=== PATIENT | female | born 1955 | race Caucasian/White ===

== ENCOUNTER → 2018-02-03 17:47 | Outpatient (CLI) | payer MEDICARE, SELFPAY | PROVIDERS: Visit Provider Physician Assistant | DX: L03.032 Cellulitis of left toe (principal); L97.509 Non-pressure chronic ulcer of other part of unspecified foot with unspecified severity | CPT/HCPCS: 87070; 87075; 87076; 87077; 87186; 87205 ==

== ENCOUNTER 2018-02-28 09:00 | Outpatient (RCR) | payer MEDICARE, SELFPAY ==
[2018-02-07 11:47] VITALS: BP 132/70; PULSE 80; RESP 18; TEMP 36; BMI 29.3
--- NOTE | 2018-02-07 13:52 | HP.PCM_ITS ---
(1) Overweight (BMI 25.0-29.9) Status: Chronic Current Visit: No Code(s): E66.3 - Overweight (2) Diabetic foot ulcer Status: Chronic Current Visit: Yes Qualifiers: Diabetic foot ulcer location: toe Diabetes mellitus type: type 2 Laterality: left Non-pressure ulcer stage: with fat layer exposed Qualified Code(s): E11.621 - Type 2 diabetes mellitus with foot ulcer; L97.522 - Non- pressure chronic ulcer of other part of left foot with fat layer exposed Code(s): E11.621 - Type 2 diabetes mellitus with foot ulcer; L97.509 - Non- pressure chronic ulcer of other part of unspecified foot with unspecified severity (3) Chronic ulcer of great toe of left foot Status: Chronic Current Visit: Yes Qualifiers: Non-pressure ulcer stage: with fat layer exposed Qualified Code(s): L97.522 - Non-pressure chronic ulcer of other part of left foot with fat layer exposed Code(s): L97.529 - Non-pressure chronic ulcer of other part of left foot with unspecified severity (4) Diabetes Status: Chronic Current Visit: Yes Qualifiers: Diabetes mellitus type: type 2 Code(s): E11.9 - Type 2 diabetes mellitus without complications (5) Hyperlipidemia Status: Chronic Current Visit: No Code(s): E78.5 - Hyperlipidemia, unspecified (6) Hypothyroidism Status: Chronic Current Visit: No Code(s): E03.9 - Hypothyroidism, unspecified (7) History of CVA (cerebrovascular accident) Status: Chronic Current Visit: No Code(s): Z86.73 - Personal history of transient ischemic attack (TIA), and cerebral infarction without residual deficits History of Present Illness Date of Service: 02/07/18 Chief Complaint: Diabetic foot ulceration, Boyce grade 2, left great toe History of Wound: Is a 62-year-old female who presents with recent history of ulceration on the left great toe. The patient states that the ulceration has been present for approximately 2 weeks. The cause of the ulceration is uncertain, though suspected to be due to poorly-fitted shoes. [facility], and cultures were obtained. Patient was started on oral antibiotics, both Keflex 500 mg p.o. 3 times daily and doxycycline 100 mg p.o. twice daily. The cultures subsequently were positive for Streptococcus agalactiae and Streptococcus mitis. The patient was also given a prescription for mupirocin 2% applied topically to the ulceration of the left great toe. She was referred to the [facility] for subsequent management. Patient has a history of lower extremity peripheral neuropathy. She also has a history of varicose veins in her lower extremities. She has no history of lower extremity thrombophlebitis. Past Medical History Past Medical History: Chronic Problems (Last Updated 02/03/18 @ 14:22 by Jojo Ruggiero) Overweight (BMI 25.0-29.9) (Chronic) Diabetic foot ulcer (Chronic) Chronic ulcer of great toe of left foot (Chronic) Diabetes (Chronic) Hyperlipidemia (Chronic) Hypothyroidism (Chronic) History of CVA (cerebrovascular accident) (Chronic) Past Medical History: Patient has a history of cerebrovascular accident in the past, with very little residual deficits. She also suffers from hyperlipidemia and hypothyroidism. Her history is negative for myocardial infarction, congestive heart failure, hypertension, pulmonary disease and renal disease. She has a history of peripheral neuropathy. Surgical History: hysterectomy, - - Patient is undergone left shoulder arthroscopy. She is also undergone fertility surgery in the past. She is a Ab0. Allergies/Adverse Reactions: Allergies Inhaled Anesthetics (Halogen Based) Allergy (Verified 02/07/18 11:25) Unknown morphine Allergy (Verified 02/07/18 11:25) Unknown Home Medications: Ambulatory Orders Medication Instructions Recorded atorvastatin 80 mg tablet 80 mg PO DAILY 90 Days #90 02/03/18 cephalexin 500 mg capsule 500 mg PO TID #20 cap 02/03/18 diclofenac sodium 50 mg 50 mg PO BID 30 Days #60 02/03/18 tablet,delayed release doxycycline hyclate 100 mg capsule 100 mg PO BID #14 cap 02/03/18 ergocalciferol (vitamin D2) 50,000 1 cap PO Q7D 90 Days #12 02/03/18 unit capsule glipizide 10 mg tablet 10 mg PO DAILY 30 Days #30 02/03/18 insulin aspart U-100 100 unit/mL 5 unit SC QDAY 02/03/18 subcutaneous solution levothyroxine 75 mcg tablet 75 mcg PO DAILY 90 Days #114 02/03/18 linagliptin 5 mg tablet 5 mg PO DAILY 90 Days #90 02/03/18 losartan 100 mg tablet 100 mg PO DAILY 90 Days #90 02/03/18 metoprolol succinate ER 25 mg 25 mg PO DAILY 90 Days #90 02/03/18 tablet,extended release 24 hr mupirocin 2 % topical ointment 1 applic TOPICAL BID #15 g 02/03/18 sertraline 25 mg tablet 25 mg PO DAILY 90 Days #90 02/03/18 - Family History Paternal - - Patient's father at the age of 75 with a history of renal failure, heart disease, and diabetes mellitus. Patient's mother at the age of 87, with a history of diabetes mellitus, heart disease, and cerebrovascular accident. Lives: Alone Smoking Status: Never smoker Tobacco Use: Non-smoker Alcohol: None Drugs: None Review of Systems Constitutional: Denies: Chills, Fever, Weight Change Eyes: Denies: Pain, Vision Change HEENT: Denies: Difficulty Hearing, Difficulty Swallowing, Sinus Congestion Cardiovascular: Denies: Chest Pain, Palpitations Respiratory: Denies: Cough, Shortness of Breath Gastrointestinal: Denies: Diarrhea, Nausea, Vomiting Genitourinary: Denies: Dysuria, Hematuria Endocrine: Denies: Heat/ Cold Intolerance, Polydipsia, Polyuria Hematologic/ Lymphatic: Denies: Easy Bruising, Easy Bleeding - Physical Exam Vital Signs Temp Pulse Resp BP 96.8 F L 80 18 132/70 H 02/07/18 11:47 02/07/18 11:47 02/07/18 11:47 02/07/18 11:47 General: Alert, Oriented x3, Cooperative, No apparent distress, Well developed, Well nourished HEENT: Atraumatic, PERRLA, EOMI, Normocephalic Oral: Moist Mucosa, No Gingival or Mucosal Lesions/ Ulcerations Neck: Supple, No JVD, Negative Carotid Bruits, Negative Hepatojugular Reflux, No Nodes, No Nuchal Rigidity, Trachea Midline Lungs: Clear to auscultation, Normal air movement, No rhonchi, No wheeze, No rales Cardiovascular: Regular rate, Regular Rhythm, Normal S1, Normal S2, No murmurs Abdomen: Soft, Non Tender, Non-Distended Extremities: No clubbing, No cyanosis, No edema, No Calf Tenderness, - - Patient is noted to have an ulceration on the plantar aspect of the left great toe. Dimensions are documented elsewhere. There is no sign of infection or cellulitis. The ulceration appears to extend down into the subcutaneous adipose tissue, but does not obviously affect underlying muscle, tendon, or bone. There is a significant amount of callus surrounding the left great toe ulceration. Skin: No rashes Wound Measurements and Assessment - Nurse 1 - General Ulcer Measurement Start: 02/07/18 11:13 Freq: Status: Active Protocol: Activity Type Activity Date Activity User E-Sign Co-Sign Detail Recorded Client Recorded Date Recorded By Document 02/07/18 11:47 [facility] [id number] 02/07/18 11:57 [facility] 02/07/18 11:47 Wound Center Nurse 1 [Ulcer Assessment] #1- LT GR TOE PLANTAR ASPECT -Current Size (cm) - Length 1 -Current Size (cm) - Width 1.4 -Current Size (cm) - Depth 0.1 -Total Square Cm 1.4 -Date of Last Picture (Recall this 02/07/18 field) -Photo Taken Yes -Epithelialization None Present -Tunneling No -Undermining/Tunneling No -Circular Undermining No -Exudate Amt Small (1-33%) -Exudate Type Serosanguineous -Wound Margin Distinct, Outline Attached -Granulation Amt None Present (0 %) -Slough/Fibrin Yes -Necrosis Amt Large (67-100%) -Necrotic Tissue Type Adherent Slough -Structure Exposed N/A -Texture (Salima-wound Skin Appearance) Callus Scarring -Moisture (Salima-wound Skin Appearance Maceration ) -Color (Salima-wound Skin Appearance) Assessed Palor -Temperature (Salima-wound Skin No Abnormality Appearance) (Pt Warm) -Tenderness on Palpation (Salima-wound Yes Skin Appearance) -Ulcer Cleansing Rinsed/ Irrigated with Saline -Foul Odor after Cleansing No -Anesthetic Used 5% Lidocaine Gel [Edema Assessment] -Lower Limb Edema Present Yes -Right Calf (cm) 37 -Right Ankle (cm) 21 -Left Calf (cm) 42 -Left Ankle (cm) 24 - Nurse 2 - General Ulcer CM Notes Start: 02/07/18 11:13 Freq: Status: Active Protocol: Activity Type Activity Date Activity User E-Sign Co-Sign Detail Recorded Client Recorded Date Recorded By Document 02/07/18 12:18 [id number] 02/07/18 12:51 02/07/18 12:18 Wound Center Nurse 2 [Procedure/Treatment] #1- LT GR TOE PLANTAR ASPECT -Time 12:18 -Correct Patient Yes -Correct Side, Site, Position Yes -Correct Procedure Yes -Procedure Performed Yes -Type of Procedure Debridement -Clinical Debridement Subcutaneous -Post Debridement Size (cm) - Length 0.9 -Post Debridement Size (cm) - Width 1.1 -Post Debridement Size (cm) - Depth 0.1 -Total Square Cm 0.99 -Wound/Ulcer Outcome Not Healed -Ulcer Cleansing Rinsed/ Irrigated with Saline -Foul Odor after Cleansing No -Bioengineered Tissue No -Topical Lidocaine (%) 4 -Lidocaine (ml) 5 -Bleeding Controlled with NA -Treatment Response Procedure Tolerated Well [See Physician Procedure note for Specifics] Neurological: Cranial nerves II-XII grossly intact, Neuro grossly intact Psych/Mental Status: Normal Affect, Appropriate, Alert and oriented to time, place, person, mood and affect Debridement Note Post-Debridement Measurements/Treatment WC - Nurse 2 - General Ulcer CM Notes Start: 02/07/18 11:13 Freq: Status: Active Protocol: Activity Type Activity Date Activity User E-Sign Co-Sign Detail Recorded Client Recorded Date Recorded By Document 02/07/18 12:18 JADE [id number] 02/07/18 12:51 JADE 02/07/18 12:18 Wound Center Nurse 2 #1- LT GR TOE PLANTAR ASPECT -Time 12:18 -Correct Patient Yes -Correct Side, Site, Position Yes -Correct Procedure Yes -Procedure Performed Yes -Type of Procedure Debridement -Clinical Debridement Subcutaneous -Post Debridement Size (cm) - Length 0.9 -Post Debridement Size (cm) - Width 1.1 -Post Debridement Size (cm) - Depth 0.1 -Total Square Cm 0.99 -Wound/Ulcer Outcome Not Healed -Ulcer Cleansing Rinsed/ Irrigated with Saline -Foul Odor after Cleansing No -Bioengineered Tissue No -Topical Lidocaine (%) 4 -Lidocaine (ml) 5 -Bleeding Controlled with NA -Treatment Response Procedure Tolerated Well Laterality: Left - Great toe Type of Debridement: Excisional debridement Anesthesia Used: 4% Lidocaine Solution Depth: Down to and including healthy tissue, in the subcutaneous layer Percentage of wound debrided: 100 Instrument Used: 5mm curette Severity: Fat Layer Exposed Amount of bleeding with debridement: Mild Bleeding Controlled with: Compression and gauze Patient tolerated procedure well Assessment/Plan Active Problems (Last Updated 02/03/18 @ 14:22 by Jojo Ruggiero) Diabetic foot ulcer (Chronic) Chronic ulcer of great toe of left foot (Chronic) Diabetes (Chronic) Assessment: This is a 62-year-old diabetic female with peripheral neuropathy who presents with an ulceration of the left great toe. The ulceration is located on the plantar surface. It is surrounded by significant callus. This suggests chronicity back to the left great toe ulceration. It is suspected that this may be caused by poorly?fitted footwear. Plan: Offloading measures have been recommended. The patient has been cautioned against wearing the shoes which she has worn recently. She is to be referred to the [facility] for fitting of diabetic shoes. We are to implement the use of collagenase Santyl topically, which will be applied to the ulceration on a daily basis. The patient is to return in 1 week for reassessment. We are to obtain a battery of diagnostic tests, which will include laboratory studies such as a CBC, comprehensive metabolic profile, serum prealbumin, and hemoglobin A1c. An x-ray of the left great toe will be obtained. A noninvasive lower extremity arterial study will also be obtained to assess the arterial status in the lower extremities. Patient is also been advised to complete the course of oral antibiotics, as previously prescribed by the [facility]. Adequate oral nutrition has been recommended. The patient has been advised to optimize her glycemic control. Patient will return for reevaluation in 1 week. Influenza vaccine was not administered. The patient is not a smoker. She stands 5 feet 6 inches tall. She weighs 182 pounds. Her BMI is 29.4, which places her in an overweight category. Weight loss has been recommended, and collaboration with her primary care physician has been advised.
[2018-02-07 15:55] LABS: Hematocrit 34.7 % (37-47); Mean Corp Hgb Conc 31.7 g/gl (32-36); Mean Corpuscular Hgb 28.8 pg (27.0-32.0); Mean Corpuscular Volume 90.8 fL (81-99); Mean Platelet Vol. 9.4 fl (6.2-12.0); Platelet Count 314 K/mm3 (150-450); RBC Distribution Width CV 13.1 % (11.6-14.6); RBC Distribution Width SD 43.4 fl (35.1-43.9); Red Blood Count 3.82 M/mm3 (4.2-5.4); White Blood Count 6.3 K/mm3 (4.4-11.0)
[2018-02-07 16:00] LABS: Scan Indicated on CBC? Y/N NO
[2018-02-07 16:09] LABS: ALB/GLOB Ratio 0.8 RATIO (0.9-2.4); AST(SGOT) 13 U/L (15-37); Alanine Aminotransfer ALT/SGPT 21 U/L (13-56); Albumin, Serum 3.3 g/dL (3.2-5.0); Alkaline Phosphatase 87 U/L (45-117); Anion Gap 6 (5-15); BUN 16 mg/dL (7-18); BUN/Creat Ratio 24.7 RATIO (10-20); Calcium,Total 9.2 mg/dL (8.5-10.1); Chloride 103 mmol/L (98-107); Creatinine, Serum 0.65 mg/dL (0.55-1.02); EST Glomerular Filtration Rate 98 mL/min (>60); Est Glom Filt Rate - Afr Amer 119 mL/min (>60); Estimated Creatinine Clearance 82.93 ml/min; Globulin 4.1 g/dL (2.2-4.2); Glucose 313 mg/dL (74-106); Potassium 4.1 mmol/L (3.5-5.1); Prealbumin 16.5 mg/dL (20.0-40.0); Protein, Total 7.4 g/dL (6.4-8.2); Sodium Level 139 mmol/L (136-145)
[2018-02-07 16:17] LABS: Hemoglobin A1c 13.1 % (4.2-6.3)
[2018-02-14 09:17] VITALS: BP 143/76; PULSE 87; RESP 18; TEMP 35.9; BMI 29.3
--- NOTE | 2018-02-14 09:58 | PCM.WC.HP ---
(1) Overweight (BMI 25.0-29.9) Status: Chronic Current Visit: No Code(s): E66.3 - Overweight (2) Diabetic foot ulcer Status: Chronic Current Visit: Yes Qualifiers: Diabetic foot ulcer location: toe Diabetes mellitus type: type 2 Laterality: left Non-pressure ulcer stage: with fat layer exposed Qualified Code(s): E11.621 - Type 2 diabetes mellitus with foot ulcer; L97.522 - Non-pressure chronic ulcer of other part of left foot with fat layer exposed Code(s): E11.621 - Type 2 diabetes mellitus with foot ulcer; L97.509 - Non-pressure chronic ulcer of other part of unspecified foot with unspecified severity (3) Chronic ulcer of great toe of left foot Status: Chronic Current Visit: Yes Qualifiers: Non-pressure ulcer stage: with fat layer exposed Qualified Code(s): L97.522 - Non-pressure chronic ulcer of other part of left foot with fat layer exposed Code(s): L97.529 - Non-pressure chronic ulcer of other part of left foot with unspecified severity (4) Diabetes Status: Chronic Current Visit: Yes Qualifiers: Diabetes mellitus type: type 2 Code(s): E11.9 - Type 2 diabetes mellitus without complications (5) Hyperlipidemia Status: Chronic Current Visit: No Code(s): E78.5 - Hyperlipidemia, unspecified (6) Hypothyroidism Status: Chronic Current Visit: No Code(s): E03.9 - Hypothyroidism, unspecified (7) History of CVA (cerebrovascular accident) Status: Chronic Current Visit: No Code(s): Z86.73 - Personal history of transient ischemic attack (TIA), and cerebral infarction without residual deficits History of Present Illness Date of Service: 02/14/18 Chief Complaint: Diabetic foot ulceration, Boyce grade 2, left great toe History of Wound: This is a 62-year-old female who presents with recent history of ulceration on the left great toe. The patient states that the ulceration has been present for approximately 2 weeks. The cause of the ulceration is uncertain, though suspected to be due to poorly-fitted shoes. [facility], and cultures were obtained. Patient was started on oral antibiotics, both Keflex 500 mg p.o. 3 times daily and doxycycline 100 mg p.o. twice daily. The cultures subsequently were positive for Streptococcus agalactiae and Streptococcus mitis. The patient was also given a prescription for mupirocin 2% applied topically to the ulceration of the left great toe. She was referred to the [facility] for subsequent management. Patient has a history of lower extremity peripheral neuropathy. She also has a history of varicose veins in her lower extremities. She has no history of lower extremity thrombophlebitis. Past Medical History Past Medical History: Chronic Problems (Last Updated 02/03/18 @ 14:22 by Jojo Ruggiero) Overweight (BMI 25.0-29.9) (Chronic) Diabetic foot ulcer (Chronic) Chronic ulcer of great toe of left foot (Chronic) Diabetes (Chronic) Hyperlipidemia (Chronic) Hypothyroidism (Chronic) History of CVA (cerebrovascular accident) (Chronic) Surgical History: hysterectomy, - - Patient is undergone left shoulder arthroscopy. She is also undergone fertility surgery in the past. She is a Ab0. Allergies/Adverse Reactions: Allergies Inhaled Anesthetics (Halogen Based) Allergy (Verified 02/07/18 11:25) Unknown morphine Allergy (Verified 02/07/18 11:25) Unknown Home Medications: Ambulatory Orders Medication Instructions Recorded atorvastatin 80 mg tablet 80 mg PO DAILY 90 Days #90 02/03/18 cephalexin 500 mg capsule 500 mg PO TID #20 cap 02/03/18 diclofenac sodium 50 mg 50 mg PO BID 30 Days #60 02/03/18 tablet,delayed release doxycycline hyclate 100 mg capsule 100 mg PO BID #14 cap 02/03/18 ergocalciferol (vitamin D2) 50,000 1 cap PO Q7D 90 Days #12 02/03/18 unit capsule glipizide 10 mg tablet 10 mg PO DAILY 30 Days #30 02/03/18 insulin aspart U-100 100 unit/mL 5 unit SC QDAY 02/03/18 subcutaneous solution levothyroxine 75 mcg tablet 75 mcg PO DAILY 90 Days #114 02/03/18 linagliptin 5 mg tablet 5 mg PO DAILY 90 Days #90 02/03/18 losartan 100 mg tablet 100 mg PO DAILY 90 Days #90 02/03/18 metoprolol succinate ER 25 mg 25 mg PO DAILY 90 Days #90 02/03/18 tablet,extended release 24 hr mupirocin 2 % topical ointment 1 applic TOPICAL BID #15 g 02/03/18 sertraline 25 mg tablet 25 mg PO DAILY 90 Days #90 02/03/18 - Family History Paternal - - Patient's father at the age of 75 with a history of renal failure, heart disease, and diabetes mellitus. Patient's mother at the age of 87, with a history of diabetes mellitus, heart disease, and cerebrovascular accident. Lives: Alone Smoking Status: Never smoker Tobacco Use: Non-smoker Alcohol: None Drugs: None Review of Systems Constitutional: Denies: Chills, Fever, Weight Change Eyes: Denies: Pain, Vision Change HEENT: Denies: Difficulty Hearing, Difficulty Swallowing, Sinus Congestion Cardiovascular: Denies: Chest Pain, Palpitations Respiratory: Denies: Cough, Shortness of Breath Gastrointestinal: Denies: Diarrhea, Nausea, Vomiting Genitourinary: Denies: Dysuria, Hematuria Endocrine: Denies: Heat/ Cold Intolerance, Polydipsia, Polyuria Hematologic/ Lymphatic: Denies: Easy Bruising, Easy Bleeding - Physical Exam Vital Signs Temp Pulse Resp BP 96.6 F L 87 18 143/76 H 02/14/18 09:17 02/14/18 09:17 02/14/18 09:17 02/14/18 09:17 General: Alert, Oriented x3, Cooperative, No apparent distress, Well developed, Well nourished HEENT: Atraumatic, PERRLA, EOMI, Normocephalic Oral: Moist Mucosa Neck: No JVD Lungs: Normal air movement Abdomen: Non-Distended Extremities: No clubbing, No cyanosis, No edema, No Calf Tenderness, - - The ulceration on the left great toe persists. It is located on the plantar surface. It is little changed in size. Dimensions are documented elsewhere. The base of the ulcer is generally pink and healthy in appearance, improved from its initial appearance. The ulceration is surrounded by significant callus. Skin: No rashes Wound Measurements and Assessment WC - Nurse 1 - General Ulcer Measurement Start: 02/07/18 11:13 Freq: Status: Active Protocol: Activity Type Activity Date Activity User E-Sign Co-Sign Detail Recorded Client Recorded Date Recorded By Document 02/14/18 09:17 JF [id number] 02/14/18 09:18 PATRICK 02/14/18 09:17 Wound Center Nurse 1 [Ulcer Assessment] #1- LT GR TOE PLANTAR ASPECT -Combined with other wound No -Current Size (cm) - Length 1.0 -Current Size (cm) - Width 0.8 -Current Size (cm) - Depth 0.3 -Total Square Cm 0.80 -Photo Taken No -Epithelialization Small 1-33% -Tunneling No -Undermining/Tunneling No -Circular Undermining No -Exudate Amt Small (1-33%) -Exudate Type Serosanguineous -Wound Margin Flat & Intact -Granulation Amt None Present (0 %) -Slough/Fibrin Yes -Necrosis Amt Large (67-100%) -Necrotic Tissue Type Adherent Slough -Structure Exposed N/A -Texture (Salima-wound Skin Appearance) Assessed Callus -Moisture (Salima-wound Skin Appearance Assessed ) Dry/Scaly -Temperature (Salima-wound Skin No Abnormality Appearance) (Pt Warm) -Tenderness on Palpation (Salima-wound No Skin Appearance) -Ulcer Cleansing Rinsed/ Irrigated with Saline -Foul Odor after Cleansing No -Anesthetic Used 4% Lidocaine Solution [Edema Assessment] -Lower Limb Edema Present Yes -Left Calf (cm) 44.3 -Left Ankle (cm) 23.6 Neurological: Cranial nerves II-XII grossly intact, Neuro grossly intact Psych/Mental Status: Normal Affect, Appropriate, Alert and oriented to time, place, person, mood and affect Debridement Note Post-Debridement Measurements/Treatment WC - Nurse 2 - General Ulcer CM Notes Start: 02/07/18 11:13 Freq: Status: Active Protocol: Activity Type Activity Date Activity User E-Sign Co-Sign Detail Recorded Client Recorded Date Recorded By Document 02/07/18 12:18 JADE [id number] 02/07/18 12:51 JADE 02/07/18 12:18 Wound Center Nurse 2 #1- LT GR TOE PLANTAR ASPECT -Time 12:18 -Correct Patient Yes -Correct Side, Site, Position Yes -Correct Procedure Yes -Procedure Performed Yes -Type of Procedure Debridement -Clinical Debridement Subcutaneous -Post Debridement Size (cm) - Length 0.9 -Post Debridement Size (cm) - Width 1.1 -Post Debridement Size (cm) - Depth 0.1 -Total Square Cm 0.99 -Wound/Ulcer Outcome Not Healed -Ulcer Cleansing Rinsed/ Irrigated with Saline -Foul Odor after Cleansing No -Bioengineered Tissue No -Topical Lidocaine (%) 4 -Lidocaine (ml) 5 -Bleeding Controlled with NA -Treatment Response Procedure Tolerated Well Laterality: Left - Great toe, plantar surface Type of Debridement: Excisional debridement Anesthesia Used: 4% Lidocaine Solution Depth: Down to and including healthy tissue, in the subcutaneous layer Percentage of wound debrided: 100 Instrument Used: 5mm curette Severity: Fat Layer Exposed Amount of bleeding with debridement: Mild Bleeding Controlled with: Compression and gauze Patient tolerated procedure well Assessment/Plan Active Problems (Last Updated 02/03/18 @ 14:22 by Jojo Ruggiero) Diabetic foot ulcer (Chronic) Chronic ulcer of great toe of left foot (Chronic) Diabetes (Chronic) Assessment: This is a 62-year-old diabetic female with peripheral neuropathy who presents with an ulceration of the left great toe. The ulceration is located on the plantar surface. It is surrounded by significant callus. This suggests chronicity and etiology related to pressure phenomenon. It is suspected that this may be caused by poorlyfitted footwear. Since patient's initial visit, laboratory results have been obtained, and are as follows: White blood count 6.3, hemoglobin 11.0, hematocrit 34.7, platelets 314,000, glucose 313, BUN 16, creatinine 0.65, total protein 7.4, albumin 3.3, calcium 9.2, AST 13, alkaline phosphatase 87, ALT 21, total bilirubin 0.30, sodium 139, potassium 4.1, chloride 103, serum prealbumin 16.5, hemoglobin A1c 13.1. The patient's wound cultures from last week were positive for Streptococcus species, and the patient has been placed on Augmentin 875 mg p.o. twice daily for 10 days, which she is currently taking. The patient has yet to obtain x-rays of the left foot, as were ordered, and her lower extremity arterial study is scheduled for February 24, 2018. Plan: Offloading measures have been recommended. The patient has been cautioned against wearing the shoes which she has worn recently. She is to be referred to the [facility] for fitting of diabetic shoes, and has an appointment with [facility] next week. She is to be fitted with a CAM walker until which time definitive footwear can be dispensed. She is to get an x-ray of the left foot, as had been previously ordered. Her noninvasive lower extremity arterial study is scheduled for February 24, 2018. We are to continue the use of collagenase Santyl topically, which will be applied to the ulceration on a daily basis. The patient has been instructed to optimize her nutritional intake, as well as optimize her glycemic control. The patient is to return in 1 week for reassessment. Influenza vaccine was not administered. The patient is not a smoker. She stands 5 feet 6 inches tall. She weighs 182 pounds. Her BMI is 29.4, which places her in an overweight category. Weight loss has been recommended, and collaboration with her primary care physician has been advised.
--- NOTE | 2018-02-14 10:07 | HP.PCM_ITS ---
(1) Overweight (BMI 25.0-29.9) Status: Chronic Current Visit: No Code(s): E66.3 - Overweight (2) Diabetic foot ulcer Status: Chronic Current Visit: Yes Qualifiers: Diabetic foot ulcer location: toe Diabetes mellitus type: type 2 Laterality: left Non-pressure ulcer stage: with fat layer exposed Qualified Code(s): E11.621 - Type 2 diabetes mellitus with foot ulcer; L97.522 - Non- pressure chronic ulcer of other part of left foot with fat layer exposed Code(s): E11.621 - Type 2 diabetes mellitus with foot ulcer; L97.509 - Non- pressure chronic ulcer of other part of unspecified foot with unspecified severity (3) Chronic ulcer of great toe of left foot Status: Chronic Current Visit: Yes Qualifiers: Non-pressure ulcer stage: with fat layer exposed Qualified Code(s): L97.522 - Non-pressure chronic ulcer of other part of left foot with fat layer exposed Code(s): L97.529 - Non-pressure chronic ulcer of other part of left foot with unspecified severity (4) Diabetes Status: Chronic Current Visit: Yes Qualifiers: Diabetes mellitus type: type 2 Code(s): E11.9 - Type 2 diabetes mellitus without complications (5) Hyperlipidemia Status: Chronic Current Visit: No Code(s): E78.5 - Hyperlipidemia, unspecified (6) Hypothyroidism Status: Chronic Current Visit: No Code(s): E03.9 - Hypothyroidism, unspecified (7) History of CVA (cerebrovascular accident) Status: Chronic Current Visit: No Code(s): Z86.73 - Personal history of transient ischemic attack (TIA), and cerebral infarction without residual deficits History of Present Illness Date of Service: 02/14/18 Chief Complaint: Diabetic foot ulceration, Boyce grade 2, left great toe History of Wound: This is a 62-year-old female who presents with recent history of ulceration on the left great toe. The patient states that the ulceration has been present for approximately 2 weeks. The cause of the ulceration is uncertain, though suspected to be due to poorly-fitted shoes. [facility], and cultures were obtained. Patient was started on oral antibiotics, both Keflex 500 mg p.o. 3 times daily and doxycycline 100 mg p.o. twice daily. The cultures subsequently were positive for Streptococcus agalactiae and Streptococcus mitis. The patient was also given a prescription for mupirocin 2% applied topically to the ulceration of the left great toe. She was referred to the [facility] for subsequent management. Patient has a history of lower extremity peripheral neuropathy. She also has a history of varicose veins in her lower extremities. She has no history of lower extremity thrombophlebitis. Past Medical History Past Medical History: Chronic Problems (Last Updated 02/03/18 @ 14:22 by Jojo Ruggiero) Overweight (BMI 25.0-29.9) (Chronic) Diabetic foot ulcer (Chronic) Chronic ulcer of great toe of left foot (Chronic) Diabetes (Chronic) Hyperlipidemia (Chronic) Hypothyroidism (Chronic) History of CVA (cerebrovascular accident) (Chronic) Surgical History: hysterectomy, - - Patient is undergone left shoulder arthroscopy. She is also undergone fertility surgery in the past. She is a Ab0. Allergies/Adverse Reactions: Allergies Inhaled Anesthetics (Halogen Based) Allergy (Verified 02/07/18 11:25) Unknown morphine Allergy (Verified 02/07/18 11:25) Unknown Home Medications: Ambulatory Orders Medication Instructions Recorded atorvastatin 80 mg tablet 80 mg PO DAILY 90 Days #90 02/03/18 cephalexin 500 mg capsule 500 mg PO TID #20 cap 02/03/18 diclofenac sodium 50 mg 50 mg PO BID 30 Days #60 02/03/18 tablet,delayed release doxycycline hyclate 100 mg capsule 100 mg PO BID #14 cap 02/03/18 ergocalciferol (vitamin D2) 50,000 1 cap PO Q7D 90 Days #12 02/03/18 unit capsule glipizide 10 mg tablet 10 mg PO DAILY 30 Days #30 02/03/18 insulin aspart U-100 100 unit/mL 5 unit SC QDAY 02/03/18 subcutaneous solution levothyroxine 75 mcg tablet 75 mcg PO DAILY 90 Days #114 02/03/18 linagliptin 5 mg tablet 5 mg PO DAILY 90 Days #90 02/03/18 losartan 100 mg tablet 100 mg PO DAILY 90 Days #90 02/03/18 metoprolol succinate ER 25 mg 25 mg PO DAILY 90 Days #90 02/03/18 tablet,extended release 24 hr mupirocin 2 % topical ointment 1 applic TOPICAL BID #15 g 02/03/18 sertraline 25 mg tablet 25 mg PO DAILY 90 Days #90 02/03/18 - Family History Paternal - - Patient's father at the age of 75 with a history of renal failure, heart disease, and diabetes mellitus. Patient's mother at the age of 87, with a history of diabetes mellitus, heart disease, and cerebrovascular accident. Lives: Alone Smoking Status: Never smoker Tobacco Use: Non-smoker Alcohol: None Drugs: None Review of Systems Constitutional: Denies: Chills, Fever, Weight Change Eyes: Denies: Pain, Vision Change HEENT: Denies: Difficulty Hearing, Difficulty Swallowing, Sinus Congestion Cardiovascular: Denies: Chest Pain, Palpitations Respiratory: Denies: Cough, Shortness of Breath Gastrointestinal: Denies: Diarrhea, Nausea, Vomiting Genitourinary: Denies: Dysuria, Hematuria Endocrine: Denies: Heat/ Cold Intolerance, Polydipsia, Polyuria Hematologic/ Lymphatic: Denies: Easy Bruising, Easy Bleeding - Physical Exam Vital Signs Temp Pulse Resp BP 96.6 F L 87 18 143/76 H 02/14/18 09:17 02/14/18 09:17 02/14/18 09:17 02/14/18 09:17 General: Alert, Oriented x3, Cooperative, No apparent distress, Well developed, Well nourished HEENT: Atraumatic, PERRLA, EOMI, Normocephalic Oral: Moist Mucosa Neck: No JVD Lungs: Normal air movement Abdomen: Non-Distended Extremities: No clubbing, No cyanosis, No edema, No Calf Tenderness, - - The ulceration on the left great toe persists. It is located on the plantar surface. It is little changed in size. Dimensions are documented elsewhere. The base of the ulcer is generally pink and healthy in appearance, improved from its initial appearance. The ulceration is surrounded by significant callus. Skin: No rashes Wound Measurements and Assessment WC - Nurse 1 - General Ulcer Measurement Start: 02/07/18 11:13 Freq: Status: Active Protocol: Activity Type Activity Date Activity User E-Sign Co-Sign Detail Recorded Client Recorded Date Recorded By Document 02/14/18 09:17 JF [id number] 02/14/18 09:18 PATRICK 02/14/18 09:17 Wound Center Nurse 1 [Ulcer Assessment] #1- LT GR TOE PLANTAR ASPECT -Combined with other wound No -Current Size (cm) - Length 1.0 -Current Size (cm) - Width 0.8 -Current Size (cm) - Depth 0.3 -Total Square Cm 0.80 -Photo Taken No -Epithelialization Small 1-33% -Tunneling No -Undermining/Tunneling No -Circular Undermining No -Exudate Amt Small (1-33%) -Exudate Type Serosanguineous -Wound Margin Flat & Intact -Granulation Amt None Present (0 %) -Slough/Fibrin Yes -Necrosis Amt Large (67-100%) -Necrotic Tissue Type Adherent Slough -Structure Exposed N/A -Texture (Salima-wound Skin Appearance) Assessed Callus -Moisture (Salima-wound Skin Appearance Assessed ) Dry/Scaly -Temperature (Salima-wound Skin No Abnormality Appearance) (Pt Warm) -Tenderness on Palpation (Salima-wound No Skin Appearance) -Ulcer Cleansing Rinsed/ Irrigated with Saline -Foul Odor after Cleansing No -Anesthetic Used 4% Lidocaine Solution [Edema Assessment] -Lower Limb Edema Present Yes -Left Calf (cm) 44.3 -Left Ankle (cm) 23.6 Neurological: Cranial nerves II-XII grossly intact, Neuro grossly intact Psych/Mental Status: Normal Affect, Appropriate, Alert and oriented to time, place, person, mood and affect Debridement Note Post-Debridement Measurements/Treatment WC - Nurse 2 - General Ulcer CM Notes Start: 02/07/18 11:13 Freq: Status: Active Protocol: Activity Type Activity Date Activity User E-Sign Co-Sign Detail Recorded Client Recorded Date Recorded By Document 02/07/18 12:18 JADE [id number] 02/07/18 12:51 JADE 02/07/18 12:18 Wound Center Nurse 2 #1- LT GR TOE PLANTAR ASPECT -Time 12:18 -Correct Patient Yes -Correct Side, Site, Position Yes -Correct Procedure Yes -Procedure Performed Yes -Type of Procedure Debridement -Clinical Debridement Subcutaneous -Post Debridement Size (cm) - Length 0.9 -Post Debridement Size (cm) - Width 1.1 -Post Debridement Size (cm) - Depth 0.1 -Total Square Cm 0.99 -Wound/Ulcer Outcome Not Healed -Ulcer Cleansing Rinsed/ Irrigated with Saline -Foul Odor after Cleansing No -Bioengineered Tissue No -Topical Lidocaine (%) 4 -Lidocaine (ml) 5 -Bleeding Controlled with NA -Treatment Response Procedure Tolerated Well Laterality: Left - Great toe, plantar surface Type of Debridement: Excisional debridement Anesthesia Used: 4% Lidocaine Solution Depth: Down to and including healthy tissue, in the subcutaneous layer Percentage of wound debrided: 100 Instrument Used: 5mm curette Severity: Fat Layer Exposed Amount of bleeding with debridement: Mild Bleeding Controlled with: Compression and gauze Patient tolerated procedure well Assessment/Plan Active Problems (Last Updated 02/03/18 @ 14:22 by Jojo Ruggiero) Diabetic foot ulcer (Chronic) Chronic ulcer of great toe of left foot (Chronic) Diabetes (Chronic) Assessment: This is a 62-year-old diabetic female with peripheral neuropathy who presents with an ulceration of the left great toe. The ulceration is located on the plantar surface. It is surrounded by significant callus. This suggests chronicity and etiology related to pressure phenomenon. It is suspected that this may be caused by poorly?fitted footwear. Since patient's initial visit, laboratory results have been obtained, and are as follows: White blood count 6.3, hemoglobin 11.0, hematocrit 34.7, platelets 314,000, glucose 313, BUN 16, creatinine 0.65, total protein 7.4, albumin 3.3, calcium 9.2, AST 13, alkaline phosphatase 87, ALT 21, total bilirubin 0.30, sodium 139, potassium 4.1, chloride 103, serum prealbumin 16.5, hemoglobin A1c 13.1. The patient's wound cultures from last week were positive for Streptococcus species , and the patient has been placed on Augmentin 875 mg p.o. twice daily for 10 days, which she is currently taking. The patient has yet to obtain x-rays of the left foot, as were ordered, and her lower extremity arterial study is scheduled for February 24, 2018. Plan: Offloading measures have been recommended. The patient has been cautioned against wearing the shoes which she has worn recently. She is to be referred to the [facility] for fitting of diabetic shoes, and has an appointment with [facility] next week. She is to be fitted with a CAM walker until which time definitive footwear can be dispensed. She is to get an x-ray of the left foot, as had been previously ordered. Her noninvasive lower extremity arterial study is scheduled for February 24, 2018. We are to continue the use of collagenase Santyl topically, which will be applied to the ulceration on a daily basis. The patient has been instructed to optimize her nutritional intake , as well as optimize her glycemic control. The patient is to return in 1 week for reassessment. Influenza vaccine was not administered. The patient is not a smoker. She stands 5 feet 6 inches tall. She weighs 182 pounds. Her BMI is 29.4, which places her in an overweight category. Weight loss has been recommended, and collaboration with her primary care physician has been advised.
--- NOTE | 2018-02-14 10:55 | RAD_ITS ---
STUDY: X-RAY LEFT FOOT, GREAT TOE REASON FOR EXAM: Female, 62 years old. Nonhealing ulcer. TECHNIQUE: 3 view(s) of the toe were obtained. COMPARISON: None. FINDINGS: Normal visualized metatarsus. Normal metatarsophalangeal (M.T.P) joint. Normal interphalangeal joints. Normal phalanges and interphalangeal joints. Soft tissue swelling. Vascular calcification. RAD/Toe(s) Min 2 Views IMPRESSION: Soft tissue swelling. No bony abnormality is seen. Vascular calcification. Electronically Signed: Filiberto Camara MD at 14:22 EDT Tel [phone], Service support ,
[2018-02-21 09:58] VITALS: BP 125/63; PULSE 84; RESP 18; TEMP 36.5; BMI 29.3
--- NOTE | 2018-02-21 10:29 | HP.PCM_ITS ---
(1) Overweight (BMI 25.0-29.9) Status: Chronic Current Visit: No Code(s): E66.3 - Overweight (2) Diabetic foot ulcer Status: Chronic Current Visit: Yes Qualifiers: Diabetic foot ulcer location: toe Diabetes mellitus type: type 2 Laterality: left Non-pressure ulcer stage: with fat layer exposed Qualified Code(s): E11.621 - Type 2 diabetes mellitus with foot ulcer; L97.522 - Non- pressure chronic ulcer of other part of left foot with fat layer exposed Code(s): E11.621 - Type 2 diabetes mellitus with foot ulcer; L97.509 - Non- pressure chronic ulcer of other part of unspecified foot with unspecified severity (3) Chronic ulcer of great toe of left foot Status: Chronic Current Visit: Yes Qualifiers: Non-pressure ulcer stage: with fat layer exposed Qualified Code(s): L97.522 - Non-pressure chronic ulcer of other part of left foot with fat layer exposed Code(s): L97.529 - Non-pressure chronic ulcer of other part of left foot with unspecified severity (4) Diabetes Status: Chronic Current Visit: Yes Qualifiers: Diabetes mellitus type: type 2 Code(s): E11.9 - Type 2 diabetes mellitus without complications (5) Hyperlipidemia Status: Chronic Current Visit: No Code(s): E78.5 - Hyperlipidemia, unspecified (6) Hypothyroidism Status: Chronic Current Visit: No Code(s): E03.9 - Hypothyroidism, unspecified (7) History of CVA (cerebrovascular accident) Status: Chronic Current Visit: No Code(s): Z86.73 - Personal history of transient ischemic attack (TIA), and cerebral infarction without residual deficits History of Present Illness Date of Service: 02/21/18 Chief Complaint: Diabetic foot ulceration, Boyce grade 2, left great toe History of Wound: This is a 62-year-old female who presents with recent history of ulceration on the left great toe. The patient states that the ulceration has been present for approximately 2 weeks. The cause of the ulceration is uncertain, though suspected to be due to poorly-fitted shoes. [facility], and cultures were obtained. Patient was started on oral antibiotics, both Keflex 500 mg p.o. 3 times daily and doxycycline 100 mg p.o. twice daily. The cultures subsequently were positive for Streptococcus agalactiae and Streptococcus mitis. The patient was also given a prescription for mupirocin 2% applied topically to the ulceration of the left great toe. She was referred to the [facility] for subsequent management. Patient has a history of lower extremity peripheral neuropathy. She also has a history of varicose veins in her lower extremities. She has no history of lower extremity thrombophlebitis. Since the patient's last visit, we have used collagenase Santyl topically. Past Medical History Past Medical History: Chronic Problems (Last Updated 02/03/18 @ 14:22 by Jojo Ruggiero) Overweight (BMI 25.0-29.9) (Chronic) Diabetic foot ulcer (Chronic) Chronic ulcer of great toe of left foot (Chronic) Diabetes (Chronic) Hyperlipidemia (Chronic) Hypothyroidism (Chronic) History of CVA (cerebrovascular accident) (Chronic) Surgical History: hysterectomy, - - Patient is undergone left shoulder arthroscopy. She is also undergone fertility surgery in the past. She is a Ab0. Allergies/Adverse Reactions: Allergies Inhaled Anesthetics (Halogen Based) Allergy (Verified 02/07/18 11:25) Unknown morphine Allergy (Verified 02/07/18 11:25) Unknown Home Medications: Ambulatory Orders Medication Instructions Recorded atorvastatin 80 mg tablet 80 mg PO DAILY 90 Days #90 02/03/18 cephalexin 500 mg capsule 500 mg PO TID #20 cap 02/03/18 diclofenac sodium 50 mg 50 mg PO BID 30 Days #60 02/03/18 tablet,delayed release doxycycline hyclate 100 mg capsule 100 mg PO BID #14 cap 02/03/18 ergocalciferol (vitamin D2) 50,000 1 cap PO Q7D 90 Days #12 02/03/18 unit capsule glipizide 10 mg tablet 10 mg PO DAILY 30 Days #30 02/03/18 insulin aspart U-100 100 unit/mL 5 unit SC QDAY 02/03/18 subcutaneous solution levothyroxine 75 mcg tablet 75 mcg PO DAILY 90 Days #114 02/03/18 linagliptin 5 mg tablet 5 mg PO DAILY 90 Days #90 02/03/18 losartan 100 mg tablet 100 mg PO DAILY 90 Days #90 02/03/18 metoprolol succinate ER 25 mg 25 mg PO DAILY 90 Days #90 02/03/18 tablet,extended release 24 hr mupirocin 2 % topical ointment 1 applic TOPICAL BID #15 g 02/03/18 sertraline 25 mg tablet 25 mg PO DAILY 90 Days #90 02/03/18 - Family History Paternal - - Patient's father at the age of 75 with a history of renal failure, heart disease, and diabetes mellitus. Patient's mother at the age of 87, with a history of diabetes mellitus, heart disease, and cerebrovascular accident. Lives: Alone Smoking Status: Never smoker Tobacco Use: Non-smoker Alcohol: None Drugs: None Review of Systems Constitutional: Denies: Chills, Fever, Weight Change Eyes: Denies: Pain, Vision Change HEENT: Denies: Difficulty Hearing, Difficulty Swallowing, Sinus Congestion Cardiovascular: Denies: Chest Pain, Palpitations Respiratory: Denies: Cough, Shortness of Breath Gastrointestinal: Denies: Diarrhea, Nausea, Vomiting Genitourinary: Denies: Dysuria, Hematuria Endocrine: Denies: Heat/ Cold Intolerance, Polydipsia, Polyuria Hematologic/ Lymphatic: Denies: Easy Bruising, Easy Bleeding - Physical Exam Vital Signs Temp Pulse Resp BP 97.7 F L 84 18 125/63 H 02/21/18 09:58 02/21/18 09:58 02/21/18 09:58 02/21/18 09:58 General: Alert, Oriented x3, Cooperative, No apparent distress, Well developed, Well nourished HEENT: Atraumatic, PERRLA, EOMI, Normocephalic Oral: Moist Mucosa Neck: No JVD Lungs: Normal air movement Abdomen: Non-Distended Extremities: No clubbing, No cyanosis, No edema, No Calf Tenderness, - - There is little change in the ulceration on the left great toe. There is a large amount of bioburden and nonviable tissue present. There is no sign of infection or cellulitis. Dimensions are documented elsewhere. There remains a large amount of callus peripherally. Skin: No rashes Wound Measurements and Assessment WC - Nurse 1 - General Ulcer Measurement Start: 02/07/18 11:13 Freq: Status: Active Protocol: Activity Type Activity Date Activity User E-Sign Co-Sign Detail Recorded Client Recorded Date Recorded By Document 02/21/18 09:58 DL [id number] 02/21/18 10:05 DL 02/21/18 09:58 Wound Center Nurse 1 [Ulcer Assessment] #1- LT GR TOE PLANTAR ASPECT -Current Size (cm) - Length 1 -Current Size (cm) - Width 1 -Current Size (cm) - Depth 0.2 -Total Square Cm 1 -Photo Taken No -Exudate Amt Large (67-100%) -Exudate Type Serosanguineous -Wound Margin Thickened -Granulation Amt Small (1-33%) -Granulation Quality [place] -Necrosis Amt Large (67-100%) -Necrotic Tissue Type Adherent Slough -Structure Exposed N/A -Texture (Salima-wound Skin Appearance) Localized Edema -Moisture (Salima-wound Skin Appearance Maceration ) -Color (Salima-wound Skin Appearance) Erythema -Temperature (Salima-wound Skin No Abnormality Appearance) (Pt Warm) -Ulcer Cleansing Rinsed/ Irrigated with Saline -Foul Odor after Cleansing No -Anesthetic Used 4% Lidocaine Solution [Edema Assessment] -Left Calf (cm) 42.5 -Left Ankle (cm) 22.2 Neurological: Cranial nerves II-XII grossly intact, Neuro grossly intact Psych/Mental Status: Normal Affect, Appropriate, Alert and oriented to time, place, person, mood and affect Debridement Note Post-Debridement Measurements/Treatment WC - Nurse 2 - General Ulcer CM Notes Start: 02/07/18 11:13 Freq: Status: Active Protocol: Activity Type Activity Date Activity User E-Sign Co-Sign Detail Recorded Client Recorded Date Recorded By Document 02/07/18 12:18 [id number] 02/07/18 12:51 Document 02/14/18 09:59 [id number] 02/14/18 10:02 JS 02/07/18 02/14/18 12:18 09:59 Wound Center Nurse 2 #1- LT GR TOE PLANTAR ASPECT -Time 12:18 09:59 -Correct Patient Yes Yes -Correct Side, Site, Position Yes Yes -Correct Procedure Yes Yes -Procedure Performed Yes Yes -Type of Procedure Debridement Debridement -Clinical Debridement Subcutaneous Subcutaneous -Post Debridement Size (cm) - Length 0.9 1.0 -Post Debridement Size (cm) - Width 1.1 1.0 -Post Debridement Size (cm) - Depth 0.1 0.2 -Total Square Cm 0.99 1.00 -Wound/Ulcer Outcome Not Healed Not Healed -Ulcer Cleansing Rinsed/ Rinsed/ Irrigated with Irrigated with Saline Saline -Foul Odor after Cleansing No No -Bioengineered Tissue No No -Topical Lidocaine (%) 4 4 -Lidocaine (ml) 5 5 -Bleeding Controlled with NA NA -Treatment Response Procedure Procedure Tolerated Well Tolerated Well Pain Scale: 0-10 Numeric Is Patient Pain Free? No wound -Description Sharp Aching -Intensity 8 -Duration (hours) Chronic -Pain Behavior Guarding Irritability Facial Grimacing -Pain Aggravating Factors Walking Debridement -Alleviating Factors/Interventions Medication Inactivity/ Resting -Effectiveness of Alleviating Factor/ Minimally Intervention effective Laterality: Left - Great toe Type of Debridement: Excisional debridement Anesthesia Used: 4% Lidocaine Solution Depth: Down to and including healthy tissue, in the subcutaneous layer Percentage of wound debrided: 100 Instrument Used: 5mm curette, #11 blade, Forceps Severity: Fat Layer Exposed Amount of bleeding with debridement: Mild Bleeding Controlled with: Compression and gauze Patient tolerated procedure well Assessment/Plan Clinical Impression(s) from Imaging Studies Toe X-Ray 02/14/18 10:55 IMPRESSION: Soft tissue swelling. No bony abnormality is seen. Vascular calcification. Electronically Signed: Filiberto Camara MD at 14:22 EDT Tel [phone], Service support , Active Problems (Last Updated 02/03/18 @ 14:22 by Jojo Ruggiero) Diabetic foot ulcer (Chronic) Chronic ulcer of great toe of left foot (Chronic) Diabetes (Chronic) Assessment: This is a 62-year-old diabetic female with peripheral neuropathy who presents with an ulceration of the left great toe. The ulceration is located on the plantar surface. It is surrounded by significant callus. This suggests chronicity and etiology related to pressure phenomenon. It is suspected that this may be caused by poorly?fitted footwear. Laboratory results have been obtained, and are as follows: White blood count 6.3, hemoglobin 11.0, hematocrit 34.7, platelets 314,000, glucose 313, BUN 16, creatinine 0.65, total protein 7.4, albumin 3.3, calcium 9.2, AST 13, alkaline phosphatase 87, ALT 21, total bilirubin 0.30, sodium 139, potassium 4.1, chloride 103, serum prealbumin 16.5, hemoglobin A1c 13.1. The patient's wound cultures were positive for Streptococcus species, and the patient has been placed on Augmentin 875 mg p.o. twice daily for 10 days, which she is currently taking. The patient has undergone an x-ray of her left foot, revealing no evidence of osteomyelitis. Her lower extremity arterial study is scheduled for February 24, 2018. The patient is scheduled to be fitted for a CAM walker. Today, and will be seen at [facility] tomorrow for fitting of appropriate diabetic shoes. Plan: Offloading measures have been recommended implemented. The patient has been cautioned against wearing the shoes which she has worn recently. She is referred to the [facility] for fitting of diabetic shoes. She is to be fitted with a CAM walker until which time definitive footwear can be dispensed. Her noninvasive lower extremity arterial study is scheduled for February 24, 2018. We are to continue the use of collagenase Santyl topically, which will be applied to the ulceration on a daily basis. The patient has been instructed to optimize her nutritional intake, as well as optimize her glycemic control. The patient is to return in 1 week for reassessment. She is to finish her prescription for antibiotics. Influenza vaccine was not administered. The patient is not a smoker. She stands 5 feet 6 inches tall. She weighs 182 pounds. Her BMI is 29.4, which places her in an overweight category. Weight loss has been recommended, and collaboration with her primary care physician has been advised.
--- NOTE | 2018-02-27 20:00 | LEAS ---
Arterial Study - Arterial Study Arterial Study: This is a 62-year-old female with a history of diabetes mellitus, hyperlipidemia, cerebrovascular accident, and hypertension. Suspecting the presence of atherosclerotic peripheral arterial occlusive disease, the patient was brought to the noninvasive vascular laboratory at this time for the purpose of bilateral noninvasive lower extremity arterial assessment. Doppler signal assessment was used to evaluate the pulses at ankle level bilaterally. The right posterior tibial pulse was biphasic. The right dorsalis pedis pulse was triphasic. The left posterior tibial pulse was biphasic. The left dorsalis pedis pulse was monophasic. Segmental limb pressures were obtained bilaterally. The right ankle pressure, as determined by posterior tibial pulse, was measured at 140 mmHg. The right ankle pressure, as determined by dorsalis pedis pulse, was measured at 198 mmHg. The right digital pressure was measured at 94 mmHg. The left ankle pressure, as determined by posterior tibial pulse, was measured at 156 mmHg. The left ankle pressure, as determined by dorsalis pedis pulse, was measured at 181 mmHg. The left digital pressure was measured at 145 mmHg. Pulse-volume recordings were obtained bilaterally and segmentally. Waveform amplitudes appeared to be satisfactory at all levels bilaterally, including low thigh, calf, ankle, and digital levels. Resting ankle-brachial indices were calculated bilaterally. The resting right ankle-brachial index was calculated to be 1.32. The resting left ankle-brachial index was calculated to be 1.21. Digital-brachial indices were calculated bilaterally. The right digital-brachial index was calculated to be 0.63. The left digital-brachial index was calculated to be 0.97. Impression: Based upon the findings of this resting noninvasive lower extremity arterial study, arterial perfusion to ankle level appears relatively normal. Resting ankle-brachial indices are bilaterally normal. The right digital-brachial index is mildly diminished, suggesting the presence of mild, distal, small-vessel arterial occlusive disease in the right lower extremity. The left digital-brachial index is normal, suggesting relatively normal flow at digital level in the left lower extremity. Clinical correlation is advised.
--- NOTE | 2018-02-27 20:03 | LEAS_ITS ---
Arterial Study - Arterial Study Arterial Study: This is a 62-year-old female with a history of diabetes mellitus, hyperlipidemia , cerebrovascular accident, and hypertension. Suspecting the presence of atherosclerotic peripheral arterial occlusive disease, the patient was brought to the noninvasive vascular laboratory at this time for the purpose of bilateral noninvasive lower extremity arterial assessment. Doppler signal assessment was used to evaluate the pulses at ankle level bilaterally. The right posterior tibial pulse was biphasic. The right dorsalis pedis pulse was triphasic. The left posterior tibial pulse was biphasic. The left dorsalis pedis pulse was monophasic. Segmental limb pressures were obtained bilaterally. The right ankle pressure, as determined by posterior tibial pulse, was measured at 140 mmHg. The right ankle pressure, as determined by dorsalis pedis pulse, was measured at 198 mmHg. The right digital pressure was measured at 94 mmHg. The left ankle pressure, as determined by posterior tibial pulse, was measured at 156 mmHg. The left ankle pressure, as determined by dorsalis pedis pulse, was measured at 181 mmHg. The left digital pressure was measured at 145 mmHg. Pulse-volume recordings were obtained bilaterally and segmentally. Waveform amplitudes appeared to be satisfactory at all levels bilaterally, including low thigh, calf, ankle, and digital levels. Resting ankle-brachial indices were calculated bilaterally. The resting right ankle-brachial index was calculated to be 1.32. The resting left ankle- brachial index was calculated to be 1.21. Digital-brachial indices were calculated bilaterally. The right digital- brachial index was calculated to be 0.63. The left digital-brachial index was calculated to be 0.97. Impression: Based upon the findings of this resting noninvasive lower extremity arterial study, arterial perfusion to ankle level appears relatively normal. Resting ankle-brachial indices are bilaterally normal. The right digital- brachial index is mildly diminished, suggesting the presence of mild, distal, small-vessel arterial occlusive disease in the right lower extremity. The left digital-brachial index is normal, suggesting relatively normal flow at digital level in the left lower extremity. Clinical correlation is advised.
[2018-02-28 09:07] VITALS: BP 108/65; PULSE 88; RESP 20; TEMP 36.3; BMI 29.3
--- NOTE | 2018-02-28 09:38 | PCM.WC.HP ---
(1) Overweight (BMI 25.0-29.9) Status: Chronic Current Visit: No Code(s): E66.3 - Overweight (2) Diabetic foot ulcer Status: Chronic Current Visit: Yes Qualifiers: Diabetic foot ulcer location: toe Diabetes mellitus type: type 2 Laterality: left Non-pressure ulcer stage: with fat layer exposed Qualified Code(s): E11.621 - Type 2 diabetes mellitus with foot ulcer; L97.522 - Non-pressure chronic ulcer of other part of left foot with fat layer exposed Code(s): E11.621 - Type 2 diabetes mellitus with foot ulcer; L97.509 - Non-pressure chronic ulcer of other part of unspecified foot with unspecified severity (3) Chronic ulcer of great toe of left foot Status: Chronic Current Visit: Yes Qualifiers: Non-pressure ulcer stage: with fat layer exposed Qualified Code(s): L97.522 - Non-pressure chronic ulcer of other part of left foot with fat layer exposed Code(s): L97.529 - Non-pressure chronic ulcer of other part of left foot with unspecified severity (4) Diabetes Status: Chronic Current Visit: Yes Qualifiers: Diabetes mellitus type: type 2 Code(s): E11.9 - Type 2 diabetes mellitus without complications (5) Hyperlipidemia Status: Chronic Current Visit: No Code(s): E78.5 - Hyperlipidemia, unspecified (6) Hypothyroidism Status: Chronic Current Visit: No Code(s): E03.9 - Hypothyroidism, unspecified (7) History of CVA (cerebrovascular accident) Status: Chronic Current Visit: No Code(s): Z86.73 - Personal history of transient ischemic attack (TIA), and cerebral infarction without residual deficits History of Present Illness Date of Service: 02/28/18 Chief Complaint: Diabetic foot ulceration, Boyce grade 2, left great toe History of Wound: This is a 62-year-old female who presents with recent history of ulceration on the left great toe. The patient stated that the ulceration had been present for approximately 2 weeks. The cause of the ulceration is uncertain, though suspected to be due to poorly-fitted shoes. The patient was seen at the [facility], and cultures were obtained. The patient was started on oral antibiotics, both Keflex 500 mg p.o. 3 times daily and doxycycline 100 mg p.o. twice daily. The cultures subsequently were positive for Streptococcus agalactiae and Streptococcus mitis. The patient was also given a prescription for mupirocin 2% applied topically to the ulceration of the left great toe. She was referred to the [facility] for subsequent management. The patient has a history of lower extremity peripheral neuropathy. She also has a history of varicose veins in her lower extremities. She has no history of lower extremity thrombophlebitis. Since the patient's last visit, we have used collagenase Santyl topically. 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 She is also undergone fertility surgery in the past. She is a Ab0. Allergies/Adverse Reactions: Allergies Inhaled Anesthetics (Halogen Based) Allergy (Verified 02/07/18 11:25) Unknown morphine Allergy (Verified 02/07/18 11:25) Unknown Home Medications: Ambulatory Orders Medication Instructions Recorded atorvastatin 80 mg tablet 80 mg PO DAILY 90 Days #90 02/03/18 diclofenac sodium 50 mg 50 mg PO BID 30 Days #60 02/03/18 tablet,delayed release ergocalciferol (vitamin D2) 50,000 1 cap PO Q7D 90 Days #12 02/03/18 unit capsule glipizide 10 mg tablet 10 mg PO DAILY 30 Days #30 02/03/18 levothyroxine 75 mcg tablet 75 mcg PO DAILY 90 Days #114 02/03/18 losartan 100 mg tablet 100 mg PO DAILY 90 Days #90 02/03/18 metoprolol succinate ER 25 mg 25 mg PO DAILY 90 Days #90 02/03/18 tablet,extended release 24 hr sertraline 25 mg tablet 25 mg PO DAILY 90 Days #90 02/03/18 aspirin 81 mg tablet,delayed 81 mg PO QDAY 02/23/18 release biotin 1 mg tablet 1 mg PO QDAY 02/23/18 dulaglutide 1.5 mg/0.5 mL 1.5 mg SC QWEEK #2 ml 02/23/18 subcutaneous pen injector insulin glargine (U-100) 100 30 unit SC QDAY #10 ml 02/23/18 unit/mL subcutaneous solution insulin syringe-needle U-100 1 mL See Dose Instructions .ROUTE 02/23/18 28 gauge x 1/2 .MEDSUPPLY #100 ea - Family History Paternal Family History: Family History (Last Updated 02/23/18 @ 14:37 by Brie Negrete) Mother Anemia Angina pectoris Heart disease CVA (cerebral vascular accident) Thyroid disorder Diabetes Father Angina pectoris Myocardial infarction Kidney disease Diabetes Grandmother Colon cancer - - Patient's father at the age of 75 with a history of renal failure, heart disease, and diabetes mellitus. Patient's mother at the age of 87, with a history of diabetes mellitus, heart disease, and cerebrovascular accident. Lives: Alone Smoking Status: Never smoker Tobacco Use: Non-smoker Alcohol: None Drugs: None Review of Systems Constitutional: Denies: Chills, Fever, Weight Change Eyes: Denies: Pain, Vision Change HEENT: Denies: Difficulty Hearing, Difficulty Swallowing, Sinus Congestion Cardiovascular: Denies: Chest Pain, Palpitations Respiratory: Denies: Cough, Shortness of Breath Gastrointestinal: Denies: Diarrhea, Nausea, Vomiting Genitourinary: Denies: Dysuria, Hematuria Endocrine: Denies: Heat/ Cold Intolerance, Polydipsia, Polyuria Hematologic/ Lymphatic: Denies: Easy Bruising, Easy Bleeding - Physical Exam Vital Signs Temp Pulse Resp BP 97.4 F L 88 20 H 108/65 02/28/18 09:07 02/28/18 09:07 02/28/18 09:07 02/28/18 09:07 General: Alert, Oriented x3, Cooperative, No apparent distress, Well developed, Well nourished HEENT: Atraumatic, PERRLA, EOMI, Normocephalic Oral: Moist Mucosa Neck: No JVD Lungs: Normal air movement Abdomen: Non-Distended Extremities: No clubbing, No cyanosis, No edema, No Calf Tenderness, - - The ulceration on the left great toe is little changed in size. There is slight maceration of surrounding tissues and callus. Undermining is noted. The base of the ulceration is generally pink and healthy in appearance. Mentions are documented elsewhere. There is increasing erythema about the ulceration. Skin: No rashes Wound Measurements and Assessment WC - Nurse 1 - General Ulcer Measurement Start: 02/07/18 11:13 Freq: Status: Active Protocol: Activity Type Activity Date Activity User E-Sign Co-Sign Detail Recorded Client Recorded Date Recorded By Document 02/28/18 09:07 DL [id number] 02/28/18 09:13 DL 02/28/18 09:07 Wound Center Nurse 1 [Ulcer Assessment] #1- LT GR TOE PLANTAR ASPECT -Current Size (cm) - Length 0.7 -Current Size (cm) - Width 0.8 -Current Size (cm) - Depth 0.3 -Total Square Cm 0.56 -Photo Taken No -Undermining/Tunneling Starts (O' 9 clock) -Undermining/Tunneling Ends (O'clock) 12 -Maximum Distance (cm) 0.2 -Exudate Amt Small (1-33%) -Exudate Type Serosanguineous -Wound Margin Thickened -Granulation Amt Small (1-33%) -Granulation Quality Mogul -Necrosis Amt Small (1-33%) -Necrotic Tissue Type Adherent Slough -Structure Exposed N/A -Texture ([place]-wound Skin Appearance) Callus -Moisture (Salima-wound Skin Appearance Maceration ) -Color (Salima-wound Skin Appearance) Erythema -Temperature (Salima-wound Skin Hot Appearance) -Tenderness on Palpation (Salima-wound Yes Skin Appearance) -Ulcer Cleansing Rinsed/ Irrigated with Saline -Foul Odor after Cleansing No -Anesthetic Used 4% Lidocaine Solution Musculoskeletal: No Muscle Wasting Neurological: Cranial nerves II-XII grossly intact, Neuro grossly intact Psych/Mental Status: Normal Affect, Appropriate, Alert and oriented to time, place, person, mood and affect Debridement Note Post-Debridement Measurements/Treatment WC - Nurse 2 - General Ulcer CM Notes Start: 02/07/18 11:13 Freq: Status: Active Protocol: Activity Type Activity Date Activity User E-Sign Co-Sign Detail Recorded Client Recorded Date Recorded By Document 02/07/18 12:18 JADE [id number] 02/07/18 12:51 Document 02/14/18 09:59 [id number] 02/14/18 10:02 Document 02/21/18 10:23 [id number] 02/21/18 10:24 02/07/18 02/14/18 02/21/18 12:18 09:59 10:23 Wound Center Nurse 2 #1- LT GR TOE PLANTAR ASPECT -Time 12:18 09:59 10:23 -Correct Patient Yes Yes Yes -Correct Side, Site, Position Yes Yes Yes -Correct Procedure Yes Yes Yes -Procedure Performed Yes Yes Yes -Type of Procedure Debridement Debridement Debridement -Clinical Debridement Subcutaneous Subcutaneous Subcutaneous -Post Debridement Size (cm) - Length 0.9 1.0 1.0 -Post Debridement Size (cm) - Width 1.1 1.0 1.1 -Post Debridement Size (cm) - Depth 0.1 0.2 0.2 -Total Square Cm 0.99 1.00 1.10 -Wound/Ulcer Outcome Not Healed Not Healed Not Healed -Ulcer Cleansing Rinsed/ Rinsed/ Not Cleansed Irrigated with Irrigated with Saline Saline -Foul Odor after Cleansing No No No -Bioengineered Tissue No No No -Topical Lidocaine (%) 4 4 4 -Lidocaine (ml) 5 5 5 -Bleeding Controlled with NA NA NA Pressure -Treatment Response Procedure Procedure Procedure Tolerated Well Tolerated Well Tolerated Well Pain Scale: 0-10 Numeric Is Patient Pain Free? No Yes wound -Description Sharp Aching -Intensity 8 -Duration (hours) Chronic -Pain Behavior Guarding Irritability Facial Grimacing -Pain Aggravating Factors Walking Debridement -Alleviating Factors/Interventions Medication Inactivity/ Resting -Effectiveness of Alleviating Factor/ Minimally Intervention effective Laterality: Left - Great toe Type of Debridement: Excisional debridement Anesthesia Used: 4% Lidocaine Solution Depth: Down to and including healthy tissue, in the subcutaneous layer Percentage of wound debrided: 100 Instrument Used: 5mm curette, Forceps, - - Sterile scissors Severity: Fat Layer Exposed Amount of bleeding with debridement: Mild Bleeding Controlled with: Compression and gauze Patient tolerated procedure well Assessment/Plan Clinical Impression(s) from Imaging Studies Toe X-Ray 02/14/18 10:55 IMPRESSION: Soft tissue swelling. No bony abnormality is seen. Vascular calcification. Electronically Signed: Filiberto Camara MD at 14:22 EDT Tel [phone], Service support , Active Problems (Last Updated 02/23/18 @ 14:51 by Brie Negrete) Diabetic foot ulcer (Chronic) Chronic ulcer of great toe of left foot (Chronic) Diabetes (Chronic) Assessment: This is a 62-year-old diabetic female with peripheral neuropathy who presents with an ulceration of the left great toe. The ulceration is located on the plantar surface. It is surrounded by significant callus. This suggests chronicity and etiology related to pressure phenomenon. It is suspected that this may be caused by poorlyfitted footwear. Laboratory results have been obtained, and are as follows: White blood count 6.3, hemoglobin 11.0, hematocrit 34.7, platelets 314,000, glucose 313, BUN 16, creatinine 0.65, total protein 7.4, albumin 3.3, calcium 9.2, AST 13, alkaline phosphatase 87, ALT 21, total bilirubin 0.30, sodium 139, potassium 4.1, chloride 103, serum prealbumin 16.5, hemoglobin A1c 13.1. The patient's wound cultures were positive for Streptococcus species, and the patient has completed Augmentin 875 mg p.o. twice daily for 10 days. The patient has undergone an x-ray of her left foot, revealing no evidence of osteomyelitis. Her lower extremity arterial study is unremarkable, revealing normal anklebrachial index and digital-brachial index in the left lower extremity. The patient has now obtained her CAM walker, [facility]. Because of the maceration about the left great toe ulceration, we are to transition from the use of collagenase Santyl to the use of Rosa Isela, applied every other day. Plan: Offloading measures have been implemented. The patient has been cautioned against wearing the shoes which she has worn recently. She has been referred to the [facility] for fitting of diabetic shoes. She has been fitted with a CAM walker until which time definitive footwear can be dispensed. Her noninvasive lower extremity arterial study reveals no evidence of significant arterial occlusive disease in the left lower extremity. We are to implement the use of Rosa Isela topically every other day. The patient has been instructed to optimize her nutritional intake, as well as optimize her glycemic control. The patient is to return in 1 week for reassessment. Because of increasing erythema about the patient's ulceration, cultures have been obtained, and results will be awaited. Because of undermining which is noted in relation to the ulceration, it is felt that surgical debridement and unroofing is warranted. In this regard, we will seek consultation with the podiatric service. She is to follow-up in 1 week for reevaluation. Influenza vaccine was not administered. The patient is not a smoker. She stands 5 feet 6 inches tall. She weighs 182 pounds. Her BMI is 29.4, which places her in an overweight category. Weight loss has been recommended, and collaboration with her primary care physician has been advised.
--- NOTE | 2018-02-28 09:50 | HP.PCM_ITS ---
(1) Overweight (BMI 25.0-29.9) Status: Chronic Current Visit: No Code(s): E66.3 - Overweight (2) Diabetic foot ulcer Status: Chronic Current Visit: Yes Qualifiers: Diabetic foot ulcer location: toe Diabetes mellitus type: type 2 Laterality: left Non-pressure ulcer stage: with fat layer exposed Qualified Code(s): E11.621 - Type 2 diabetes mellitus with foot ulcer; L97.522 - Non- pressure chronic ulcer of other part of left foot with fat layer exposed Code(s): E11.621 - Type 2 diabetes mellitus with foot ulcer; L97.509 - Non- pressure chronic ulcer of other part of unspecified foot with unspecified severity (3) Chronic ulcer of great toe of left foot Status: Chronic Current Visit: Yes Qualifiers: Non-pressure ulcer stage: with fat layer exposed Qualified Code(s): L97.522 - Non-pressure chronic ulcer of other part of left foot with fat layer exposed Code(s): L97.529 - Non-pressure chronic ulcer of other part of left foot with unspecified severity (4) Diabetes Status: Chronic Current Visit: Yes Qualifiers: Diabetes mellitus type: type 2 Code(s): E11.9 - Type 2 diabetes mellitus without complications (5) Hyperlipidemia Status: Chronic Current Visit: No Code(s): E78.5 - Hyperlipidemia, unspecified (6) Hypothyroidism Status: Chronic Current Visit: No Code(s): E03.9 - Hypothyroidism, unspecified (7) History of CVA (cerebrovascular accident) Status: Chronic Current Visit: No Code(s): Z86.73 - Personal history of transient ischemic attack (TIA), and cerebral infarction without residual deficits History of Present Illness Date of Service: 02/28/18 Chief Complaint: Diabetic foot ulceration, Boyce grade 2, left great toe History of Wound: This is a 62-year-old female who presents with recent history of ulceration on the left great toe. The patient stated that the ulceration had been present for approximately 2 weeks. The cause of the ulceration is uncertain, though suspected to be due to poorly-fitted shoes. The patient was seen at the [facility], and cultures were obtained. The patient was started on oral antibiotics, both Keflex 500 mg p.o. 3 times daily and doxycycline 100 mg p.o. twice daily. The cultures subsequently were positive for Streptococcus agalactiae and Streptococcus mitis. The patient was also given a prescription for mupirocin 2% applied topically to the ulceration of the left great toe. She was referred to the [facility] for subsequent management. The patient has a history of lower extremity peripheral neuropathy. She also has a history of varicose veins in her lower extremities. She has no history of lower extremity thrombophlebitis. Since the patient's last visit, we have used collagenase Santyl topically. 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 She is also undergone fertility surgery in the past. She is a Ab0. Allergies/Adverse Reactions: Allergies Inhaled Anesthetics (Halogen Based) Allergy (Verified 02/07/18 11:25) Unknown morphine Allergy (Verified 02/07/18 11:25) Unknown Home Medications: Ambulatory Orders Medication Instructions Recorded atorvastatin 80 mg tablet 80 mg PO DAILY 90 Days #90 02/03/18 diclofenac sodium 50 mg 50 mg PO BID 30 Days #60 02/03/18 tablet,delayed release ergocalciferol (vitamin D2) 50,000 1 cap PO Q7D 90 Days #12 02/03/18 unit capsule glipizide 10 mg tablet 10 mg PO DAILY 30 Days #30 02/03/18 levothyroxine 75 mcg tablet 75 mcg PO DAILY 90 Days #114 02/03/18 losartan 100 mg tablet 100 mg PO DAILY 90 Days #90 02/03/18 metoprolol succinate ER 25 mg 25 mg PO DAILY 90 Days #90 02/03/18 tablet,extended release 24 hr sertraline 25 mg tablet 25 mg PO DAILY 90 Days #90 02/03/18 aspirin 81 mg tablet,delayed 81 mg PO QDAY 02/23/18 release biotin 1 mg tablet 1 mg PO QDAY 02/23/18 dulaglutide 1.5 mg/0.5 mL 1.5 mg SC QWEEK #2 ml 02/23/18 subcutaneous pen injector insulin glargine (U-100) 100 30 unit SC QDAY #10 ml 02/23/18 unit/mL subcutaneous solution insulin syringe-needle U-100 1 mL See Dose Instructions .ROUTE 02/23/18 28 gauge x 1/2 .MEDSUPPLY #100 ea - Family History Paternal Family History: Family History (Last Updated 02/23/18 @ 14:37 by Brie Negrete) Mother Anemia Angina pectoris Heart disease CVA (cerebral vascular accident) Thyroid disorder Diabetes Father Angina pectoris Myocardial infarction Kidney disease Diabetes Grandmother Colon cancer - - Patient's father at the age of 75 with a history of renal failure, heart disease, and diabetes mellitus. Patient's mother at the age of 87, with a history of diabetes mellitus, heart disease, and cerebrovascular accident. Lives: Alone Smoking Status: Never smoker Tobacco Use: Non-smoker Alcohol: None Drugs: None Review of Systems Constitutional: Denies: Chills, Fever, Weight Change Eyes: Denies: Pain, Vision Change HEENT: Denies: Difficulty Hearing, Difficulty Swallowing, Sinus Congestion Cardiovascular: Denies: Chest Pain, Palpitations Respiratory: Denies: Cough, Shortness of Breath Gastrointestinal: Denies: Diarrhea, Nausea, Vomiting Genitourinary: Denies: Dysuria, Hematuria Endocrine: Denies: Heat/ Cold Intolerance, Polydipsia, Polyuria Hematologic/ Lymphatic: Denies: Easy Bruising, Easy Bleeding - Physical Exam Vital Signs Temp Pulse Resp BP 97.4 F L 88 20 H 108/65 02/28/18 09:07 02/28/18 09:07 02/28/18 09:07 02/28/18 09:07 General: Alert, Oriented x3, Cooperative, No apparent distress, Well developed, Well nourished HEENT: Atraumatic, PERRLA, EOMI, Normocephalic Oral: Moist Mucosa Neck: No JVD Lungs: Normal air movement Abdomen: Non-Distended Extremities: No clubbing, No cyanosis, No edema, No Calf Tenderness, - - The ulceration on the left great toe is little changed in size. There is slight maceration of surrounding tissues and callus. Undermining is noted. The base of the ulceration is generally pink and healthy in appearance. Mentions are documented elsewhere. There is increasing erythema about the ulceration. Skin: No rashes Wound Measurements and Assessment WC - Nurse 1 - General Ulcer Measurement Start: 02/07/18 11:13 Freq: Status: Active Protocol: Activity Type Activity Date Activity User E-Sign Co-Sign Detail Recorded Client Recorded Date Recorded By Document 02/28/18 09:07 DL [id number] 02/28/18 09:13 DL 02/28/18 09:07 Wound Center Nurse 1 [Ulcer Assessment] #1- LT GR TOE PLANTAR ASPECT -Current Size (cm) - Length 0.7 -Current Size (cm) - Width 0.8 -Current Size (cm) - Depth 0.3 -Total Square Cm 0.56 -Photo Taken No -Undermining/Tunneling Starts (O' 9 clock) -Undermining/Tunneling Ends (O'clock) 12 -Maximum Distance (cm) 0.2 -Exudate Amt Small (1-33%) -Exudate Type Serosanguineous -Wound Margin Thickened -Granulation Amt Small (1-33%) -Granulation Quality [place] -Necrosis Amt Small (1-33%) -Necrotic Tissue Type Adherent Slough -Structure Exposed N/A -Texture (Salima-wound Skin Appearance) Callus -Moisture (Salima-wound Skin Appearance Maceration ) -Color (Salima-wound Skin Appearance) Erythema -Temperature (Salima-wound Skin Hot Appearance) -Tenderness on Palpation (Salima-wound Yes Skin Appearance) -Ulcer Cleansing Rinsed/ Irrigated with Saline -Foul Odor after Cleansing No -Anesthetic Used 4% Lidocaine Solution Musculoskeletal: No Muscle Wasting Neurological: Cranial nerves II-XII grossly intact, Neuro grossly intact Psych/Mental Status: Normal Affect, Appropriate, Alert and oriented to time, place, person, mood and affect Debridement Note Post-Debridement Measurements/Treatment WC - Nurse 2 - General Ulcer CM Notes Start: 02/07/18 11:13 Freq: Status: Active Protocol: Activity Type Activity Date Activity User E-Sign Co-Sign Detail Recorded Client Recorded Date Recorded By Document 02/07/18 12:18 [email or web address] [id number] 02/07/18 12:51 Document 02/14/18 09:59 [id number] 02/14/18 10:02 Document 02/21/18 10:23 [id number] 02/21/18 10:24 02/07/18 02/14/18 02/21/18 12:18 09:59 10:23 Wound Center Nurse 2 #1- LT GR TOE PLANTAR ASPECT -Time 12:18 09:59 10:23 -Correct Patient Yes Yes Yes -Correct Side, Site, Position Yes Yes Yes -Correct Procedure Yes Yes Yes -Procedure Performed Yes Yes Yes -Type of Procedure Debridement Debridement Debridement -Clinical Debridement Subcutaneous Subcutaneous Subcutaneous -Post Debridement Size (cm) - Length 0.9 1.0 1.0 -Post Debridement Size (cm) - Width 1.1 1.0 1.1 -Post Debridement Size (cm) - Depth 0.1 0.2 0.2 -Total Square Cm 0.99 1.00 1.10 -Wound/Ulcer Outcome Not Healed Not Healed Not Healed -Ulcer Cleansing Rinsed/ Rinsed/ Not Cleansed Irrigated with Irrigated with Saline Saline -Foul Odor after Cleansing No No No -Bioengineered Tissue No No No -Topical Lidocaine (%) 4 4 4 -Lidocaine (ml) 5 5 5 -Bleeding Controlled with NA NA NA Pressure -Treatment Response Procedure Procedure Procedure Tolerated Well Tolerated Well Tolerated Well Pain Scale: 0-10 Numeric Is Patient Pain Free? No Yes wound -Description Sharp Aching -Intensity 8 -Duration (hours) Chronic -Pain Behavior Guarding Irritability Facial Grimacing -Pain Aggravating Factors Walking Debridement -Alleviating Factors/Interventions Medication Inactivity/ Resting -Effectiveness of Alleviating Factor/ Minimally Intervention effective Laterality: Left - Great toe Type of Debridement: Excisional debridement Anesthesia Used: 4% Lidocaine Solution Depth: Down to and including healthy tissue, in the subcutaneous layer Percentage of wound debrided: 100 Instrument Used: 5mm curette, Forceps, - - Sterile scissors Severity: Fat Layer Exposed Amount of bleeding with debridement: Mild Bleeding Controlled with: Compression and gauze Patient tolerated procedure well Assessment/Plan Clinical Impression(s) from Imaging Studies Toe X-Ray 02/14/18 10:55 IMPRESSION: Soft tissue swelling. No bony abnormality is seen. Vascular calcification. Electronically Signed: Filiberto Camara MD at 14:22 EDT Tel [phone], Service support , Active Problems (Last Updated 02/23/18 @ 14:51 by Brie Negrete) Diabetic foot ulcer (Chronic) Chronic ulcer of great toe of left foot (Chronic) Diabetes (Chronic) Assessment: This is a 62-year-old diabetic female with peripheral neuropathy who presents with an ulceration of the left great toe. The ulceration is located on the plantar surface. It is surrounded by significant callus. This suggests chronicity and etiology related to pressure phenomenon. It is suspected that this may be caused by poorly?fitted footwear. Laboratory results have been obtained, and are as follows: White blood count 6.3, hemoglobin 11.0, hematocrit 34.7, platelets 314,000, glucose 313, BUN 16, creatinine 0.65, total protein 7.4, albumin 3.3, calcium 9.2, AST 13, alkaline phosphatase 87, ALT 21, total bilirubin 0.30, sodium 139, potassium 4.1, chloride 103, serum prealbumin 16.5, hemoglobin A1c 13.1. The patient's wound cultures were positive for Streptococcus species, and the patient has completed Augmentin 875 mg p.o. twice daily for 10 days. The patient has undergone an x- ray of her left foot, revealing no evidence of osteomyelitis. Her lower extremity arterial study is unremarkable, revealing normal ankle?brachial index and digital-brachial index in the left lower extremity. The patient has now obtained her CAM walker, and has been evaluated at [facility] for fitting of an offloading diabetic shoe. Because of the maceration about the left great toe ulceration, we are to transition from the use of collagenase Santyl to the use of Rosa Isela, applied every other day. Plan: Offloading measures have been implemented. The patient has been cautioned against wearing the shoes which she has worn recently. She has been referred to the [facility] for fitting of diabetic shoes. She has been fitted with a CAM walker until which time definitive footwear can be dispensed. Her noninvasive lower extremity arterial study reveals no evidence of significant arterial occlusive disease in the left lower extremity. We are to implement the use of Rosa Isela topically every other day. The patient has been instructed to optimize her nutritional intake, as well as optimize her glycemic control. The patient is to return in 1 week for reassessment. Because of increasing erythema about the patient's ulceration, cultures have been obtained , and results will be awaited. Because of undermining which is noted in relation to the ulceration, it is felt that surgical debridement and unroofing is warranted. In this regard, we will seek consultation with the podiatric service. She is to follow-up in 1 week for reevaluation. Influenza vaccine was not administered. The patient is not a smoker. She stands 5 feet 6 inches tall. She weighs 182 pounds. Her BMI is 29.4, which places her in an overweight category. Weight loss has been recommended, and collaboration with her primary care physician has been advised.
== END 2018-03-02 23:59 ==
LOC: WC 09:00
PROVIDERS: Surgery; Family Provider Internal Medicine; PCP Internal Medicine; Visit Provider Podiatrist
DX: E11.621 Type 2 diabetes mellitus with foot ulcer (principal); L97.522 Non-pressure chronic ulcer of other part of left foot with fat layer exposed; E03.9 Hypothyroidism, unspecified; E78.5 Hyperlipidemia, unspecified; Z86.73 Personal history of transient ischemic attack (TIA), and cerebral infarction without residual deficits; Z79.4 Long term (current) use of insulin; E11.42 Type 2 diabetes mellitus with diabetic polyneuropathy; E66.3 Overweight; Z68.29 Body mass index [BMI] 29.0-29.9, adult
CPT/HCPCS: 11042; 73660; 80053; 83036; 84134; 85027; 87070; 87075; 87077; 87186; 87205; 93923; 99213; G0463

== ENCOUNTER 2018-03-29 14:00 | Outpatient (RCR) | payer MEDICARE, SELFPAY ==
[2018-03-03 01:09] VITALS: BP 108/65; PULSE 88; RESP 20; TEMP 36.3
[2018-03-15 14:09] VITALS: BP 151/92; PULSE 88; RESP 18; TEMP 36
--- NOTE | 2018-03-15 14:19 | WC ---
pt has skin abrasion pt states from tape removal on left great toe plantar.
--- NOTE | 2018-03-15 15:07 | PN.PCM_ITS ---
(1) Chronic ulcer of great toe of left foot Status: Chronic Current Visit: Yes Qualifiers: Code(s): L97.529 - Non-pressure chronic ulcer of other part of left foot with unspecified severity (2) Hallux limitus of left foot Status: Chronic Current Visit: Yes Code(s): M20.5X2 - Other deformities of toe(s) (acquired), left foot (3) Type 2 diabetes mellitus with diabetic polyneuropathy Status: Chronic Current Visit: Yes Code(s): E11.42 - Type 2 diabetes mellitus with diabetic polyneuropathy (4) Cellulitis of left foot Status: Chronic Current Visit: Yes Code(s): L03.116 - Cellulitis of left lower limb Type of Wound Date of Service: 03/15/18 Chief Complaint: Diabetic foot ulceration, Boyce grade 2, left great toe History of Wound: This is a 62-year-old female returns to clinic for left great toe ulcer. She denies fever, chill, nausea, vomiting. She reports her toe is bleeding more in the shower and think she sustained an increased wound size her injury within the past 2 days. She wears offloading boot with decreased wound discomfort. Progress of Wound: Worsening status and increased wound size - Physical Exam Vital Signs Temp Pulse Resp BP 96.8 F L 88 18 151/92 H 03/15/18 14:09 03/15/18 14:09 03/15/18 14:09 03/15/18 14:09 General: Alert, Oriented x3, Cooperative Extremities: No cyanosis, Capillary Refill Less than 3 Seconds, No Calf Tenderness, Diminished Peripheral Pulses, Edema, - - Decreased lateral first metatarsophalangeal joint range of motion left foot Skin: Ulcer/ Wound - No purulence, no erythema, streaking, no odor, no infection left foot. No exposed bone joint or capsule noted. There is no wound cluster with increased size noted and the medial extension has granulation tissue exposed. No crepitus or bogginess on palpation., - - Atrophic skin noted with hair at the toe level left foot Wound Measurements and Assessment WC - Nurse 1 - General Ulcer Measurement Start: 03/15/18 14:09 Freq: Status: Active Protocol: Activity Type Activity Date Activity User E-Sign Co-Sign Detail Recorded Client Recorded Date Recorded By Document 03/15/18 14:09 RB [id number] 03/15/18 14:20 RB 03/15/18 14:09 Wound Center Nurse 1 [Ulcer Assessment] #1- LT GR TOE PLANTAR ASPECT -Combined with other wound No -Current Size (cm) - Length 1.3 -Current Size (cm) - Width 0.5 -Current Size (cm) - Depth 0.1 -Total Square Cm 0.65 -Photo Taken No -Epithelialization Small 1-33% -Tunneling No -Undermining/Tunneling No -Circular Undermining No -Classification - Thickness Full Thickness without Exposed Support Structure -Exudate Amt Small (1-33%) -Exudate Type Serosanguineous -Wound Margin Distinct, Outline Attached -Granulation Amt Medium (34-66%) -Granulation Quality [place] -Slough/Fibrin Yes -Necrosis Amt Small (1-33%) -Necrotic Tissue Type Adherent Slough -Structure Exposed N/A -Texture (Salima-wound Skin Appearance) Assessed Callus -Moisture (Salima-wound Skin Appearance Assessed ) -Color (Salima-wound Skin Appearance) Assessed -Tenderness on Palpation (Salima-wound No Skin Appearance) -Ulcer Cleansing Rinsed/ Irrigated with Saline -Foul Odor after Cleansing No -Anesthetic Used 5% Lidocaine Gel [Edema Assessment] -Lower Limb Edema Present Yes -Left Calf (cm) 45 -Left Ankle (cm) 23.5 03/15/18 14:19 Wound Center by Betty Epperson pt has skin abrasion pt states from tape removal on left great toe plantar. Initialized on 03/15/18 14:19 - END OF NOTE WC - Nurse 2 - General Ulcer CM Notes Start: 03/15/18 14:09 Freq: Status: Active Protocol: Activity Type Activity Date Activity User E-Sign Co-Sign Detail Recorded Client Recorded Date Recorded By Document 03/15/18 14:47 [id number] 03/15/18 14:47 03/15/18 14:47 Wound Center Nurse 2 [Procedure/Treatment] #1- LT GR TOE PLANTAR ASPECT -Time 14:47 -Correct Patient Yes -Correct Side, Site, Position Yes -Correct Procedure Yes -Procedure Performed Yes -Type of Procedure Debridement -Clinical Debridement Subcutaneous -Post Debridement Size (cm) - Length 2.3 -Post Debridement Size (cm) - Width 1.3 -Post Debridement Size (cm) - Depth 0.1 -Total Square Cm 2.99 -Wound/Ulcer Outcome Not Healed -Ulcer Cleansing Rinsed/ Irrigated with Saline -Foul Odor after Cleansing No -Bioengineered Tissue No -Bleeding Controlled with Pressure -Treatment Response Procedure Tolerated Well [See Physician Procedure note for Specifics] Pain Scale: 0-10 Numeric [Pain] -Is Patient Pain Free? Yes Musculoskeletal: No Tenderness to Palpation of Joints or Extremities, Muscle Wasting Neurological: - - Lack of epicritic sensation light touch left lower extremity Psych/Mental Status: Normal Affect, Appropriate Debridement Note Post-Debridement Measurements/Treatment WC - Nurse 2 - General Ulcer CM Notes Start: 03/15/18 14:09 Freq: Status: Active Protocol: Activity Type Activity Date Activity User E-Sign Co-Sign Detail Recorded Client Recorded Date Recorded By Document 03/15/18 14:47 PATRICK [id number] 03/15/18 14:47 PATRICK 03/15/18 14:47 Wound Center Nurse 2 #1- LT GR TOE PLANTAR ASPECT -Time 14:47 -Correct Patient Yes -Correct Side, Site, Position Yes -Correct Procedure Yes -Procedure Performed Yes -Type of Procedure Debridement -Clinical Debridement Subcutaneous -Post Debridement Size (cm) - Length 2.3 -Post Debridement Size (cm) - Width 1.3 -Post Debridement Size (cm) - Depth 0.1 -Total Square Cm 2.99 -Wound/Ulcer Outcome Not Healed -Ulcer Cleansing Rinsed/ Irrigated with Saline -Foul Odor after Cleansing No -Bioengineered Tissue No -Bleeding Controlled with Pressure -Treatment Response Procedure Tolerated Well Pain Scale: 0-10 Numeric Is Patient Pain Free? Yes Wound debrided: plantar medial hallux Laterality: Left Wound Grade/Stage: grade 2 Type of Debridement: Excisional debridement Anesthesia Used: 5% Lidocaine Gel Depth: in the subcutaneous layer Percentage of wound debrided: 100 Instrument Used: #15 blade Tissue Removed: fibrous, devitalized subcutaneous, biofilm, slough Severity: Fat Layer Exposed Amount of bleeding with debridement: Mild Bleeding Controlled with: Pressure Patient tolerated procedure well Assessment/Plan Active Problems (Last Reviewed 03/02/18 @ 16:32 by Brie Negrete) Hallux limitus of left foot (Chronic) Type 2 diabetes mellitus with diabetic polyneuropathy (Chronic) Cellulitis of left foot (Chronic) Chronic ulcer of great toe of left foot (Chronic) Assessment: Left hallux ulcer. Diabetes with neuropathy. Delayed healing. Left hallux limitus. Malnutrition suspected. Cellulitis resolving left foot Plan: I reviewed and discussed her case today. Subcutaneous excisional debridement was performed as noted in the clinical panel. Offloading measures have been implemented. She wears a cam walker boot with dual density offloading liners with a pocket that takes pressure off of the ulcer site. To avoid applying pressure to the forefoot and to limit excessive activity. The dressing was applied including Rosa Isela and she is advised to changes daily. In application for epi fix, advanced wound care product, will be initiated to optimize healing. She will be notified on the insurance approval. The indications, planned procedure, possible benefits, risks, anticipated healing time management were discussed in detail. Her noninvasive lower extremity arterial study reveals no evidence of significant arterial occlusive disease in the left lower extremity. The left ankle-brachial index was 1.21 and the digital brachial index on the left was 0.63. The patient has been instructed to optimize her nutritional intake, as well as optimize her glycemic control. It is noted she has completed several antibiotics and is finishing up her Augmentin course. I recommend she continues this. If lack of improvement noted infectious disease consultation will be considered. Her microbiology results demonstrated Klebsiella pneumonia as pneum, pseudomonas aeruginosa, enterococcus faecalis. Her last white blood cell count 0.63. The prealbumin level 16.5. Previous toe x-rays did not demonstrate any osseous destruction or acute fracture dislocation or soft tissue emphysema or foreign body -left foot. To follow-up at the wound care center 1 week or call sooner if she has any questions or concerns. I answered all her questions.
[2018-03-22 14:26] VITALS: BP 113/63; PULSE 90; RESP 18; TEMP 36.4
--- NOTE | 2018-03-22 17:34 | PN.PCM_ITS ---
(1) Chronic ulcer of great toe of left foot Status: Chronic Current Visit: Yes Qualifiers: Code(s): L97.529 - Non-pressure chronic ulcer of other part of left foot with unspecified severity (2) Hallux limitus of left foot Status: Chronic Current Visit: Yes Code(s): M20.5X2 - Other deformities of toe(s) (acquired), left foot (3) Type 2 diabetes mellitus with diabetic polyneuropathy Status: Chronic Current Visit: Yes Code(s): E11.42 - Type 2 diabetes mellitus with diabetic polyneuropathy (4) Cellulitis of left foot Status: Resolved Current Visit: Yes Code(s): L03.116 - Cellulitis of left lower limb Type of Wound Date of Service: 03/22/18 Chief Complaint: Diabetic foot ulceration, Boyce grade 2, left great toe History of Wound: This is a 62-year-old female returns to clinic for left great toe ulcer. She denies fever, chill, nausea, vomiting. She wears offloading boot with decreased wound discomfort. Progress of Wound: Improved compared to last week - Physical Exam Vital Signs Temp Pulse Resp BP 97.5 F L 90 18 113/63 03/22/18 14:26 03/22/18 14:26 03/22/18 14:26 03/22/18 14:26 General: Alert, Oriented x3, Cooperative Extremities: No cyanosis, Capillary Refill Less than 3 Seconds, No Calf Tenderness, Diminished Peripheral Pulses, Edema - Mild Skin: Ulcer/ Wound - There is no purulence, erythema, streaking, odor, infection. Peripheral epithelialization are noted to both sites. The skin is hairless and atrophic left Wound Measurements and Assessment WC - Nurse 1 - General Ulcer Measurement Start: 03/15/18 14:09 Freq: Status: Active Protocol: Activity Type Activity Date Activity User E-Sign Co-Sign Detail Recorded Client Recorded Date Recorded By Document 03/22/18 14:26 [email or web address] [id number] 03/22/18 14:31 PATRICK 03/22/18 14:26 Wound Center Nurse 1 [Ulcer Assessment] 2-left lateral hallux -Combined with other wound No -Current Size (cm) - Length 0.8 -Current Size (cm) - Width 0.5 -Current Size (cm) - Depth 0.1 -Total Square Cm 0.40 -Photo Taken Yes -Epithelialization Medium 34-66% -Tunneling No -Undermining/Tunneling No -Circular Undermining No -Classification - Pressure Ulcer Stage 2 -Exudate Amt Small (1-33%) -Exudate Type Serosanguineous -Wound Margin Flat & Intact -Granulation Amt Large (67-100%) -Granulation Quality Red -Slough/Fibrin Yes -Necrosis Amt Small (1-33%) -Necrotic Tissue Type Adherent Slough -Structure Exposed N/A -Texture (Salima-wound Skin Appearance) Assessed Localized Edema -Moisture (Salima-wound Skin Appearance Assessed ) Dry/Scaly -Color (Salima-wound Skin Appearance) Assessed -Temperature (Salima-wound Skin No Abnormality Appearance) (Pt Warm) -Tenderness on Palpation (Salima-wound No Skin Appearance) -Ulcer Cleansing Wound Cleanser -Foul Odor after Cleansing No -Anesthetic Used 4% Lidocaine Solution #1- LT GR TOE PLANTAR ASPECT -Combined with other wound No -Current Size (cm) - Length 0.3 -Current Size (cm) - Width 0.5 -Current Size (cm) - Depth 0.2 -Total Square Cm 0.15 -Photo Taken No -Epithelialization Small 1-33% -Tunneling No -Undermining/Tunneling No -Circular Undermining No -Exudate Amt Small (1-33%) -Exudate Type Serosanguineous -Wound Margin Flat & Intact -Granulation Amt Medium (34-66%) -Granulation Quality Red -Slough/Fibrin Yes -Necrosis Amt Small (1-33%) -Necrotic Tissue Type Adherent Slough -Structure Exposed N/A -Texture (Salima-wound Skin Appearance) Assessed Callus -Moisture (Salima-wound Skin Appearance Assessed ) Dry/Scaly -Color (Salima-wound Skin Appearance) Assessed Hemosiderin Staining -Temperature (Salima-wound Skin No Abnormality Appearance) (Pt Warm) -Tenderness on Palpation (Salima-wound No Skin Appearance) -Anesthetic Used 4% Lidocaine Solution [Edema Assessment] -Lower Limb Edema Present Yes -Left Calf (cm) 46.0 -Left Ankle (cm) 23.0 WC - Nurse 2 - General Ulcer CM Notes Start: 03/15/18 14:09 Freq: Status: Active Protocol: Activity Type Activity Date Activity User E-Sign Co-Sign Detail Recorded Client Recorded Date Recorded By Document 03/22/18 15:31 [id number] 03/22/18 15:32 03/22/18 15:31 Wound Center Nurse 2 [Procedure/Treatment] 2-left lateral hallux -Time 15:31 -Correct Patient Yes -Correct Side, Site, Position Yes -Correct Procedure Yes -Procedure Performed Yes -Type of Procedure Debridement -Clinical Debridement Subcutaneous -Post Debridement Size (cm) - Length 0.8 -Post Debridement Size (cm) - Width 0.6 -Post Debridement Size (cm) - Depth 0.1 -Total Square Cm 0.48 -Ulcer Cleansing Rinsed/ Irrigated with Saline -Foul Odor after Cleansing No -Bioengineered Tissue No -Bleeding Controlled with Pressure -Treatment Response Procedure Tolerated Well #1- LT GR TOE PLANTAR ASPECT -Time 15:32 -Correct Patient Yes -Correct Side, Site, Position Yes -Correct Procedure Yes -Procedure Performed Yes -Type of Procedure Debridement -Clinical Debridement Subcutaneous -Post Debridement Size (cm) - Length 0.4 -Post Debridement Size (cm) - Width 0.5 -Post Debridement Size (cm) - Depth 0.2 -Total Square Cm 0.20 -Wound/Ulcer Outcome Not Healed -Ulcer Cleansing Rinsed/ Irrigated with Saline -Foul Odor after Cleansing No -Bioengineered Tissue No -Bleeding Controlled with Pressure -Treatment Response Procedure Tolerated Well [See Physician Procedure note for Specifics] Pain Scale: 0-10 Numeric [Pain] -Is Patient Pain Free? Yes Musculoskeletal: No Tenderness to Palpation of Joints or Extremities, Muscle Wasting, - - Decreased flow to first metatarsal phalangeal joint left foot Neurological: - - Lack of epicritic sensation light touch left foot Psych/Mental Status: Normal Affect, Appropriate Debridement Note Post-Debridement Measurements/Treatment - Nurse 2 - General Ulcer CM Notes Start: 03/15/18 14:09 Freq: Status: Active Protocol: Activity Type Activity Date Activity User E-Sign Co-Sign Detail Recorded Client Recorded Date Recorded By Document 03/15/18 14:47 [id number] 03/15/18 14:47 Document 03/22/18 15:31 [id number] 03/22/18 15:32 03/15/18 03/22/18 14:47 15:31 Wound Center Nurse 2 2-left lateral hallux -Time 15:31 -Correct Patient Yes -Correct Side, Site, Position Yes -Correct Procedure Yes -Procedure Performed Yes -Type of Procedure Debridement -Clinical Debridement Subcutaneous -Post Debridement Size (cm) - Length 0.8 -Post Debridement Size (cm) - Width 0.6 -Post Debridement Size (cm) - Depth 0.1 -Total Square Cm 0.48 -Ulcer Cleansing Rinsed/ Irrigated with Saline -Foul Odor after Cleansing No -Bioengineered Tissue No -Bleeding Controlled with Pressure -Treatment Response Procedure Tolerated Well #1- LT GR TOE PLANTAR ASPECT -Time 14:47 15:32 -Correct Patient Yes Yes -Correct Side, Site, Position Yes Yes -Correct Procedure Yes Yes -Procedure Performed Yes Yes -Type of Procedure Debridement Debridement -Clinical Debridement Subcutaneous Subcutaneous -Post Debridement Size (cm) - Length 2.3 0.4 -Post Debridement Size (cm) - Width 1.3 0.5 -Post Debridement Size (cm) - Depth 0.1 0.2 -Total Square Cm 2.99 0.20 -Wound/Ulcer Outcome Not Healed Not Healed -Ulcer Cleansing Rinsed/ Rinsed/ Irrigated with Irrigated with Saline Saline -Foul Odor after Cleansing No No -Bioengineered Tissue No No -Bleeding Controlled with Pressure Pressure -Treatment Response Procedure Procedure Tolerated Well Tolerated Well Pain Scale: 0-10 Numeric Is Patient Pain Free? Yes Yes Wound debrided: plantar hallux Laterality: Left Wound Grade/Stage: grade 2 Type of Debridement: Excisional debridement Anesthesia Used: 5% Lidocaine Gel Depth: in the subcutaneous layer Percentage of wound debrided: 100 Instrument Used: #15 blade, 3-12 blade Tissue Removed: fibrous, devitalized subcutaneous, biofilm, slough Severity: Fat Layer Exposed Amount of bleeding with debridement: Moderate Bleeding Controlled with: Pressure, Gel Foam Patient tolerated procedure well - Additional Wound Wound debrided: medial hallux Laterality: Left Wound Grade/Stage: grade 1 Type of Debridement: Excisional debridement Anesthesia Used: 5% Lidocaine Gel Depth: in the subcutaneous layer Percentage of wound debrided: 100 Instrument Used: #15 blade Tissue Removed: fibrous, devitalized subcutaneous, biofilm, slough Severity: Fat Layer Exposed Amount of bleeding with debridement: Mild Bleeding Controlled with: Pressure Patient tolerated procedure: Patient tolerated procedure well Assessment/Plan Active Problems (Last Reviewed 03/02/18 @ 16:32 by Brie Negrete) Hallux limitus of left foot (Chronic) Type 2 diabetes mellitus with diabetic polyneuropathy (Chronic) Chronic ulcer of great toe of left foot (Chronic) Assessment: Left hallux ulcer. Diabetes with neuropathy. Delayed healing. Left hallux limitus. Malnutrition suspected. Cellulitis resolving left foot Plan: I reviewed and discussed her case today. Subcutaneous excisional debridement was performed as noted in the clinical panel. Offloading measures have been implemented. She wears a cam walker boot with dual density offloading liners with a pocket that takes pressure off of the ulcer site. To avoid applying pressure to the forefoot and to limit excessive activity. The dressing was applied including Rosa Isela and she is advised to changes daily. In application for epi fix, advanced wound care product, will be initiated to optimize healing. She will be notified on the insurance approval. The indications, planned procedure, possible benefits, risks, anticipated healing time management were discussed in detail. This is still pending. Her noninvasive lower extremity arterial study reveals no evidence of significant arterial occlusive disease in the left lower extremity. The left ankle- brachial index was 1.21 and the digital brachial index on the left was 0.63. The patient has been instructed to optimize her nutritional intake, as well as optimize her glycemic control. It is noted she has completed several antibiotics and is finishing up her Augmentin course. I recommend she continues this. If lack of improvement noted infectious disease consultation will be considered. Her microbiology results demonstrated Klebsiella pneumonia as pneum, pseudomonas aeruginosa, enterococcus faecalis. Her last white blood cell count 0.63. The prealbumin level 16.5. Previous toe x-rays did not demonstrate any osseous destruction or acute fracture dislocation or soft tissue emphysema or foreign body. To follow-up at the wound care center 1 week or call sooner if she has any questions or concerns. I answered all her questions.
[2018-03-29 14:03] VITALS: BP 131/70; PULSE 91; RESP 18; TEMP 35.9
--- NOTE | 2018-03-29 16:07 | PCM.WC.PN ---
(1) Chronic ulcer of great toe of left foot Status: Chronic Current Visit: Yes Qualifiers: Code(s): L97.529 - Non-pressure chronic ulcer of other part of left foot with unspecified severity (2) Hallux limitus of left foot Status: Chronic Current Visit: Yes Code(s): M20.5X2 - Other deformities of toe(s) (acquired), left foot (3) Type 2 diabetes mellitus with diabetic polyneuropathy Status: Chronic Current Visit: Yes Code(s): E11.42 - Type 2 diabetes mellitus with diabetic polyneuropathy Type of Wound Date of Service: 03/30/18 Chief Complaint: Diabetic foot ulceration, Boyce grade 2, left great toe History of Wound: This is a 62-year-old female returns to clinic for left great toe ulcer. She denies fever, chill, nausea, vomiting. She wears offloading boot with decreased wound discomfort. Her redness has resolved. She has completed the antibiotics. Progress of Wound: Improved compared to last week - Physical Exam Vital Signs Temp Pulse Resp BP 96.6 F L 91 18 131/70 H 03/29/18 14:03 03/29/18 14:03 03/29/18 14:03 03/29/18 14:03 General: Alert, Oriented x3, Cooperative Extremities: No cyanosis, Capillary Refill Less than 3 Seconds, No Calf Tenderness - negative ashley and thompson signs bilateral, Diminished Peripheral Pulses, Edema - decreased to toe Wound Measurements and Assessment WC - Nurse 1 - General Ulcer Measurement Start: 03/15/18 14:09 Freq: Status: Active Protocol: Activity Type Activity Date Activity User E-Sign Co-Sign Detail Recorded Client Recorded Date Recorded By Document 03/29/18 14:03 RB [id number] 03/29/18 14:19 RB 03/29/18 14:03 Wound Center Nurse 1 [Ulcer Assessment] 2-left lateral hallux -Combined with other wound No -Current Size (cm) - Length 0.1 -Current Size (cm) - Width 0.1 -Current Size (cm) - Depth 0.1 -Total Square Cm 0.01 -Photo Taken No -Tunneling No -Undermining/Tunneling No -Circular Undermining No -Classification - Pressure Ulcer Stage 2 -Exudate Amt None Present (0 %) -Wound Margin Distinct, Outline Attached -Granulation Amt Large (67-100%) -Granulation Quality [place] -Slough/Fibrin Yes -Necrosis Amt Small (1-33%) -Necrotic Tissue Type Adherent Slough -Structure Exposed N/A -Texture (Salima-wound Skin Appearance) Assessed Callus -Moisture (Salima-wound Skin Appearance Assessed ) -Color (Salima-wound Skin Appearance) Assessed -Temperature (Salima-wound Skin No Abnormality Appearance) (Pt Warm) -Tenderness on Palpation (Salima-wound No Skin Appearance) -Ulcer Cleansing Rinsed/ Irrigated with Saline -Foul Odor after Cleansing No #1- LT GR TOE PLANTAR ASPECT -Combined with other wound No -Current Size (cm) - Length 0.2 -Current Size (cm) - Width 0.4 -Current Size (cm) - Depth 0.3 -Total Square Cm 0.08 -Photo Taken No -Tunneling No -Undermining/Tunneling Yes -Undermining/Tunneling Starts (O' 8 clock) -Undermining/Tunneling Ends (O'clock) 1 -Maximum Distance (cm) 0.4 -Circular Undermining No -Classification - Thickness Full Thickness without Exposed Support Structure -Change in Wound Grade/Stage No Query Text:If change please identify the Stage/Grade in the comment (ie. S2 G3) -Exudate Amt Small (1-33%) -Exudate Type Purulent -Wound Margin Distinct, Outline Attached -Granulation Amt Medium (34-66%) -Granulation Quality [place] -Slough/Fibrin Yes -Necrosis Amt Small (1-33%) -Necrotic Tissue Type Adherent Slough -Structure Exposed N/A -Texture (Salima-wound Skin Appearance) Assessed Callus -Moisture (Salima-wound Skin Appearance Assessed ) -Color (Salima-wound Skin Appearance) Assessed -Temperature (Salima-wound Skin No Abnormality Appearance) (Pt Warm) -Tenderness on Palpation (Salima-wound No Skin Appearance) -Ulcer Cleansing Rinsed/ Irrigated with Saline -Foul Odor after Cleansing No -Anesthetic Used 4% Lidocaine Solution WC - Nurse 2 - General Ulcer CM Notes Start: 03/15/18 14:09 Freq: Status: Active Protocol: Activity Type Activity Date Activity User E-Sign Co-Sign Detail Recorded Client Recorded Date Recorded By Document 03/29/18 14:44 [id number] 03/29/18 14:56 03/29/18 14:44 Wound Center Nurse 2 [Procedure/Treatment] 2-left lateral hallux -Time 14:53 -Correct Patient Yes -Correct Side, Site, Position Yes -Correct Procedure Yes -Procedure Performed Yes -Post Debridement Size (cm) - Length 0 -Post Debridement Size (cm) - Width 0 -Post Debridement Size (cm) - Depth 0 -Total Square Cm 0 -Wound/Ulcer Outcome Healed- Epithelialized -Ulcer Cleansing Rinsed/ Irrigated with Saline -Foul Odor after Cleansing No -Bioengineered Tissue No -Bleeding Controlled with NA -Treatment Response Procedure Tolerated Well #1- LT GR TOE PLANTAR ASPECT -Time 14:54 -Correct Patient Yes -Correct Side, Site, Position Yes -Correct Procedure Yes -Procedure Performed Yes -Type of Procedure Debridement -Clinical Debridement Subcutaneous -Post Debridement Size (cm) - Length 0.3 -Post Debridement Size (cm) - Width 0.5 -Post Debridement Size (cm) - Depth 0.3 -Total Square Cm 0.15 -Wound/Ulcer Outcome Not Healed -Ulcer Cleansing Rinsed/ Irrigated with Saline -Foul Odor after Cleansing No -Bioengineered Tissue No -Topical Lidocaine (%) 4 -Bleeding Controlled with Pressure -Treatment Response Procedure Tolerated Well [See Physician Procedure note for Specifics] Pain Scale: 0-10 Numeric [Pain] -Is Patient Pain Free? Yes Musculoskeletal: No Tenderness to Palpation of Joints or Extremities, Muscle Wasting Neurological: - - lack of epicritic sensation via light touch Psych/Mental Status: Normal Affect, Appropriate Debridement Note Post-Debridement Measurements/Treatment WC - Nurse 2 - General Ulcer CM Notes Start: 03/15/18 14:09 Freq: Status: Active Protocol: Activity Type Activity Date Activity User E-Sign Co-Sign Detail Recorded Client Recorded Date Recorded By Document 03/15/18 14:47 [id number] 03/15/18 14:47 Document 03/22/18 15:31 [id number] 03/22/18 15:32 Document 03/29/18 14:44 TM [id number] 03/29/18 14:56 TM 03/15/18 03/22/18 03/29/18 14:47 15:31 14:44 Wound Center Nurse 2 2-left lateral hallux -Time 15:31 14:53 -Correct Patient Yes Yes -Correct Side, Site, Position Yes Yes -Correct Procedure Yes Yes -Procedure Performed Yes Yes -Type of Procedure Debridement -Clinical Debridement Subcutaneous -Post Debridement Size (cm) - Length 0.8 0 -Post Debridement Size (cm) - Width 0.6 0 -Post Debridement Size (cm) - Depth 0.1 0 -Total Square Cm 0.48 0 -Wound/Ulcer Outcome Healed- Epithelialized -Ulcer Cleansing Rinsed/ Rinsed/ Irrigated with Irrigated with Saline Saline -Foul Odor after Cleansing No No -Bioengineered Tissue No No -Bleeding Controlled with Pressure NA -Treatment Response Procedure Procedure Tolerated Well Tolerated Well #1- LT GR TOE PLANTAR ASPECT -Time 14:47 15:32 14:54 -Correct Patient Yes Yes Yes -Correct Side, Site, Position Yes Yes Yes -Correct Procedure Yes Yes Yes -Procedure Performed Yes Yes Yes -Type of Procedure Debridement Debridement Debridement -Clinical Debridement Subcutaneous Subcutaneous Subcutaneous -Post Debridement Size (cm) - Length 2.3 0.4 0.3 -Post Debridement Size (cm) - Width 1.3 0.5 0.5 -Post Debridement Size (cm) - Depth 0.1 0.2 0.3 -Total Square Cm 2.99 0.20 0.15 -Wound/Ulcer Outcome Not Healed Not Healed Not Healed -Ulcer Cleansing Rinsed/ Rinsed/ Rinsed/ Irrigated with Irrigated with Irrigated with Saline Saline Saline -Foul Odor after Cleansing No No No -Bioengineered Tissue No No No -Topical Lidocaine (%) 4 -Bleeding Controlled with Pressure Pressure Pressure -Treatment Response Procedure Procedure Procedure Tolerated Well Tolerated Well Tolerated Well Pain Scale: 0-10 Numeric Is Patient Pain Free? Yes Yes Yes Wound debrided: hallux Laterality: Left Wound Grade/Stage: grade 2 Type of Debridement: Excisional debridement Anesthesia Used: 5% Lidocaine Gel Depth: in the subcutaneous layer Percentage of wound debrided: 100 Instrument Used: #15 blade Tissue Removed: fibrous, devitalized subcutaneous, biofilm, slough Severity: Fat Layer Exposed Amount of bleeding with debridement: Mild Bleeding Controlled with: Pressure Patient tolerated procedure well Assessment/Plan Active Problems (Last Reviewed 03/02/18 @ 16:32 by Brie Negrete) Hallux limitus of left foot (Chronic) Type 2 diabetes mellitus with diabetic polyneuropathy (Chronic) Chronic ulcer of great toe of left foot (Chronic) Assessment: Left hallux ulcer. Diabetes with neuropathy. Delayed healing. Left hallux limitus. Malnutrition suspected. Cellulitis resolved Plan: I reviewed and discussed her case today. Subcutaneous excisional debridement was performed as noted in the clinical panel. Offloading measures have been implemented. She wears a cam walker boot with dual density offloading liners with a pocket that takes pressure off of the ulcer site. To avoid applying pressure to the forefoot and to limit excessive activity. The dressing was applied including Rosa Isela and she is advised to changes daily. In application for epi fix, advanced wound care product, will be initiated to optimize healing. She will be notified on the insurance approval. The indications, planned procedure, possible benefits, risks, anticipated healing time management were discussed in detail. This is still pending. Her noninvasive lower extremity arterial study reveals no evidence of significant arterial occlusive disease in the left lower extremity. The left ankle-brachial index was 1.21 and the digital brachial index on the left was 0.63. The patient has been instructed to optimize her nutritional intake, as well as optimize her glycemic control. It is noted she has completed her Augmentin course. I recommend she continues this. If lack of improvement noted infectious disease consultation will be considered. Her microbiology results demonstrated Klebsiella pneumonia as pneum, pseudomonas aeruginosa, enterococcus faecalis. Her last white blood cell count 0.63. The prealbumin level 16.5. Previous toe x-rays did not demonstrate any osseous destruction or acute fracture dislocation or soft tissue emphysema or foreign body. To follow-up at the wound care center 2 week or call sooner if she has any questions or concerns. The center is closed for national holiday next Tue. I answered all her questions.
== END 2018-04-01 23:59 ==
LOC: WC 14:00
PROVIDERS: Family Provider Internal Medicine; PCP Internal Medicine; Visit Provider Podiatrist
DX: E11.621 Type 2 diabetes mellitus with foot ulcer (principal); E11.42 Type 2 diabetes mellitus with diabetic polyneuropathy; M20.5X2 Other deformities of toe(s) (acquired), left foot; L03.116 Cellulitis of left lower limb; L97.522 Non-pressure chronic ulcer of other part of left foot with fat layer exposed
CPT/HCPCS: 11042

== ENCOUNTER 2018-04-12 12:43 | Outpatient (RCR) | payer MEDICARE, SELFPAY ==
[2018-04-02 00:57] VITALS: BP 131/70; PULSE 91; RESP 18; TEMP 35.9
[2018-04-12 14:36] VITALS: BP 158/80; PULSE 86; RESP 18; TEMP 36.1
--- NOTE | 2018-04-12 16:12 | PCM.WC.PN ---
(1) Chronic ulcer of great toe of left foot Status: Chronic Current Visit: Yes Qualifiers: Non-pressure ulcer stage: with fat layer exposed Qualified Code(s): L97.522 - Non-pressure chronic ulcer of other part of left foot with fat layer exposed Code(s): L97.529 - Non-pressure chronic ulcer of other part of left foot with unspecified severity (2) Hallux limitus of left foot Status: Chronic Current Visit: Yes Code(s): M20.5X2 - Other deformities of toe(s) (acquired), left foot (3) Type 2 diabetes mellitus with diabetic polyneuropathy Status: Chronic Current Visit: Yes Code(s): E11.42 - Type 2 diabetes mellitus with diabetic polyneuropathy Type of Wound Date of Service: 04/13/18 Chief Complaint: Diabetic foot ulceration, Boyce grade 2, left great toe History of Wound: This is a 62-year-old female returns to clinic for left great toe ulcer. She denies fever, chill, nausea, vomiting. She wears offloading boot with decreased wound discomfort. Her redness has resolved. She reports her drainage has resolved and thinks the wound site is healed today. She continues to wear offloading shoe. Progress of Wound: Healed - Physical Exam Vital Signs Temp Pulse Resp BP 97 F L 86 18 158/80 H 04/12/18 14:36 04/12/18 14:36 04/12/18 14:36 04/12/18 14:36 General: Alert, Oriented x3, Cooperative Extremities: No cyanosis, Capillary Refill Less than 3 Seconds, No Calf Tenderness - Negative Tucker and Robison sign, Diminished Peripheral Pulses, Edema - Mild lower extremity, - - Decreased loaded first metatarsophalangeal joint left foot. Compartments of foot remain soft. Skin: Ulcer/ Wound - No purulence, no erythema, no streaking, no odor, no infection left foot. There is full epithelialization noted in the wound site has healed. Her peripheral skin is atrophic. Wound Measurements and Assessment WC - Nurse 1 - General Ulcer Measurement Start: 04/12/18 14:35 Freq: Status: Active Protocol: Activity Type Activity Date Activity User E-Sign Co-Sign Detail Recorded Client Recorded Date Recorded By Document 04/12/18 14:36 RB [id number] 04/12/18 14:39 RB 04/12/18 14:36 Wound Center Nurse 1 [Ulcer Assessment] #1- LT GR TOE PLANTAR ASPECT -Combined with other wound No -Current Size (cm) - Length 0.1 -Current Size (cm) - Width 0.1 -Current Size (cm) - Depth 0.1 -Total Square Cm 0.01 -Photo Taken No -Tunneling No -Undermining/Tunneling No -Circular Undermining No -Classification - Thickness Full Thickness without Exposed Support Structure -Exudate Amt None Present (0 %) -Wound Margin Distinct, Outline Attached -Granulation Amt Large (67-100%) -Granulation Quality [place] -Slough/Fibrin Yes -Necrosis Amt Small (1-33%) -Necrotic Tissue Type Adherent Slough -Structure Exposed N/A -Texture (Salima-wound Skin Appearance) Callus -Moisture (Salima-wound Skin Appearance Assessed ) -Color (Salima-wound Skin Appearance) Assessed -Temperature (Salima-wound Skin No Abnormality Appearance) (Pt Warm) -Tenderness on Palpation (Salima-wound No Skin Appearance) -Ulcer Cleansing Rinsed/ Irrigated with Saline -Foul Odor after Cleansing No WC - Nurse 2 - General Ulcer CM Notes Start: 04/12/18 14:35 Freq: Status: Active Protocol: Activity Type Activity Date Activity User E-Sign Co-Sign Detail Recorded Client Recorded Date Recorded By Document 04/12/18 14:50 [id number] 04/12/18 14:53 04/12/18 14:50 Wound Center Nurse 2 [Procedure/Treatment] -Time 14:51 -Correct Patient Yes -Correct Side, Site, Position Yes -Correct Procedure Yes -Procedure Performed Yes -Post Debridement Size (cm) - Length 0 -Post Debridement Size (cm) - Width 0 -Post Debridement Size (cm) - Depth 0 -Total Square Cm 0 -Wound/Ulcer Outcome Healed- Epithelialized -Ulcer Cleansing Rinsed/ Irrigated with Saline -Foul Odor after Cleansing No -Bioengineered Tissue No -Bleeding Controlled with NA -Treatment Response Procedure Tolerated Well [See Physician Procedure note for Specifics] Pain Scale: 0-10 Numeric [Pain] -Is Patient Pain Free? Yes Musculoskeletal: No Tenderness to Palpation of Joints or Extremities, Muscle Wasting Neurological: - - Lack of epicritic sensation light touch left lower extremity Psych/Mental Status: Normal Affect, Appropriate Debridement Note Post-Debridement Measurements/Treatment WC - Nurse 2 - General Ulcer CM Notes Start: 04/12/18 14:35 Freq: Status: Active Protocol: Activity Type Activity Date Activity User E-Sign Co-Sign Detail Recorded Client Recorded Date Recorded By Document 04/12/18 14:50 [id number] 04/12/18 14:53 04/12/18 14:50 Wound Center Nurse 2 #1- LT GR TOE PLANTAR ASPECT -Time 14:51 -Correct Patient Yes -Correct Side, Site, Position Yes -Correct Procedure Yes -Procedure Performed Yes -Post Debridement Size (cm) - Length 0 -Post Debridement Size (cm) - Width 0 -Post Debridement Size (cm) - Depth 0 -Total Square Cm 0 -Wound/Ulcer Outcome Healed- Epithelialized -Ulcer Cleansing Rinsed/ Irrigated with Saline -Foul Odor after Cleansing No -Bioengineered Tissue No -Bleeding Controlled with NA -Treatment Response Procedure Tolerated Well Pain Scale: 0-10 Numeric Is Patient Pain Free? Yes No debridement was completed today - The wound site has healed Assessment/Plan Active Problems (Last Reviewed 03/02/18 @ 16:32 by Brie Negrete) Hallux limitus of left foot (Chronic) Type 2 diabetes mellitus with diabetic polyneuropathy (Chronic) Chronic ulcer of great toe of left foot (Chronic) Assessment: Left hallux ulcer healed. Diabetes with neuropathy. Delayed healing. Left hallux limitus Plan: I reviewed and discussed her case today. No debridement was performed because the wound site is healed. She is advised to discontinue dressing care and nutritional supplementation. She is reassured there is no evidence of a wound or infection today. To avoid excessive walking activity. I recommended offloading with her surgical shoe use as the skin continues to remodel for an additional 2 weeks. If things go well I advised her to transition into an extra-depth diabetic shoes with offloading liners and a very progressive manner. She is familiar with this process and demonstrates understanding. To monitor her foot daily to check for recurrence. She is discharged from the wound care center at this time. She is advised to follow-up at the foot and ankle center within the next 1-2 months. I answered all of her questions.
== END 2018-05-02 23:59 ==
LOC: WC 12:43
PROVIDERS: Family Provider Internal Medicine; PCP Internal Medicine; Visit Provider Podiatrist
DX: E11.621 Type 2 diabetes mellitus with foot ulcer (principal); L97.529 Non-pressure chronic ulcer of other part of left foot with unspecified severity; M20.5X2 Other deformities of toe(s) (acquired), left foot
CPT/HCPCS: 99212; G0463

== ENCOUNTER → 2018-07-24 09:24 | Outpatient (CLI) | payer MEDICARE, SELFPAY ==
[2018-07-24 12:36] LABS: Anion Gap 6 (5-15); BUN 19 mg/dL (7-18); BUN/Creat Ratio 23.7 RATIO (10-20); Calcium,Total 9.1 mg/dL (8.5-10.1); Chloride 103 mmol/L (98-107); EST Glomerular Filtration Rate 77 mL/min (>60); Est Glom Filt Rate - Afr Amer 93 mL/min (>60); Glucose 220 mg/dL (74-106); Potassium 4.1 mmol/L (3.5-5.1); Sodium Level 140 mmol/L (136-145)
[2018-07-24 12:50] LABS: Hemoglobin A1c 9.2 % (4.2-6.3)
[2018-07-24 12:57] LABS: Microalbumin,Random Urine 39.3 mg/L (NO RANGE EST.); Microalbumin:Creatinine Ratio 17.7 mg/g CRE (<30 mg/g CRE)
== END ==
PROVIDERS: Family Provider Internal Medicine; PCP Internal Medicine; Referring Provider Internal Medicine; Visit Provider Internal Medicine
DX: E11.42 Type 2 diabetes mellitus with diabetic polyneuropathy (principal); I10 Essential (primary) hypertension
CPT/HCPCS: 36415; 80048; 82043; 82570; 83036

== ENCOUNTER 2019-03-28 14:51 | Outpatient (RCR) | payer MEDICARE, SELFPAY ==
[2019-03-28 15:12] VITALS: BP 147/80; PULSE 72; RESP 16; TEMP 36.6; BMI 32.9
--- NOTE | 2019-03-28 16:29 | PCM.WC.PN ---
(1) Ulcer of right foot with fat layer exposed Status: Chronic Code(s): L97.512 - Non-pressure chronic ulcer of other part of right foot with fat layer exposed (2) Chronic ulcer of left foot with fat layer exposed Status: Resolved Code(s): L97.522 - Non-pressure chronic ulcer of other part of left foot with fat layer exposed (3) Type 2 diabetes mellitus with diabetic polyneuropathy Status: Chronic Code(s): E11.42 - Type 2 diabetes mellitus with diabetic polyneuropathy (4) Hammer toe of right foot Status: Chronic Code(s): M20.41 - Other hammer toe(s) (acquired), right foot (5) Type 2 diabetes mellitus with diabetic polyneuropathy Status: Chronic Code(s): E11.42 - Type 2 diabetes mellitus with diabetic polyneuropathy Type of Wound Date of Service: 03/28/19 Chief Complaint: Diabetic foot ulceration, Boyce grade 2, left great toe History of Wound: This is a 62-year-old female returns to clinic for a new right foot ulcer. This has been present for one month at least.She also had a left foot ulcer last week which has now stopped draining; she thinks this site has healed. She denies fever, chill, nausea, vomiting. She wears offloading boot with decreased wound discomfort. She is amendable to try a total contact cast after she returns from out of town. Progress of Wound: new right foot ulcer. the newer left foot ulcer site has healed - Physical Exam Vital Signs Temp Pulse Resp BP 97.8 F 72 16 147/80 H 03/28/19 15:12 03/28/19 15:12 03/28/19 15:12 03/28/19 15:12 General: Alert, Oriented x3, Cooperative, No apparent distress HEENT: Atraumatic Extremities: No cyanosis, Capillary Refill Less than 3 Seconds, No Calf Tenderness - negative ashley and thompson signs bilateral. compartments soft bilateral, Diminished Peripheral Pulses, Edema Skin: Ulcer/ Wound - no purulence, no erythema, no streakilng, no odor, no infection. full epithelialization noted to the left foot ulcer site; healed today. the right foot ulcer site does not have necrosis or tendon involved, - - peripheral skin is hairless and atrophic Wound Measurements and Assessment WC - Nurse 1 - General Ulcer Measurement Start: 03/28/19 15:12 Freq: Status: Active Protocol: Activity Type Activity Date Activity User E-Sign Co-Sign Detail Recorded Client Recorded Date Recorded By Document 03/28/19 15:12 CS [id number] 03/28/19 15:38 CS 03/28/19 15:12 Wound Center Nurse 1 [Ulcer Assessment] #4 left plantar -Combined with other wound No -Current Size (cm) - Length 0.1 -Current Size (cm) - Width 0.1 -Current Size (cm) - Depth 0.1 -Total Square Cm 0.01 -Date of Last Picture (Recall this 03/28/19 field) -Photo Taken Yes -Epithelialization Large 67-100% -Tunneling No -Undermining/Tunneling No -Circular Undermining No -Exudate Amt None Present -Wound Margin Distinct, Outline Attached -Granulation Amt None Present (0 %) -Granulation Quality N/A -Necrotic Tissue Type Adherent Slough -Texture (Salima-wound Skin Appearance) No Abnormality, Assessed -Moisture (Salima-wound Skin Appearance Dry/Scaly ) -Color (Salima-wound Skin Appearance) No Abnormality, Assessed -Temperature (Salima-wound Skin No Abnormality Appearance) (Pt Warm) -Tenderness on Palpation (Salima-wound No Skin Appearance) -Ulcer Cleansing Rinsed/ Irrigated with Saline -Foul Odor after Cleansing No -Anesthetic Used 5% Lidocaine Gel #3 right plantar -Combined with other wound No -Current Size (cm) - Length 1.1 -Current Size (cm) - Width 0.7 -Current Size (cm) - Depth 0.4 -Total Square Cm 0.77 -Date of Last Picture (Recall this 03/28/19 field) -Photo Taken Yes -Epithelialization Large 67-100% -Tunneling No -Undermining/Tunneling No -Circular Undermining No -Exudate Amt Small -Exudate Type Serosanguineous -Wound Margin Thickened -Granulation Amt None Present (0 %) -Granulation Quality Red -Slough/Fibrin Yes -Necrosis Amt None Present (0 %) -Necrotic Tissue Type Adherent Slough -Structure Exposed None/Limited to Skin Breakdown -Texture (Salima-wound Skin Appearance) Callus -Moisture (Salima-wound Skin Appearance Dry/Scaly ) -Color (Salima-wound Skin Appearance) No Abnormality, Assessed -Temperature (Salima-wound Skin No Abnormality Appearance) (Pt Warm) -Tenderness on Palpation (Salima-wound No Skin Appearance) -Ulcer Cleansing Rinsed/ Irrigated with Saline -Foul Odor after Cleansing No -Anesthetic Used 5% Lidocaine Gel [Edema Assessment] -Lower Limb Edema Present No -Right Calf (cm) 43.8 -Right Ankle (cm) 24 -Left Calf (cm) 46.2 -Left Ankle (cm) 22 WC - Nurse 2 - General Ulcer CM Notes Start: 03/28/19 15:12 Freq: Status: Active Protocol: Activity Type Activity Date Activity User E-Sign Co-Sign Detail Recorded Client Recorded Date Recorded By Document 03/28/19 16:08 JF [id number] 03/28/19 16:10 PATRICK 03/28/19 16:08 Wound Center Nurse 2 [Procedure/Treatment] #4 left plantar -Correct Patient No -Correct Side, Site, Position No -Correct Procedure No -Procedure Performed No -Post Debridement Size (cm) - Length 0 -Post Debridement Size (cm) - Width 0 -Post Debridement Size (cm) - Depth 0 -Total Square Cm 0 -Wound/Ulcer Outcome Healed- Epithelialized #3 right plantar -Time 16:08 -Correct Patient Yes -Correct Side, Site, Position Yes -Correct Procedure Yes -Procedure Performed Yes -Type of Procedure Debridement -Clinical Debridement Subcutaneous -Post Debridement Size (cm) - Length 1.0 -Post Debridement Size (cm) - Width 0.8 -Post Debridement Size (cm) - Depth 0.3 -Total Square Cm 0.80 -Wound/Ulcer Outcome Not Healed -Ulcer Cleansing Rinsed/ Irrigated with Saline -Foul Odor after Cleansing No -Bioengineered Tissue No -Bleeding Controlled with Pressure -Offloading Yes -Type of Offloading Camwalker -Treatment Response Procedure Tolerated Well [See Physician Procedure note for Specifics] Pain Scale: 0-10 Numeric [Pain] -Is Patient Pain Free? Yes Musculoskeletal: No Tenderness to Palpation of Joints or Extremities, Muscle Wasting, - - dorsal contraction of lesser digits and prominent metatarsal heads noted Neurological: - - lack of epicritic sensation via light touch consistent with neuropathy Psych/Mental Status: Normal Affect, Appropriate Debridement Note Post-Debridement Measurements/Treatment WC - Nurse 2 - General Ulcer CM Notes Start: 03/28/19 15:12 Freq: Status: Active Protocol: Activity Type Activity Date Activity User E-Sign Co-Sign Detail Recorded Client Recorded Date Recorded By Document 03/28/19 16:08 JF [id number] 03/28/19 16:10 PATRICK 03/28/19 16:08 Wound Center Nurse 2 #4 left plantar -Correct Patient No -Correct Side, Site, Position No -Correct Procedure No -Procedure Performed No -Post Debridement Size (cm) - Length 0 -Post Debridement Size (cm) - Width 0 -Post Debridement Size (cm) - Depth 0 -Total Square Cm 0 -Wound/Ulcer Outcome Healed- Epithelialized #3 right plantar -Time 16:08 -Correct Patient Yes -Correct Side, Site, Position Yes -Correct Procedure Yes -Procedure Performed Yes -Type of Procedure Debridement -Clinical Debridement Subcutaneous -Post Debridement Size (cm) - Length 1.0 -Post Debridement Size (cm) - Width 0.8 -Post Debridement Size (cm) - Depth 0.3 -Total Square Cm 0.80 -Wound/Ulcer Outcome Not Healed -Ulcer Cleansing Rinsed/ Irrigated with Saline -Foul Odor after Cleansing No -Bioengineered Tissue No -Bleeding Controlled with Pressure -Offloading Yes -Type of Offloading Camwalker -Treatment Response Procedure Tolerated Well Pain Scale: 0-10 Numeric Is Patient Pain Free? Yes Wound debrided: plantar lateral foot Laterality: Right Wound Grade/Stage: grade 1 Type of Debridement: Excisional debridement Anesthesia Used: 5% Lidocaine Gel Depth: in the subcutaneous layer Percentage of wound debrided: 100 Instrument Used: #15 blade Tissue Removed: fibrous, devitalized subcutaneous, biofilm, slough Severity: Fat Layer Exposed Amount of bleeding with debridement: Mild Bleeding Controlled with: Pressure Patient tolerated procedure well Assessment/Plan Assessment: chronic plantar right foot ulcer, fat layer exposed, no infection. healed left plantar foot ulcer. Diabetes with neuropathy. Delayed healing. bilateral hammer toes. malnutrition suspected Plan: I reviewed and discussed her case today. Debriedment was performed today as noted in the clinical panel. To change dressing right foot daily with aquacel ag. No dressing is needed for left foot; site has healed. I also recommend application of advanced wound healing product, epifix. The indication, planned procedure, benefit, risk, and anticipated healing time and management were discussed in detail. She understands and elects to proceed with prior authorization. This is medically necessary for limb salvage. She has a history of delayed healing, recurrent infections, and other ulcers. To avoid excessive walking activity. I recommended offloading with her surgical shoe or cam walker boot to right extremity. I recommend total contact cast for better ulcer offloading. She is going out of town this week and is amendable to have this applied next week when she returns. To take nutritional supplementation, Jere shakes, to optimize healing. To return to the wound healing center in one week or call sooner if there are any questions or concerns. I answered all of her questions.
== END 2019-04-01 23:59 ==
LOC: WC 14:51
PROVIDERS: Family Provider Internal Medicine; PCP Internal Medicine; Visit Provider Podiatrist
DX: E11.621 Type 2 diabetes mellitus with foot ulcer (principal); L97.512 Non-pressure chronic ulcer of other part of right foot with fat layer exposed; E11.42 Type 2 diabetes mellitus with diabetic polyneuropathy; M20.41 Other hammer toe(s) (acquired), right foot; M20.42 Other hammer toe(s) (acquired), left foot
CPT/HCPCS: 11042; 99213; G0463

== ENCOUNTER 2019-05-02 14:00 | Outpatient (RCR) | payer MEDICARE, SELFPAY ==
[2019-04-02 01:11] VITALS: BP 147/80; PULSE 72; RESP 16; TEMP 36.6
[2019-04-04 14:57] VITALS: BP 143/74; PULSE 73; RESP 16; TEMP 36.2; BMI 32.9
--- NOTE | 2019-04-04 15:35 | PN.PCM_ITS ---
(1) Ulcer of right foot with fat layer exposed Status: Chronic Current Visit: Yes Code(s): L97.512 - Non-pressure chronic ulcer of other part of right foot with fat layer exposed (2) Delayed wound healing Status: Chronic Current Visit: Yes Code(s): T14.8XXD - Other injury of unspecified body region, subsequent encounter (3) Type 2 diabetes mellitus with diabetic polyneuropathy Status: Chronic Current Visit: Yes Code(s): E11.42 - Type 2 diabetes mellitus with diabetic polyneuropathy (4) Hammer toe of right foot Status: Chronic Current Visit: Yes Code(s): M20.41 - Other hammer toe(s) (acquired), right foot Type of Wound Date of Service: 04/06/19 Chief Complaint: right foot ulcer History of Wound: This is a 63-year-old female returns to clinic for a right foot ulcer. Her left foot ulcer stopped draining and is now healed. She has a chronic right foot ulcer that has been present for over a month with delayed healing status. She denies fever, chill, nausea, vomiting. She wears offloading boot with decreased wound discomfort. She is amendable to try a total contact cast after she returns from out of town. Progress of Wound: right foot ulcer stable - Physical Exam Vital Signs Temp Pulse Resp BP 97.1 F L 73 16 143/74 H 04/04/19 14:57 04/04/19 14:57 04/04/19 14:57 04/04/19 14:57 General: Alert, Oriented x3, Cooperative, No apparent distress HEENT: Atraumatic Extremities: No cyanosis, Capillary Refill Less than 3 Seconds, No Calf Tenderness - Negative Tucker and Robison sign, Diminished Peripheral Pulses, Edema Skin: Ulcer/ Wound - No purulence, erythema, streaking, odor, infection. No fluctuance or bogginess on palpation. There is no exposed bone or joint. The ulcer depth is at least 0.4 cm deep. The peripheral skin is hairless and atrophic Wound Measurements and Assessment WC - Nurse 1 - General Ulcer Measurement Start: 04/04/19 14:51 Freq: Status: Active Protocol: Activity Type Activity Date Activity User E-Sign Co-Sign Detail Recorded Client Recorded Date Recorded By Document 04/04/19 14:57 [facility] [id number] 04/04/19 15:02 [facility] 04/04/19 14:57 Wound Center Nurse 1 [Ulcer Assessment] #3 right plantar -Combined with other wound No -Current Size (cm) - Length 0.7 -Current Size (cm) - Width 0.4 -Current Size (cm) - Depth 0.5 -Total Square Cm 0.28 -Photo Taken No -Epithelialization None Present -Tunneling No -Undermining/Tunneling No -Circular Undermining No -Exudate Amt Small -Exudate Type Serous -Wound Margin Distinct, Outline Attached -Granulation Amt Large (67-100%) -Granulation Quality [place] -Slough/Fibrin Yes -Necrosis Amt Small (1-33%) -Necrotic Tissue Type Adherent Slough -Texture (Salima-wound Skin Appearance) Assessed,Callus ,Scarring -Moisture (Salima-wound Skin Appearance Assessed,Dry/ ) Scaly -Color (Salima-wound Skin Appearance) Assessed -Temperature (Salima-wound Skin No Abnormality Appearance) (Pt Warm) -Tenderness on Palpation (Salima-wound No Skin Appearance) -Ulcer Cleansing Rinsed/ Irrigated with Saline -Foul Odor after Cleansing No -Anesthetic Used 5% Lidocaine Gel WC - Nurse 2 - General Ulcer CM Notes Start: 04/04/19 14:51 Freq: Status: Active Protocol: Activity Type Activity Date Activity User E-Sign Co-Sign Detail Recorded Client Recorded Date Recorded By Document 04/04/19 15:29 [id number] 04/04/19 15:33 04/04/19 15:29 Wound Center Nurse 2 [Procedure/Treatment] -Time 15:32 -Correct Patient Yes -Correct Side, Site, Position Yes -Correct Procedure Yes -Procedure Performed Yes -Type of Procedure Debridement -Clinical Debridement Subcutaneous -Post Debridement Size (cm) - Length 1 -Post Debridement Size (cm) - Width 0.8 -Post Debridement Size (cm) - Depth 0.3 -Total Square Cm 0.8 -Wound/Ulcer Outcome Not Healed -Ulcer Cleansing Rinsed/ Irrigated with Saline -Foul Odor after Cleansing No -Bioengineered Tissue No -Bleeding Controlled with Pressure -Offloading Yes -Type of Offloading Surgical Shoe -Treatment Response Procedure Tolerated Well [See Physician Procedure note for Specifics] Pain Scale: 0-10 Numeric [Pain] -Is Patient Pain Free? Yes Musculoskeletal: No Tenderness to Palpation of Joints or Extremities, Muscle Wasting Neurological: - - Lack of epicritic sensation light touch consistent with neuropathy Psych/Mental Status: Normal Affect, Appropriate Debridement Note Post-Debridement Measurements/Treatment WC - Nurse 2 - General Ulcer CM Notes Start: 04/04/19 14:51 Freq: Status: Active Protocol: Activity Type Activity Date Activity User E-Sign Co-Sign Detail Recorded Client Recorded Date Recorded By Document 04/04/19 15:29 [id number] 04/04/19 15:33 PATRICK 04/04/19 15:29 Wound Center Nurse 2 #3 right plantar -Time 15:32 -Correct Patient Yes -Correct Side, Site, Position Yes -Correct Procedure Yes -Procedure Performed Yes -Type of Procedure Debridement -Clinical Debridement Subcutaneous -Post Debridement Size (cm) - Length 1 -Post Debridement Size (cm) - Width 0.8 -Post Debridement Size (cm) - Depth 0.3 -Total Square Cm 0.8 -Wound/Ulcer Outcome Not Healed -Ulcer Cleansing Rinsed/ Irrigated with Saline -Foul Odor after Cleansing No -Bioengineered Tissue No -Bleeding Controlled with Pressure -Offloading Yes -Type of Offloading Surgical Shoe -Treatment Response Procedure Tolerated Well Pain Scale: 0-10 Numeric Is Patient Pain Free? Yes Wound debrided: plantar forefoot Laterality: Right Wound Grade/Stage: grade 1 Type of Debridement: Excisional debridement Anesthesia Used: 5% Lidocaine Gel Depth: in the subcutaneous layer Percentage of wound debrided: 100 Instrument Used: #15 blade Tissue Removed: fibrous, devitalized subcutaneous, biofilm, slough Severity: Fat Layer Exposed Amount of bleeding with debridement: Mild Bleeding Controlled with: Pressure Patient tolerated procedure well Assessment/Plan Active Problems (Last Reviewed 04/06/19 @ 15:17 by Jenny Michael) Ulcer of right foot with fat layer exposed (Chronic) Type 2 diabetes mellitus with diabetic polyneuropathy (Chronic) Hammer toe of right foot (Chronic) Delayed wound healing (Chronic) Assessment: chronic plantar right foot ulcer, fat layer exposed, no infection. healed left plantar foot ulcer. Diabetes with neuropathy. Delayed healing. bilateral hammer toes. malnutrition suspected Plan: I reviewed and discussed her case today. Debriedment was performed today as noted in the clinical panel. To change dressing right foot daily with aquacel ag. No dressing is needed for left foot; site has healed. I also recommend application of advanced wound healing product, epifix. The indication, planned procedure, benefit, risk, and anticipated healing time and management were discussed in detail. She understands and elects to proceed with prior authorization. This is medically necessary for limb salvage. She has a history of delayed healing, recurrent infections, and other ulcers. To avoid excessive walking activity. I recommended offloading with her surgical shoe or cam walker boot to right extremity. I recommend total contact cast for better ulcer offloading. She is going out of town this week and is amendable to have this applied next week when she returns. To take nutritional supplementation, Jere shakes, to optimize healing. To return to the wound healing center in one week or call sooner if there are any questions or concerns. I answered all of her questions.
[2019-04-18 14:19] VITALS: BP 141/72; PULSE 78; RESP 18; TEMP 36.3; BMI 32.9
--- NOTE | 2019-04-18 14:58 | PCM.WC.PN ---
(1) Ulcer of right foot with fat layer exposed Status: Chronic Code(s): L97.512 - Non-pressure chronic ulcer of other part of right foot with fat layer exposed (2) Delayed wound healing Status: Chronic Code(s): T14.8XXD - Other injury of unspecified body region, subsequent encounter (3) Type 2 diabetes mellitus with diabetic polyneuropathy Status: Chronic Code(s): E11.42 - Type 2 diabetes mellitus with diabetic polyneuropathy (4) Hammer toe of right foot Status: Chronic Code(s): M20.41 - Other hammer toe(s) (acquired), right foot Type of Wound Date of Service: 04/22/19 Chief Complaint: Diabetic foot ulceration, Boyce grade 2, left great toe History of Wound: This is a 62-year-old female returns to clinic for a new right foot ulcer. She denies fever, chill, nausea, vomiting. She wears offloading boot with decreased wound discomfort. She is amendable to try a total contact cast but is unable to do this because she does not have driving assistance. Progress of Wound: right foot ulcer stable - Physical Exam Vital Signs Temp Pulse Resp BP 97.3 F L 78 18 141/72 H 04/18/19 14:19 04/18/19 14:19 04/18/19 14:19 04/18/19 14:19 General: Alert, Oriented x3, Cooperative, No apparent distress HEENT: Atraumatic Extremities: No cyanosis, Capillary Refill Less than 3 Seconds, No Calf Tenderness - Negative Tucker and Robison sign bilateral, Diminished Peripheral Pulses, Edema, - - Dorsal contraction of lesser digits with prominent metatarsal head Skin: Ulcer/ Wound - No purulence, erythema, streaking, odor, or infection. No probe to joint or capsule. The peripheral skin is hairless and atrophic. Wound Measurements and Assessment WC - Nurse 1 - General Ulcer Measurement Start: 04/04/19 14:51 Freq: Status: Active Protocol: Activity Type Activity Date Activity User E-Sign Co-Sign Detail Recorded Client Recorded Date Recorded By Document 04/18/19 14:19 RB [id number] 04/18/19 14:22 RB 04/18/19 14:19 Wound Center Nurse 1 [Ulcer Assessment] #3 right plantar -Combined with other wound No -Current Size (cm) - Length 0.7 -Current Size (cm) - Width 0.4 -Current Size (cm) - Depth 0.5 -Total Square Cm 0.28 -Tunneling No -Undermining/Tunneling No -Circular Undermining No -Exudate Amt Small -Exudate Type Serosanguineous -Wound Margin Flat & Intact -Granulation Amt Large (67-100%) -Granulation Quality [place] -Slough/Fibrin Yes -Necrosis Amt Small (1-33%) -Necrotic Tissue Type Adherent Slough -Structure Exposed N/A -Texture (Salima-wound Skin Appearance) Assessed,Callus -Moisture (Salima-wound Skin Appearance Assessed ) -Color (Salima-wound Skin Appearance) Assessed -Temperature (Salima-wound Skin No Abnormality Appearance) (Pt Warm) -Tenderness on Palpation (Salima-wound No Skin Appearance) -Ulcer Cleansing Rinsed/ Irrigated with Saline -Foul Odor after Cleansing No -Anesthetic Used 5% Lidocaine Gel WC - Nurse 2 - General Ulcer CM Notes Start: 04/04/19 14:51 Freq: Status: Active Protocol: Activity Type Activity Date Activity User E-Sign Co-Sign Detail Recorded Client Recorded Date Recorded By Document 04/18/19 14:52 AN [id number] 04/18/19 14:57 AN 04/18/19 14:52 Wound Center Nurse 2 [Procedure/Treatment] -Time 14:53 -Correct Patient Yes -Correct Side, Site, Position Yes -Correct Procedure Yes -Procedure Performed Yes -Type of Procedure Debridement -Clinical Debridement Subcutaneous -Post Debridement Size (cm) - Length 0.8 -Post Debridement Size (cm) - Width 0.8 -Post Debridement Size (cm) - Depth 0.5 -Total Square Cm 0.64 -Wound/Ulcer Outcome Not Healed -Ulcer Cleansing Rinsed/ Irrigated with Saline -Bleeding Controlled with Pressure -Offloading Yes -Type of Offloading Surgical Shoe -Treatment Response Procedure Tolerated Well [See Physician Procedure note for Specifics] Pain Scale: 0-10 Numeric [Pain] -Is Patient Pain Free? Yes Musculoskeletal: No Tenderness to Palpation of Joints or Extremities, Muscle Wasting Neurological: - - Lack of normal epicritic sensation light touch consistent with neuropathy Psych/Mental Status: Normal Affect, Appropriate Debridement Note Post-Debridement Measurements/Treatment WC - Nurse 2 - General Ulcer CM Notes Start: 04/04/19 14:51 Freq: Status: Active Protocol: Activity Type Activity Date Activity User E-Sign Co-Sign Detail Recorded Client Recorded Date Recorded By Document 04/04/19 15:29 [id number] 04/04/19 15:33 Document 04/18/19 14:52 AN [id number] 04/18/19 14:57 AN 04/04/19 04/18/19 15:29 14:52 Wound Center Nurse 2 #3 right plantar -Time 15:32 14:53 -Correct Patient Yes Yes -Correct Side, Site, Position Yes Yes -Correct Procedure Yes Yes -Procedure Performed Yes Yes -Type of Procedure Debridement Debridement -Clinical Debridement Subcutaneous Subcutaneous -Post Debridement Size (cm) - Length 1 0.8 -Post Debridement Size (cm) - Width 0.8 0.8 -Post Debridement Size (cm) - Depth 0.3 0.5 -Total Square Cm 0.8 0.64 -Wound/Ulcer Outcome Not Healed Not Healed -Ulcer Cleansing Rinsed/ Rinsed/ Irrigated with Irrigated with Saline Saline -Foul Odor after Cleansing No -Bioengineered Tissue No -Bleeding Controlled with Pressure Pressure -Offloading Yes Yes -Type of Offloading Surgical Shoe Surgical Shoe -Treatment Response Procedure Procedure Tolerated Well Tolerated Well Pain Scale: 0-10 Numeric Is Patient Pain Free? Yes Yes Wound debrided: plantar lateral forefoot Laterality: Right Wound Grade/Stage: grade 1 Type of Debridement: Excisional debridement Anesthesia Used: 5% Lidocaine Gel Depth: in the subcutaneous layer Percentage of wound debrided: 100 Instrument Used: #15 blade Tissue Removed: fibrous, devitalized subcutaneous, biofilm, slough Severity: Fat Layer Exposed Amount of bleeding with debridement: Mild Bleeding Controlled with: Pressure Patient tolerated procedure well Assessment/Plan Assessment: chronic plantar right foot ulcer, fat layer exposed, no infection. healed left plantar foot ulcer. Diabetes with neuropathy. Delayed healing. bilateral hammer toes. malnutrition suspected Plan: I reviewed and discussed her case today. Debriedment was performed today as noted in the clinical panel. To change dressing right foot daily with [employer]. No dressing is needed for left foot; site has healed. I also recommend application of advanced wound healing product, epifix. The indication, planned procedure, benefit, risk, and anticipated healing time and management were discussed in detail. She understands and elects to proceed with prior authorization. This is medically necessary for limb salvage. She has a history of delayed healing, recurrent infections, and other ulcers. To avoid excessive walking activity. I recommended offloading with her surgical shoe or cam walker boot to right extremity. I recommend total contact cast for better ulcer offloading. She understands she had to live with this in place on the right foot and will arrange for transportation assistance. This will be considered in the next week. To take nutritional supplementation, Jere shakes, to optimize healing. To return to the wound healing center in one week or call sooner if there are any questions or concerns. I answered all of her questions.
[2019-04-25 14:02] VITALS: BP 138/89; PULSE 76; RESP 16; TEMP 36.3; BMI 32.9
--- NOTE | 2019-04-25 15:48 | PCM.WC.PN ---
(1) Ulcer of right foot with fat layer exposed Status: Chronic Current Visit: Yes Code(s): L97.512 - Non-pressure chronic ulcer of other part of right foot with fat layer exposed (2) Delayed wound healing Status: Chronic Current Visit: Yes Code(s): T14.8XXD - Other injury of unspecified body region, subsequent encounter (3) Type 2 diabetes mellitus with diabetic polyneuropathy Status: Chronic Current Visit: Yes Code(s): E11.42 - Type 2 diabetes mellitus with diabetic polyneuropathy (4) Hammer toe of right foot Status: Chronic Current Visit: Yes Code(s): M20.41 - Other hammer toe(s) (acquired), right foot Type of Wound Date of Service: 04/27/19 Chief Complaint: Diabetic foot ulceration, Boyce grade 2, left great toe History of Wound: This is a 62-year-old female returns to clinic for a new right foot ulcer. She denies fever, chill, nausea, vomiting. She wears offloading boot with decreased wound discomfort. She is amendable to try a total contact cast today and traveled with her brother who can provide a ride home. She was not preapproved for application of epi fix, advanced wound healing product. Progress of Wound: right foot ulcer stable - Physical Exam Vital Signs Temp Pulse Resp BP 97.3 F L 76 16 138/89 H 04/25/19 14:02 04/25/19 14:02 04/25/19 14:02 04/25/19 14:02 General: Alert, Oriented x3, Cooperative, No apparent distress Extremities: No cyanosis, Capillary Refill Less than 3 Seconds, No Calf Tenderness - Negative Tucker and Robison sign, Diminished Peripheral Pulses, Edema - Minor, - - Dorsal contraction of lesser digits with very prominent metatarsal head Skin: Ulcer/ Wound - No purulence, erythema, streaking, odor, necrosis, exposure of deep tissue. Peripheral skin is hairless and atrophic. Wound Measurements and Assessment WC - Nurse 1 - General Ulcer Measurement Start: 04/04/19 14:51 Freq: Status: Active Protocol: Activity Type Activity Date Activity User E-Sign Co-Sign Detail Recorded Client Recorded Date Recorded By Document 04/25/19 14:02 [facility] [id number] 04/25/19 14:12 [facility] 04/25/19 14:02 Wound Center Nurse 1 [Ulcer Assessment] #3 right plantar -Combined with other wound No -Current Size (cm) - Length 0.8 -Current Size (cm) - Width 0.6 -Current Size (cm) - Depth 0.5 -Total Square Cm 0.48 -Photo Taken No -Epithelialization None Present -Tunneling No -Undermining/Tunneling Yes -Undermining/Tunneling Starts (O' 12 clock) -Undermining/Tunneling Ends (O'clock) 2 -Maximum Distance (cm) 0.4 -Circular Undermining No -Exudate Amt Small -Exudate Type Serosanguineous -Wound Margin Distinct, Outline Attached -Granulation Amt Medium (34-66%) -Granulation Quality Red -Slough/Fibrin Yes -Necrosis Amt Small (1-33%) -Necrotic Tissue Type Adherent Slough -Texture (Salima-wound Skin Appearance) Assessed,Callus ,Scarring -Moisture (Salima-wound Skin Appearance Assessed,Dry/ ) Scaly -Color (Salima-wound Skin Appearance) Assessed -Temperature (Salima-wound Skin No Abnormality Appearance) (Pt Warm) -Tenderness on Palpation (Salima-wound No Skin Appearance) -Ulcer Cleansing Rinsed/ Irrigated with Saline -Anesthetic Used 5% Lidocaine Gel WC - Nurse 2 - General Ulcer CM Notes Start: 04/04/19 14:51 Freq: Status: Active Protocol: Activity Type Activity Date Activity User E-Sign Co-Sign Detail Recorded Client Recorded Date Recorded By Document 04/25/19 14:51 AN [id number] 04/25/19 14:53 AN 04/25/19 14:51 Wound Center Nurse 2 [Procedure/Treatment] -Time 14:52 -Correct Patient Yes -Correct Side, Site, Position Yes -Correct Procedure Yes -Procedure Performed Yes -Type of Procedure Debridement -Clinical Debridement Subcutaneous -Post Debridement Size (cm) - Length 0.9 -Post Debridement Size (cm) - Width 0.7 -Post Debridement Size (cm) - Depth 0.5 -Total Square Cm 0.63 -Wound/Ulcer Outcome Not Healed -Ulcer Cleansing Rinsed/ Irrigated with Saline -Foul Odor after Cleansing No -Bioengineered Tissue No -Bleeding Controlled with Pressure -Offloading No -Type of Offloading Total Contact Cast (TCC) -Treatment Response Procedure Tolerated Well [See Physician Procedure note for Specifics] Pain Scale: 0-10 Numeric [Pain] -Is Patient Pain Free? Yes Musculoskeletal: No Tenderness to Palpation of Joints or Extremities, Muscle Wasting Neurological: - - Lack of normal epicritic sensation consistent with neuropathy Psych/Mental Status: Normal Affect, Appropriate Debridement Note Post-Debridement Measurements/Treatment WC - Nurse 2 - General Ulcer CM Notes Start: 04/04/19 14:51 Freq: Status: Active Protocol: Activity Type Activity Date Activity User E-Sign Co-Sign Detail Recorded Client Recorded Date Recorded By Document 04/04/19 15:29 [id number] 04/04/19 15:33 Document 04/18/19 14:52 AN [id number] 04/18/19 14:57 AN Document 04/25/19 14:51 AN [id number] 04/25/19 14:53 AN 04/04/19 04/18/19 04/25/19 15:29 14:52 14:51 Wound Center Nurse 2 #3 right plantar -Time 15:32 14:53 14:52 -Correct Patient Yes Yes Yes -Correct Side, Site, Position Yes Yes Yes -Correct Procedure Yes Yes Yes -Procedure Performed Yes Yes Yes -Type of Procedure Debridement Debridement Debridement -Clinical Debridement Subcutaneous Subcutaneous Subcutaneous -Post Debridement Size (cm) - Length 1 0.8 0.9 -Post Debridement Size (cm) - Width 0.8 0.8 0.7 -Post Debridement Size (cm) - Depth 0.3 0.5 0.5 -Total Square Cm 0.8 0.64 0.63 -Wound/Ulcer Outcome Not Healed Not Healed Not Healed -Ulcer Cleansing Rinsed/ Rinsed/ Rinsed/ Irrigated with Irrigated with Irrigated with Saline Saline Saline -Foul Odor after Cleansing No No -Bioengineered Tissue No No -Bleeding Controlled with Pressure Pressure Pressure -Offloading Yes Yes No -Type of Offloading Surgical Shoe Surgical Shoe Total Contact Cast (TCC) -Treatment Response Procedure Procedure Procedure Tolerated Well Tolerated Well Tolerated Well Pain Scale: 0-10 Numeric Is Patient Pain Free? Yes Yes Yes Wound debrided: plantar lateral forefoot Laterality: Right Wound Grade/Stage: grade 1 Type of Debridement: Excisional debridement Anesthesia Used: 5% Lidocaine Gel Depth: in the subcutaneous layer Percentage of wound debrided: 100 Instrument Used: #15 blade Tissue Removed: fibrous, devitalized subcutaneous, biofilm, slough Severity: Fat Layer Exposed Amount of bleeding with debridement: Mild Bleeding Controlled with: Pressure Patient tolerated procedure well Assessment/Plan Active Problems (Last Reviewed 04/06/19 @ 15:17 by Jenny Michael) Ulcer of right foot with fat layer exposed (Chronic) Type 2 diabetes mellitus with diabetic polyneuropathy (Chronic) Hammer toe of right foot (Chronic) Delayed wound healing (Chronic) Assessment: chronic plantar right foot ulcer, fat layer exposed, no infection. healed left plantar foot ulcer. Diabetes with neuropathy. Delayed healing. bilateral hammer toes. malnutrition suspected Plan: I reviewed and discussed her case today. Debriedment was performed today as noted in the clinical panel. Rosa Isela was applied to the ulcer site. A well-padded total contact cast was applied according to standard protocol with the lower extremity in a rectus position. She tolerated well. She is advised to keep this clean, dry, and intact until she returns to clinic next week. She was advised not to drive with a cast in place. To avoid excessive walking activity. I recommended offloading with her surgical shoe or cam walker boot to right extremity. I recommend total contact cast for better ulcer offloading. She understands she had to live with this in place on the right foot and will arrange for transportation assistance. This will be considered in the next week. To take nutritional supplementation, Jere shakes, to optimize healing. To return to the wound healing center in one week or call sooner if there are any questions or concerns. I answered all of her questions.
[2019-05-02 13:59] VITALS: BP 125/59; PULSE 74; RESP 18; TEMP 36.8; BMI 32.9
--- NOTE | 2019-05-02 15:22 | PN.PCM_ITS ---
(1) Ulcer of right foot with fat layer exposed Status: Chronic Code(s): L97.512 - Non-pressure chronic ulcer of other part of right foot with fat layer exposed (2) Delayed wound healing Status: Chronic Code(s): T14.8XXD - Other injury of unspecified body region, subsequent encounter (3) Type 2 diabetes mellitus with diabetic polyneuropathy Status: Chronic Code(s): E11.42 - Type 2 diabetes mellitus with diabetic polyneuropathy (4) Hammer toe of right foot Status: Chronic Code(s): M20.41 - Other hammer toe(s) (acquired), right foot Type of Wound Date of Service: 05/02/19 Chief Complaint: Diabetic foot ulceration, Boyce grade 2, left great toe History of Wound: This is a 63-year-old female returns to clinic for a new right foot ulcer. She denies fever, chill, nausea, vomiting. She wears a total contact cast with decreased wound discomfort. She is amendable to try another total contact cast today and traveled with her brother who can provide a ride home. She was not preapproved for application of epi fix, advanced wound healing product. Progress of Wound: right foot ulcer improving - Physical Exam Vital Signs Temp Pulse Resp BP 98.2 F 74 18 125/59 H 05/02/19 13:59 05/02/19 13:59 05/02/19 13:59 05/02/19 13:59 General: Alert, Oriented x3, Cooperative, No apparent distress Extremities: No cyanosis, Capillary Refill Less than 3 Seconds, No Calf Tenderness, Diminished Peripheral Pulses, Edema - Mild Skin: Ulcer/ Wound - No purulence, erythema, streaking, odor, infection. No interdigital maceration or necrosis. The peripheral skin is hairless and atrophic. Wound Measurements and Assessment WC - Nurse 1 - General Ulcer Measurement Start: 04/04/19 14:51 Freq: Status: Active Protocol: Activity Type Activity Date Activity User E-Sign Co-Sign Detail Recorded Client Recorded Date Recorded By Document 05/02/19 13:59 [id number] 05/02/19 14:05 05/02/19 13:59 Wound Center Nurse 1 [Ulcer Assessment] #3 right plantar -Combined with other wound No -Current Size (cm) - Length 0.8 -Current Size (cm) - Width 0.5 -Current Size (cm) - Depth 0.4 -Total Square Cm 0.40 -Photo Taken Yes -Epithelialization Small 1-33% -Tunneling No -Undermining/Tunneling No -Circular Undermining No -Exudate Amt Small -Exudate Type Serosanguineous -Wound Margin Thickened & Rolled Under -Granulation Amt Medium (34-66%) -Granulation Quality Red -Slough/Fibrin Yes -Necrosis Amt Medium (34-66%) -Necrotic Tissue Type Adherent Slough -Structure Exposed N/A -Texture (Salima-wound Skin Appearance) Assessed,Callus -Moisture (Salima-wound Skin Appearance Assessed,Dry/ ) Scaly -Color (Salima-wound Skin Appearance) Assessed -Temperature (Salima-wound Skin No Abnormality Appearance) (Pt Warm) -Tenderness on Palpation (Salima-wound No Skin Appearance) -Ulcer Cleansing Wound Cleanser -Foul Odor after Cleansing No -Anesthetic Used 4% Lidocaine Solution [Edema Assessment] -Lower Limb Edema Present No WC - Nurse 2 - General Ulcer CM Notes Start: 04/04/19 14:51 Freq: Status: Active Protocol: Activity Type Activity Date Activity User E-Sign Co-Sign Detail Recorded Client Recorded Date Recorded By Document 05/02/19 14:15 AN [id number] 05/02/19 14:17 AN 05/02/19 14:15 Wound Center Nurse 2 [Procedure/Treatment] #3 right plantar -Time 14:16 -Correct Patient Yes -Correct Side, Site, Position Yes -Correct Procedure Yes -Procedure Performed Yes -Type of Procedure Debridement -Clinical Debridement Subcutaneous -Post Debridement Size (cm) - Length 0.8 -Post Debridement Size (cm) - Width 0.6 -Post Debridement Size (cm) - Depth 0.4 -Total Square Cm 0.48 -Wound/Ulcer Outcome Not Healed -Ulcer Cleansing Rinsed/ Irrigated with Saline -Foul Odor after Cleansing No -Bioengineered Tissue No -Bleeding Controlled with Pressure -Offloading Yes -Type of Offloading Total Contact Cast (TCC) -Treatment Response Procedure Tolerated Well [See Physician Procedure note for Specifics] Pain Scale: 0-10 Numeric [Pain] -Is Patient Pain Free? Yes Musculoskeletal: No Tenderness to Palpation of Joints or Extremities, Muscle Wasting, - - Dorsal contraction of lesser toes and prominent metatarsal head Neurological: - - Lack of normal epicritic sensation light touch consistent with neuropathy Psych/Mental Status: Normal Affect, Appropriate Debridement Note Post-Debridement Measurements/Treatment WC - Nurse 2 - General Ulcer CM Notes Start: 04/04/19 14:51 Freq: Status: Active Protocol: Activity Type Activity Date Activity User E-Sign Co-Sign Detail Recorded Client Recorded Date Recorded By Document 04/04/19 15:29 JF [id number] 04/04/19 15:33 JF Document 04/18/19 14:52 AN [id number] 04/18/19 14:57 AN Document 04/25/19 14:51 AN [id number] 04/25/19 14:53 AN Document 05/02/19 14:15 AN [id number] 05/02/19 14:17 AN 04/04/19 04/18/19 04/25/19 15:29 14:52 14:51 Wound Center Nurse 2 #3 right plantar -Time 15:32 14:53 14:52 -Correct Patient Yes Yes Yes -Correct Side, Site, Position Yes Yes Yes -Correct Procedure Yes Yes Yes -Procedure Performed Yes Yes Yes -Type of Procedure Debridement Debridement Debridement -Clinical Debridement Subcutaneous Subcutaneous Subcutaneous -Post Debridement Size (cm) - Length 1 0.8 0.9 -Post Debridement Size (cm) - Width 0.8 0.8 0.7 -Post Debridement Size (cm) - Depth 0.3 0.5 0.5 -Total Square Cm 0.8 0.64 0.63 -Wound/Ulcer Outcome Not Healed Not Healed Not Healed -Ulcer Cleansing Rinsed/ Rinsed/ Rinsed/ Irrigated with Irrigated with Irrigated with Saline Saline Saline -Foul Odor after Cleansing No No -Bioengineered Tissue No No -Bleeding Controlled with Pressure Pressure Pressure -Offloading Yes Yes No -Type of Offloading Surgical Shoe Surgical Shoe Total Contact Cast (TCC) -Treatment Response Procedure Procedure Procedure Tolerated Well Tolerated Well Tolerated Well Pain Scale: 0-10 Numeric Is Patient Pain Free? Yes Yes Yes 05/02/19 14:15 Wound Center Nurse 2 #3 right plantar -Time 14:16 -Correct Patient Yes -Correct Side, Site, Position Yes -Correct Procedure Yes -Procedure Performed Yes -Type of Procedure Debridement -Clinical Debridement Subcutaneous -Post Debridement Size (cm) - Length 0.8 -Post Debridement Size (cm) - Width 0.6 -Post Debridement Size (cm) - Depth 0.4 -Total Square Cm 0.48 -Wound/Ulcer Outcome Not Healed -Ulcer Cleansing Rinsed/ Irrigated with Saline -Foul Odor after Cleansing No -Bioengineered Tissue No -Bleeding Controlled with Pressure -Offloading Yes -Type of Offloading Total Contact Cast (TCC) -Treatment Response Procedure Tolerated Well Pain Scale: 0-10 Numeric Is Patient Pain Free? Yes Wound debrided: plantar lateral foot Laterality: Right Wound Grade/Stage: grade 1 Type of Debridement: Excisional debridement Anesthesia Used: 5% Lidocaine Gel Depth: in the subcutaneous layer Percentage of wound debrided: 100 Instrument Used: #15 blade Tissue Removed: fibrous, devitalized subcutaneous, biofilm, slough Severity: Fat Layer Exposed Amount of bleeding with debridement: Mild Bleeding Controlled with: Pressure Patient tolerated procedure well Assessment/Plan Assessment: chronic plantar right foot ulcer, fat layer exposed, no infection. Diabetes with neuropathy. Delayed healing. bilateral hammer toes. malnutrition suspected Plan: I reviewed and discussed her case today. Debridement was performed today as noted in the clinical panel. Rosa Isela was applied to the ulcer site. A well- padded total contact cast was applied according to standard protocol with the lower extremity in a rectus position. She tolerated well. She is advised to keep this clean, dry, and intact until she returns to clinic next week. She was advised not to drive with a cast in place. To avoid excessive walking activity. I recommended offloading with her surgical shoe or cam walker boot to right extremity. I recommend total contact cast for better ulcer offloading. She understands she had to live with this in place on the right foot and will arrange for transportation assistance. This will be considered in the next week. To take nutritional supplementation, Jere shakes, to optimize healing. To return to the wound healing center in one week or call sooner if there are any questions or concerns. I answered all of her questions.
== END 2019-05-02 23:59 ==
LOC: WC 14:00
PROVIDERS: Family Provider Internal Medicine; PCP Internal Medicine; Visit Provider Podiatrist
DX: E11.621 Type 2 diabetes mellitus with foot ulcer (principal); E11.42 Type 2 diabetes mellitus with diabetic polyneuropathy; M20.41 Other hammer toe(s) (acquired), right foot; L97.512 Non-pressure chronic ulcer of other part of right foot with fat layer exposed
CPT/HCPCS: 11042; 29445

== ENCOUNTER 2019-05-23 13:15 | Outpatient (RCR) | payer MEDICARE, SELFPAY ==
[2019-05-03 01:05] VITALS: BP 125/59; PULSE 74; RESP 18; TEMP 36.8
[2019-05-09 13:12] VITALS: BP 115/61; PULSE 67; RESP 20; TEMP 36.4; BMI 32.9
--- NOTE | 2019-05-09 15:24 | PN.PCM_ITS ---
(1) Ulcer of right foot with fat layer exposed Status: Chronic Current Visit: Yes Code(s): L97.512 - Non-pressure chronic ulcer of other part of right foot with fat layer exposed (2) Type 2 diabetes mellitus with diabetic polyneuropathy Status: Chronic Current Visit: Yes Code(s): E11.42 - Type 2 diabetes mellitus with diabetic polyneuropathy (3) Delayed wound healing Status: Chronic Current Visit: Yes Code(s): T14.8XXD - Other injury of unspecified body region, subsequent encounter Type of Wound Date of Service: 05/10/19 Chief Complaint: Diabetic foot ulceration, Boyce grade 2, left great toe History of Wound: This is a 62-year-old female returns to clinic for a new right foot ulcer. She denies fever, chill, nausea, vomiting. She wears offloading boot with decreased wound discomfort. She does admit that wearing total contact cast limits her activities significantly and is very hard for her. Progress of Wound: Improving - Physical Exam Vital Signs Temp Pulse Resp BP 97.6 F L 67 20 H 115/61 05/09/19 13:12 05/09/19 13:12 05/09/19 13:12 05/09/19 13:12 General: Alert, Oriented x3, Cooperative, No apparent distress Extremities: No cyanosis, Capillary Refill Less than 3 Seconds, No Calf Tenderness, Diminished Peripheral Pulses, Edema, - - Dorsal contraction of lesser digits and prominent metatarsal head right foot Skin: Ulcer/ Wound - No purulence, erythema, streaking, odor, infection. Significant peripheral epithelialization is noted. There is no interdigital maceration, necrosis, or deep tissue exposure. Wound Measurements and Assessment WC - Nurse 1 - General Ulcer Measurement Start: 05/09/19 13:12 Freq: Status: Active Protocol: Activity Type Activity Date Activity User E-Sign Co-Sign Detail Recorded Client Recorded Date Recorded By Document 05/09/19 13:12 DL [id number] 05/09/19 13:31 DL 05/09/19 13:12 Wound Center Nurse 1 [Ulcer Assessment] #3 right plantar -Current Size (cm) - Length 0.6 -Current Size (cm) - Width 0.4 -Current Size (cm) - Depth 0.3 -Total Square Cm 0.24 -Photo Taken Yes -Exudate Amt Large -Exudate Type Yellow/Green -Wound Margin Thickened -Granulation Amt Small (1-33%) -Granulation Quality [place] -Necrosis Amt Small (1-33%) -Necrotic Tissue Type Adherent Slough -Texture (Salima-wound Skin Appearance) Callus,Scarring -Moisture (Salima-wound Skin Appearance Maceration ) -Color (Salima-wound Skin Appearance) No Abnormality -Temperature (Salima-wound Skin No Abnormality Appearance) (Pt Warm) -Tenderness on Palpation (Salima-wound No Skin Appearance) -Ulcer Cleansing Wound Cleanser -Foul Odor after Cleansing No -Anesthetic Used 5% Lidocaine Gel WC - Nurse 2 - General Ulcer CM Notes Start: 05/09/19 13:12 Freq: Status: Active Protocol: Activity Type Activity Date Activity User E-Sign Co-Sign Detail Recorded Client Recorded Date Recorded By Document 05/09/19 13:37 AN [id number] 05/09/19 13:39 AN 05/09/19 13:37 Wound Center Nurse 2 [Procedure/Treatment] -Time 13:38 -Correct Patient Yes -Correct Side, Site, Position Yes -Correct Procedure Yes -Procedure Performed Yes -Type of Procedure Debridement -Clinical Debridement Subcutaneous -Post Debridement Size (cm) - Length 0.7 -Post Debridement Size (cm) - Width 0.5 -Post Debridement Size (cm) - Depth 0.3 -Total Square Cm 0.35 -Wound/Ulcer Outcome Not Healed -Ulcer Cleansing Rinsed/ Irrigated with Saline -Foul Odor after Cleansing No -Bioengineered Tissue No -Bleeding Controlled with Pressure -Offloading Yes -Type of Offloading Surgical Shoe -Treatment Response Procedure Tolerated Well [See Physician Procedure note for Specifics] Musculoskeletal: No Tenderness to Palpation of Joints or Extremities, Muscle Wasting Neurological: - - Lack of normal epicritic sensation light touch consistent with neuropathy Psych/Mental Status: Normal Affect, Appropriate Debridement Note Post-Debridement Measurements/Treatment WC - Nurse 2 - General Ulcer CM Notes Start: 05/09/19 13:12 Freq: Status: Active Protocol: Activity Type Activity Date Activity User E-Sign Co-Sign Detail Recorded Client Recorded Date Recorded By Document 05/09/19 13:37 AN [id number] 05/09/19 13:39 AN 05/09/19 13:37 Wound Center Nurse 2 #3 right plantar -Time 13:38 -Correct Patient Yes -Correct Side, Site, Position Yes -Correct Procedure Yes -Procedure Performed Yes -Type of Procedure Debridement -Clinical Debridement Subcutaneous -Post Debridement Size (cm) - Length 0.7 -Post Debridement Size (cm) - Width 0.5 -Post Debridement Size (cm) - Depth 0.3 -Total Square Cm 0.35 -Wound/Ulcer Outcome Not Healed -Ulcer Cleansing Rinsed/ Irrigated with Saline -Foul Odor after Cleansing No -Bioengineered Tissue No -Bleeding Controlled with Pressure -Offloading Yes -Type of Offloading Surgical Shoe -Treatment Response Procedure Tolerated Well Wound debrided: plantar lateral forefoot Laterality: Right Wound Grade/Stage: grade 1 Type of Debridement: Excisional debridement Anesthesia Used: 5% Lidocaine Gel Depth: in the subcutaneous layer Percentage of wound debrided: 100 Instrument Used: #15 blade Tissue Removed: fibrous, devitalized subcutaneous, biofilm, slough Severity: Fat Layer Exposed Amount of bleeding with debridement: Mild Bleeding Controlled with: Pressure Patient tolerated procedure well Assessment/Plan Active Problems (Last Reviewed 04/06/19 @ 15:17 by Jenny Michael) Ulcer of right foot with fat layer exposed (Chronic) Type 2 diabetes mellitus with diabetic polyneuropathy (Chronic) Delayed wound healing (Chronic) Assessment: chronic plantar right foot ulcer, fat layer exposed, no infection. healed left plantar foot ulcer. Diabetes with neuropathy. Delayed healing. bilateral hammer toes. malnutrition suspected Plan: I reviewed and discussed her case today. Debriedment was performed today as noted in the clinical panel. Rosa Isela was applied to the ulcer site. She is not amenable to wear total contact cast this week but will consider a follow-up visit. She is advised to return to her offloading CAM Walker boot when she returns home and to avoid walking on this site. To change dressing daily. To take nutritional supplementation, Jere shakes, to optimize healing. To return to the wound healing center in two weeks or call sooner if there are any qu estions or concerns. I answered all of her questions.
[2019-05-23 13:31] VITALS: BP 123/70; PULSE 71; RESP 18; TEMP 36.5; BMI 32.9
--- NOTE | 2019-05-23 14:11 | PCM.WC.PN ---
(1) Ulcer of right foot with fat layer exposed Status: Chronic Current Visit: Yes Code(s): L97.512 - Non-pressure chronic ulcer of other part of right foot with fat layer exposed (2) Type 2 diabetes mellitus with diabetic polyneuropathy Status: Chronic Current Visit: Yes Code(s): E11.42 - Type 2 diabetes mellitus with diabetic polyneuropathy (3) Delayed wound healing Status: Chronic Current Visit: Yes Code(s): T14.8XXD - Other injury of unspecified body region, subsequent encounter Type of Wound Date of Service: 05/23/19 Chief Complaint: right foot ulcer History of Wound: This is a 62-year-old female returns to clinic for a new right foot ulcer. She denies fever, chill, nausea, vomiting. She wears offloading boot with decreased wound discomfort. She does admit that wearing total contact cast limits her activities significantly and is very hard for her. She is amenable to try this cast again next week when she has someone to drive her home. She admits she had the most improvement when she was a total contact cast per week. Progress of Wound: Improving - Physical Exam Vital Signs Temp Pulse Resp BP 97.7 F L 71 18 123/70 H 05/23/19 13:31 05/23/19 13:31 05/23/19 13:31 05/23/19 13:31 General: Alert, Oriented x3, Cooperative, No apparent distress Extremities: No cyanosis, Capillary Refill Less than 3 Seconds, No Calf Tenderness, Diminished Peripheral Pulses, Edema Skin: Ulcer/ Wound - No purulence, erythema, streaking, odor, necrosis, deep tissue exposure or infection. The peripheral skin is hairless and atrophic. Wound Measurements and Assessment WC - Nurse 1 - General Ulcer Measurement Start: 05/09/19 13:12 Freq: Status: Active Protocol: Activity Type Activity Date Activity User E-Sign Co-Sign Detail Recorded Client Recorded Date Recorded By Document 05/23/19 13:31 RB [id number] 05/23/19 13:37 RB 05/23/19 13:31 Wound Center Nurse 1 [Ulcer Assessment] #3 right plantar -Combined with other wound No -Current Size (cm) - Length 0.3 -Current Size (cm) - Width 0.3 -Current Size (cm) - Depth 0.2 -Total Square Cm 0.09 -Tunneling No -Undermining/Tunneling Yes -Undermining/Tunneling Starts (O' 12 clock) -Undermining/Tunneling Ends (O'clock) 12 -Maximum Distance (cm) 0.2 -Circular Undermining Yes -Exudate Amt Small -Exudate Type Serosanguineous -Wound Margin Thickened -Granulation Amt Medium (34-66%) -Granulation Quality [place] -Slough/Fibrin Yes -Necrosis Amt Small (1-33%) -Necrotic Tissue Type Adherent Slough -Structure Exposed N/A -Texture (Salima-wound Skin Appearance) Callus -Moisture (Salima-wound Skin Appearance Assessed ) -Color (Salima-wound Skin Appearance) Assessed -Temperature (Salima-wound Skin No Abnormality Appearance) (Pt Warm) -Tenderness on Palpation (Salima-wound No Skin Appearance) -Ulcer Cleansing Rinsed/ Irrigated with Saline -Foul Odor after Cleansing No -Anesthetic Used 5% Lidocaine Gel WC - Nurse 2 - General Ulcer CM Notes Start: 05/09/19 13:12 Freq: Status: Active Protocol: Activity Type Activity Date Activity User E-Sign Co-Sign Detail Recorded Client Recorded Date Recorded By Document 05/23/19 13:49 AN [id number] 05/23/19 13:51 AN 05/23/19 13:49 Wound Center Nurse 2 [Procedure/Treatment] -Time 13:50 -Correct Patient Yes -Correct Side, Site, Position Yes -Correct Procedure Yes -Procedure Performed Yes -Type of Procedure Debridement -Clinical Debridement Subcutaneous -Post Debridement Size (cm) - Length 0.4 -Post Debridement Size (cm) - Width 0.4 -Post Debridement Size (cm) - Depth 0.2 -Total Square Cm 0.16 -Wound/Ulcer Outcome Not Healed -Ulcer Cleansing Rinsed/ Irrigated with Saline -Foul Odor after Cleansing No -Bioengineered Tissue No -Bleeding Controlled with Pressure -Offloading Yes -Treatment Response Procedure Tolerated Well [See Physician Procedure note for Specifics] Pain Scale: 0-10 Numeric [Pain] -Is Patient Pain Free? Yes Musculoskeletal: No Tenderness to Palpation of Joints or Extremities, Muscle Wasting, - - Dorsal contracted lesser digits with prominent metatarsal heads Neurological: - - Lack of normal epicritic sensation light touch consistent with neuropathy Psych/Mental Status: Normal Affect, Appropriate Debridement Note Post-Debridement Measurements/Treatment WC - Nurse 2 - General Ulcer CM Notes Start: 05/09/19 13:12 Freq: Status: Active Protocol: Activity Type Activity Date Activity User E-Sign Co-Sign Detail Recorded Client Recorded Date Recorded By Document 05/09/19 13:37 AN [id number] 05/09/19 13:39 AN Document 05/23/19 13:49 AN [id number] 05/23/19 13:51 AN 05/09/19 05/23/19 13:37 13:49 Wound Center Nurse 2 #3 right plantar -Time 13:38 13:50 -Correct Patient Yes Yes -Correct Side, Site, Position Yes Yes -Correct Procedure Yes Yes -Procedure Performed Yes Yes -Type of Procedure Debridement Debridement -Clinical Debridement Subcutaneous Subcutaneous -Post Debridement Size (cm) - Length 0.7 0.4 -Post Debridement Size (cm) - Width 0.5 0.4 -Post Debridement Size (cm) - Depth 0.3 0.2 -Total Square Cm 0.35 0.16 -Wound/Ulcer Outcome Not Healed Not Healed -Ulcer Cleansing Rinsed/ Rinsed/ Irrigated with Irrigated with Saline Saline -Foul Odor after Cleansing No No -Bioengineered Tissue No No -Bleeding Controlled with Pressure Pressure -Offloading Yes Yes -Type of Offloading Surgical Shoe -Treatment Response Procedure Procedure Tolerated Well Tolerated Well Pain Scale: 0-10 Numeric Is Patient Pain Free? Yes Wound debrided: plantar lateral foot Laterality: Right Wound Grade/Stage: grade 1 Type of Debridement: Excisional debridement Anesthesia Used: 5% Lidocaine Gel Depth: in the subcutaneous layer Percentage of wound debrided: 100 Instrument Used: #15 blade Tissue Removed: fibrous, devitalized subcutaneous, biofilm, slough Severity: Fat Layer Exposed Amount of bleeding with debridement: Mild Bleeding Controlled with: Pressure Patient tolerated procedure well Assessment/Plan Active Problems (Last Reviewed 05/17/19 @ 11:05 by Marcelina Wang) Ulcer of right foot with fat layer exposed (Chronic) Type 2 diabetes mellitus with diabetic polyneuropathy (Chronic) Delayed wound healing (Chronic) Assessment: chronic plantar right foot ulcer, fat layer exposed, no infection. healed left plantar foot ulcer. Diabetes with neuropathy. Delayed healing. bilateral hammer toes. malnutrition suspected Plan: I reviewed and discussed her case today. Debriedment was performed today as noted in the clinical panel. Rosa Isela was applied to the ulcer site. She is not amenable to wear total contact cast this week but will consider a follow-up visit. She will continue and consider this application next week when her brother comes with her to drive her home. She is advised to return to her offloading CAM Walker boot when she returns home and to avoid walking on this site. To change dressing daily. To take nutritional supplementation, Jere shakes, to optimize healing. To return to the wound healing center in two weeks or call sooner if there are any questions or concerns. I answered all of her questions.
--- NOTE | 2019-05-30 15:09 | PCM.WC.PN ---
(1) Ulcer of right foot with fat layer exposed Status: Chronic Code(s): L97.512 - Non-pressure chronic ulcer of other part of right foot with fat layer exposed (2) Type 2 diabetes mellitus with diabetic polyneuropathy Status: Chronic Code(s): E11.42 - Type 2 diabetes mellitus with diabetic polyneuropathy (3) Delayed wound healing Status: Chronic Code(s): T14.8XXD - Other injury of unspecified body region, subsequent encounter Type of Wound Date of Service: 05/30/19 Chief Complaint: right foot ulcer History of Wound: This is a 63-year-old female returns to clinic for a new right foot ulcer. She denies fever, chill, nausea, vomiting. She has been offloading. She does admit that wearing total contact cast limits her activities significantly and is very hard for her. Progress of Wound: Improving - Physical Exam Vital Signs Temp Pulse Resp BP 97.7 F L 71 18 123/70 H 05/23/19 13:31 05/23/19 13:31 05/23/19 13:31 05/23/19 13:31 General: Alert, Oriented x3, Cooperative, No apparent distress Extremities: No cyanosis, Capillary Refill Less than 3 Seconds, No Calf Tenderness - Negative Tucker and Robison sign bilateral, Diminished Peripheral Pulses, Edema Skin: Ulcer/ Wound - No purulence, erythema, streaking, odor, infection. The peripheral skin is hairless and atrophic Pre-debridement measurement 0.3 x 0.3 x 0.2 cm Post debridement measurement 0.4 x 0.4 x 0.2 cm Musculoskeletal: No Tenderness to Palpation of Joints or Extremities, Muscle Wasting Neurological: - - Lack of normal epicritic sensation light touch consistent with neuropathy Psych/Mental Status: Normal Affect, Appropriate Debridement Note Post-Debridement Measurements/Treatment WC - Nurse 2 - General Ulcer CM Notes Start: 05/09/19 13:12 Freq: Status: Active Protocol: Activity Type Activity Date Activity User E-Sign Co-Sign Detail Recorded Client Recorded Date Recorded By Document 05/09/19 13:37 AN [id number] 05/09/19 13:39 AN Document 05/23/19 13:49 AN [id number] 05/23/19 13:51 AN 05/09/19 05/23/19 13:37 13:49 Wound Center Nurse 2 #3 right plantar -Time 13:38 13:50 -Correct Patient Yes Yes -Correct Side, Site, Position Yes Yes -Correct Procedure Yes Yes -Procedure Performed Yes Yes -Type of Procedure Debridement Debridement -Clinical Debridement Subcutaneous Subcutaneous -Post Debridement Size (cm) - Length 0.7 0.4 -Post Debridement Size (cm) - Width 0.5 0.4 -Post Debridement Size (cm) - Depth 0.3 0.2 -Total Square Cm 0.35 0.16 -Wound/Ulcer Outcome Not Healed Not Healed -Ulcer Cleansing Rinsed/ Rinsed/ Irrigated with Irrigated with Saline Saline -Foul Odor after Cleansing No No -Bioengineered Tissue No No -Bleeding Controlled with Pressure Pressure -Offloading Yes Yes -Type of Offloading Surgical Shoe -Treatment Response Procedure Procedure Tolerated Well Tolerated Well Pain Scale: 0-10 Numeric Is Patient Pain Free? Yes Wound debrided: plantar metatarsal head Laterality: Right Wound Grade/Stage: grade 2 Type of Debridement: Excisional debridement Anesthesia Used: 5% Lidocaine Gel Depth: in the subcutaneous layer Percentage of wound debrided: 100 Instrument Used: #15 blade Tissue Removed: fibrous, devitalized subcutaneous, biofilm, slough Severity: Fat Layer Exposed Amount of bleeding with debridement: Mild Bleeding Controlled with: Pressure Patient tolerated procedure well Assessment/Plan Assessment: chronic plantar right foot ulcer, fat layer exposed, no infection. healed left plantar foot ulcer. Diabetes with neuropathy. Delayed healing. bilateral hammer toes. malnutrition suspected Plan: I reviewed and discussed her case today. Debridment was performed today as noted in the clinical panel. Rosa Isela was applied to the ulcer site. She is advised to return to her offloading CAM Walker boot when she returns home and to avoid walking on this site. To change dressing daily. I recommend total contact cast application and the benefits were discussed again today. To take nutritional supplementation, Jere shakes, to optimize healing. To return to the wound healing center in one week or call sooner if there are any questions or concerns. I answered all of her questions.
== END 2019-06-02 23:59 ==
LOC: WC 13:15
PROVIDERS: Family Provider Internal Medicine; PCP Internal Medicine; Visit Provider Podiatrist
DX: E11.621 Type 2 diabetes mellitus with foot ulcer (principal); E11.42 Type 2 diabetes mellitus with diabetic polyneuropathy; L97.512 Non-pressure chronic ulcer of other part of right foot with fat layer exposed
CPT/HCPCS: 11042

== ENCOUNTER 2019-06-20 13:00 | Outpatient (RCR) | payer MEDICARE, SELFPAY ==
[2019-06-03 00:53] VITALS: BP 123/70; PULSE 71; RESP 18; TEMP 36.5
[2019-06-06 12:57] VITALS: BP 133/65; PULSE 74; RESP 18; TEMP 36.4; BMI 32.9
--- NOTE | 2019-06-06 13:24 | PCM.WC.PN ---
(1) Ulcer of right foot with fat layer exposed Status: Chronic Current Visit: Yes Code(s): L97.512 - Non-pressure chronic ulcer of other part of right foot with fat layer exposed (2) Type 2 diabetes mellitus with diabetic polyneuropathy Status: Chronic Current Visit: Yes Code(s): E11.42 - Type 2 diabetes mellitus with diabetic polyneuropathy (3) Hammer toe of right foot Status: Chronic Current Visit: Yes Code(s): M20.41 - Other hammer toe(s) (acquired), right foot (4) Delayed wound healing Status: Chronic Current Visit: Yes Code(s): T14.8XXD - Other injury of unspecified body region, subsequent encounter Type of Wound Date of Service: 06/06/19 Chief Complaint: right foot ulcer History of Wound: This is a 63-year-old female returns to clinic for a new right foot ulcer. She denies fever, chill, nausea, vomiting. She has been offloading. She is amendable to have a total contact cast applied today. Progress of Wound: Improving - Physical Exam Vital Signs Temp Pulse Resp BP 97.5 F L 74 18 133/65 H 06/06/19 12:57 06/06/19 12:57 06/06/19 12:57 06/06/19 12:57 General: Alert, Oriented x3, Cooperative, No apparent distress Extremities: No cyanosis, Capillary Refill Less than 3 Seconds, No Calf Tenderness, Diminished Peripheral Pulses, Edema Skin: Ulcer/ Wound - No purulence, erythema, streaking, odor, infection. The depth has decreased to the ulcer site. The peripheral skin is hairless and atrophic. Wound Measurements and Assessment WC - Nurse 1 - General Ulcer Measurement Start: 06/06/19 12:57 Freq: Status: Active Protocol: Activity Type Activity Date Activity User E-Sign Co-Sign Detail Recorded Client Recorded Date Recorded By Document 06/06/19 12:57 [email or web address] 06/06/19 12:59 RB 06/06/19 12:57 Wound Center Nurse 1 [Ulcer Assessment] #3 right plantar -Combined with other wound No -Current Size (cm) - Length 0.3 -Current Size (cm) - Width 0.5 -Current Size (cm) - Depth 0.3 -Total Square Cm 0.15 -Tunneling No -Undermining/Tunneling No -Circular Undermining No -Exudate Amt Small -Exudate Type Serosanguineous -Wound Margin Thickened -Granulation Amt Medium (34-66%) -Granulation Quality [place] -Slough/Fibrin Yes -Necrosis Amt Small (1-33%) -Necrotic Tissue Type Adherent Slough -Structure Exposed N/A -Texture (Salima-wound Skin Appearance) Callus -Moisture (Salima-wound Skin Appearance Assessed ) -Color (Salima-wound Skin Appearance) Assessed -Temperature (Salima-wound Skin No Abnormality Appearance) (Pt Warm) -Tenderness on Palpation (Salima-wound No Skin Appearance) -Ulcer Cleansing Wound Cleanser -Foul Odor after Cleansing No -Anesthetic Used 5% Lidocaine Gel WC - Nurse 2 - General Ulcer CM Notes Start: 06/06/19 12:57 Freq: Status: Active Protocol: Activity Type Activity Date Activity User E-Sign Co-Sign Detail Recorded Client Recorded Date Recorded By Document 06/06/19 13:10 AN [id number] 06/06/19 13:11 AN 06/06/19 13:10 Wound Center Nurse 2 [Procedure/Treatment] -Time 13:10 -Correct Patient Yes -Correct Side, Site, Position Yes -Correct Procedure Yes -Procedure Performed Yes -Type of Procedure Debridement -Clinical Debridement Subcutaneous -Post Debridement Size (cm) - Length 0.2 -Post Debridement Size (cm) - Width 0.2 -Post Debridement Size (cm) - Depth 0.1 -Total Square Cm 0.04 -Wound/Ulcer Outcome Not Healed -Ulcer Cleansing Rinsed/ Irrigated with Saline -Foul Odor after Cleansing No -Bioengineered Tissue No -Bleeding Controlled with Pressure -Offloading Yes -Type of Offloading Total Contact Cast (TCC) -Treatment Response Procedure Tolerated Well [See Physician Procedure note for Specifics] Pain Scale: 0-10 Numeric [Pain] -Is Patient Pain Free? Yes Musculoskeletal: No Tenderness to Palpation of Joints or Extremities, Muscle Wasting, - - Dorsal contraction lesser toes with prominent metatarsal head right Neurological: - - Lack of normal epicritic sensation of this with neuropathy Psych/Mental Status: Normal Affect, Appropriate Debridement Note Post-Debridement Measurements/Treatment WC - Nurse 2 - General Ulcer CM Notes Start: 06/06/19 12:57 Freq: Status: Active Protocol: Activity Type Activity Date Activity User E-Sign Co-Sign Detail Recorded Client Recorded Date Recorded By Document 06/06/19 13:10 AN [id number] 06/06/19 13:11 AN 06/06/19 13:10 Wound Center Nurse 2 #3 right plantar -Time 13:10 -Correct Patient Yes -Correct Side, Site, Position Yes -Correct Procedure Yes -Procedure Performed Yes -Type of Procedure Debridement -Clinical Debridement Subcutaneous -Post Debridement Size (cm) - Length 0.2 -Post Debridement Size (cm) - Width 0.2 -Post Debridement Size (cm) - Depth 0.1 -Total Square Cm 0.04 -Wound/Ulcer Outcome Not Healed -Ulcer Cleansing Rinsed/ Irrigated with Saline -Foul Odor after Cleansing No -Bioengineered Tissue No -Bleeding Controlled with Pressure -Offloading Yes -Type of Offloading Total Contact Cast (TCC) -Treatment Response Procedure Tolerated Well Pain Scale: 0-10 Numeric Is Patient Pain Free? Yes Wound debrided: plantar foot Laterality: Right Wound Grade/Stage: grade 1 Type of Debridement: Excisional debridement Anesthesia Used: 5% Lidocaine Gel Depth: in the subcutaneous layer Percentage of wound debrided: 100 Instrument Used: #15 blade Tissue Removed: fibrous, devitalized subcutaneous, biofilm, slough Severity: Fat Layer Exposed Amount of bleeding with debridement: Mild Bleeding Controlled with: Pressure Patient tolerated procedure well Assessment/Plan Active Problems (Last Reviewed 05/17/19 @ 11:05 by Marcelina Wang) Ulcer of right foot with fat layer exposed (Chronic) Type 2 diabetes mellitus with diabetic polyneuropathy (Chronic) Hammer toe of right foot (Chronic) Delayed wound healing (Chronic) Assessment: chronic plantar right foot ulcer, fat layer exposed, no infection. healed left plantar foot ulcer. Diabetes with neuropathy. Delayed healing. bilateral hammer toes. malnutrition suspected Plan: I reviewed and discussed her case today. Debridment was performed today as noted in the clinical panel. Rosa Isela was applied to the ulcer site. I recommend total contact cast application and the benefits were discussed again today. This was applied according to standard protocol in neutral position and in a well-padded manner. To keep clean, dry, and intact until follow-up next week. To take nutritional supplementation, Jere shakes, to optimize healing. To return to the wound healing center in one week or call sooner if there are any questions or concerns. I answered all of her questions.
[2019-06-13 12:58] VITALS: BP 134/74; PULSE 85; RESP 18; TEMP 36.2; BMI 32.9
--- NOTE | 2019-06-13 14:01 | PCM.WC.PN ---
(1) Ulcer of right foot with fat layer exposed Status: Chronic Code(s): L97.512 - Non-pressure chronic ulcer of other part of right foot with fat layer exposed (2) Type 2 diabetes mellitus with diabetic polyneuropathy Status: Chronic Code(s): E11.42 - Type 2 diabetes mellitus with diabetic polyneuropathy (3) Hammer toe of right foot Status: Chronic Code(s): M20.41 - Other hammer toe(s) (acquired), right foot (4) Delayed wound healing Status: Chronic Code(s): T14.8XXD - Other injury of unspecified body region, subsequent encounter Type of Wound Date of Service: 06/13/19 Chief Complaint: right foot ulcer History of Wound: This is a 63-year-old female returns to clinic for a right foot ulcer. She denies fever, chill, nausea, vomiting. She has been offloading with a total contact cast this past week. She relates her foot gets sweaty and excessive moisture is building up in the past. She denies pain. Progress of Wound: Improving - Physical Exam Vital Signs Temp Pulse Resp BP 97.1 F L 85 18 134/74 H 06/13/19 12:58 06/13/19 12:58 06/13/19 12:58 06/13/19 12:58 General: Alert, Oriented x3, Cooperative, No apparent distress Extremities: No cyanosis, Capillary Refill Less than 3 Seconds, No Calf Tenderness, Diminished Peripheral Pulses, Edema Skin: Ulcer/ Wound - No purulence, erythema, streaking, odor, infection. Foot moisture is noted. There is no necrosis or deep probing. The ulcer size is significantly reduced. The peripheral skin is atrophic Wound Measurements and Assessment WC - Nurse 1 - General Ulcer Measurement Start: 06/06/19 12:57 Freq: Status: Active Protocol: Activity Type Activity Date Activity User E-Sign Co-Sign Detail Recorded Client Recorded Date Recorded By Document 06/13/19 12:58 DL [id number] 06/13/19 13:12 DL 06/13/19 12:58 Wound Center Nurse 1 [Ulcer Assessment] #3 right plantar -Current Size (cm) - Length 0.2 -Current Size (cm) - Width 0.2 -Current Size (cm) - Depth 0.2 -Total Square Cm 0.04 -Photo Taken No -Exudate Amt Large -Exudate Type Serosanguineous -Wound Margin Thickened -Granulation Amt Small (1-33%) -Granulation Quality Ericson -Necrosis Amt Small (1-33%) -Necrotic Tissue Type Adherent Slough -Structure Exposed N/A -Texture (Salima-wound Skin Appearance) Scarring -Moisture (Salima-wound Skin Appearance Maceration ) -Color (Salima-wound Skin Appearance) Hemosiderin Staining -Temperature (Salima-wound Skin No Abnormality Appearance) (Pt Warm) -Tenderness on Palpation (Salima-wound No Skin Appearance) -Ulcer Cleansing Wound Cleanser -Foul Odor after Cleansing No -Anesthetic Used 5% Lidocaine Gel WC - Nurse 2 - General Ulcer CM Notes Start: 06/06/19 12:57 Freq: Status: Active Protocol: Activity Type Activity Date Activity User E-Sign Co-Sign Detail Recorded Client Recorded Date Recorded By Document 06/13/19 13:20 AN [id number] 06/13/19 13:24 AN 06/13/19 13:20 Wound Center Nurse 2 [Procedure/Treatment] -Time 13:23 -Correct Patient Yes -Correct Side, Site, Position Yes -Correct Procedure Yes -Procedure Performed Yes -Type of Procedure Debridement -Clinical Debridement Subcutaneous -Post Debridement Size (cm) - Length 0.3 -Post Debridement Size (cm) - Width 0.3 -Post Debridement Size (cm) - Depth 0.2 -Total Square Cm 0.09 -Wound/Ulcer Outcome Not Healed -Ulcer Cleansing Rinsed/ Irrigated with Saline -Foul Odor after Cleansing No -Bioengineered Tissue No -Bleeding Controlled with Pressure -Offloading Yes -Type of Offloading Surgical Shoe -Treatment Response Procedure Tolerated Well [See Physician Procedure note for Specifics] Pain Scale: 0-10 Numeric [Pain] -Is Patient Pain Free? Yes Musculoskeletal: No Tenderness to Palpation of Joints or Extremities, Muscle Wasting, - - Dorsal contracture lesser digits with prominent metatarsal head right foot Neurological: - - Lack of epicritic sensation light touch consistent with neuropathy status Psych/Mental Status: Normal Affect, Appropriate Debridement Note Post-Debridement Measurements/Treatment WC - Nurse 2 - General Ulcer CM Notes Start: 06/06/19 12:57 Freq: Status: Active Protocol: Activity Type Activity Date Activity User E-Sign Co-Sign Detail Recorded Client Recorded Date Recorded By Document 06/06/19 13:10 AN [id number] 06/06/19 13:11 AN Document 06/13/19 13:20 AN [id number] 06/13/19 13:24 AN 06/06/19 06/13/19 13:10 13:20 Wound Center Nurse 2 #3 right plantar -Time 13:10 13:23 -Correct Patient Yes Yes -Correct Side, Site, Position Yes Yes -Correct Procedure Yes Yes -Procedure Performed Yes Yes -Type of Procedure Debridement Debridement -Clinical Debridement Subcutaneous Subcutaneous -Post Debridement Size (cm) - Length 0.2 0.3 -Post Debridement Size (cm) - Width 0.2 0.3 -Post Debridement Size (cm) - Depth 0.1 0.2 -Total Square Cm 0.04 0.09 -Wound/Ulcer Outcome Not Healed Not Healed -Ulcer Cleansing Rinsed/ Rinsed/ Irrigated with Irrigated with Saline Saline -Foul Odor after Cleansing No No -Bioengineered Tissue No No -Bleeding Controlled with Pressure Pressure -Offloading Yes Yes -Type of Offloading Total Contact Surgical Shoe Cast (TCC) -Treatment Response Procedure Procedure Tolerated Well Tolerated Well Pain Scale: 0-10 Numeric Is Patient Pain Free? Yes Yes Wound debrided: sub 5th metatarsal head Laterality: Right Wound Grade/Stage: grade 1 Type of Debridement: Excisional debridement Anesthesia Used: 5% Lidocaine Gel Depth: in the subcutaneous layer Percentage of wound debrided: 100 Instrument Used: #15 blade Tissue Removed: fibrous, devitalized subcutaneous, biofilm, slough Severity: Fat Layer Exposed Amount of bleeding with debridement: Mild Bleeding Controlled with: Pressure Patient tolerated procedure well Assessment/Plan Assessment: chronic plantar right foot ulcer, fat layer exposed, no infection. Diabetes with neuropathy. Delayed healing. bilateral hammer toes. malnutrition suspected Plan: I reviewed and discussed her case today. Debridment was performed today as noted in the clinical panel. Rosa Isela was applied to the ulcer site. I recommend total contact cast application possibly next week to allow foot moisture to resolve. There is no tissue loss however progressive maceration of the concern. To change dressing site daily. To resume CAM Walker with offloading pocket use. To take nutritional supplementation, Jere shakes, to optimize healing. To return to the wound healing center in one week or call sooner if there are any questions or concerns. I answered all of her questions.
[2019-06-20 13:04] VITALS: BP 126/73; PULSE 86; RESP 18; TEMP 36.5; BMI 32.9
--- NOTE | 2019-06-20 15:14 | PN.PCM_ITS ---
(1) Ulcer of right foot with fat layer exposed Status: Chronic Current Visit: Yes Code(s): L97.512 - Non-pressure chronic ulcer of other part of right foot with fat layer exposed (2) Type 2 diabetes mellitus with diabetic polyneuropathy Status: Chronic Current Visit: Yes Code(s): E11.42 - Type 2 diabetes mellitus with diabetic polyneuropathy (3) Hammer toe of right foot Status: Chronic Current Visit: Yes Code(s): M20.41 - Other hammer toe(s) (acquired), right foot (4) Delayed wound healing Status: Chronic Current Visit: Yes Code(s): T14.8XXD - Other injury of unspecified body region, subsequent encounter Type of Wound Date of Service: 06/20/19 Chief Complaint: right foot ulcer History of Wound: This is a 63-year-old female returns to clinic for a right foot ulcer. She denies fever, chill, nausea, vomiting. She has been offloading with a total contact cast and cam walker boot intermittently. She r elates her foot gets sweaty and excessive moisture is building up in the past. She denies pain. Progress of Wound: Improving - Physical Exam Vital Signs Temp Pulse Resp BP 97.7 F L 86 18 126/73 H 06/20/19 13:04 06/20/19 13:04 06/20/19 13:04 06/20/19 13:04 General: Alert, Oriented x3, Cooperative Extremities: No cyanosis, Capillary Refill Less than 3 Seconds, No Calf Tenderness - Negative Tucker and Robison signs, Diminished Peripheral Pulses, Edema Skin: Ulcer/ Wound - No purulence, erythema, streaking, odor, infection. Peripheral skin is hairless and atrophic. There is no deep tissue exposed Wound Measurements and Assessment WC - Nurse 1 - General Ulcer Measurement Start: 06/06/19 12:57 Freq: Status: Active Protocol: Activity Type Activity Date Activity User E-Sign Co-Sign Detail Recorded Client Recorded Date Recorded By Document 06/20/19 13:04 PATRICK [id number] 06/20/19 13:07 PATRICK 06/20/19 13:04 Wound Center Nurse 1 [Ulcer Assessment] #3 right plantar -Combined with other wound No -Current Size (cm) - Length 0.1 -Current Size (cm) - Width 0.1 -Current Size (cm) - Depth 0.3 -Total Square Cm 0.01 -Photo Taken No -Epithelialization Medium 34-66% -Tunneling No -Undermining/Tunneling No -Circular Undermining No -Exudate Amt None Present -Wound Margin Indistinct, Non -Visible -Granulation Amt Medium (34-66%) -Granulation Quality Red -Slough/Fibrin Yes -Necrosis Amt Small (1-33%) -Necrotic Tissue Type Adherent Slough -Structure Exposed N/A -Texture (Salima-wound Skin Appearance) Assessed,Callus -Moisture (Salima-wound Skin Appearance Assessed,Dry/ ) Scaly -Color (Salima-wound Skin Appearance) Assessed -Temperature (Salima-wound Skin No Abnormality Appearance) (Pt Warm) -Tenderness on Palpation (Salima-wound No Skin Appearance) -Ulcer Cleansing Wound Cleanser -Foul Odor after Cleansing No -Anesthetic Used 4% Lidocaine Solution [Edema Assessment] -Lower Limb Edema Present No WC - Nurse 2 - General Ulcer CM Notes Start: 06/06/19 12:57 Freq: Status: Active Protocol: Activity Type Activity Date Activity User E-Sign Co-Sign Detail Recorded Client Recorded Date Recorded By Document 06/20/19 13:37 AN [id number] 06/20/19 13:38 AN 06/20/19 13:37 Wound Center Nurse 2 [Procedure/Treatment] #3 right plantar -Time 13:37 -Correct Patient Yes -Correct Side, Site, Position Yes -Correct Procedure Yes -Procedure Performed Yes -Type of Procedure Debridement -Clinical Debridement Subcutaneous -Post Debridement Size (cm) - Length 0.2 -Post Debridement Size (cm) - Width 0.2 -Post Debridement Size (cm) - Depth 0.3 -Total Square Cm 0.04 -Wound/Ulcer Outcome Not Healed -Ulcer Cleansing Rinsed/ Irrigated with Saline -Foul Odor after Cleansing No -Bioengineered Tissue No -Bleeding Controlled with Pressure -Offloading Yes -Treatment Response Procedure Tolerated Well [See Physician Procedure note for Specifics] Pain Scale: 0-10 Numeric [Pain] -Is Patient Pain Free? Yes Musculoskeletal: No Tenderness to Palpation of Joints or Extremities, Muscle Wasting, - - Dorsal contracture lesser toes and prominent metatarsal head Neurological: - - Lack of normal epicritic sensation light touch is consistent with neuropathy Psych/Mental Status: Normal Affect, Appropriate Debridement Note Post-Debridement Measurements/Treatment WC - Nurse 2 - General Ulcer CM Notes Start: 06/06/19 12:57 Freq: Status: Active Protocol: Activity Type Activity Date Activity User E-Sign Co-Sign Detail Recorded Client Recorded Date Recorded By Document 06/06/19 13:10 AN [id number] 06/06/19 13:11 AN Document 06/13/19 13:20 AN [id number] 06/13/19 13:24 AN Document 06/20/19 13:37 AN [id number] 06/20/19 13:38 AN 06/06/19 06/13/19 06/20/19 13:10 13:20 13:37 Wound Center Nurse 2 #3 right plantar -Time 13:10 13:23 13:37 -Correct Patient Yes Yes Yes -Correct Side, Site, Position Yes Yes Yes -Correct Procedure Yes Yes Yes -Procedure Performed Yes Yes Yes -Type of Procedure Debridement Debridement Debridement -Clinical Debridement Subcutaneous Subcutaneous Subcutaneous -Post Debridement Size (cm) - Length 0.2 0.3 0.2 -Post Debridement Size (cm) - Width 0.2 0.3 0.2 -Post Debridement Size (cm) - Depth 0.1 0.2 0.3 -Total Square Cm 0.04 0.09 0.04 -Wound/Ulcer Outcome Not Healed Not Healed Not Healed -Ulcer Cleansing Rinsed/ Rinsed/ Rinsed/ Irrigated with Irrigated with Irrigated with Saline Saline Saline -Foul Odor after Cleansing No No No -Bioengineered Tissue No No No -Bleeding Controlled with Pressure Pressure Pressure -Offloading Yes Yes Yes -Type of Offloading Total Contact Surgical Shoe Cast (TCC) -Treatment Response Procedure Procedure Procedure Tolerated Well Tolerated Well Tolerated Well Pain Scale: 0-10 Numeric Is Patient Pain Free? Yes Yes Yes Wound debrided: plantar forefoot Laterality: Right Wound Grade/Stage: grade 1 Type of Debridement: Excisional debridement Anesthesia Used: 5% Lidocaine Gel Depth: in the subcutaneous layer Percentage of wound debrided: 100 Instrument Used: #15 blade Tissue Removed: fibrous, devitalized subcutaneous, biofilm, slough Severity: Fat Layer Exposed Amount of bleeding with debridement: Mild Bleeding Controlled with: Pressure Patient tolerated procedure well Assessment/Plan Active Problems (Last Reviewed 05/17/19 @ 11:05 by Marcelina Wang) Ulcer of right foot with fat layer exposed (Chronic) Type 2 diabetes mellitus with diabetic polyneuropathy (Chronic) Hammer toe of right foot (Chronic) Delayed wound healing (Chronic) Assessment: chronic plantar right foot ulcer, fat layer exposed, no infection. Diabetes with neuropathy. Delayed healing. bilateral hammer toes. malnutrition suspected Plan: I reviewed and discussed her case today. Debridment was performed today as noted in the clinical panel. Rosa Isela was applied to the ulcer site. I recommend total contact cast application possibly next week to allow foot moisture to resolve. There is no tissue loss however progressive maceration of the concern. To change dressing site daily. To resume CAM Walker with offloading pocket use. I recommend she transition to nonweightbearing status with use of a walker, crutches, or any roller. She is amenable to this plan. To take nutritional supplementation, Jere shakes, to optimize healing. To return to the wound healing center in one to two weeks or call sooner if there are any questions or concerns. I answered all of her questions.
== END 2019-07-02 23:59 ==
LOC: WC 13:00
PROVIDERS: Family Provider Internal Medicine; PCP Internal Medicine; Visit Provider Podiatrist
DX: E11.621 Type 2 diabetes mellitus with foot ulcer (principal); E11.42 Type 2 diabetes mellitus with diabetic polyneuropathy; M20.41 Other hammer toe(s) (acquired), right foot; L97.512 Non-pressure chronic ulcer of other part of right foot with fat layer exposed; M20.42 Other hammer toe(s) (acquired), left foot
CPT/HCPCS: 11042; 29445

== ENCOUNTER 2019-08-01 13:45 | Outpatient (RCR) | payer MEDICARE, SELFPAY ==
[2019-06-28 09:44] VITALS: BMI 32.9
[2019-07-03 00:49] VITALS: BP 126/73; PULSE 86; RESP 18; TEMP 36.5
[2019-07-04 12:57] VITALS: BP 130/70; PULSE 88; RESP 16; TEMP 36.5; BMI 32.9
--- NOTE | 2019-07-04 21:14 | PN.PCM_ITS ---
(1) Ulcer of right foot with fat layer exposed Status: Chronic Code(s): L97.512 - Non-pressure chronic ulcer of other part of right foot with fat layer exposed (2) Type 2 diabetes mellitus with diabetic polyneuropathy Status: Chronic Code(s): E11.42 - Type 2 diabetes mellitus with diabetic polyneuropathy (3) Hammer toe of right foot Status: Chronic Code(s): M20.41 - Other hammer toe(s) (acquired), right foot (4) Delayed wound healing Status: Chronic Code(s): T14.8XXD - Other injury of unspecified body region, subsequent encounter Type of Wound Date of Service: 07/04/19 Chief Complaint: right foot ulcer History of Wound: This is a 63-year-old female returns to clinic for a right foot ulcer. She denies fever, chill, nausea, vomiting. She has been offloading with a total contact cast and cam walker boot intermittently. She denies pain. Progress of Wound: Improving - Physical Exam Vital Signs Temp Pulse Resp BP 97.7 F L 88 16 130/70 H 07/04/19 12:57 07/04/19 12:57 07/04/19 12:57 07/04/19 12:57 General: Alert, Oriented x3, Cooperative, No apparent distress Extremities: No cyanosis, Capillary Refill Less than 3 Seconds, No Calf Tenderness, Diminished Peripheral Pulses, Edema, - - Dorsal contraction of lesser digits with prominence metatarsal heads Skin: Ulcer/ Wound - No purulence, erythema, streaking, odor, infection, maceration, necrosis, or deep probing. Peripheral epithelialization noted. The adjacent skin is hairless and atrophic Wound Measurements and Assessment WC - Nurse 1 - General Ulcer Measurement Start: 07/04/19 12:57 Freq: Status: Active Protocol: Activity Type Activity Date Activity User E-Sign Co-Sign Detail Recorded Client Recorded Date Recorded By Document 07/04/19 12:57 [facility] [id number] 07/04/19 13:01 [facility] 07/04/19 12:57 Wound Center Nurse 1 [Ulcer Assessment] #3 right plantar -Combined with other wound No -Current Size (cm) - Length 0.1 -Current Size (cm) - Width 0.1 -Current Size (cm) - Depth 0.1 -Total Square Cm 0.01 -Photo Taken No -Epithelialization Large 67-100% -Tunneling No -Undermining/Tunneling No -Circular Undermining No WC - Nurse 2 - General Ulcer CM Notes Start: 07/04/19 12:57 Freq: Status: Active Protocol: Activity Type Activity Date Activity User E-Sign Co-Sign Detail Recorded Client Recorded Date Recorded By Document 07/04/19 13:34 AN [id number] 07/04/19 13:35 AN 07/04/19 13:34 Wound Center Nurse 2 [Procedure/Treatment] -Time 13:34 -Correct Patient Yes -Correct Side, Site, Position Yes -Correct Procedure Yes -Procedure Performed Yes -Type of Procedure Debridement -Clinical Debridement Subcutaneous -Post Debridement Size (cm) - Length 0.1 -Post Debridement Size (cm) - Width 0.1 -Post Debridement Size (cm) - Depth 0.1 -Total Square Cm 0.01 -Wound/Ulcer Outcome Not Healed -Ulcer Cleansing Rinsed/ Irrigated with Saline -Foul Odor after Cleansing No -Bioengineered Tissue No -Bleeding Controlled with Pressure -Offloading Yes -Treatment Response Procedure Tolerated Well [See Physician Procedure note for Specifics] Pain Scale: 0-10 Numeric [Pain] -Is Patient Pain Free? Yes Musculoskeletal: No Tenderness to Palpation of Joints or Extremities, Muscle Wasting Neurological: - - Lack of epicritic sensation light touch consistent with neuropathy Psych/Mental Status: Normal Affect, Appropriate Debridement Note Post-Debridement Measurements/Treatment WC - Nurse 2 - General Ulcer CM Notes Start: 07/04/19 12:57 Freq: Status: Active Protocol: Activity Type Activity Date Activity User E-Sign Co-Sign Detail Recorded Client Recorded Date Recorded By Document 07/04/19 13:34 AN [id number] 07/04/19 13:35 AN 07/04/19 13:34 Wound Center Nurse 2 #3 right plantar -Time 13:34 -Correct Patient Yes -Correct Side, Site, Position Yes -Correct Procedure Yes -Procedure Performed Yes -Type of Procedure Debridement -Clinical Debridement Subcutaneous -Post Debridement Size (cm) - Length 0.1 -Post Debridement Size (cm) - Width 0.1 -Post Debridement Size (cm) - Depth 0.1 -Total Square Cm 0.01 -Wound/Ulcer Outcome Not Healed -Ulcer Cleansing Rinsed/ Irrigated with Saline -Foul Odor after Cleansing No -Bioengineered Tissue No -Bleeding Controlled with Pressure -Offloading Yes -Treatment Response Procedure Tolerated Well Pain Scale: 0-10 Numeric Is Patient Pain Free? Yes Wound debrided: plantar foot Laterality: Right Wound Grade/Stage: grade 1 Type of Debridement: Excisional debridement Anesthesia Used: 5% Lidocaine Gel Depth: in the subcutaneous layer Percentage of wound debrided: 100 Instrument Used: #15 blade Tissue Removed: fibrous, devitalized subcutaneous, biofilm, slough Severity: Fat Layer Exposed Amount of bleeding with debridement: Mild Bleeding Controlled with: Pressure Patient tolerated procedure well Assessment/Plan Assessment: chronic plantar right foot ulcer, fat layer exposed, no infection. Diabetes with neuropathy. Delayed healing. bilateral hammer toes. malnutrition suspected Plan: I reviewed and discussed her case today. Debridment was performed today as noted in the clinical panel. Rosa Isela was applied to the ulcer site. To change dressing site daily. To continue CAM Walker with offloading pocket use. I recommend she transition to nonweightbearing status with use of a walker, crutches, or any roller. She continue with this plan. To take nutritional supplementation, Jere shakes, to optimize healing. To return to the wound healing center in one week or call sooner if there are any questions or concerns. I answered all of her questions.
[2019-07-25 13:15] VITALS: BP 157/79; PULSE 82; RESP 18; TEMP 36.1; BMI 32.9
--- NOTE | 2019-07-25 14:15 | PCM.WC.PN ---
(1) Ulcer of right foot with fat layer exposed Status: Acute Current Visit: Yes Code(s): L97.512 - Non-pressure chronic ulcer of other part of right foot with fat layer exposed (2) Type 2 diabetes mellitus with diabetic polyneuropathy Status: Chronic Current Visit: Yes Code(s): E11.42 - Type 2 diabetes mellitus with diabetic polyneuropathy (3) Hammer toe of right foot Status: Chronic Current Visit: Yes Code(s): M20.41 - Other hammer toe(s) (acquired), right foot (4) Cellulitis of right foot Status: Suspected Current Visit: Yes Code(s): L03.115 - Cellulitis of right lower limb Type of Wound Date of Service: 07/25/19 Chief Complaint: right foot ulcer return History of Wound: This is a 63-year-old female returns to clinic for a right foot ulcer. She is recently healed her also within the past month however thinks it has reopened 3 days ago when she noticed drainage and odor. She reports she did have fever subjective chills and this has resolved. She denies fever, chill, nausea, vomiting, loss of appetite, foot pain today. She has been offloading with a cam walker. She denies pain. She denies calling the office or seeking care with during the event of her reported new infection and ulcer formation. Progress of Wound: reopened - Physical Exam Vital Signs Temp Pulse Resp BP 97 F L 82 18 157/79 H 07/25/19 13:15 07/25/19 13:15 07/25/19 13:15 07/25/19 13:15 General: Alert, Oriented x3, Cooperative, No apparent distress Extremities: No cyanosis, Capillary Refill Less than 3 Seconds, No Calf Tenderness - Negative Tucker and Robison sign, Diminished Peripheral Pulses, Edema - Right forefoot, - - Dorsal contraction of lesser digits and prominent metatarsal head right Skin: Ulcer/ Wound - No purulence, erythema, streaking, infection. There is any skin discontinuity to the plantar lateral right foot that extends into the fourth interspace with maceration and odor. The ulcer bed is fibrous. There is no probe to bone or joint. There is no himanshu necrosis or deep tissue exposure. Peripheral skin is hairless and atrophic. Wound Measurements and Assessment WC - Nurse 1 - General Ulcer Measurement Start: 07/04/19 12:57 Freq: Status: Active Protocol: Activity Type Activity Date Activity User E-Sign Co-Sign Detail Recorded Client Recorded Date Recorded By Document 07/25/19 13:15 RB [id number] 07/25/19 13:17 RB 07/25/19 13:15 Wound Center Nurse 1 [Ulcer Assessment] #3 right plantar -Combined with other wound No -Current Size (cm) - Length 0.6 -Current Size (cm) - Width 0.8 -Current Size (cm) - Depth 0.1 -Total Square Cm 0.48 -Tunneling No -Undermining/Tunneling No -Circular Undermining No -Exudate Amt Small -Exudate Type Serosanguineous -Wound Margin Distinct, Outline Attached -Granulation Amt Medium (34-66%) -Granulation Quality [place] -Slough/Fibrin Yes -Necrosis Amt Small (1-33%) -Necrotic Tissue Type Adherent Slough -Structure Exposed N/A -Texture (Salima-wound Skin Appearance) Callus -Moisture (Salima-wound Skin Appearance Maceration ) -Color (Salima-wound Skin Appearance) Assessed -Temperature (Salima-wound Skin No Abnormality Appearance) (Pt Warm) -Tenderness on Palpation (Salima-wound No Skin Appearance) -Ulcer Cleansing Wound Cleanser -Foul Odor after Cleansing No -Anesthetic Used 5% Lidocaine Gel [Edema Assessment] -Lower Limb Edema Present Yes -Right Calf (cm) 44.5 -Right Ankle (cm) 23.5 WC - Nurse 2 - General Ulcer CM Notes Start: 07/04/19 12:57 Freq: Status: Active Protocol: Activity Type Activity Date Activity User E-Sign Co-Sign Detail Recorded Client Recorded Date Recorded By Document 07/25/19 13:27 AN [id number] 07/25/19 13:36 AN 07/25/19 13:27 Wound Center Nurse 2 [Procedure/Treatment] #5 right plantar -Time 13:34 -Correct Patient Yes -Correct Side, Site, Position Yes -Correct Procedure Yes -Procedure Performed Yes -Type of Procedure Debridement -Clinical Debridement Subcutaneous -Post Debridement Size (cm) - Length 0.8 -Post Debridement Size (cm) - Width 0.9 -Post Debridement Size (cm) - Depth 0.2 -Total Square Cm 0.72 -Wound/Ulcer Outcome Not Healed -Offloading Yes -Type of Offloading Surgical Shoe -Treatment Response Procedure Tolerated Well [See Physician Procedure note for Specifics] Pain Scale: 0-10 Numeric [Pain] -Is Patient Pain Free? Yes Musculoskeletal: No Tenderness to Palpation of Joints or Extremities, Muscle Wasting, - - No bogginess or fluctuance on palpation Neurological: - - Lack of normal epicritic sensation light touch is consistent with neuropathy Psych/Mental Status: Normal Affect, Appropriate Debridement Note Post-Debridement Measurements/Treatment WC - Nurse 2 - General Ulcer CM Notes Start: 07/04/19 12:57 Freq: Status: Active Protocol: Activity Type Activity Date Activity User E-Sign Co-Sign Detail Recorded Client Recorded Date Recorded By Document 07/04/19 13:34 AN [id number] 07/04/19 13:35 AN Document 07/25/19 13:27 AN [id number] 07/25/19 13:36 AN 07/04/19 07/25/19 13:34 13:27 Wound Center Nurse 2 #5 right plantar -Time 13:34 -Correct Patient Yes -Correct Side, Site, Position Yes -Correct Procedure Yes -Procedure Performed Yes -Type of Procedure Debridement -Clinical Debridement Subcutaneous -Post Debridement Size (cm) - Length 0.8 -Post Debridement Size (cm) - Width 0.9 -Post Debridement Size (cm) - Depth 0.2 -Total Square Cm 0.72 -Wound/Ulcer Outcome Not Healed -Offloading Yes -Type of Offloading Surgical Shoe -Treatment Response Procedure Tolerated Well #3 right plantar -Time 13:34 -Correct Patient Yes -Correct Side, Site, Position Yes -Correct Procedure Yes -Procedure Performed Yes -Type of Procedure Debridement -Clinical Debridement Subcutaneous -Post Debridement Size (cm) - Length 0.1 -Post Debridement Size (cm) - Width 0.1 -Post Debridement Size (cm) - Depth 0.1 -Total Square Cm 0.01 -Wound/Ulcer Outcome Not Healed -Ulcer Cleansing Rinsed/ Irrigated with Saline -Foul Odor after Cleansing No -Bioengineered Tissue No -Bleeding Controlled with Pressure -Offloading Yes -Treatment Response Procedure Tolerated Well Pain Scale: 0-10 Numeric Is Patient Pain Free? Yes Yes Wound debrided: plantar foot Laterality: Right Wound Grade/Stage: grade 1 Type of Debridement: Excisional debridement Anesthesia Used: 5% Lidocaine Gel Depth: in the subcutaneous layer Percentage of wound debrided: 100 Instrument Used: #15 blade Tissue Removed: fibrous, devitalized subcutaneous, biofilm, slough Severity: Fat Layer Exposed Amount of bleeding with debridement: Mild Bleeding Controlled with: Pressure Patient tolerated procedure well Assessment/Plan Active Problems (Last Reviewed 05/17/19 @ 11:05 by Marcelina Wang) Ulcer of right foot with fat layer exposed (Acute) Type 2 diabetes mellitus with diabetic polyneuropathy (Chronic) Hammer toe of right foot (Chronic) Delayed wound healing (Chronic) Assessment: chronic plantar right foot ulcer, fat layer exposed, no infection. Diabetes with neuropathy. Delayed healing. bilateral hammer toes. malnutrition suspected Plan: I reviewed and discussed her case today. Debridment was performed today as noted in the clinical panel. Rosa Isela was applied to the ulcer site. To change dressing site daily. To continue CAM Walker with offloading pocket use. I recommend she transition to nonweightbearing status with use of a walker, crutches, or any roller. She continue with this plan. To take nutritional supplementation, Jere shakes, to optimize healing. After debridement the ulcer appears stable without himanshu purulence. Do not recommend antibiotics at this time however I do recommend that we send a culture to see if there is any pathological organisms growing. A tissue specimen was sent for aerobic anaerobic acid-fast and fungal testing. I also recommend she update her lab work including CBC, CMP, ESR, and C-reactive protein. To monitor for local or systemic signs of illness progression and to call the office immediately if this is noted. I recommend she wash the foot with soap and water daily prior to dressing changes. To return to the wound healing center in one week or call sooner if there are any questions or concerns. I answered all of her questions.
[2019-07-25 15:49] LABS: Absolute Lymphocyte Count 1.81 X10^3/uL (0.83-4.51); Absolute Neutrophil Count 7.2 X10^3/uL (2.0-7.7); Basophil# 0.06 X10^3/uL; Basophil% 0.6 % (0-1); Eosinophil# 0.33 X10^3/uL; Eosinophils% 3.3 % (0-5); Hematocrit 30.4 % (37-47); Hemoglobin 9.5 g/dL (12.0-15.0); Lymphocyte # 1.81 X10^3/ul (4.0); Mean Corp Hgb Conc 31.3 g/dL (32-36); Mean Corpuscular Hgb 29.1 pg (27.0-32.0); Mean Platelet Vol. 9.1 fl (6.2-12.0); Monocyte# 0.65 X10^3/uL; Monocyte% 6.4 % (0-10); NRBC Flagged by Analyzer 0 % (0-5); Neutrophil # 7.17 X10^3/uL (2.7-7.7); Neutrophil % 71.1 % (47-70); Platelet Count 394 K/mm3 (150-450); RBC Distribution Width CV 13.2 % (11.6-14.6); RBC Distribution Width SD 45.1 fl (35.1-43.9); Red Blood Count 3.27 M/mm3 (4.2-5.4); White Blood Count 10.1 K/mm3 (4.4-11.0)
[2019-07-25 16:07] LABS: Erythrocyte Sedimentation Rate 62 mm/hr (0-30)
[2019-07-25 16:08] LABS: ALB/GLOB Ratio 0.7 RATIO (0.9-2.4); AST(SGOT) 16 U/L (15-37); Alanine Aminotransfer ALT/SGPT 30 U/L (13-56); Albumin, Serum 3.1 g/dL (3.2-5.0); Alkaline Phosphatase 82 U/L (45-117); Anion Gap 6 (5-15); BUN 18 mg/dL (7-18); BUN/Creat Ratio 17.5 RATIO (10-20); Calcium,Total 8.8 mg/dL (8.5-10.1); Chloride 102 mmol/L (98-107); Creatinine, Serum 1.03 mg/dL (0.55-1.02); EST Glomerular Filtration Rate 57 mL/min (>60); Est Glom Filt Rate - Afr Amer 69 mL/min (>60); Estimated Creatinine Clearance 51.66 ml/min; Globulin 4.5 g/dL (2.2-4.2); Glucose 237 mg/dL (74-106); Potassium 3.8 mmol/L (3.5-5.1); Protein, Total 7.6 g/dL (6.4-8.2); Sodium Level 138 mmol/L (136-145)
[2019-08-01 13:52] VITALS: BP 138/69; PULSE 88; RESP 16; TEMP 36.5; BMI 32.9
--- NOTE | 2019-08-01 17:12 | PCM.WC.PN ---
(1) Ulcer of right foot with fat layer exposed Status: Chronic Code(s): L97.512 - Non-pressure chronic ulcer of other part of right foot with fat layer exposed (2) Type 2 diabetes mellitus with diabetic polyneuropathy Status: Chronic Code(s): E11.42 - Type 2 diabetes mellitus with diabetic polyneuropathy (3) Hammer toe of right foot Status: Chronic Code(s): M20.41 - Other hammer toe(s) (acquired), right foot (4) Cellulitis of right foot Status: Resolved Code(s): L03.115 - Cellulitis of right lower limb Type of Wound Date of Service: 08/01/19 Chief Complaint: right foot ulcer History of Wound: This is a 63-year-old female returns to clinic for a right foot ulcer. This is a foot ulcer that is new within the past month. Her previous ulcer has healed. Subcutaneous excisional debridement was performed as noted in the clinical panel. To change his dressing site daily. She was reassured no local signs of infection noted today. However if lack of progress her current or recurrent ulcers to this site continues an MRI will be considered to rule out deeper soft tissue or bone infection. She denies fever, chill, nausea, vomiting, loss of appetite, foot pain today. She has been offloading with a cam walker that has offloading dual density Plastizote liners. Proper placement and fit was noted today. I recommend she goes completely nonweightbearing with the use of an assistive device to further take pressure off of the site. It is noted she did have noninvasive vascular studies performed in 01/2018 which demonstrated by triphasic waveforms to the right lower extremity. The toe brachial index was about 0.64 and the ALEXANDER was around 1.3. Due to lack of recurrence and also delayed healing and updated noninvasive vascular study will be considered and a vascular referral will also be considered. She is advised to follow-up in 1 week at the wound healing center or call sooner if she has any questions or concerns. It is noted she plans to move out of state seasonal travel in the near future. I answered all of her questions. Progress of Wound: reopened - Physical Exam Vital Signs Temp Pulse Resp BP 97.7 F L 88 16 138/69 H 08/01/19 13:52 08/01/19 13:52 08/01/19 13:52 08/01/19 13:52 Wound Measurements and Assessment WC - Nurse 1 - General Ulcer Measurement Start: 07/04/19 12:57 Freq: Status: Active Protocol: Activity Type Activity Date Activity User E-Sign Co-Sign Detail Recorded Client Recorded Date Recorded By Document 08/01/19 13:52 MW [id number] 08/01/19 14:00 MW 08/01/19 13:52 Wound Center Nurse 1 [Ulcer Assessment] #5 right plantar -Combined with other wound No -Current Size (cm) - Length 0.6 -Current Size (cm) - Width 0.3 -Current Size (cm) - Depth 0.2 -Total Square Cm 0.18 -Photo Taken No -Epithelialization None Present -Tunneling No -Undermining/Tunneling No -Circular Undermining No -Exudate Amt Small -Exudate Type Serosanguineous -Wound Margin Distinct, Outline Attached -Granulation Amt None Present (0 %) -Granulation Quality N/A -Slough/Fibrin Yes -Necrosis Amt Large (67-100%) -Necrotic Tissue Type Adherent Slough -Structure Exposed N/A -Texture (Salima-wound Skin Appearance) Assessed,Callus ,Scarring -Moisture (Salima-wound Skin Appearance Assessed,Dry/ ) Scaly -Color (Salima-wound Skin Appearance) No Abnormality, Assessed -Temperature (Salima-wound Skin No Abnormality Appearance) (Pt Warm) -Tenderness on Palpation (Salima-wound No Skin Appearance) -Ulcer Cleansing Rinsed/ Irrigated with Saline -Foul Odor after Cleansing No -Anesthetic Used 5% Lidocaine Gel [Edema Assessment] -Lower Limb Edema Present No WC - Nurse 2 - General Ulcer CM Notes Start: 07/04/19 12:57 Freq: Status: Active Protocol: Activity Type Activity Date Activity User E-Sign Co-Sign Detail Recorded Client Recorded Date Recorded By Document 08/01/19 14:32 AN [id number] 08/01/19 14:34 AN 08/01/19 14:32 Wound Center Nurse 2 [Procedure/Treatment] #5 right plantar -Time 14:33 -Correct Patient Yes -Correct Side, Site, Position Yes -Correct Procedure Yes -Procedure Performed Yes -Type of Procedure Debridement -Clinical Debridement Subcutaneous -Post Debridement Size (cm) - Length 0.7 -Post Debridement Size (cm) - Width 0.4 -Post Debridement Size (cm) - Depth 0.2 -Total Square Cm 0.28 -Wound/Ulcer Outcome Not Healed -Ulcer Cleansing Rinsed/ Irrigated with Saline -Foul Odor after Cleansing No -Bioengineered Tissue No -Bleeding Controlled with Pressure -Offloading Yes -Type of Offloading Camwalker -Treatment Response Procedure Tolerated Well [See Physician Procedure note for Specifics] Pain Scale: 0-10 Numeric [Pain] -Is Patient Pain Free? Yes Debridement Note Post-Debridement Measurements/Treatment WC - Nurse 2 - General Ulcer CM Notes Start: 07/04/19 12:57 Freq: Status: Active Protocol: Activity Type Activity Date Activity User E-Sign Co-Sign Detail Recorded Client Recorded Date Recorded By Document 07/04/19 13:34 AN [id number] 07/04/19 13:35 AN Document 07/25/19 13:27 AN [id number] 07/25/19 13:36 AN Document 08/01/19 14:32 AN [id number] 08/01/19 14:34 AN 07/04/19 07/25/19 08/01/19 13:34 13:27 14:32 Wound Center Nurse 2 #5 right plantar -Time 13:34 14:33 -Correct Patient Yes Yes -Correct Side, Site, Position Yes Yes -Correct Procedure Yes Yes -Procedure Performed Yes Yes -Type of Procedure Debridement Debridement -Clinical Debridement Subcutaneous Subcutaneous -Post Debridement Size (cm) - Length 0.8 0.7 -Post Debridement Size (cm) - Width 0.9 0.4 -Post Debridement Size (cm) - Depth 0.2 0.2 -Total Square Cm 0.72 0.28 -Wound/Ulcer Outcome Not Healed Not Healed -Ulcer Cleansing Rinsed/ Irrigated with Saline -Foul Odor after Cleansing No -Bioengineered Tissue No -Bleeding Controlled with Pressure -Offloading Yes Yes -Type of Offloading Surgical Shoe Camwalker -Treatment Response Procedure Procedure Tolerated Well Tolerated Well #3 right plantar -Time 13:34 -Correct Patient Yes -Correct Side, Site, Position Yes -Correct Procedure Yes -Procedure Performed Yes -Type of Procedure Debridement -Clinical Debridement Subcutaneous -Post Debridement Size (cm) - Length 0.1 -Post Debridement Size (cm) - Width 0.1 -Post Debridement Size (cm) - Depth 0.1 -Total Square Cm 0.01 -Wound/Ulcer Outcome Not Healed -Ulcer Cleansing Rinsed/ Irrigated with Saline -Foul Odor after Cleansing No -Bioengineered Tissue No -Bleeding Controlled with Pressure -Offloading Yes -Treatment Response Procedure Tolerated Well Pain Scale: 0-10 Numeric Is Patient Pain Free? Yes Yes Yes Wound debrided: plantar lateral foot Laterality: Right Wound Grade/Stage: grade 1 Type of Debridement: Excisional debridement Anesthesia Used: 5% Lidocaine Gel Depth: in the subcutaneous layer Percentage of wound debrided: 100 Instrument Used: #15 blade Tissue Removed: fibrous, devitalized subcutaneous, biofilm, slough Severity: Fat Layer Exposed Amount of bleeding with debridement: Mild Bleeding Controlled with: Pressure Patient tolerated procedure well Assessment/Plan Assessment: acute new plantar right foot ulcer, fat layer exposed, no infection. Diabetes with neuropathy. Delayed healing. bilateral hammer toes. malnutrition suspected Plan: I reviewed and discussed her case today. Debridment was performed today as noted in the clinical panel. Rosa Isela was applied to the ulcer site. To change dressing site daily. To continue CAM Walker with offloading pocket use. I recommend she transition to nonweightbearing status with use of a walker, crutches, or any roller. She continue with this plan. To take nutritional supplementation, Jere shakes, to optimize healing. After debridement the ulcer appears stable without himanshu purulence. I do not recommend antibiotics at this time however I do recommend that we send a culture to see if there is any pathological organisms growing. A tissue specimen was sent for aerobic anaerobic acid-fast and fungal testing. I called her last week with the results and did not recommend antibiotics due to her local resolution of devitalized infection tissue lack of systemic illness. Bacterial growth includes Bacteroides fragilis, enterococcus prevotii and strep Agalactiae. I also recommend she update her lab work including CBC, CMP. Her white blood cell count was 10.1, ESR 62, and she had elevated glucose level. Pending progress, update x-rays and even an MRI will be considered to look for any deeper tissue involvement or infection. To monitor for local or systemic signs of illness progression and to call the office immediately if this is noted. I recommend she wash the foot with soap and water daily prior to dressing changes. To return to the wound healing center in one week or call sooner if there are any questions or concerns. I answered all of her questions to call sooner if you have any questions or concerns.
== END 2019-08-02 23:59 ==
LOC: WC 13:45
PROVIDERS: Family Provider Internal Medicine; PCP Internal Medicine; Referring Provider Podiatrist; Visit Provider Podiatrist
DX: E11.621 Type 2 diabetes mellitus with foot ulcer (principal); E11.42 Type 2 diabetes mellitus with diabetic polyneuropathy; M20.41 Other hammer toe(s) (acquired), right foot; L97.512 Non-pressure chronic ulcer of other part of right foot with fat layer exposed; M20.42 Other hammer toe(s) (acquired), left foot
CPT/HCPCS: 11042; 36415; 80053; 85025; 85652; 86140; 87070; 87075; 87076; 87077; 87186; 87205

== ENCOUNTER 2019-08-15 13:00 | Outpatient (RCR) | payer MEDICARE, SELFPAY ==
[2019-08-03 00:49] VITALS: BP 138/69; PULSE 88; RESP 16; TEMP 36.5
[2019-08-08 13:53] VITALS: BP 149/83; PULSE 80; RESP 20; TEMP 36.6; BMI 32.9
--- NOTE | 2019-08-08 15:33 | PN.PCM_ITS ---
(1) Peripheral vascular disease Status: Suspected Current Visit: Yes Code(s): I73.9 - Peripheral vascular disease, unspecified (2) Ulcer of right foot with fat layer exposed Status: Chronic Current Visit: Yes Code(s): L97.512 - Non-pressure chronic ulcer of other part of right foot with fat layer exposed (3) Type 2 diabetes mellitus with diabetic polyneuropathy Status: Chronic Current Visit: Yes Code(s): E11.42 - Type 2 diabetes mellitus with diabetic polyneuropathy (4) Hammer toe of right foot Status: Chronic Current Visit: Yes Code(s): M20.41 - Other hammer toe(s) (acquired), right foot (5) Delayed wound healing Status: Chronic Current Visit: Yes Code(s): T14.8XXD - Other injury of unspecified body region, subsequent encounter (6) Type 2 diabetes mellitus with diabetic polyneuropathy Status: Chronic Current Visit: Yes Code(s): E11.42 - Type 2 diabetes mellitus with diabetic polyneuropathy (7) Other specified peripheral vascular diseases Status: Suspected Current Visit: Yes Code(s): I73.89 - Other specified peripheral vascular diseases Type of Wound Date of Service: 08/08/19 Chief Complaint: right foot ulcer History of Wound: This is a 63-year-old female who returns to clinic for a right foot ulcer. This is a foot ulcer that is new within the past month. Her previous ulcer has healed. This is a recurrent situation. Subcutaneous excisional debridement was performed as noted in the clinical panel. To change his dressing site daily. She was reassured no local signs of infection noted today. She denies fever, chill, nausea, vomiting, loss of appetite, foot pain today. She has been offloading with a cam walker that has offloading dual density Plastizote liners. Proper placement and fit was noted today. I recommend she goes completely nonweightbearing with the use of an assistive device to further take pressure off of the site. It is noted she did have noninvasive vascular studies performed in 01/2018 which demonstrated by triphasic waveforms to the right lower extremity. The toe brachial index was about 0.64 and the ALEXANDER was around 1.3. She relates she will be able to follow-up one more time next week and then she is moving to [place] ([facility]). Progress of Wound: Improving - Physical Exam Vital Signs Temp Pulse Resp BP 97.8 F 80 20 H 149/83 H 08/08/19 13:53 08/08/19 13:53 08/08/19 13:53 08/08/19 13:53 General: Alert, Oriented x3, Cooperative, No apparent distress Extremities: No cyanosis, Capillary Refill Less than 3 Seconds, No Calf Ten derness - Negative Tucker and Robison sign right. Dorsal contraction of lesser digits right foot with prominent metatarsal head. No fluctuance or bogginess on palpation. Compartment soft to palpate right lower extremity, Diminished Peripheral Pulses, Edema - Mild right lower extremity Skin: Ulcer/ Wound - No purulence, erythema, streaking, odor, infection, interdigital maceration deep tissue exposure or necrosis. There is peripheral epithelialization noted and mild callus formation, - - Adjacent skin is hairless and atrophic Wound Measurements and Assessment WC - Nurse 1 - General Ulcer Measurement Start: 08/08/19 13:53 Freq: Status: Active Protocol: Activity Type Activity Date Activity User E-Sign Co-Sign Detail Recorded Client Recorded Date Recorded By Document 08/08/19 13:53 DL [id number] 08/08/19 13:59 DL 08/08/19 13:53 Wound Center Nurse 1 [Ulcer Assessment] #5 right plantar -Current Size (cm) - Length 1.8 -Current Size (cm) - Width 0.2 -Current Size (cm) - Depth 0.2 -Total Square Cm 0.36 -Photo Taken No -Exudate Amt None Present -Wound Margin Thickened & Rolled Under -Granulation Amt Large (67-100%) -Granulation Quality Red -Necrosis Amt Small (1-33%) -Necrotic Tissue Type Adherent Slough -Structure Exposed N/A -Texture (Salima-wound Skin Appearance) Callus -Moisture (Salima-wound Skin Appearance Dry/Scaly ) -Color (Salima-wound Skin Appearance) No Abnormality -Temperature (Salima-wound Skin No Abnormality Appearance) (Pt Warm) -Tenderness on Palpation (Salima-wound No Skin Appearance) -Ulcer Cleansing Rinsed/ Irrigated with Saline -Foul Odor after Cleansing No -Anesthetic Used 5% Lidocaine Gel [Edema Assessment] -Right Calf (cm) 43.4 -Right Ankle (cm) 23 WC - Nurse 2 - General Ulcer CM Notes Start: 08/08/19 13:53 Freq: Status: Active Protocol: Activity Type Activity Date Activity User E-Sign Co-Sign Detail Recorded Client Recorded Date Recorded By Document 08/08/19 14:23 [id number] 08/08/19 14:27 08/08/19 14:23 Wound Center Nurse 2 [Procedure/Treatment] #5 right plantar -Time 14:23 -Correct Patient Yes -Correct Side, Site, Position Yes -Correct Procedure Yes -Procedure Performed Yes -Type of Procedure Debridement -Clinical Debridement Subcutaneous -Post Debridement Size (cm) - Length 1.8 -Post Debridement Size (cm) - Width 0.3 -Post Debridement Size (cm) - Depth 0.3 -Total Square Cm 0.54 -Wound/Ulcer Outcome Not Healed -Ulcer Cleansing Rinsed/ Irrigated with Saline -Foul Odor after Cleansing No -Bioengineered Tissue No -Bleeding Controlled with Pressure -Offloading Yes -Type of Offloading Surgical Shoe -Treatment Response Procedure Tolerated Well [See Physician Procedure note for Specifics] Pain Scale: 0-10 Numeric [Pain] -Is Patient Pain Free? Yes Musculoskeletal: No Tenderness to Palpation of Joints or Extremities, Muscle Wasting Neurological: - - Lack of normal epicritic sensation to light touch of right foot is consistent with her diabetic neuropathy status Psych/Mental Status: Normal Affect, Appropriate Debridement Note Post-Debridement Measurements/Treatment WC - Nurse 2 - General Ulcer CM Notes Start: 08/08/19 13:53 Freq: Status: Active Protocol: Activity Type Activity Date Activity User E-Sign Co-Sign Detail Recorded Client Recorded Date Recorded By Document 08/08/19 14:23 [id number] 08/08/19 14:27 08/08/19 14:23 Wound Center Nurse 2 #5 right plantar -Time 14:23 -Correct Patient Yes -Correct Side, Site, Position Yes -Correct Procedure Yes -Procedure Performed Yes -Type of Procedure Debridement -Clinical Debridement Subcutaneous -Post Debridement Size (cm) - Length 1.8 -Post Debridement Size (cm) - Width 0.3 -Post Debridement Size (cm) - Depth 0.3 -Total Square Cm 0.54 -Wound/Ulcer Outcome Not Healed -Ulcer Cleansing Rinsed/ Irrigated with Saline -Foul Odor after Cleansing No -Bioengineered Tissue No -Bleeding Controlled with Pressure -Offloading Yes -Type of Offloading Surgical Shoe -Treatment Response Procedure Tolerated Well Pain Scale: 0-10 Numeric Is Patient Pain Free? Yes Wound debrided: plantar lateral forefoot Laterality: Right Wound Grade/Stage: grade 1 Type of Debridement: Excisional debridement Anesthesia Used: 5% Lidocaine Gel Depth: in the subcutaneous layer Percentage of wound debrided: 100 Instrument Used: #15 blade Tissue Removed: fibrous, devitalized subcutaneous, biofilm, slough Severity: Fat Layer Exposed Amount of bleeding with debridement: Mild Bleeding Controlled with: Pressure Patient tolerated procedure well Assessment/Plan Active Problems (Last Reviewed 05/17/19 @ 11:05 by Marcelina Wang) Ulcer of right foot with fat layer exposed (Chronic) Type 2 diabetes mellitus with diabetic polyneuropathy (Chronic) Hammer toe of right foot (Chronic) Delayed wound healing (Chronic) Type 2 diabetes mellitus with diabetic polyneuropathy (Chronic) Assessment: acute new plantar right foot ulcer, fat layer exposed, no infection (recurrent). Diabetes with neuropathy. Delayed healing. bilateral hammer toes. malnutrition suspected. Peripheral vascular disease suspected. Underlying osteomyelitis is a differential diagnosis Plan: I reviewed and discussed her case today. Debridment was performed today as noted in the clinical panel. Rosa Isela was applied to the ulcer site. To change dressing site daily. To continue CAM Walker with offloading pocket use. I recommend she transition to nonweightbearing status with use of a walker, crutches, or any roller. She continue with this plan. Recommend that she update her noninvasive vascular studies to evaluate her current perfusion status. She is planning to move to [place] soon and will get this study updated at her new location. To take nutritional supplementation, Jere shakes, to optimize healing. After debridement the ulcer appears stable without himanshu purulence. I do not recommend antibiotics at this time however I do recommend that we send a culture to see if there is any pathological organisms growing. A tissue specimen was sent for aerobic anaerobic acid-fast and fungal testing. I called her last week with the results and did not recommend antibiotics due to her local resolution of devitalized infection tissue lack of systemic illness. Bacterial growth includes Bacteroides fragilis, enterococcus prevotii and strep Agalactiae. I also recommend she update her lab work including CBC, CMP. Her white blood cell count was 10.1, ESR 62, and she had elevated glucose level. Pending progress, update x-rays and even an MRI will be considered to look for any deeper tissue involvement or infection. To monitor for local or systemic signs of illness progression and to call the office immediately if this is noted. I recommend she wash the foot with soap and water daily prior to dressing changes. To return to the wound healing center in one week or call sooner if there are any questions or concerns. I answered all of her questions to call sooner if you have any questions or concerns. A referral to a [facility] wound healing center in [place] near her new home was provided today in the [facility] location. She will follow-up one more time next week prior to moving.
--- NOTE | 2019-08-13 13:58 | ART_ITS ---
Reason For Study: Ulcer Procedure A bilateral lower extremity continuous wave Doppler with analog waveform analysis,segmental pressures,and ankle brachial indexes without exercise. Left Segmental Pressures Left brachial= 175mmHg. Left posterior tibial artery = 201mmHg. Left dorsalis pedis artery = 216mmHg. Left digit = 144 mmHg. The left posterior tibial artery waveforms are triphasic. The left dorsalis pedis waveforms are triphasic. Right Segmental Pressures Right brachial= 177mmHg. Right posterior tibial artery = 187mmHg. Right dorsalis pedis artery = 221mmHg. The right posterior tibial artery waveforms are triphasic. The right dorsalis pedis waveforms are biphasic. Rt Digit is non compressible. Indices The right ankle brachial index by the posterior tibial artery is 1.06. The right ankle brachial index by the dorsalis pedis is 1.25. The left ankle brachial index by the posterior tibial artery is 1.14. The left ankle brachial index by the dorsalis pedis is 1.22. The left digital-brachial index is 0.81. Interpretation Summary Triphasic and biphasic Doppler waveforms are noted at ankle level on the right. Triphasic Doppler waveforms are noted at ankle level on the left. Pulse-volume recordings appear satisfactory bilaterally. Resting ankle-brachial indices are normal bilaterally. The right digital-brachial index could not be determined due to the non-compressibility of the vasculature. The left digital-brachial index is normal. There is no evidence of significant arterial occlusive disease in the lower extremities bilaterally. There is evidence of arterial calcification at digital level on the right. Ordering Physician: Amalia Phillip Referring Physician: Amalia Phillip Performed By: Nati Pavon RDCS/RVT
[2019-08-15 13:30] VITALS: BP 146/66; PULSE 79; RESP 16; TEMP 36.7; BMI 32.9
--- NOTE | 2019-08-15 14:11 | PCM.WC.PN ---
(1) Peripheral vascular disease Status: Chronic Current Visit: Yes Code(s): I73.9 - Peripheral vascular disease, unspecified (2) Ulcer of right foot with fat layer exposed Status: Chronic Current Visit: Yes Code(s): L97.512 - Non-pressure chronic ulcer of other part of right foot with fat layer exposed (3) Type 2 diabetes mellitus with diabetic polyneuropathy Status: Chronic Current Visit: Yes Code(s): E11.42 - Type 2 diabetes mellitus with diabetic polyneuropathy (4) Hammer toe of right foot Status: Chronic Current Visit: Yes Code(s): M20.41 - Other hammer toe(s) (acquired), right foot (5) Delayed wound healing Status: Chronic Current Visit: Yes Code(s): T14.8XXD - Other injury of unspecified body region, subsequent encounter (6) Type 2 diabetes mellitus with diabetic polyneuropathy Status: Chronic Current Visit: Yes Code(s): E11.42 - Type 2 diabetes mellitus with diabetic polyneuropathy (7) Other specified peripheral vascular diseases Status: Suspected Current Visit: Yes Code(s): I73.89 - Other specified peripheral vascular diseases (8) Foreign body in right foot Status: Resolved Current Visit: Yes Code(s): S90.851A - Superficial foreign body, right foot, initial encounter Type of Wound Date of Service: 08/15/19 Chief Complaint: right foot ulcer History of Wound: This is a 63-year-old female who returns to clinic for a right foot ulcer. This is a foot ulcer. This is a recurrent situation. Subcutaneous excisional debridement was performed as noted in the clinical panel. To change his dressing site daily. She was reassured no local signs of infection noted today. She denies fever, chill, nausea, vomiting, loss of appetite, foot pain today. She has been offloading with a cam walker that has offloading dual density Plastizote liners. She was seen at the foot and ankle center this past Tuesday and a foreign body glass was identified to the right heel. Since that has been removed and cleaned, this ulcer site has healed and her swelling has resolved. She is moving to [place] this weekend. Progress of Wound: Improving ulcer. Healed and resolved foreign body right foot - Physical Exam Vital Signs Temp Pulse Resp BP 98.0 F 79 16 146/66 H 08/15/19 13:30 08/15/19 13:30 08/15/19 13:30 08/15/19 13:30 General: Alert, Oriented x3, Cooperative, No apparent distress Extremities: No cyanosis, Capillary Refill Less than 3 Seconds, No Calf Tenderness - No crepitus on palpation and compartments are soft to palpate right foot, Diminished Peripheral Pulses, Edema - Mild and additional edema that was noted on Tuesday is resolved Skin: Ulcer/ Wound - Peripheral epithelialization is noted. There are no infections, string, odor, infection or deep tissue. The ulcer is more superficial. The previous glass foreign body removal site has healed and there is full epithelialization and no infection or maceration here. The peripheral skin is hairless and atrophic Wound Measurements and Assessment WC - Nurse 1 - General Ulcer Measurement Start: 08/08/19 13:53 Freq: Status: Active Protocol: Activity Type Activity Date Activity User E-Sign Co-Sign Detail Recorded Client Recorded Date Recorded By Document 08/15/19 13:30 [id number] 08/15/19 13:32 08/15/19 13:30 Wound Center Nurse 1 [Ulcer Assessment] #5 right plantar -Combined with other wound No -Current Size (cm) - Length 2.1 -Current Size (cm) - Width 0.3 -Current Size (cm) - Depth 0.3 -Total Square Cm 0.63 -Photo Taken No -Epithelialization None Present -Tunneling No -Undermining/Tunneling No -Circular Undermining No -Exudate Amt Small -Exudate Type Serosanguineous -Wound Margin Distinct, Outline Attached -Granulation Amt Medium (34-66%) -Granulation Quality Red -Slough/Fibrin Yes -Necrosis Amt None Present (0 %) -Necrotic Tissue Type Adherent Slough -Structure Exposed None/Limited to Skin Breakdown -Texture (Salima-wound Skin Appearance) Callus -Moisture (Salima-wound Skin Appearance No Abnormality, ) Assessed -Color (Salima-wound Skin Appearance) No Abnormality, Assessed -Temperature (Salima-wound Skin No Abnormality Appearance) (Pt Warm) -Tenderness on Palpation (Salima-wound No Skin Appearance) -Ulcer Cleansing Rinsed/ Irrigated with Saline -Foul Odor after Cleansing No -Anesthetic Used 4% Lidocaine Solution [Edema Assessment] -Lower Limb Edema Present NA WC - Nurse 2 - General Ulcer CM Notes Start: 08/08/19 13:53 Freq: Status: Active Protocol: Activity Type Activity Date Activity User E-Sign Co-Sign Detail Recorded Client Recorded Date Recorded By Document 08/15/19 14:03 [id number] 08/15/19 14:05 08/15/19 14:03 Wound Center Nurse 2 [Procedure/Treatment] #5 right plantar -Time 14:04 -Correct Patient Yes -Correct Side, Site, Position Yes -Correct Procedure Yes -Procedure Performed Yes -Type of Procedure Debridement -Clinical Debridement Subcutaneous -Post Debridement Size (cm) - Length 1.3 -Post Debridement Size (cm) - Width 0.3 -Post Debridement Size (cm) - Depth 0.2 -Total Square Cm 0.39 -Wound/Ulcer Outcome Not Healed -Ulcer Cleansing Rinsed/ Irrigated with Saline -Foul Odor after Cleansing No -Bioengineered Tissue No -Bleeding Controlled with Pressure -Offloading Yes -Type of Offloading Surgical Shoe -Treatment Response Procedure Tolerated Well [See Physician Procedure note for Specifics] Musculoskeletal: No Tenderness to Palpation of Joints or Extremities, Muscle Wasting Neurological: - - Lack of normal epicritic sensation light touch consistent with neuropathy Psych/Mental Status: Normal Affect, Appropriate Debridement Note Post-Debridement Measurements/Treatment WC - Nurse 2 - General Ulcer CM Notes Start: 08/08/19 13:53 Freq: Status: Active Protocol: Activity Type Activity Date Activity User E-Sign Co-Sign Detail Recorded Client Recorded Date Recorded By Document 08/08/19 14:23 [id number] 08/08/19 14:27 Document 08/15/19 14:03 [id number] 08/15/19 14:05 08/08/19 08/15/19 14:23 14:03 Wound Center Nurse 2 #5 right plantar -Time 14:23 14:04 -Correct Patient Yes Yes -Correct Side, Site, Position Yes Yes -Correct Procedure Yes Yes -Procedure Performed Yes Yes -Type of Procedure Debridement Debridement -Clinical Debridement Subcutaneous Subcutaneous -Post Debridement Size (cm) - Length 1.8 1.3 -Post Debridement Size (cm) - Width 0.3 0.3 -Post Debridement Size (cm) - Depth 0.3 0.2 -Total Square Cm 0.54 0.39 -Wound/Ulcer Outcome Not Healed Not Healed -Ulcer Cleansing Rinsed/ Rinsed/ Irrigated with Irrigated with Saline Saline -Foul Odor after Cleansing No No -Bioengineered Tissue No No -Bleeding Controlled with Pressure Pressure -Offloading Yes Yes -Type of Offloading Surgical Shoe Surgical Shoe -Treatment Response Procedure Procedure Tolerated Well Tolerated Well Pain Scale: 0-10 Numeric Is Patient Pain Free? Yes Wound debrided: plantar lateral forefoot Laterality: Right Wound Grade/Stage: grade 1 Type of Debridement: Excisional debridement Anesthesia Used: 5% Lidocaine Gel Depth: in the subcutaneous layer Percentage of wound debrided: 100 Instrument Used: #15 blade Tissue Removed: fibrous, devitalized subcutaneous, biofilm,slough Severity: Fat Layer Exposed Amount of bleeding with debridement: Mild Bleeding Controlled with: Pressure Patient tolerated procedure well Assessment/Plan Active Problems (Last Reviewed 05/17/19 @ 11:05 by Marcelina Wang) Ulcer of right foot with fat layer exposed (Chronic) Type 2 diabetes mellitus with diabetic polyneuropathy (Chronic) Hammer toe of right foot (Chronic) Delayed wound healing (Chronic) Peripheral vascular disease (Chronic) Type 2 diabetes mellitus with diabetic polyneuropathy (Chronic) Assessment: recurrent plantar right foot ulcer, fat layer exposed, no infection (recurrent). Diabetes with neuropathy. Delayed healing. bilateral hammer toes. malnutrition suspected. Peripheral vascular disease suspected. Underlying osteomyelitis is a differential diagnosis. Resolved right heel foreign body Plan: I reviewed and discussed her case today. Debridment was performed today as noted in the clinical panel. Rosa Isela was applied to the ulcer site. To change dressing site daily. To continue CAM Walker with offloading pocket use. I recommend she transition to nonweightbearing status with use of a walker, crutches, or any roller. She continue with this plan. Recommend that she update her noninvasive vascular studies to evaluate her current perfusion status. Her results were reviewed with evidence of vessel calcification and overall good waveforms in the ankle levels. The right ALEXANDER was 1.25. I still recommend that she follows up with the vascular surgeon to see if any intervention is possible to optimize healing and to further decrease her risk of developing ongoing ulcers to the right foot. She plans to do this when she relocates in [place]. To take nutritional supplementation, Jere shakes, to optimize healing. After debridement the ulcer appears stable without himanshu purulence. I also recommend she update her lab work including CBC, CMP. Her white blood cell count was 10.1, ESR 62, and she had elevated glucose level. To monitor for local or systemic signs of illness progression and to call the office immediately if this is noted. I recommend she wash the foot with soap and water daily prior to dressing changes. She was reassured that her foreign body site has healed and there are no signs of infection at this site either. To return to the wound healing center in one week or call sooner if there are any questions or concerns. I answered all of her questions to call sooner if you have any questions or concerns. A referral to a [facility] wound healing center in [place] near her new home was provided today in the [facility] location. Her medical records from the wound care center in foot and ankle center have been faxed for continuity of care.
== END 2019-09-01 23:59 ==
LOC: WC 13:00
PROVIDERS: Family Provider Internal Medicine; PCP Internal Medicine; Referring Provider Podiatrist; Visit Provider Podiatrist
DX: E11.621 Type 2 diabetes mellitus with foot ulcer (principal); E11.42 Type 2 diabetes mellitus with diabetic polyneuropathy; L97.512 Non-pressure chronic ulcer of other part of right foot with fat layer exposed; M20.41 Other hammer toe(s) (acquired), right foot; I73.89 Other specified peripheral vascular diseases
CPT/HCPCS: 11042; 93923

== ENCOUNTER 2020-06-04 14:56 | Inpatient (IN) | payer MEDICARE, OTHER, SELFPAY ==
[2020-06-04 14:57] VITALS: BP 140/77; PULSE 78; RESP 17; TEMP 36.9; O2SAT 99; BMI 32.6
--- NOTE | 2020-06-04 15:28 | ED.DCSUM_ITS ---
- ER Visit Summary Date of Service: 06/04/20 Chief Complaint: Right foot diabetic foot infection History of Present Illness: The patient is a [address] of insulin-dependent diabetes, prior stroke and high cholesterol. Patient states for approximately a week she noticed some wounds on her right lateral foot near the small toe. She went and saw her production assistant today who probed the wound and expressed pus. Sent her to the emergency department. States that she does not think that she had a fever but has felt warm. No trauma to the foot and no foot surgery to the right foot. Physical Examination: Older female no acute distress vital signs stable afebrile. HEENT exam unremarkable. Lungs clear to auscultation. Heart regular rhythm no murmur. Abdomen soft nontender. Extremities moves all 4. She has neuropathies in her feet. Her right foot there is a DP pulse. There is cellulitis. There is 3 separate wounds along the lateral distal end of the right foot by the small toe and underneath at the pad of the small toe. There is pus and cellulitis. No gross bony deformity. This is obviously infected. Neurologically she is awake and alert. She does have decreased sensation in both feet which is chronic. Test Results: CBC white count of 11. Hemoglobin 10. No bands. Chemistries unremarkable gap of 6 creatinine 0.8 glucose 265 sed rate elevated at 117. However test results with the patient. At this time the foot x-ray is still pending. I will review that if it is done prior to patient being admitted. Emergency Department Course and Treatment: Diabetic older patient with obvious diabetic foot infection. Will be started on IV Zosyn. Screening labs and x-ray to be obtained. I will speak to the hospitalist and production assistant about admission. Treatment Plan: Hospitalist and production assistant on page for admission. Disposition: Admit for IV antibiotics and dietary consultation and care. Impression: Right diabetic foot infection History of insulin-dependent diabetes History of prior stroke and high cholesterol This note was generated with [employer] dictation software. It may contain incorrect words, spelling, and punctuation that were not noted in review of the chart prior to signing ED Disposition - Plan for ED Patient: Referrals: Maricruz Andino MD [Primary Care Provider] -
--- NOTE | 2020-06-04 15:51 | PCM.CONS.GEN ---
Problem List (1) Ulcer of right foot with fat layer exposed Status: Acute (2) Type 2 diabetes mellitus with diabetic polyneuropathy Status: Chronic (3) Cellulitis of right foot Status: Acute (4) Peripheral vascular disease Status: Chronic Reason for Consult Date of Consultation: 06/04/20 History of Present Illness: The patient is a 64 year old F who presents with right foot blisters. Patient was seen in office. Patient states blisters started one week ago and she went to urgent care who wouldn't see her. Patient states she has been feeling unwell, and not like herself. Patient denies fever or chills. Patient is diabetic and reports elevated blood sugar recently of 270. Patient has had blisters and wounds to this foot in the past. Patient has noticed clear to bloody drainage from the wound. Patient has 10/10 pain in that foot. [] Past Medical History Past Medical History (Chronic Problems): Chronic Problems (Last Reviewed 05/17/19 @ 11:05 by Marcelina Wang) Type 2 diabetes mellitus with diabetic polyneuropathy (Chronic) Hammer toe of right foot (Chronic) Delayed wound healing (Chronic) Peripheral vascular disease (Chronic) Hallux limitus of left foot (Chronic) Type 2 diabetes mellitus with diabetic polyneuropathy (Chronic) Hypertension (Chronic) Type 2 diabetes mellitus (Chronic) Vitamin D deficiency (Chronic) Vision problems (Chronic) Neuropathy (Chronic) Heart murmur (Chronic) High cholesterol (Chronic) Back pain (Chronic) Anemia (Chronic) Overweight (BMI 25.0-29.9) (Chronic) Diabetic foot ulcer (Chronic) Chronic ulcer of great toe of left foot (Chronic) Diabetes (Chronic) Hyperlipidemia (Chronic) Hypothyroidism (Chronic) History of CVA (cerebrovascular accident) (Chronic) 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) Limb weakness (Chronic) Thyroid disease (Chronic) Diabetes (Chronic) Stroke (Chronic) Heart disease (Chronic) Medical History: Medical History (Last Reviewed 05/17/19 @ 11:05 by Marcelina Wang) Vitamin D deficiency (Chronic) E55.9 Vision problems (Chronic) H54.7 Neuropathy (Chronic) G62.9 Heart murmur (Chronic) R01.1 High cholesterol (Chronic) E78.00 Back pain (Chronic) M54.9 Anemia (Chronic) D64.9 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) N97.9 Limb weakness (Chronic) R29.898 Thyroid disease (Chronic) E07.9 Diabetes (Chronic) E11.9 Stroke (Chronic) I63.9 Heart disease (Chronic) I51.9 Polycystic ovaries (Resolved) E28.2 Allergies Inhaled Anesthetics (Halogen Based) Allergy (Verified 06/04/20 14:57) Unknown morphine Allergy (Verified 06/04/20 14:57) Unknown Home Medications: Ambulatory Orders Medication Instructions Recorded aspirin 81 mg tablet,delayed 81 mg PO QDAY 02/23/18 release insulin syringe-needle U-100 1 mL See Dose Instructions .ROUTE 02/23/18 28 gauge x / .MEDSUPPLY #100 ea acyclovir 400 mg tablet 400 mg PO Q4H PRN 05/09/18 tumeric PO 07/26/18 ergocalciferol (vitamin D2) 1,250 50,000 unit PO Q7D 90 Days #30 cap 05/03/19 mcg (50,000 unit) capsule atorvastatin 80 mg tablet 80 mg PO DAILY 90 Days #90 tab 06/28/19 losartan 50 mg tablet 50 mg PO DAILY 90 Days #90 tab 06/28/19 metoprolol succinate 50 mg 50 mg PO DAILY #90 tab 06/28/19 tablet,extended release 24 hr glipizide 10 mg tablet 10 mg PO DAILY #90 tab 01/31/20 pen needle, diabetic 32 gauge x See Dose Instructions .ROUTE 01/31/2010/06 .MEDSUPPLY #100 ea sertraline 50 mg tablet 50 mg PO DAILY #90 tab 01/31/20 Cinnamon Bark [Cinnamon] 500 mg PO 06/04/20 Insulin Aspart [Novolog Flexpen units SUBCUT BIDCM 06/04/20 ([facility])] Insulin Glargine,Hum.rec.anlog 75 unit SUBCUT DAILY 06/04/20 [T[employer]jeo Solostar] Levothyroxine Sodium 75 mcg PO MOTUWETHFRSA 06/04/20 Levothyroxine [Synthroid] 150 mcg PO STOKES 06/04/20 Surgical History: Surgical History (Last Reviewed 05/17/19 @ 11:05 by Marcelina Wang) History of hysterectomy Z90.710 History of shoulder surgery Z98.890 Surgical History: hysterectomy, - Smoking Status: Never smoker - *Family History Paternal Family History: Family History (Last Reviewed 05/17/19 @ 11:05 by Marcelina Wang) Mother Anemia Angina pectoris Heart disease CVA (cerebral vascular accident) Thyroid disorder Diabetes Father Angina pectoris Myocardial infarction Kidney disease Diabetes Grandmother Colon cancer History Items: - - Patient's father at the age of 75 with a history of renal failure, heart disease, and diabetes mellitus. Patient's mother at the age of 87, with a history of diabetes mellitus, heart disease, and cerebrovascular accident. Review of Systems Constitutional: Reports: Malaise, Fatigue. Denies: Chills, Fever Cardiovascular: Denies: Chest Pain Respiratory: Denies: Shortness of Breath Musculoskeletal: Reports: Foot Pain - right Skin: Reports: Wounds - right foot Neurological: Reports: Numbness - feet, Tingling - feet - Physical Exam Vitals/I&O's: Vital Signs Temp Pulse Resp BP Pulse Ox 98.5 F 78 17 140/77 H 99 06/04/20 14:57 06/04/20 14:57 06/04/20 14:57 06/04/20 14:57 06/04/20 14:57 Oxygen Delivery Method Room Air Weight: 91.7 kg Body Mass Index (BMI) 32.6 General: Alert, Oriented x3, Cooperative HEENT: Atraumatic Extremities: Diminished Peripheral Pulses - Right: 1/4 DP nonpalpable PT, CFT <3 seconds, diminished epicritic and light touch, Edema, Tenderness - right foot, - - erythema to right foot, pain on palpation Skin: Ulcer/ Wound - right foot: 4 ulcers present to lateral foot dorsal, lateral and plantar. All wounds communicate with each other. 7cc of purulent drainage was expressed in office from dorsal wound. Plantar 5th MPJ wound measures 1x1.5x3cm, dorsal 5th MPJ measures [id number], lateral 5th MPJ measures 0.5x0.5x2cm, dorsal foot measures 3.5x2cm. All wounds have fibrotic/necrotic base, malodor present, purulent and sanginous drainage, probes to capsule Musculoskeletal: Tenderness - right foot Neurological: - - decreased protective sensation Psych/Mental Status: Normal Affect, Alert and oriented to time, place, person, mood and affect Current Medications Piperacillin Sod/Tazobactam (Sod 4.5 gm/ Sodium Chloride) 100 mls @ 200 mls/hr IV X1 ONE Stop: 06/04/20 15:55 Assessment/Plan All Active Problems (Last Reviewed 05/17/19 @ 11:05 by Marcelina Wang) Ulcer of right foot with fat layer exposed (Acute) Chronic ulcer of left foot with fat layer exposed (Resolved) Cellulitis of right foot (Acute) Foreign body in right foot (Resolved) Cellulitis of right foot (Acute) Laceration of right foot with foreign body (Acute) Cellulitis of left foot (Resolved) Polycystic ovaries (Resolved) right foot ulcer into fat/fascia right foot cellulitis abscess right foot DM2 neuropathy Patient seen and evaluated In office wounds were debrided and approximately 6cc of purulent drainage was expressed from dorsal foot wound Cultures ordered MRI ordered XR ordered Follow labs Ordered PVRs NWB right foot Continue wound care to right foot continue antibiotics WBC 11.0, ESR is 117. Likely that there is bone involvement for infection based on labs, will correlate with imaging results Discussed with the patient probable need for surgical debridement. Also discussed possible need for amputation depending on imaging results. Discussed risks and benefits with the patient. Podiatry will continue to follow.
[2020-06-04 15:53] LABS: Absolute Neutrophil Count 8.6 X10^3/uL (2.0-7.7); Basophil# 0.05 X10^3/uL; Basophil% 0.5 % (0-1); Eosinophil# 0.17 X10^3/uL; Eosinophils% 1.5 % (0-5); Hematocrit 33.9 % (37-47); Hemoglobin 10.9 g/dL (12.0-15.0); Lymphocyte % 12.7 % (19-41); Mean Corp Hgb Conc 32.2 g/dL (32-36); Mean Corpuscular Hgb 29.2 pg (27.0-32.0); Mean Corpuscular Volume 90.9 fL (81-99); Mean Platelet Vol. 8.8 fl (6.2-12.0); Monocyte# 0.71 X10^3/uL; Monocyte% 6.5 % (0-10); NRBC Flagged by Analyzer 0 % (0-5); Neutrophil # 8.58 X10^3/uL (2.7-7.7); Platelet Count 399 K/mm3 (150-450); RBC Distribution Width CV 12.8 % (11.6-14.6); RBC Distribution Width SD 42.2 fl (35.1-43.9); Red Blood Count 3.73 M/mm3 (4.2-5.4)
--- NOTE | 2020-06-04 15:59 | RAD_ITS ---
STUDY: X-RAY - RIGHT FOOT CLINICAL: Female, 64 years old. DIABETIC FOOT INFECTION DORSAL SURFACE DISTAL 3RD THROUGH 5TH METATARSALS AREA TECHNIQUE: 3 view(s) of the foot. COMPARISON: None. FINDINGS: Normal talus, calcaneus, and tarsal bones. Moderate plantar calcaneal enthesophyte. Normal visualized subtalar, talonavicular, calcaneocuboid, tarsal and tarsometatarsal articulations. Normal metatarsi. Normal metatarsophalangeal joint of the great toe. Normal tibial and fibular sesamoid bones. Normal interphalangeal joint of the great toe. Normal phalanges of the great toe. Normal second through fifth metatarsophalangeal joints. Normal interphalangeal joints and phalanges of the lesser toes. The soft tissue structures are unremarkable. RAD/Foot min 3 Views IMPRESSION: Normal x-ray examination of the foot. Electronically Signed: Gilbert Pretty MD at 16:22 EDT Tel , Service support ,
[2020-06-04 16:06] LABS: Erythrocyte Sedimentation Rate 117 mm/hr (0-30)
[2020-06-04 16:07] LABS: Anion Gap 6 (5-15); BUN 12 mg/dL (7-18); BUN/Creat Ratio 13.9 RATIO (10-20); Calcium,Total 9.1 mg/dL (8.5-10.1); Chloride 97 mmol/L (98-107); Creatinine, Serum 0.86 mg/dL (0.55-1.02); EST Glomerular Filtration Rate 70 mL/min (>60); Est Glom Filt Rate - Afr Amer 85 mL/min (>60); Estimated Creatinine Clearance 61.05 ml/min; Glucose 265 mg/dL (74-106); Potassium 3.6 mmol/L (3.5-5.1); Sodium Level 134 mmol/L (136-145)
--- NOTE | 2020-06-04 16:09 | MRI_ITS ---
STUDY: MRI RIGHT FOREFOOT WITH AND WITHOUT CONTRAST REASON FOR EXAM: Female, 64 years old. R FOOT ABSCESS, BLISTERS, LATERAL DEBRIDEMENT TODAY TECHNIQUE: Standardized fat and water weighted pulse sequences were obtained in all 3 orthogonal planes, post contrast administration. 19CC DOTAREM IV was administered for the contrast portion of the examination. COMPARISON: X-ray FINDINGS: There is mild degenerative arthrosis of the metatarsophalangeal joint of the hallux. Normal tibial and fibular sesamoids, with normal sesamoids-first metatarsal articulations. Normal interphalangeal joint of the hallux. Normal proximal and distal phalanges of the great toe. Normal medial and lateral heads of the flexor hallucis brevis tendons. Normal flexor and extensor hallucis longus tendons. Normal second through fifth metatarsophalangeal (MTP) joints. Normal interphalangeal joints of the second through fifth toes. Normal proximal, middle and distal phalanges of the second through fourth toes. Normal flexor and extensor tendons of the second through fifth toes. Normal first through fourth intermetatarsal spaces. Normal visualized second through fourth metatarsi. There is marrow edema and enhancement of the distal fifth metatarsal and fifth proximal phalanx, series 5 images 24/30 and 25/30. There is soft tissue swelling of the dorsum of the foot. There are diminished enhancement regions consistent in the soft tissues suggesting phlegmonous change. There is no fluid collection. There is diffuse atrophy of the intrinsic muscles of the forefoot consistent with a peripheral neuropathy. MRI/Lower Ext No Joint W/WO Cont IMPRESSION: Osteomyelitis of the fifth metatarsal and proximal phalanx. Electronically Signed: Boo Hernández MD at 19:53 EDT , Service support ,
--- NOTE | 2020-06-04 16:23 | ART_ITS ---
Reason For Study: Ulcer Procedure A bilateral lower extremity continuous wave Doppler with analog waveform analysis,segmental pressures,and ankle brachial indexes without exercise. Left Segmental Pressures Left posterior tibial artery = 143mmHg. Left dorsalis pedis artery = 195mmHg. Left digit = 100 mmHg. The left dorsalis pedis waveforms are triphasic. The left posterior tibial artery waveforms are biphasic. Right Segmental Pressures Right brachial= 160mmHg. Right posterior tibial artery = 127mmHg. Right dorsalis pedis artery = 189mmHg. Right digit = 65 mmHg. The right dorsalis pedis waveforms are biphasic. The right posterior tibial artery waveforms are biphasic. Indices The right ankle brachial index by the dorsalis pedis is 1.18. The right ankle brachial index by the posterior tibial artery is 0.79. The right digital-brachial index is 0.41. The left ankle brachial index by the dorsalis pedis is 1.22. The left ankle brachial index by the posterior tibial artery is 0.89. The left digital-brachial index is 0.63. Interpretation Summary Moderately severe bilateral lower extremity arterial disease noted at rest particularly noted in bilateral posterior tibial arteries. Bilateral dorsalis pedis indices are normal but waveforms biphasic suggesting moderate disease. Abnormal bilateral digital brachial indices. Ordering Physician: Lenora Momin Referring Physician: Maricruz Andino Performed By: Stephani Jackson RVT
--- NOTE | 2020-06-04 17:18 | NURSING ---
MED SURG JOPPERI DIABETIC FOOT INFECTION
[2020-06-04 17:22] VITALS: BP 207/88; PULSE 75; RESP 18; TEMP 36.7
[2020-06-04 17:27] VITALS: BMI 32.6
--- NOTE | 2020-06-04 17:50 | HP.PCM_ITS ---
Problem List (1) Ulcer of right foot with fat layer exposed Status: Acute (2) Chronic ulcer of left foot with fat layer exposed Status: Resolved (3) Type 2 diabetes mellitus with diabetic polyneuropathy Status: Chronic (4) Hammer toe of right foot Status: Chronic (5) Delayed wound healing Status: Chronic (6) Cellulitis of right foot Status: Acute (7) Peripheral vascular disease Status: Chronic (8) Other specified peripheral vascular diseases Status: Suspected (9) Foreign body in right foot Status: Resolved (10) Cellulitis of right foot Status: Acute (11) Laceration of right foot with foreign body Status: Acute (12) Hallux limitus of left foot Status: Chronic (13) Type 2 diabetes mellitus with diabetic polyneuropathy Status: Chronic (14) Cellulitis of left foot Status: Resolved (15) Hypertension Status: Chronic (16) Type 2 diabetes mellitus Status: Chronic (17) Vitamin D deficiency Status: Chronic (18) Vision problems Status: Chronic (19) Neuropathy Status: Chronic (20) Heart murmur Status: Chronic (21) High cholesterol Status: Chronic (22) Back pain Status: Chronic (23) Anemia Status: Chronic (24) Overweight (BMI 25.0-29.9) Status: Chronic (25) Diabetic foot ulcer Status: Chronic Qualifiers: Diabetic foot ulcer location: toe Diabetes mellitus type: type 2 Laterality: left Non-pressure ulcer stage: with fat layer exposed Qualified Code(s): E11.621 - Type 2 diabetes mellitus with foot ulcer; L97.522 - Non- pressure chronic ulcer of other part of left foot with fat layer exposed (26) Chronic ulcer of great toe of left foot Status: Chronic Qualifiers: Non-pressure ulcer stage: with fat layer exposed Qualified Code(s): L97.522 - Non-pressure chronic ulcer of other part of left foot with fat layer exposed (27) Diabetes Status: Chronic Qualifiers: Diabetes mellitus type: type 2 (28) Hyperlipidemia Status: Chronic (29) Hypothyroidism Status: Chronic (30) History of CVA (cerebrovascular accident) Status: Chronic (31) Female fertility problems Status: Chronic (32) Limb weakness Status: Chronic (33) Thyroid disease Status: Chronic (34) Diabetes Status: Chronic (35) Stroke Status: Chronic (36) Heart disease Status: Chronic History of Present Illness Date of Admission: 06/04/20 Chief Complaint: right foot ulcer The patient is a 64 year old F who 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 Patient had noted days before that she was having some ulcerations on her foot on the dorsal aspect. Try to get into see urgent care but they deferred her to seeing a generating plant superintendent. Patient got into see a generating plant superintendent today and had pus expressed from the wound on the plantar aspect but actually was expressed on the dorsal aspect of her foot when there was pressed on the plantar aspect. Patient was directed to the emergency room. Patient received Pipracil and/tazobactam in the emergency room. Patient has never had diabetic foot wounds before. [] Past Medical History Past Medical History (Chronic Problems): Chronic Problems (Last Reviewed 05/17/19 @ 11:05 by Marcelina Wang) Type 2 diabetes mellitus with diabetic polyneuropathy (Chronic) Hammer toe of right foot (Chronic) Delayed wound healing (Chronic) Peripheral vascular disease (Chronic) Hallux limitus of left foot (Chronic) Type 2 diabetes mellitus with diabetic polyneuropathy (Chronic) Hypertension (Chronic) Type 2 diabetes mellitus (Chronic) Vitamin D deficiency (Chronic) Vision problems (Chronic) Neuropathy (Chronic) Heart murmur (Chronic) High cholesterol (Chronic) Back pain (Chronic) Anemia (Chronic) Overweight (BMI 25.0-29.9) (Chronic) Diabetic foot ulcer (Chronic) Chronic ulcer of great toe of left foot (Chronic) Diabetes (Chronic) Hyperlipidemia (Chronic) Hypothyroidism (Chronic) History of CVA (cerebrovascular accident) (Chronic) 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) Limb weakness (Chronic) Thyroid disease (Chronic) Diabetes (Chronic) Stroke (Chronic) Heart disease (Chronic) Medical History: Medical History (Last Reviewed 06/04/20 @ 17:[address] Armando Jimenez, DO) Vitamin D deficiency (Chronic) E55.9 Vision problems (Chronic) H54.7 Neuropathy (Chronic) G62.9 Heart murmur (Chronic) R01.1 High cholesterol (Chronic) E78.00 Back pain (Chronic) M54.9 Anemia (Chronic) D64.9 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) N97.9 Limb weakness (Chronic) R29.898 Thyroid disease (Chronic) E07.9 Diabetes (Chronic) E11.9 Stroke (Chronic) I63.9 Heart disease (Chronic) I51.9 Polycystic ovaries (Resolved) E28.2 Allergies Inhaled Anesthetics (Halogen Based) Allergy (Verified 06/04/20 14:57) Unknown morphine Allergy (Verified 06/04/20 14:57) Unknown Home Medications: Ambulatory Orders Medication Instructions Recorded Aspirin E.C. [Ecotrin] 81 mg PO DAILY@0800 06/04/20 Atorvastatin Calcium 80 mg PO QHS 06/04/20 Cinnamon Bark [Cinnamon] 500 mg PO MOWEFR 06/04/20 Ergocalciferol (Vitamin D2) 50,000 unit PO WE 06/04/20 [Drisdol] Glipizide 10 mg PO DAILY 06/04/20 Insulin Aspart [Novolog Flexpen 8 - 10 units SUBCUT TIDCM 06/04/20 ([facility])] Insulin Glargine,Hum.rec.anlog 75 units SQ QHS 06/04/20 [Lantus] Levothyroxine Sodium 75 mcg PO MOTUWETHFRSA 06/04/20 Levothyroxine [Synthroid] 150 mcg PO STOKES 06/04/20 Losartan Potassium 50 mg PO DAILY 06/04/20 Metoprolol Succinate 50 mg PO DAILY 06/04/20 Sertraline HCl [Zoloft] 50 mg PO DAILY 06/04/20 Turmeric Root Extract [Turmeric] 500 mg PO DAILY 06/04/20 Surgical History: Surgical History (Last Reviewed 05/17/19 @ 11:05 by Marcelina Wang) History of hysterectomy Z90.710 History of shoulder surgery Z98.890 Surgical History: hysterectomy, - Smoking Status: Never smoker Tobacco Use: Secondhand - *Family History Paternal Family History: Family History (Last Reviewed 06/04/20 @ 17:[address] Armando Jimenez, DO) Mother Anemia Angina pectoris Heart disease CVA (cerebral vascular accident) Thyroid disorder Diabetes Father Angina pectoris Myocardial infarction Kidney disease Diabetes Grandmother Colon cancer History Items: - - Patient's father at the age of 75 with a history of renal failure, heart disease, and diabetes mellitus. Patient's mother at the age of 87, with a history of diabetes mellitus, heart disease, and cerebrovascular accident. Review of Systems Constitutional: Reports: Chills. Denies: Anorexia, Fever, Night Sweats Eyes: Denies: Blurred vision, Double vision HEENT: Denies: Head Aches, Sinus Congestion, Sinus Drainage Cardiovascular: Denies: Chest Pain, Palpitations Respiratory: Denies: Cough, Shortness of breath at rest, Sputum production Gastrointestinal: Reports: Diarrhea. Denies: Abdominal Pain, Nausea, Vomiting Genitourinary: Denies: Dysuria Musculoskeletal: Reports: Foot Pain Skin: Reports: Wounds Hematologic/ Lymphatic: Denies: Easy Bruising, Easy Bleeding Comment: All review of systems were negative except as mentioned above in the history of present illness and the other review of systems. VTE Information - Inpt Only VTE Present on Admission: No VTE Mechan Device Prophylaxis: SCD's VTE Pharm Prophylaxis ordered?: Yes - Physical Exam Vitals/I&O's: Vital Signs Temp Pulse Resp BP Pulse Ox 36.7 C 75 18 207/88 H 99 06/04/20 17:22 06/04/20 17:22 06/04/20 17:22 06/04/20 17:22 06/04/20 14:57 Oxygen Delivery Method Room Air Weight: 91.7 kg Body Mass Index (BMI) 32.6 Intake and Output for Last 24 Hours 06/02/20 06/03/20 06/04/20 23:59 23:59 23:59 Intake Total 100 / 100 Balance 100 / 100 General: Alert, Cooperative, No apparent distress HEENT: Atraumatic, Normocephalic Oral: Moist Mucosa, No Gingival or Mucosal Lesions/ Ulcerations Neck: No Nodes, Thyroid Normal Size and Texture Lungs: Clear to auscultation, Normal air movement, No rhonchi, No wheeze, No rales Cardiovascular: Regular rate, Regular Rhythm, Normal S1, Normal S2, No murmurs Abdomen: Bowel Sounds Present, Soft, Non Tender, Non-Distended, No Hepato- splenomegaly Extremities: No Calf Tenderness, Edema - Trace in the right lower extremity Skin: - - Patient has a ulceration the plantar aspect of her right foot underneath the fourth MTP. No obvious purulence is expressed. Patient has an ulceration on the lateral aspect of her right foot with serous fluid and a larger deroofed area on the more proximal part of her lateral right foot. No purulence is visible nor any odor. Musculoskeletal: No Tenderness to Palpation of Joints or Extremities, No Muscle Wasting Neurological: Muscle tone normal, - - Diminished sensation Psych/Mental Status: Appropriate, Anxious Laboratory Results 06/04/20 15:45: WBC 11.0, RBC 3.73 L, Hgb 10.9 L, Hct 33.9 L, MCV 90.9, MCH 29.2, MCHC 32.2, RDW Std Deviation 42.2, RDW Coeff of Kadi 12.8, Plt Count 399, MPV 8.8, Immature Gran % (Auto) 0.800, Neut % (Auto) 78.0 H, Lymph % (Auto) 12.7 L, Mills % (Auto) 6.5, Eos % (Auto) 1.5, Baso % (Auto) 0.5, Absolute Neuts (auto) 8.6 H, Absolute Lymphs (auto) 1.40, Nucleated RBC % 0, ESR 117 H 06/04/20 15:45: Sodium 134 L, Potassium 3.6, Chloride 97 L, Carbon Dioxide 31.0, Anion Gap 6, BUN 12, Creatinine 0.86, Estim Creat Clear Calc 61.05, Est GFR (MDRD) Af Amer 85, Est GFR (MDRD) Non-Af 70, BUN/Creatinine Ratio 13.9, Glucose 265 H, Calcium 9.1 Current Medications Iopamidol (Contrast Allergy Check) 0 ml IV X1 SHE Assessment/Plan All Active Problems (Last Reviewed 05/17/19 @ 11:05 by Marcelina Wang) Ulcer of right foot with fat layer exposed (Acute) Chronic ulcer of left foot with fat layer exposed (Resolved) Cellulitis of right foot (Acute) Foreign body in right foot (Resolved) Cellulitis of right foot (Acute) Laceration of right foot with foreign body (Acute) Cellulitis of left foot (Resolved) Polycystic ovaries (Resolved) 1. Right diabetic foot wound: Patient denies any obvious trauma. States that she normally wears orthopedic shoes. Is very concerning that patient has osteomyelitis as pus was able to be expressed on the opposite side of her foot. MRI has already been ordered. Will add vancomycin in addition to the Pipracil and/tazobactam. Follow-up cultures. Would await final culture results before consulting infectious disease so that they plan can be further developed. Would just continue with broad-spectrum antibiotics in the interim. Did discuss with the patient briefly about the possibility of partial amputation if osteomyelitis is identified. 2. Diabetes mellitus type 2: Continue with prandial and basal insulin. Check an A1c. 3. Chronic conditions: Hypertension, hypothyroidism. Stable at this time but overall complicate overall picture. 4. VTE prophylaxis: High risk. Will have SCDs for now. Patient will be initiate enoxaparin after she has been evaluated by podiatry. Not initiating it at this point in time case surgery is going be performed the near future. 5. Advanced care planning: Patient wishes to be DNR Comfort Care arrest Inpatient E&M: [id number] Init Hosp L3
[2020-06-04 18:01] VITALS: BMI 34.9
--- NOTE | 2020-06-04 18:15 | NURSING ---
PT TO MRI VIA BED
[2020-06-04] MEDS: 0.9% Saline Lock 10 ML Syringe IV (19:52)
[2020-06-04 20:10] VITALS: BP 155/69; PULSE 81; RESP 18; TEMP 36.9; O2SAT 99
[2020-06-04 20:13] LABS: Hemoglobin A1c 13.6 % (3.8-5.6)
--- NOTE | 2020-06-04 20:13 | PCM.RX.CS ---
Consult Pharmacy has been consulted to manage selected antiobiotic: Vancomycin Type of Consult: New start Suspected Infection: Skin/Soft tissue Labs: Sodium 134 mmol/L (136-145) L 06/04/20 15:45 Potassium 3.6 mmol/L (3.5-5.1) 06/04/20 15:45 Chloride 97 mmol/L (98-107) L 06/04/20 15:45 Carbon Dioxide 31.0 mmol/L (21.0-32.0) 06/04/20 15:45 Anion Gap 6 (5-15) 06/04/20 15:45 BUN 12 mg/dL (7-18) 06/04/20 15:45 Creatinine 0.86 mg/dL (0.55-1.02) 06/04/20 15:45 Est GFR (MDRD) Af Amer 85 mL/min (>60) 06/04/20 15:45 Est GFR (MDRD) Non-Af 70 mL/min (>60) 06/04/20 15:45 BUN/Creatinine Ratio 13.9 RATIO (10-20) 06/04/20 15:45 Glucose 265 mg/dL (74-106) H 06/04/20 15:45 Goal Trough: 15-20 mcg/mL Pharmacy Plan for Drug Dosing: NEW START IV VANCOMYCIN Consulting Physician: Dr. Jimenez Indication: Diabetic Foot Infection Goal Trough: 15-20 SrCr: 0.86 CrCl: 77 mL/min (using AdjBW) Comments: Loading dose x1 ordered with high trough. 2g IV x1 ordered and administered 06/04/20 @1951. Will start scheduled dosing in 12 hours, trough prior to 4th dose of total regimen per protocol. Vancomcyin Dose: 2g IV x1 given, start 1250mg IV Q12hr to start 06/05 @0800 Pending Level: 06/06/20 @0730 (Prior to 4th total vancomycin dose) Pharmacy Service will continue to monitor and adjust dosing as required.
[2020-06-04 22:00] LABS: Bedside Glucose 303 mg/dL (70-110)
--- NOTE | 2020-06-04 22:16 | PCM.PN.BLA ---
Progress Note The patient is going to have surgery in a.m. Discussed case with Dr. Poole. Patient has already received night time basal insulin. Patient with uncontrolled diabetes. Will discontinue 3 times daily short acting insulin and will put patient on Accu-Chek every 4 hours with correction scale regimen. STROKE Vital Signs/Narrative: Vital Signs Temp Pulse Resp BP Pulse Ox 06/04/20 20:10 98.5 F 81 18 155/69 H 99
[2020-06-05] VITALS (13 sets, daily range): BP systolic 118–175; BP diastolic 63–88; PULSE 66–95; RESP 14–18; TEMP 36.2–37.3; O2SAT 93–97; BMI 34.7; BMI 32.6
[2020-06-05] MEDS: Insulin Lispro 100 UNIT/ML INSULN.PEN SC ×2 (02:24→20:40)
[2020-06-05 02:30] LABS: Bedside Glucose 275 mg/dL (70-110)
--- NOTE | 2020-06-05 05:00 | EKG12_ITS ---
Test Reason : AM EKG Blood Pressure : / mmHG Vent. Rate : 081 BPM Atrial Rate : 081 BPM P-R Int : 166 ms QRS Dur : 086 ms QT Int : 380 ms P-R-T Axes : 013 -09 015 degrees QTc Int : 441 ms Normal sinus rhythm Septal infarct , age undetermined Abnormal ECG When compared with ECG of 24-JAN-2008 08:43, MANUAL COMPARISON REQUIRED, DATA IS UNCONFIRMED Confirmed by ALLEN BRAXTON, ENRRIQUE ([id number]), scientific editor VINICIUS BREWER ([id number]) on 06/13/2020 1:40:20 PM Referred By: MIREYA Confirmed By:NATHANIEL VILLA MD
[2020-06-05 05:52] LABS: Absolute Lymphocyte Count 1.37 X10^3/uL (0.83-4.51); Absolute Neutrophil Count 6.8 X10^3/uL (2.0-7.7); Basophil# 0.06 X10^3/uL; Basophil% 0.6 % (0-1); Eosinophil# 0.26 X10^3/uL; Eosinophils% 2.8 % (0-5); Hematocrit 31.7 % (37-47); Lymphocyte # 1.37 X10^3/ul (4.0); Lymphocyte % 14.6 % (19-41); Mean Corp Hgb Conc 31.5 g/dL (32-36); Mean Corpuscular Hgb 28.4 pg (27.0-32.0); Mean Corpuscular Volume 90.1 fL (81-99); Mean Platelet Vol. 8.8 fl (6.2-12.0); Monocyte# 0.84 X10^3/uL; Monocyte% 8.9 % (0-10); NRBC Flagged by Analyzer 0 % (0-5); Neutrophil # 6.82 X10^3/uL (2.7-7.7); Neutrophil % 72.6 % (47-70); Platelet Count 396 K/mm3 (150-450); RBC Distribution Width CV 12.8 % (11.6-14.6); RBC Distribution Width SD 42.1 fl (35.1-43.9); Red Blood Count 3.52 M/mm3 (4.2-5.4); White Blood Count 9.4 K/mm3 (4.4-11.0)
[2020-06-05] MEDS: Levothyroxine 75 MCG Tablet PO (06:00)
[2020-06-05 06:16] LABS: Bedside Glucose 110 mg/dL (70-110)
[2020-06-05 06:24] LABS: Anion Gap 4 (5-15); BUN 9 mg/dL (7-18); BUN/Creat Ratio 13.1 RATIO (10-20); Calcium,Total 8.7 mg/dL (8.5-10.1); Chloride 103 mmol/L (98-107); Creatinine, Serum 0.68 mg/dL (0.55-1.02); EST Glomerular Filtration Rate 91 mL/min (>60); Est Glom Filt Rate - Afr Amer 111 mL/min (>60); Estimated Creatinine Clearance 77.21 ml/min; Glucose 109 mg/dL (74-106); Potassium 3.3 mmol/L (3.5-5.1); Sodium Level 137 mmol/L (136-145); Thyroid Stim Hormone (TSH) 3.37 uIU/mL (0.358-3.74)
[2020-06-05] MEDS: Metoprolol(XL)Succ 50 MG Tablet PO (08:20)
--- NOTE | 2020-06-05 09:06 | PN_ITS ---
Subjective: Patient was seen today for follow up on right foot. MRI obtained, shows osteomyelitis to the 5th ray on the right foot. Patient has no new complaints. - Physical Exam Vitals/I&O's: Vital Signs Temp Pulse Resp BP Pulse Ox 99.1 F 90 18 163/79 H 95 06/05/20 07:50 06/05/20 08:20 06/05/20 07:50 06/05/20 07:50 06/05/20 07:50 Oxygen Delivery Method Room Air Weight: 98.2 kg Body Mass Index (BMI) 34.7 Intake and Output for Last 24 Hours 06/03/20 06/04/20 06/05/20 23:59 23:59 23:59 Intake Total 640 / 640 80 / 80 Balance 640 / 640 80 / 80 General: Alert, Oriented x3, Cooperative, No apparent distress Extremities: Capillary Refill Less than 3 Seconds, No Calf Tenderness, - - There are 3 ulcerations to the right lateral forefoot - 1 sub 4th/5th met heads as well as 2 dorsal 5th ray with necrosis, cellulitis, fluctuance, visible abscess and purulent drainage; infection appears to be localized to the foot at this time, questionable involvement of the 4th met head, the patient relates to pain with palpation to the site. There is no maloder noted. No other open lesions noted bilateral foot/ankle or areas of infection. Psych/Mental Status: Normal Affect, Alert and oriented to time, place, person, mood and affect Laboratory Results 06/04/20 15:45: WBC 11.0, RBC 3.73 L, Hgb 10.9 L, Hct 33.9 L, MCV 90.9, MCH 29. 2, MCHC 32.2, RDW Std Deviation 42.2, RDW Coeff of Kadi 12.8, Plt Count 399, MPV 8.8, Immature Gran % (Auto) 0.800, Neut % (Auto) 78.0 H, Lymph % (Auto) 12.7 L, [place] % (Auto) 6.5, Eos % (Auto) 1.5, Baso % (Auto) 0.5, Absolute Neuts (auto) 8.6 H, Absolute Lymphs (auto) 1.40, Nucleated RBC % 0, ESR 117 H 06/04/20 15:45: Sodium 134 L, Potassium 3.6, Chloride 97 L, Carbon Dioxide 31.0, Anion Gap 6, BUN 12, Creatinine 0.86, Estim Creat Clear Calc 61.05, Est GFR (MDRD) Af Amer 85, Est GFR (MDRD) Non-Af 70, BUN/Creatinine Ratio 13.9, Glucose 265 H, Calcium 9.1 06/04/20 15:45: Hemoglobin A1c 13.6 H 06/04/20 21:48: POC Glucose 303 H 06/05/20 02:20: POC Glucose 275 H 06/05/20 05:44: WBC 9.4, RBC 3.52 L, Hgb 10.0 L, Hct 31.7 L, MCV 90.1, MCH 28.4, MCHC 31.5 L, RDW Std Deviation 42.1, RDW Coeff of Kadi 12.8, Plt Count 396, MPV 8.8, Immature Gran % (Auto) 0.500, Neut % (Auto) 72.6 H, Lymph % (Auto) 14.6 L, [place] % (Auto) 8.9, Eos % (Auto) 2.8, Baso % (Auto) 0.6, Absolute Neuts (auto) 6.8, Absolute Lymphs (auto) 1.37, Nucleated RBC % 0 06/05/20 05:44: Sodium 137, Potassium 3.3 L, Chloride 103, Carbon Dioxide 30.0, Anion Gap 4 L, BUN 9, Creatinine 0.68, Estim Creat Clear Calc 77.21, Est GFR (MDRD) Af Amer 111, Est GFR (MDRD) Non-Af 91, BUN/Creatinine Ratio 13.1, Glucose 109 H, Calcium 8.7, TSH 3.37 06/05/20 05:59: POC Glucose 110 Current Medications Acetaminophen (Tylenol) 650 mg PO Q6H PRN PRN PRN Reason: Pain Score 1-10/Temp > 100.7 F Atorvastatin Calcium (Lipitor) 80 mg PO QHS [facility] Last Admin: 06/04/20 21:51 Dose: Not Given Documented by: Dextrose (D50w Syringe) 0 gm IV X1 PRN; Protocol PRN Reason: Hypoglycemia Enoxaparin Sodium (Lovenox) 40 mg SC DAILY [facility] Ergocalciferol (Vitamin D) 50,000 unit PO WE [facility] Last Admin: 06/05/20 07:47 Dose: Not Given Documented by: Glucagon () 1 mg IM .X1 PRN PRN Reason: Hypoglycemia Piperacillin Sod/Tazobactam (Sod 3.375 gm/ Sodium Chloride) 50 mls @ 12.5 mls/hr IV Q8 [facility] Last Admin: 06/05/20 06:00 Dose: 12.5 mls/hr Documented by: Vancomycin IV Pharmacy to Dose (1 ea/ Sodium Chloride) 500 mls @ 250 mls/hr IV PRN PRN; Protocol PRN Reason: Rx to Dose Vancomycin HCl 1,250 mg/ (Sodium Chloride) 275 mls @ 167 mls/hr IV Q12H [facility] Last Admin: 06/05/20 07:48 Dose: 167 mls/hr Documented by: Insulin Glargine (Lantus ([facility])) 75 units SC QHS [facility] Last Admin: 06/04/20 21:50 Dose: 75 u Documented by: Insulin Human Lispro (Humalog Kwikpen ([facility])) 0 unit SC Q4 [facility]; Protocol Last Admin: 06/05/20 06:00 Dose: Not Given Documented by: Levothyroxine Sodium (Synthroid) 150 mcg PO Victor@0600 [facility] Levothyroxine Sodium (Synthroid) 75 mcg PO MoTuWeThFrSa@0600 [facility] Last Admin: 06/05/20 06:00 Dose: 75 mcg Documented by: Losartan Potassium (Cozaar) 50 mg PO DAILY [facility] Metoprolol Succinate (Toprol Xl (Beta [place])) 50 mg PO DAILY [facility] Last Admin: 06/05/20 08:20 Dose: 50 mg Documented by: Nutritional Formula (Lactose Free) (Glucerna Shavadim) 120 ml PO TIDCM [facility] Last Admin: 06/05/20 07:03 Dose: Not Given Documented by: Oxycodone HCl (Oxyir) 5 mg PO Q4H PRN PRN PRN Reason: Pain Score 4-5/10 Oxycodone HCl (Oxyir) 10 mg PO Q4H PRN PRN PRN Reason: Pain Score 6-10/10 Sertraline HCl (Zoloft) 50 mg PO DAILY [facility] Sodium Chloride () 10 - 40 ml IV UD PRN PRN Reason: SALINE FLUSH Last Admin: 06/04/20 19:52 Dose: 20 ml Documented by: Medical Necessity - Tobacco Use Smoking Status: Never smoker Tobacco Use: Secondhand Assessment/Plan All Active Problems (Last Reviewed 06/04/20 @ 17:[address] Armando Jimenez, DO) Ulcer of right foot with fat layer exposed (Acute) Chronic ulcer of left foot with fat layer exposed (Resolved) Cellulitis of right foot (Acute) Foreign body in right foot (Resolved) Cellulitis of right foot (Acute) Laceration of right foot with foreign body (Acute) Cellulitis of left foot (Resolved) Polycystic ovaries (Resolved) Right foot osteomyelitis - 5th ray Cellulitis, absess right foot Uncontrolled diabetes with peripheral neuropathy Possible PAD of the lower extremity Reviewed MRI and diagnostic data - reviewed and discussed with patient. Given findings we will plan to proceed with debridement of all nonviable, infected and necrotic soft tissue and bone w/ likely 5th ray amputation right foot - this was discussed with patient in detail, reviewed rationale of this with her and possible benefits vs risks. Patient agreed with this plan. We are in process of adding this on for today, time will be this afternoon. Patient is on IV antibiotics at this time. Patient's ha1c was 13.6 which is uncontrolled diabetes. Reviewed importance of proper blood sugar control to help optimize healing and foot/ankle health. LEAS have been ordered for further evaluation of lower extremity arterial flow. Podiatry will continue to follow closely.
--- NOTE | 2020-06-05 09:18 | NURSING ---
wound photo: right foot
--- NOTE | 2020-06-05 09:19 | NURSING ---
wound photo: right plantar foot
--- NOTE | 2020-06-05 09:55 | CASEMGMT ---
RN CM Face to Face with patient for initial transition planning/care coordination assessment. RN CM introduced self and role at [facility]. Patient lying in bed, alert and oriented. Patient willing to participate in assessment and is able to answer all questions appropriately. Care providers, pharmacy, and demographics verified. Patient wishes to discharge home, is unsure of needs at this time. Patient states she has no further needs or concerns at this time. CM to follow for discharge planning needs that may arise. PCP: Thu Specialists: Marjan machine welt butter Preferred Pharmacy: [facility] Insurance: Nicole HESS Prescription Benefit: yes Living Will/HPOA: none LNOK: son Living Arrangements: Patient lives with son in a single story home wiht 5 steps and railing to enter the home. Patient was independent at home prior to admission. Transportation: self/son DME/HHC: Patient states she has shower chair and walker at home. Patient denies previous HHC or SNF. Will monitor for needs at discharge. Disposition Plan: TBD, will monitor needs for discharge pending course of treatment. Stephani SADLER, RN, CM
--- NOTE | 2020-06-05 10:00 | CASEMGMT ---
ELLIOTT RICHARDSON Face to Face with patient for initial transition planning/care coordination assessment. RN CM introduced self and role at [facility]. Patient sitting in chair, alert and oriented. Patient willing to participate in assessment and is able to answer all questions appropriately. Care providers, pharmacy, and demographics verified. Patient wishes to discharge home with resumption of HHC with [facility]. Patient states he has no further needs or concerns at this time. CM to follow for discharge planning needs that may arise. PCP: Jackie Specialists: Solitario, hotel or motel cleaning supervisor; Marjan software architect Preferred Pharmacy: [facility] Insurance: [facility], [facility] Prescription Benefit: yes Living Will/HPOA: yes Lisette Green LNOK: daughter Living Arrangements: patient lives with and daughter in a 1 story home with 2 steps and railing to enter the home. Patient states he is independent for self care. Transportation: daughter DME/HHC: Patient states he has raised toilet, cane, walker, grab bars, cpap at home. Patient is current with [facility] for SN, will monitor for need for PT/OT at discharge. Disposition Plan: Patient to discharge home with resumption of HHC, family support, and follow-up plans in place. Stephani SADLER, RN, CM
[2020-06-05] MEDS: Potassium Chloride 10mEq/100mL 10 MEQ/100 ML IV.SOLN. 100 MEQ IV BOLUS ×4 (10:30→14:46)
[2020-06-05 11:56] LABS: Bedside Glucose 105 mg/dL (70-110)
[2020-06-05] MEDS: Lactated Ringers 1,000 ML 100 ML IV (11:58)
--- NOTE | 2020-06-05 12:00 | BON_PTH ---
PATIENT: YOLA MARCOS LOC: [id number] U#:[id number] AGE/SX: 64/F ROOM: [facility] [place] RE06/04/[address]: Dr. Julita Harris MD : [id number] BED: 1 DIS: 06/07/2020 SPEC #: [id number] RECD: 06/05/20 13:42 STATUS: JUDIE REQ #: [id number] PETAR: 06/05/20 12:[address]: Lenora Momin DEPT: SURGICAL PATHOLOGY RECD BY: Pedro Hernandez ENTERED: 06/06/20 09:05 SP TYPE: Bone OTHR DR: DO Dr. Maricruz Tuttle MD Dr. Jeffrey Wunning, DPM MD Dr. Armando Austin MD Tissues: A - Bone of foot, NOS B - Bone of foot, NOS Procedures: Decalcification bone/plaque Surgery Specimen Level IV HEADER OPERATION: Fifth ray resection, incision and drainage, right foot PRE-OP DIAGNOSIS: Right foot osteomyelitis fifth ray; cellulitis abscess right foot TISSUE SUBMITTED: A - Right fifth ray, B - Right fifth metatarsal bone proximal margin MICROSCOPIC DIAGNOSIS A. Right fifth ray, excision: Acute osteomyelitis. Soft tissue with acute inflammation. Skin with no pathologic change. B. Right fifth metatarsal bone, proximal margin, biopsy: Bone with no evidence of osteomyelitis. AM:matthew 06/12/20 MICROSCOPIC DESCRIPTION Slides are reviewed. GROSS DESCRIPTION A - Received in fixative is one container labeled with the patient's name and designated right fifth ray. The specimen consists of a portion of digit measuring 4.5 x 2 x 2 cm. No obvious area of ulceration is noted. Also present in the container is a piece of bone measuring 4 x 1.5 x 1.5 cm. Faculty Dean sections are submitted in three cassettes as follows: 1 - digit and underlying and underlying tissue, 2??bone from digit, 3 - detached piece of bone after decalcification. B - Received in fixative is one container labeled with the patient's name and designated right fifth metatarsal bone proximal margin. The specimen consists of a piece of bone measuring 1 x 0.6 x 0.3 cm. The entire specimen is submitted in one cassette after decalcification. / SJ:matthew 06/06/20 TC:2 CPT: 92699 x2, 34035 x2
--- NOTE | 2020-06-05 12:16 | PN_ITS ---
<Carlos Enrique Mota - Last Filed: 06/05/20 12:16> Reason for Visit: RLE osteo Subjective: No fevers/chills. No nausea/vomiting/diarrhea. Pain controlled. No SOB/cough. Vitals/I&O's: Vital Signs Temp Pulse Resp BP Pulse Ox 99.1 F 90 18 163/79 H 95 06/05/20 07:50 06/05/20 08:20 06/05/20 07:50 06/05/20 07:50 06/05/20 07:50 Oxygen Delivery Method Room Air Weight: 216 lb 7.903 oz Body Mass Index (BMI) 34.7 Intake and Output for Last 24 Hours 06/03/20 06/04/20 06/05/20 23:59 23:59 23:59 Intake Total 640 / 640 405 / 405 Balance 640 / 640 405 / 405 General: Alert, Oriented x3, Cooperative HEENT: Atraumatic, PERRLA, EOMI, Normocephalic Neck: Supple, No JVD, Negative Carotid Bruits Lungs: Clear to auscultation, Normal air movement Cardiovascular: Regular rate, No murmurs Abdomen: Bowel Sounds Present, Soft, Non Tender Extremities: No edema, Capillary Refill Less than 3 Seconds Skin: No rashes, No breakdown Musculoskeletal: No Tenderness to Palpation of Joints or Extremities Neurological: Cranial nerves II-XII grossly intact Psych/Mental Status: Normal Affect, Appropriate, Alert and oriented to time, place, person, mood and affect Microbiology Past 72 Hours 06/04/20 16:45 Wound - Other Gram Stain - Final 06/04/20 16:45 Wound - Other Wound Culture - Preliminary Streptococcus group B Laboratory Results 06/04/20 15:45: WBC 11.0, RBC 3.73 L, Hgb 10.9 L, Hct 33.9 L, MCV 90.9, MCH 29.2, MCHC 32.2, RDW Std Deviation 42.2, RDW Coeff of Kadi 12.8, Plt Count 399, MPV 8.8, Immature Gran % (Auto) 0.800, Neut % (Auto) 78.0 H, Lymph % (Auto) 12.7 L, [place] % (Auto) 6.5, Eos % (Auto) 1.5, Baso % (Auto) 0.5, Absolute Neuts (auto) 8.6 H, Absolute Lymphs (auto) 1.40, Nucleated RBC % 0, ESR 117 H 06/04/20 15:45: Sodium 134 L, Potassium 3.6, Chloride 97 L, Carbon Dioxide 31.0, Anion Gap 6, BUN 12, Creatinine 0.86, Estim Creat Clear Calc 61.05, Est GFR (MDRD) Af Amer 85, Est GFR (MDRD) Non-Af 70, BUN/Creatinine Ratio 13.9, Glucose 265 H, Calcium 9.1 06/04/20 15:45: Hemoglobin A1c 13.6 H 06/04/20 21:48: POC Glucose 303 H 06/05/20 02:20: POC Glucose 275 H 06/05/20 05:44: WBC 9.4, RBC 3.52 L, Hgb 10.0 L, Hct 31.7 L, MCV 90.1, MCH 28.4, MCHC 31.5 L, RDW Std Deviation 42.1, RDW Coeff of Kadi 12.8, Plt Count 396, MPV 8.8, Immature Gran % (Auto) 0.500, Neut % (Auto) 72.6 H, Lymph % (Auto) 14.6 L, [place] % (Auto) 8.9, Eos % (Auto) 2.8, Baso % (Auto) 0.6, Absolute Neuts (auto) 6.8, Absolute Lymphs (auto) 1.37, Nucleated RBC % 0 06/05/20 05:44: Sodium 137, Potassium 3.3 L, Chloride 103, Carbon Dioxide 30.0, Anion Gap 4 L, BUN 9, Creatinine 0.68, Estim Creat Clear Calc 77.21, Est GFR (MDRD) Af Amer 111, Est GFR (MDRD) Non-Af 91, BUN/Creatinine Ratio 13.1, Glucose 109 H, Calcium 8.7, TSH 3.37 06/05/20 05:59: POC Glucose 110 06/05/20 11:52: POC Glucose 105 Current Medications Acetaminophen (Tylenol) 650 mg PO Q6H PRN PRN PRN Reason: Pain Score 1-10/Temp > 100.7 F Atorvastatin Calcium (Lipitor) 80 mg PO QHS SHE Last Admin: 06/04/20 21:51 Dose: Not Given Documented by: Dextrose (D50w Syringe) 0 gm IV X1 PRN; Protocol PRN Reason: Hypoglycemia Enoxaparin Sodium (Lovenox) 40 mg SC DAILY [facility] Ergocalciferol (Vitamin D) 50,000 unit PO WE [facility] Glipizide (Glucotrol) 10 mg PO DAILYCM [facility] Last Admin: 06/05/20 07:47 Dose: Not Given Documented by: Glucagon () 1 mg IM .X1 PRN PRN Reason: Hypoglycemia Piperacillin Sod/Tazobactam (Sod 3.375 gm/ Sodium Chloride) 50 mls @ 12.5 mls/hr IV Q8 [facility] Last Infusion: 06/05/20 11:52 Dose: Infused Documented by: Vancomycin IV Pharmacy to Dose (1 ea/ Sodium Chloride) 500 mls @ 250 mls/hr IV PRN PRN; Protocol PRN Reason: Rx to Dose Vancomycin HCl 1,250 mg/ (Sodium Chloride) 275 mls @ 167 mls/hr IV Q12H [facility] Last Infusion: 06/05/20 11:52 Dose: Infused Documented by: Potassium Chloride () 10 meq in 100 mls @ 100 mls/hr IV BOLUS Q1H [facility] Stop: 06/05/20 14:29 Last Admin: 06/05/20 10:30 Dose: 100 mls/hr Documented by: Lactated Ringer's () 1,000 mls @ 100 mls/hr IV .Q10H [facility] Last Admin: 06/05/20 11:58 Dose: 100 mls/hr Documented by: Insulin Glargine (Lantus (Bkc)) 75 units SC QHS [facility] Last Admin: 06/04/20 21:50 Dose: 75 u Documented by: Insulin Human Lispro (Humalog Kwikpen (Bkc)) 0 unit SC Q4 [facility]; Protocol Last Admin: 06/05/20 10:59 Dose: Not Given Documented by: Levothyroxine Sodium (Synthroid) 150 mcg PO Victor@0600 [facility] Levothyroxine Sodium (Synthroid) 75 mcg PO MoTuWeThFrSa@0600 [facility] Last Admin: 06/05/20 06:00 Dose: 75 mcg Documented by: Losartan Potassium (Cozaar) 50 mg PO DAILY [facility] Metoprolol Succinate (Toprol Xl (Beta [place])) 50 mg PO DAILY [facility] Last Admin: 06/05/20 08:20 Dose: 50 mg Documented by: Nutritional Formula (Lactose Free) (Glucerisai Cruz) 120 ml PO TIDCM [facility] Last Admin: 06/05/20 07:03 Dose: Not Given Documented by: Oxycodone HCl (Oxyir) 5 mg PO Q4H PRN PRN PRN Reason: Pain Score 4-5/10 Oxycodone HCl (Oxyir) 10 mg PO Q4H PRN PRN PRN Reason: Pain Score 6-10/10 Sertraline HCl (Zoloft) 50 mg PO DAILY [facility] Sodium Chloride () 10 - 40 ml IV UD PRN PRN Reason: SALINE FLUSH Last Admin: 06/04/20 19:52 Dose: 20 ml Documented by: STROKE Vital Signs/Narrative: Vital Signs Pulse 06/05/20 08:20 90 Medical Necessity - Tobacco Use Smoking Status: Never smoker Tobacco Use: Secondhand Assessment/Plan All Active Problems (Last Reviewed 06/04/20 @ 17:[address] Armando Jimenez, DO) Ulcer of right foot with fat layer exposed (Acute) Chronic ulcer of left foot with fat layer exposed (Resolved) Cellulitis of right foot (Acute) Foreign body in right foot (Resolved) Cellulitis of right foot (Acute) Laceration of right foot with foreign body (Acute) Cellulitis of left foot (Resolved) Polycystic ovaries (Resolved) 1. R foot osteo - to OR today with Dr. Poole for 5th ray amputation. Continue vanc/zosyn. Prior wound cx with multiple organisms, aerobic/anaerobic. Await surgical cx. Consult ID. No fever/leukocytosis 2. PAD - LLE - recent arterial studies showed calcification of the digital arteries on the right 3. 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 Continue to titrate insulin after surgery and diet resumed 4. Hx CVA - asa/statin 5. Hypothyroid - Synthroid. tsh normal. DVT ppx: lovenox DC planning: PTOT, reassess post amputation This patient was seen by Carlos Enrique Mota PA-C under the supervision of Doctor Denny. <Edwardo Baldwin F - Last Filed: 06/05/20 18:17> Vitals/I&O's: Vital Signs Temp Pulse Resp BP Pulse Ox 98.1 F 72 16 135/73 H 96 06/05/20 16:41 06/05/20 16:41 06/05/20 16:41 06/05/20 16:41 06/05/20 16:41 Oxygen Flow Rate (L/min) 2 Oxygen Delivery Method Room Air Weight: 216 lb 7.903 oz Body Mass Index (BMI) 34.7 Finger Stick Blood Glucose 100 Intake and Output for Last 24 Hours 06/03/20 06/04/20 06/05/20 23:59 23:59 23:59 Intake Total 640 / 640 1271.67 / 1271.67 Output Total 350 / 350 Balance 640 / 640 921.67 / 921.67 Microbiology Past 72 Hours 06/05/20 13:07 Tissue - Right Foot Gram Stain - Final 06/04/20 16:45 Wound - Other Gram Stain - Final 06/04/20 16:45 Wound - Other Wound Culture - Preliminary Streptococcus group B Laboratory Results 06/04/20 15:45: Hemoglobin A1c 13.6 H 06/04/20 21:48: POC Glucose 303 H 06/05/20 02:20: POC Glucose 275 H 06/05/20 05:44: WBC 9.4, RBC 3.52 L, Hgb 10.0 L, Hct 31.7 L, MCV 90.1, MCH 28.4, MCHC 31.5 L, RDW Std Deviation 42.1, RDW Coeff of Kadi 12.8, Plt Count 396, MPV 8.8, Immature Gran % (Auto) 0.500, Neut % (Auto) 72.6 H, Lymph % (Auto) 14.6 L, [place] % (Auto) 8.9, Eos % (Auto) 2.8, Baso % (Auto) 0.6, Absolute Neuts (auto) 6.8, Absolute Lymphs (auto) 1.37, Nucleated RBC % 0 06/05/20 05:44: Sodium 137, Potassium 3.3 L, Chloride 103, Carbon Dioxide 30.0, Anion Gap 4 L, BUN 9, Creatinine 0.68, Estim Creat Clear Calc 77.21, Est GFR (MDRD) Af Amer 111, Est GFR (MDRD) Non-Af 91, BUN/Creatinine Ratio 13.1, Glucose 109 H, Calcium 8.7, TSH 3.37 06/05/20 05:59: POC Glucose 110 06/05/20 11:52: POC Glucose 105 06/05/20 13:05: S.aureus Protein A PCR Cancelled, MRSA (PCR) Cancelled 06/05/20 13:39: POC Glucose 100 06/05/20 17:04: POC Glucose 121 H Current Medications Acetaminophen (Tylenol) 650 mg PO Q6H PRN PRN PRN Reason: Pain Score 1-10/Temp > 100.7 F Atorvastatin Calcium (Lipitor) 80 mg PO QHS [facility] Last Admin: 06/04/20 21:51 Dose: Not Given Documented by: Dextrose (D50w Syringe) 0 gm IV X1 PRN; Protocol PRN Reason: Hypoglycemia Enoxaparin Sodium (Lovenox) 40 mg SC DAILY [facility] Ergocalciferol (Vitamin D) 50,000 unit PO WE [facility] Last Admin: 06/05/20 07:47 Dose: Not Given Documented by: Glucagon () 1 mg IM .X1 PRN PRN Reason: Hypoglycemia Piperacillin Sod/Tazobactam (Sod 3.375 gm/ Sodium Chloride) 50 mls @ 12.5 mls/hr IV Q8 [facility] Last Admin: 06/05/20 14:21 Dose: 12.5 mls/hr Documented by: Vancomycin IV Pharmacy to Dose (1 ea/ Sodium Chloride) 500 mls @ 250 mls/hr IV PRN PRN; Protocol PRN Reason: Rx to Dose Vancomycin HCl 1,250 mg/ (Sodium Chloride) 275 mls @ 167 mls/hr IV Q12H [facility] Last Infusion: 06/05/20 11:52 Dose: Infused Documented by: Insulin Glargine (Lantus (Bk)) 75 units SC QHS [facility] Last Admin: 06/04/20 21:50 Dose: 75 u Documented by: Insulin Human Lispro (Humalog Kwikpen (Bk)) 0 unit SC ACHS [facility]; Protocol Last Admin: 06/05/20 17:40 Dose: Not Given Documented by: Levothyroxine Sodium (Synthroid) 150 mcg PO Victor@0600 [facility] Levothyroxine Sodium (Synthroid) 75 mcg PO MoTuWeThFrSa@0600 [facility] Last Admin: 06/05/20 06:00 Dose: 75 mcg Documented by: Losartan Potassium (Cozaar) 50 mg PO DAILY [facility] Last Admin: 06/05/20 15:06 Dose: 50 mg Documented by: Metoprolol Succinate (Toprol Xl (Beta [place])) 50 mg PO DAILY [facility] Last Admin: 06/05/20 08:20 Dose: 50 mg Documented by: Nutritional Formula (Lactose Free) (Glucerna Shake) 120 ml PO TIDCM [facility] Last Admin: 06/05/20 17:41 Dose: Not Given Documented by: Oxycodone HCl (Oxyir) 5 mg PO Q4H PRN PRN PRN Reason: Pain Score 4-5/10 Oxycodone HCl (Oxyir) 10 mg PO Q4H PRN PRN PRN Reason: Pain Score 6-10/10 Sertraline HCl (Zoloft) 50 mg PO DAILY [facility] Last Admin: 06/05/20 15:06 Dose: 50 mg Documented by: Sodium Chloride () 10 - 40 ml IV UD PRN PRN Reason: SALINE FLUSH Last Admin: 06/04/20 19:52 Dose: 20 ml Documented by: STROKE Vital Signs/Narrative: Vital Signs Temp Pulse Resp BP Pulse Ox 06/05/20 16:41 98.1 F 72 16 135/73 H 96 06/05/20 15:00 98.2 F 70 16 175/84 H 94 06/05/20 14:35 97.2 F L 73 16 173/81 H 94 06/05/20 14:15 73 16 158/81 H 93 Addendum: Dr. Baldwin I personally examined the patient and reviewed the chart. I agree with the above . 64-year-old female with insulin-dependent diabetes presenting to the hospital with diabetic foot infection on the right with right osteomyelitis of the fifth metatarsal which was amputated today. She is doing well today and I saw her during dinner. Her A1c is uncontrolled at 13.6. In 2018 she initially was 13.1 and then went down to 9.2. We will split up her Lantus dose from 75 units at night to 37 units twice daily, as is sometimes cause better absorption of the insulin itself. Previous wound cultures have demonstrated Klebsiella, Pseudomonas, enterococcus, and Streptococcus with anaerobes. She is currently on vancomycin and Zosyn, infectious disease has been consulted for the complexity of her previous cultures. Inpatient E&M: 78229 Subs Hosp L2
[2020-06-05] MEDS: Bupivacaine Mpf 0.5% 30 ML VIAL (12:34)
--- NOTE | 2020-06-05 13:05 | CHAPLAIN ---
Type of Pastoral Visit ___ Initial Visit ___ Follow-up Visit ___ On-call Visit ___ General Patient Visit ___ Spiritual Assessment ___ Family Conference ___ Bereavement ___ Rapid Response ___ Code Blue _x__ Other (describe below) Pastoral Care Referral From _x__ Patient ___ Family _x__ Nurse ___ Physician ___ American Sign Language Interpreter ___ Spinning Bath Person ___ Other (describe below) Sacrament/Intervention ___ Active listening ___ Anointing ___ Sikhism ___ Bereavement ___ Communion ___ Cass exploration ___ ___ Life review ___ Prayer ___ Reconciliation ___ Sacrament of Sick ___ Supportive presence ___ Wedding _x__ Other (describe below) Pastoral Comments patient and bed are out of room; left a calling card
--- NOTE | 2020-06-05 13:22 | PCM.OPRPT ---
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 right foot abscess. right foot ulceration. DM2 uncontrolled. 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 right foot abscess. right foot ulceration. DM2 uncontrolled. right foot cellulitis Surgery/Procedure Performed:: right foot 5th ray resection. right foot I&D Description of Surgical Findings:: hemostasis: none local: 20cc 0.5% bupivacaine 5cc of purulent drainage expressed post op wound right dorsal foot measures [id number] post op wound right plantar 5th metatarsal 1x1x0.3cm post op lateral right foot wound 0.3x0.3x0.2cm equipment maint tech: Lenora Momin Type of Anesthesia:: General, Local Specimen's removed: right 5th ray to path. right lateral foot wound post lavage swab cultures. right 5th metatarsal proximal margin to path and micro Estimated Blood Loss (mL): <50 Description of Procedure: Indications for Procedure: Pt. presented to office with R foot wound with cellulitis and was sent to the ED. Patient was admitted on 06/04/20 by medicine for R foot infection and suspected OM and treated with IV antibiotics. MRI and xray imaging were ordered. MRI findings showed R 5th metatarsal and proximal phalanx OM. Discussed surgical intervention with pt, understood, agreed. The patient had clearance obtained in the chart. The postoperative risks, benefits, alternatives, and complications were explained in detail with the patient. Discussed risk of COVID-19 with patient. Decided risks of not going to surgery were higher than COVID-19 infection. Description of the procedure: The patient was seen in the preoperative holding area where the chart was reviewed and the patient was examined. A consent form was reviewed and signed by the patient. All risks, benefits, alternatives, and complication including, but not limited to infection, delayed healing, nonhealing, recurrence, possible need for further surgery or amputation were explained to the patient. Discussed likelihood of not being able to close wound completely due to ulcer deficit. Discussed liklihood of wound care in this scenario including a wound vac. No guarantees, again, were given to outcome. Consent form was reviewed and signed. The patient was then transported to the OR and placed on the OR table in the supine position. After LMA was established an additional 20 cc of .5% suzanna pl. was injected in infiltrative block of the lateral right foot, 5th metatarsal, in reverse bidr block fashion. No tourniquet was applied. At this time the R foot and ankle were prepped and draped in the usual sterile fashion. Attention was then directed to the lateral R foot where an approx. 8cm incision encompassing the wound and digit, was circumscribed with a skin scribe. Using a #15 blade the incision was initially carried out. The ulcerative tissue was circumscribed and removed. Incision was deepened through the underlying tissue layers via sharp and blunt dissection. Care was taken to clamp and electrocauterize all vessels that were encountered. A great deal of bleeding was not noted at this time. The 5th digit was disarticulated at the MPJ and removed from the field for specimen. The incision was carried down to the level of the L 5th metatarsal. A freer was used to 5th met from surrounding tissue attachments. Sagittal saw was introduced to cut the 5th met from dorsal distal to plantar proximal at midshaft. This was noted to be hard bone. This was sent as specimen to pathology as well as the toe. The sight was then flushed with copious amounts of normal sterile saline with a pulse lavage. Another cut was made at proximal 5th met from dorsal distal to plantar proximal and this proximal margin was sent as specimen to microbiology and pathology as well as swab culture to micro for a clean margin evaluation. It was noted that the left 5th proximal metatarsal remaining, was normal in appearance, with cortex noted to be hard. It was noted that good adequate bleeding was encountered at this level. Cautery and valentin were utilized to control the bleeding. The remaining skin was then reapproximated distally with 3-0 vicryl and 3-0 nylon in deep and skin suture fashion. The entire wound was unable to be closed due to the ulcer deficit. The distal aspect of the wound was closed with suture. The remaining lateral ulcer and plantar ulcer were then debrided with a curette and hyperkaratotic plantar wound edges were removed with a #15 blade. The dorsal ulcer measured [id number]. The lateral ulcer measured 0.3x0.3x0.2cm. The plantar ulcer measured 1x1x0.3cm. Plantar and lateral ulcer were into fat/fascia. Dorsal ulcer was into bone. The site was then dressed with betadine soaked adaptic, aquacel silver, 4x4, kerlix, and mohsen wrap. Patient tolerated the procedure and anesthesia without any complications. Vascular status was maintained throughout the procedure to remaining foot. The patient was transported from the OR to the PACU with vital signs stable and vascular status intact. Patient admitted back to the floor. Grafts/Implants Used: valentin, 3-0 vicryl, 3-0 nylon - Admit VTE Documentation VTE Present on Admission: No VTE Mechan Device Prophylaxis: SCD's VTE Pharm Prophylaxis ordered?: Yes
[2020-06-05 13:46] LABS: Bedside Glucose 100 mg/dL (70-110)
[2020-06-05] MEDS: Sertraline 50 MG Tablet PO (15:06)
[2020-06-05] MEDS: Losartan Potassium 50 MG Tablet PO (15:06)
[2020-06-05 17:10] LABS: Bedside Glucose 121 mg/dL (70-110)
[2020-06-05] MEDS: Acetaminophen 325 MG Tablet 650 MG PO (19:45)
[2020-06-05] MEDS: Atorvastatin Calcium 80 MG Tablet PO (20:44)
[2020-06-05 20:51] LABS: Bedside Glucose 194 mg/dL (70-110)
--- NOTE | 2020-06-05 21:28 | NURSING ---
Lyla, nursing supervisor metalizing, here to start an IV for this pt after unsuccessful attempts by this RN and Eri RN. In the meantime, pt's IV in left arm infiltrated.
[2020-06-05] MEDS: 0.9% Saline Lock 10 ML Syringe IV ×2 (21:43→21:49)
[2020-06-06] VITALS (8 sets, daily range): BP systolic 126–144; BP diastolic 60–73; PULSE 65–77; RESP 17–18; TEMP 36.6–37.2; O2SAT 93–95; BMI 32.6
[2020-06-06] MEDS: Levothyroxine 75 MCG Tablet PO (06:47)
[2020-06-06] MEDS: Insulin Lispro 100 UNIT/ML INSULN.PEN SC ×4 (06:49→20:46)
[2020-06-06 07:05] LABS: Bedside Glucose 184 mg/dL (70-110)
--- NOTE | 2020-06-06 07:54 | PCM.PROGNOTE ---
- Physical Exam Vitals/I&O's: Vital Signs Temp Pulse Resp BP Pulse Ox 98.5 F 74 17 144/62 H 93 06/06/20 06:40 06/06/20 06:40 06/06/20 06:40 06/06/20 06:40 06/06/20 06:40 Oxygen Flow Rate (L/min) 2 Oxygen Delivery Method Room Air Weight: 98.2 kg Body Mass Index (BMI) 34.7 Finger Stick Blood Glucose 100 Intake and Output for Last 24 Hours 06/04/20 06/05/20 06/06/20 23:59 23:59 23:59 Intake Total 640 / 640 2650.00 / 2650.00 350 / 350 Output Total 350 / 350 Balance 640 / 640 2300.00 / 2300.00 350 / 350 General: Alert, Oriented x3 HEENT: Atraumatic Extremities: - - DP/PT palpable, erythema improved to dorsal foot, edema present but improved, CFT< 3seconds remaining digit, gross sensation intact, sutures intact with skin well coapted, mild pain on palpation to amputation site, dorsal ulcer down to fascia measuring [id number]. Lateral ulcer measures 0.2x0.2x0.2cm into sub q and plantar ulcer measures 1x1x0.3cm into sub q. Sersanginous draingage noted. No purulence expressed. Psych/Mental Status: Normal Affect, Appropriate Microbiology Past 72 Hours 06/04/20 16:45 Wound - Other Gram Stain - Final 06/04/20 16:45 Wound - Other Wound Culture - Final Streptococcus agalactiae (B) 06/05/20 13:07 Tissue - Right Foot Gram Stain - Final Laboratory Results 06/05/20 11:52: POC Glucose 105 06/05/20 13:05: S.aureus Protein A PCR Cancelled, MRSA (PCR) Cancelled 06/05/20 13:39: POC Glucose 100 06/05/20 17:04: POC Glucose 121 H 06/05/20 20:33: POC Glucose 194 H 06/06/20 06:46: POC Glucose 184 H 06/06/20 07:30: Vancomycin Trough Pending 06/06/20 07:44: WBC Pending, RBC Pending, Hgb Pending, Hct Pending, MCV Pending, MCH Pending, MCHC Pending, RDW Std Deviation Pending, RDW Coeff of Kadi Pending, Plt Count Pending, Neut % (Auto) Pending, Absolute Neuts (auto) Pending 06/06/20 07:44: Sodium Pending, Potassium Pending, Chloride Pending, Carbon Dioxide Pending, Anion Gap Pending, BUN Pending, Creatinine Pending, Est GFR (MDRD) Af Amer Pending, Est GFR (MDRD) Non-Af Pending, BUN/Creatinine Ratio Pending, Glucose Pending, Calcium Pending, Total Bilirubin Pending, AST Pending, ALT Pending, Alkaline Phosphatase Pending, Total Protein Pending, Albumin Pending Current Medications Acetaminophen (Tylenol) 650 mg PO Q6H PRN PRN PRN Reason: Pain Score 1-10/Temp > 100.7 F Last Admin: 06/05/20 19:45 Dose: 650 mg Documented by: Atorvastatin Calcium (Lipitor) 80 mg PO QHS [facility] Last Admin: 06/05/20 20:44 Dose: 80 mg Documented by: Dextrose (D50w Syringe) 0 gm IV X1 PRN; Protocol PRN Reason: Hypoglycemia Enoxaparin Sodium (Lovenox) 40 mg SC DAILY [facility] Ergocalciferol (Vitamin D) 50,000 unit PO [facility] Last Admin: 06/05/20 07:47 Dose: Not Given Documented by: Glucagon () 1 mg IM .X1 PRN PRN Reason: Hypoglycemia Piperacillin Sod/Tazobactam (Sod 3.375 gm/ Sodium Chloride) 50 mls @ 12.5 mls/hr IV Q8 [facility] Last Admin: 06/06/20 06:47 Dose: 12.5 mls/hr Documented by: Vancomycin IV Pharmacy to Dose (1 ea/ Sodium Chloride) 500 mls @ 250 mls/hr IV PRN PRN; Protocol PRN Reason: Rx to Dose Vancomycin HCl 1,250 mg/ (Sodium Chloride) 275 mls @ 167 mls/hr IV Q12H [facility] Last Infusion: 06/05/20 22:15 Dose: Infused Documented by: Insulin Glargine (Lantus ([facility])) 37 units SC BID [facility] Last Admin: 06/05/20 20:41 Dose: 37 u Documented by: Insulin Human Lispro (Humalog Kwikpen (Bkc)) 0 unit SC ACHS [facility]; Protocol Last Admin: 06/06/20 06:49 Dose: 2 u Documented by: Levothyroxine Sodium (Synthroid) 150 mcg PO Victor@0600 [facility] Levothyroxine Sodium (Synthroid) 75 mcg PO MoTuWeThFrSa@0600 [facility] Last Admin: 06/06/20 06:47 Dose: 75 mcg Documented by: Losartan Potassium (Cozaar) 50 mg PO DAILY [facility] Last Admin: 06/05/20 15:06 Dose: 50 mg Documented by: Metoprolol Succinate (Toprol Xl (Beta [place])) 50 mg PO DAILY [facility] Last Admin: 06/05/20 08:20 Dose: 50 mg Documented by: Nutritional Formula (Lactose Free) (Glucerna Shake) 120 ml PO TIDCM [facility] Last Admin: 06/05/20 17:41 Dose: Not Given Documented by: Oxycodone HCl (Oxyir) 5 mg PO Q4H PRN PRN PRN Reason: Pain Score 4-5/10 Oxycodone HCl (Oxyir) 10 mg PO Q4H PRN PRN PRN Reason: Pain Score 6-10/10 Sertraline HCl (Zoloft) 50 mg PO DAILY [facility] Last Admin: 06/05/20 15:06 Dose: 50 mg Documented by: Sodium Chloride () 10 - 40 ml IV UD PRN PRN Reason: SALINE FLUSH Last Admin: 06/05/20 21:49 Dose: 10 ml Documented by: Medical Necessity - Tobacco Use Smoking Status: Never smoker Tobacco Use: Secondhand Assessment/Plan All Active Problems (Last Reviewed 06/04/20 @ 17:[address] Armando Jimenez, DO) Ulcer of right foot with fat layer exposed (Acute) Chronic ulcer of left foot with fat layer exposed (Resolved) Cellulitis of right foot (Acute) Foreign body in right foot (Resolved) Cellulitis of right foot (Acute) Laceration of right foot with foreign body (Acute) Cellulitis of left foot (Resolved) Polycystic ovaries (Resolved) s/p right 5th ray amputation 06/05/2020 right foot ulcer into fat/fascia right 5th metatarsal and proximal phalanx osteomyelitis right foot cellulitis abscess right foot DM2 neuropathy Patient seen and evaluated Patient is feeling more like herself NWB right foot, has surgical shoe for protection Follow OR cultures Continue wound care to right foot Patient would benefit from wound vac therapy. Ordered for while in house. Please start process for home therapy as well. continue antibiotics Dressing changed today, no further purulence expressed No further surgical plans, will continue wound care to heal ulcers Discussed the importance of blood sugar control and nutrition for wound healing Discussed the importance of offloading for wound healing Podiatry will continue to follow.
[2020-06-06 07:59] LABS: Absolute Lymphocyte Count 1.42 X10^3/uL (0.83-4.51); Absolute Neutrophil Count 8.7 X10^3/uL (2.0-7.7); Basophil# 0.05 X10^3/uL; Basophil% 0.4 % (0-1); Eosinophil# 0.25 X10^3/uL; Eosinophils% 2.2 % (0-5); Hematocrit 29.3 % (37-47); Hemoglobin 9.1 g/dL (12.0-15.0); Lymphocyte # 1.42 X10^3/ul (4.0); Lymphocyte % 12.6 % (19-41); Mean Corp Hgb Conc 31.1 g/dL (32-36); Mean Corpuscular Hgb 28.7 pg (27.0-32.0); Mean Corpuscular Volume 92.4 fL (81-99); Mean Platelet Vol. 8.8 fl (6.2-12.0); Monocyte# 0.78 X10^3/uL; Monocyte% 6.9 % (0-10); NRBC Flagged by Analyzer 0 % (0-5); Neutrophil # 8.66 X10^3/uL (2.7-7.7); Neutrophil % 77.1 % (47-70); Platelet Count 370 K/mm3 (150-450); RBC Distribution Width CV 13.1 % (11.6-14.6); RBC Distribution Width SD 44.2 fl (35.1-43.9); Red Blood Count 3.17 M/mm3 (4.2-5.4); White Blood Count 11.3 K/mm3 (4.4-11.0)
[2020-06-06] MEDS: Juven (unflavored) Packet 1 PACKET PO ×2 (08:09→16:50)
[2020-06-06] MEDS: glipiZIDE 10 MG Tablet PO (08:09)
[2020-06-06 08:52] LABS: ALB/GLOB Ratio 0.4 RATIO (0.9-2.4); AST(SGOT) 11 U/L (15-37); Alanine Aminotransfer ALT/SGPT 14 U/L (13-56); Alkaline Phosphatase 72 U/L (45-117); Anion Gap 4 (5-15); BUN 13 mg/dL (7-18); BUN/Creat Ratio 14.2 RATIO (10-20); Calcium,Total 8.4 mg/dL (8.5-10.1); Chloride 104 mmol/L (98-107); Creatinine, Serum 0.92 mg/dL (0.55-1.02); EST Glomerular Filtration Rate 65 mL/min (>60); Est Glom Filt Rate - Afr Amer 79 mL/min (>60); Estimated Creatinine Clearance 57.07 ml/min; Globulin 4.6 g/dL (2.2-4.2); Glucose 182 mg/dL (74-106); Potassium 4.2 mmol/L (3.5-5.1); Protein, Total 6.6 g/dL (6.4-8.2); Sodium Level 140 mmol/L (136-145)
[2020-06-06] MEDS: Sertraline 50 MG Tablet PO (10:40)
[2020-06-06] MEDS: Metoprolol(XL)Succ 50 MG Tablet PO (10:41)
[2020-06-06] MEDS: Losartan Potassium 50 MG Tablet PO (10:41)
[2020-06-06 11:46] LABS: Bedside Glucose 211 mg/dL (70-110)
--- NOTE | 2020-06-06 11:53 | PN_ITS ---
<Carlos Enrique Mota PA - Last Filed: 06/06/20 11:53> Reason for Visit: Right foot osteo Subjective: Patient resting comfortably in bed minimal pain. No fevers or chills. No shortness of breath or cough. No nausea or vomiting. Patient was able to ambulate with a walker several steps in the room. She is agreeable to alf if necessary. Vitals/I&O's: Vital Signs Temp Pulse Resp BP Pulse Ox 98.5 F 66 17 144/62 H 93 06/06/20 06:40 06/06/20 10:41 06/06/20 06:40 06/06/20 06:40 06/06/20 06:40 Oxygen Flow Rate (L/min) 2 Oxygen Delivery Method Room Air Weight: 216 lb 7.903 oz Body Mass Index (BMI) 34.7 Finger Stick Blood Glucose 100 Intake and Output for Last 24 Hours 06/04/20 06/05/20 06/06/20 23:59 23:59 23:59 Intake Total 640 / 640 2650.00 / 2650.00 675 / 675 Output Total 350 / 350 Balance 640 / 640 2300.00 / 2300.00 675 / 675 General: Alert, Oriented x3, Cooperative HEENT: Atraumatic, PERRLA, EOMI, Normocephalic Neck: Supple, No JVD, Negative Carotid Bruits Lungs: Clear to auscultation, Normal air movement Cardiovascular: Regular rate, No murmurs Abdomen: Bowel Sounds Present, Soft, Non Tender Extremities: No edema, Capillary Refill Less than 3 Seconds Skin: No rashes, No breakdown Musculoskeletal: No Tenderness to Palpation of Joints or Extremities Neurological: Cranial nerves II-XII grossly intact Psych/Mental Status: Normal Affect, Appropriate, Alert and oriented to time, place, person, mood and affect Microbiology Past 72 Hours 06/05/20 13:00 Wound - Right Foot Gram Stain - Final 06/04/20 16:45 Wound - Other Gram Stain - Final 06/04/20 16:45 Wound - Other Wound Culture - Final Streptococcus agalactiae (B) 06/05/20 13:07 Tissue - Right Foot Gram Stain - Final Laboratory Results 06/05/20 11:52: POC Glucose 105 06/05/20 13:05: S.aureus Protein A PCR Cancelled, MRSA (PCR) Cancelled 06/05/20 13:39: POC Glucose 100 06/05/20 17:04: POC Glucose 121 H 06/05/20 20:33: POC Glucose 194 H 06/06/20 06:46: POC Glucose 184 H 06/06/20 07:30: Vancomycin Trough 16.0 H 06/06/20 07:44: WBC 11.3 H, RBC 3.17 L, Hgb 9.1 L, Hct 29.3 L, MCV 92.4, MCH 28.7, MCHC 31.1 L, RDW Std Deviation 44.2 H, RDW Coeff of Kadi 13.1, Plt Count 370, MPV 8.8, Immature Gran % (Auto) 0.800, Neut % (Auto) 77.1 H, Lymph % (Auto) 12.6 L, [place] % (Auto) 6.9, Eos % (Auto) 2.2, Baso % (Auto) 0.4, Absolute Neuts (auto) 8.7 H, Absolute Lymphs (auto) 1.42, Nucleated RBC % 0 06/06/20 07:44: Sodium 140, Potassium 4.2, Chloride 104, Carbon Dioxide 32.0, Anion Gap 4 L, BUN 13, Creatinine 0.92, Estim Creat Clear Calc 57.07, Est GFR (MDRD) Af Amer 79, Est GFR (MDRD) Non-Af 65, BUN/Creatinine Ratio 14.2, Glucose 182 H, Calcium 8.4 L, Total Bilirubin 0.30, AST 11 L, ALT 14, Alkaline Phosphatase 72, Total Protein 6.6, Albumin 2.0 L, Globulin 4.6 H, Albumin/Globulin Ratio 0.4 L 06/06/20 11:38: POC Glucose 211 H Current Medications Acetaminophen (Tylenol) 650 mg PO Q6H PRN PRN PRN Reason: Pain Score 1-10/Temp > 100.7 F Last Admin: 06/05/20 19:45 Dose: 650 mg Documented by: Atorvastatin Calcium (Lipitor) 80 mg PO QHS [facility] Last Admin: 06/05/20 20:44 Dose: 80 mg Documented by: Dextrose (D50w Syringe) 0 gm IV X1 PRN; Protocol PRN Reason: Hypoglycemia Enoxaparin Sodium (Lovenox) 40 mg SC DAILY [facility] Ergocalciferol (Vitamin D) 50,000 unit PO WE [facility] Glipizide (Glucotrol) 10 mg PO DAILYCM [facility] Last Admin: 06/06/20 08:09 Dose: 10 mg Documented by: Glucagon () 1 mg IM .X1 PRN PRN Reason: Hypoglycemia Piperacillin Sod/Tazobactam (Sod 3.375 gm/ Sodium Chloride) 50 mls @ 12.5 mls/hr IV Q8 [facility] Last Infusion: 06/06/20 10:47 Dose: Infused Documented by: Vancomycin IV Pharmacy to Dose (1 ea/ Sodium Chloride) 500 mls @ 250 mls/hr IV PRN PRN; Protocol PRN Reason: Rx to Dose Vancomycin HCl 1,250 mg/ (Sodium Chloride) 275 mls @ 167 mls/hr IV Q12H [facility] Last Infusion: 06/06/20 09:05 Dose: Infused Documented by: Insulin Glargine (Lantus (Bkc)) 37 units SC BID [facility] Last Admin: 06/06/20 10:42 Dose: 37 u Documented by: Insulin Human Lispro (Humalog Kwikpen (Bkc)) 0 unit SC ACHS [facility]; Protocol Last Admin: 06/06/20 06:49 Dose: 2 u Documented by: Levothyroxine Sodium (Synthroid) 150 mcg PO Victor@0600 [facility] Levothyroxine Sodium (Synthroid) 75 mcg PO MoTuWeThFrSa@0600 [facility] Last Admin: 06/06/20 06:47 Dose: 75 mcg Documented by: Losartan Potassium (Cozaar) 50 mg PO DAILY [facility] Last Admin: 06/06/20 10:41 Dose: 50 mg Documented by: Metoprolol Succinate (Toprol Xl (Beta [place])) 50 mg PO DAILY [facility] Last Admin: 06/06/20 10:41 Dose: 50 mg Documented by: Nutritional Formula (Lactose Free) (Glucerna Shake) 120 ml PO TIDCM [facility] Last Admin: 06/06/20 11:52 Dose: Not Given Documented by: Oxycodone HCl (Oxyir) 5 mg PO Q4H PRN PRN PRN Reason: Pain Score 4-5/10 Oxycodone HCl (Oxyir) 10 mg PO Q4H PRN PRN PRN Reason: Pain Score 6-10/10 Sertraline HCl (Zoloft) 50 mg PO DAILY [facility] Last Admin: 06/06/20 10:40 Dose: 50 mg Documented by: Sodium Chloride () 10 - 40 ml IV UD PRN PRN Reason: SALINE FLUSH Last Admin: 06/05/20 21:49 Dose: 10 ml Documented by: STROKE Vital Signs/Narrative: Vital Signs Pulse 06/06/20 10:41 66 06/06/20 08:56 65 Medical Necessity - Tobacco Use Smoking Status: Never smoker Tobacco Use: Secondhand Assessment/Plan All Active Problems (Last Reviewed 06/04/20 @ 17:[address] Armando Jimenez, DO) Ulcer of right foot with fat layer exposed (Acute) Chronic ulcer of left foot with fat layer exposed (Resolved) Cellulitis of right foot (Acute) Foreign body in right foot (Resolved) Cellulitis of right foot (Acute) Laceration of right foot with foreign body (Acute) Cellulitis of left foot (Resolved) Polycystic ovaries (Resolved) 1. R foot osteo - 5th ray amputation per podiatry POD#1. Continue vanc/zosyn. Prior wound cx with multiple organisms, aerobic/anaerobic. Await surgical cx. Consult ID. Afebrile, mild leukocytosis. Possible placement of wound VAC today. 2. PAD - LLE - recent arterial studies showed calcification of the digital arteries on the right. Follow-up with vascular surgery as an outpatient. 3. 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 Titrate insulin to response. 4. Hx CVA - asa/statin 5. Hypothyroid - Synthroid. tsh normal. DVT ppx: lovenox DC planning: SNF versus home health care This patient was seen by Carlos Enrique Mota PA-C under the supervision of Doctor Denny. <Edwardo Baldwin F - Last Filed: 06/06/20 12:36> Vitals/I&O's: Vital Signs Temp Pulse Resp BP Pulse Ox 98.5 F 66 17 144/62 H 93 06/06/20 06:40 06/06/20 10:41 06/06/20 06:40 06/06/20 06:40 06/06/20 06:40 Oxygen Flow Rate (L/min) 2 Oxygen Delivery Method Room Air Weight: 216 lb 7.903 oz Body Mass Index (BMI) 34.7 Finger Stick Blood Glucose 100 Intake and Output for Last 24 Hours 06/04/20 06/05/20 06/06/20 23:59 23:59 23:59 Intake Total 640 / 640 2650.00 / 2650.00 675 / 675 Output Total 350 / 350 Balance 640 / 640 2300.00 / 2300.00 675 / 675 Microbiology Past 72 Hours 06/05/20 13:07 Tissue - Right Foot Gram Stain - Final 06/05/20 13:07 Tissue - Right Foot Wound Culture - Preliminary Streptococcus group B 06/05/20 13:00 Wound - Right Foot Gram Stain - Final 06/05/20 13:00 Wound - Right Foot Wound Culture - Preliminary Streptococcus group B 06/04/20 16:45 Wound - Other Gram Stain - Final 06/04/20 16:45 Wound - Other Wound Culture - Final Streptococcus agalactiae (B) Laboratory Results 06/05/20 13:05: S.aureus Protein A PCR Cancelled, MRSA (PCR) Cancelled 06/05/20 13:39: POC Glucose 100 06/05/20 17:04: POC Glucose 121 H 06/05/20 20:33: POC Glucose 194 H 06/06/20 06:46: POC Glucose 184 H 06/06/20 07:30: Vancomycin Trough 16.0 H 06/06/20 07:44: WBC 11.3 H, RBC 3.17 L, Hgb 9.1 L, Hct 29.3 L, MCV 92.4, MCH 28.7, MCHC 31.1 L, RDW Std Deviation 44.2 H, RDW Coeff of Kadi 13.1, Plt Count 370, MPV 8.8, Immature Gran % (Auto) 0.800, Neut % (Auto) 77.1 H, Lymph % (Auto) 12.6 L, [place] % (Auto) 6.9, Eos % (Auto) 2.2, Baso % (Auto) 0.4, Absolute Neuts (auto) 8.7 H, Absolute Lymphs (auto) 1.42, Nucleated RBC % 0 06/06/20 07:44: Sodium 140, Potassium 4.2, Chloride 104, Carbon Dioxide 32.0, Anion Gap 4 L, BUN 13, Creatinine 0.92, Estim Creat Clear Calc 57.07, Est GFR (MDRD) Af Amer 79, Est GFR (MDRD) Non-Af 65, BUN/Creatinine Ratio 14.2, Glucose 182 H, Calcium 8.4 L, Total Bilirubin 0.30, AST 11 L, ALT 14, Alkaline Phosphatase 72, Total Protein 6.6, Albumin 2.0 L, Globulin 4.6 H, Albumin/Globulin Ratio 0.4 L 06/06/20 11:38: POC Glucose 211 H Current Medications Acetaminophen (Tylenol) 650 mg PO Q6H PRN PRN PRN Reason: Pain Score 1-10/Temp > 100.7 F Last Admin: 06/05/20 19:45 Dose: 650 mg Documented by: Atorvastatin Calcium (Lipitor) 80 mg PO QHS [facility] Last Admin: 06/05/20 20:44 Dose: 80 mg Documented by: Dextrose (D50w Syringe) 0 gm IV X1 PRN; Protocol PRN Reason: Hypoglycemia Enoxaparin Sodium (Lovenox) 40 mg SC DAILY [facility] Ergocalciferol (Vitamin D) 50,000 unit PO WE [facility] Last Admin: 06/06/20 08:09 Dose: 10 mg Documented by: Glucagon () 1 mg IM .X1 PRN PRN Reason: Hypoglycemia Piperacillin Sod/Tazobactam (Sod 3.375 gm/ Sodium Chloride) 50 mls @ 12.5 mls/hr IV Q8 [facility] Last Infusion: 06/06/20 10:47 Dose: Infused Documented by: Vancomycin IV Pharmacy to Dose (1 ea/ Sodium Chloride) 500 mls @ 250 mls/hr IV PRN PRN; Protocol PRN Reason: Rx to Dose Vancomycin HCl 1,250 mg/ (Sodium Chloride) 275 mls @ 167 mls/hr IV Q12H [facility] Last Infusion: 06/06/20 09:05 Dose: Infused Documented by: Insulin Glargine (Lantus (Bk)) 37 units SC BID [facility] Last Admin: 06/06/20 10:42 Dose: 37 u Documented by: Insulin Human Lispro (Humalog Kwikpen (Bk)) 0 unit SC ACHS [facility]; Protocol Last Admin: 06/06/20 06:49 Dose: 2 u Documented by: Levothyroxine Sodium (Synthroid) 150 mcg PO Victor@0600 [facility] Levothyroxine Sodium (Synthroid) 75 mcg PO MoTuWeThFrSa@0600 [facility] Last Admin: 06/06/20 06:47 Dose: 75 mcg Documented by: Losartan Potassium (Cozaar) 50 mg PO DAILY [facility] Last Admin: 06/06/20 10:41 Dose: 50 mg Documented by: Metoprolol Succinate (Toprol Xl (Beta [place])) 50 mg PO DAILY [facility] Last Admin: 06/06/20 10:41 Dose: 50 mg Documented by: Nutritional Formula (Lactose Free) (Glucerna Shake) 120 ml PO TIDCM [facility] Last Admin: 06/06/20 11:52 Dose: Not Given Documented by: Oxycodone HCl (Oxyir) 5 mg PO Q4H PRN PRN PRN Reason: Pain Score 4-5/10 Oxycodone HCl (Oxyir) 10 mg PO Q4H PRN PRN PRN Reason: Pain Score 6-10/10 Sertraline HCl (Zoloft) 50 mg PO DAILY [facility] Last Admin: 06/06/20 10:40 Dose: 50 mg Documented by: Sodium Chloride () 10 - 40 ml IV UD PRN PRN Reason: SALINE FLUSH Last Admin: 06/05/20 21:49 Dose: 10 ml Documented by: STROKE Vital Signs/Narrative: Vital Signs Pulse 06/06/20 10:41 66 06/06/20 08:56 65 Addendum: Dr. Baldwin I personally examined the patient and reviewed the chart. I agree with the abo ve. 64-year-old female with insulin-dependent diabetes presenting to the hospital with diabetic foot infection on the right with right osteomyelitis of the fifth metatarsal which was amputated today. She is doing well today and I saw her during dinner. Her A1c is uncontrolled at 13.6. In 2018 she initially was 13.1 and then went down to 9.2. We will split up her Lantus dose from 75 units at night to 37 units twice daily, as is sometimes cause better absorption of the insulin itself. Previous wound cultures have demonstrated Klebsiella, Pseudomonas, enterococcus, and Streptococcus with anaerobes. She is currently on vancomycin and Zosyn, infectious disease has been consulted for the complexity of her previous cultures. 06/06/2020: Doing well, pain from her surgery is controlled. Blood sugar appears to be doing well today with the changes made to her insulin dosing and the diabetic diet. White count elevation is likely secondary to stress response from surgery. We will continue with broad-spectrum antibiotics, cultures currently growing Streptococcus however previous cultures were more complicated therefore will await ID recommendations. We will have her evaluated by PT/OT to decide on disposition at discharge. She did have ABIs which did show fairly poor blood flow peripherally and therefore she will need to follow-up with vascular surgery as an outpatient. Inpatient E&M: 67920 Subs Hosp L2
--- NOTE | 2020-06-06 13:51 | PCM.HP.ID ---
Problem List (1) Cellulitis of right foot Status: Acute Reason for Consult: osteo Consulted by: Dr. Baldwin History of Present Illness: The patient is a 64 year old F with DM neuropathy, presented with several weeks of R foot ulceration, blistering, redness, and pain with weight bearing. She had not noticed plantar ulcer. Developed fever and chills, went to wound care, sent to ED. Taken to OR 06/[address] Momin for 5th ray resection. Feeling ok now, no n/v/d. Full ROS performed and neg except as noted above. - Medical History Past Medical History (Chronic Problems): Chronic Problems (Last Reviewed 06/04/20 @ 17:[address] Armando Jimenez, DO) Type 2 diabetes mellitus with diabetic polyneuropathy (Chronic) Hammer toe of right foot (Chronic) Delayed wound healing (Chronic) Peripheral vascular disease (Chronic) Hallux limitus of left foot (Chronic) Type 2 diabetes mellitus with diabetic polyneuropathy (Chronic) Hypertension (Chronic) Type 2 diabetes mellitus (Chronic) Vitamin D deficiency (Chronic) Vision problems (Chronic) Neuropathy (Chronic) Heart murmur (Chronic) High cholesterol (Chronic) Back pain (Chronic) Anemia (Chronic) Overweight (BMI 25.0-29.9) (Chronic) Diabetic foot ulcer (Chronic) Chronic ulcer of great toe of left foot (Chronic) Diabetes (Chronic) Hyperlipidemia (Chronic) Hypothyroidism (Chronic) History of CVA (cerebrovascular accident) (Chronic) 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 [Ecotrin] 81 mg PO DAILY@0800 06/04/20 Atorvastatin Calcium 80 mg PO QHS 06/04/20 Cinnamon Bark [Cinnamon] 500 mg PO MOWEFR 06/04/20 Ergocalciferol (Vitamin D2) 50,000 unit PO WE 06/04/20 [Drisdol] Glipizide 10 mg PO DAILY 06/04/20 Insulin Aspart [Novolog Flexpen 8 - 10 units SUBCUT TIDCM 06/04/20 ([facility])] Insulin Glargine,Hum.rec.anlog 75 units SQ QHS 06/04/20 [Lantus] Levothyroxine Sodium 75 mcg PO MOTUWETHFRSA 06/04/20 Levothyroxine [Synthroid] 150 mcg PO STOKES 06/04/20 Losartan Potassium 50 mg PO DAILY 06/04/20 Metoprolol Succinate 50 mg PO DAILY 06/04/20 Sertraline HCl [Zoloft] 50 mg PO DAILY 06/04/20 Turmeric Root Extract [Turmeric] 500 mg PO DAILY 06/04/20 - Social History Tobacco Use: non-smoker Vital Signs Temp Pulse Resp BP Pulse Ox 98.5 F 66 17 144/62 H 93 06/06/20 06:40 06/06/20 10:41 06/06/20 06:40 06/06/20 06:40 06/06/20 06:40 Oxygen Flow Rate (L/min) 2 Oxygen Delivery Method Room Air Weight: 98.2 kg Body Mass Index (BMI) 34.7 Finger Stick Blood Glucose 100 Microbiology Past 72 Hours 06/05/20 13:07 Gram Stain - Final Tissue - Right Foot Wound Culture - Preliminary Streptococcus group B 06/05/20 13:00 Gram Stain - Final Wound - Right Foot Wound Culture - Preliminary Streptococcus group B 06/04/20 16:45 Gram Stain - Final Wound - Other Wound Culture - Final Streptococcus agalactiae (B) Laboratory Tests Past 24 Hrs 06/05/20 06/06/20 06/06/20 13:05 07:30 07:44 WBC 11.3 H RBC 3.17 L Hgb 9.1 L Hct 29.3 L MCV 92.4 MCH 28.7 MCHC 31.1 L RDW Std Deviation 44.2 H RDW Coeff of Kadi 13.1 Plt Count 370 MPV 8.8 Immature Gran % (Auto) 0.800 Neut % (Auto) 77.1 H Lymph % (Auto) 12.6 L [place] % (Auto) 6.9 Eos % (Auto) 2.2 Baso % (Auto) 0.4 Absolute Neuts (auto) 8.7 H Absolute Lymphs (auto) 1.42 Nucleated RBC % 0 Sodium Potassium Chloride Carbon Dioxide Anion Gap BUN Creatinine Estim Creat Clear Calc Est GFR (MDRD) Af Amer Est GFR (MDRD) Non-Af BUN/Creatinine Ratio Glucose Calcium Total Bilirubin AST ALT Alkaline Phosphatase Total Protein Albumin Globulin Albumin/Globulin Ratio Vancomycin Trough 16.0 H S.aureus Protein A PCR Cancelled MRSA (PCR) Cancelled 06/06/20 07:44 WBC RBC Hgb Hct MCV MCH MCHC RDW Std Deviation RDW Coeff of Kadi Plt Count MPV Immature Gran % (Auto) Neut % (Auto) Lymph % (Auto) [place] % (Auto) Eos % (Auto) Baso % (Auto) Absolute Neuts (auto) Absolute Lymphs (auto) Nucleated RBC % Sodium 140 Potassium 4.2 Chloride 104 Carbon Dioxide 32.0 Anion Gap 4 L BUN 13 Creatinine 0.92 Estim Creat Clear Calc 57.07 Est GFR (MDRD) Af Amer 79 Est GFR (MDRD) Non-Af 65 BUN/Creatinine Ratio 14.2 Glucose 182 H Calcium 8.4 L Total Bilirubin 0.30 AST 11 L ALT 14 Alkaline Phosphatase 72 Total Protein 6.6 Albumin 2.0 L Globulin 4.6 H Albumin/Globulin Ratio 0.4 L Vancomycin Trough S.aureus Protein A PCR MRSA (PCR) - Other Studies Radiology: [] reviewed Other Studies: [] Route of nutrition/ use of supplements: [] Nutritional Intake: [] IV Site: [] Greene Catheter: [] - Physical Exam General: Alert, Oriented x3, Cooperative, No apparent distress HEENT: Atraumatic, PERRLA, EOMI Neck: Supple, No Nodes Lungs: Clear to auscultation, Normal air movement Cardiovascular: Regular rate, Regular Rhythm, Murmur Abdomen: Soft, Non Tender, Non-Distended Extremities: No edema Skin: Ulcer/ Wound - reviewed photo. Wound vac in place. IV Site: Peripheral, without redness Musculoskeletal: No Tenderness to Palpation of Joints or Extremities Neurological: Cranial nerves II-XII grossly intact - Assessment/Plan Antibiotics: [] Assessment/Plan: [] R foot osteo with DM neuropathy - now s/p 5th ray resection by Dr. Momin 06/05/20. Surg cxs with GBS. Will stop vanc, cont zosyn. Polymicrobial growth in the past including klebs, enterococcus, GBS, pseudomonas, and anaerobes. Clearance cx is (+) now. Will order picc. Plan will be for 6 weeks iv abx; likely either ceftriaxone 2gm qday with po flagyl or zosyn; this will depend on if there is any further growth on the cxs. Will follow, thank you, d/w Dr. Baldwin and lining caser.
--- NOTE | 2020-06-06 14:22 | CHAPLAIN ---
Type of Pastoral Visit _x__ Initial Visit ___ Follow-up Visit ___ On-call Visit ___ General Patient Visit ___ Spiritual Assessment ___ Family Conference ___ Bereavement ___ Rapid Response ___ Code Blue ___ Other (describe below) Pastoral Care Referral From _x__ Patient ___ Family ___ Nurse ___ Physician ___ Rehab Nursing Tech ___ Metals Sales Representative ___ Other (describe below) Sacrament/Intervention _x__ Active listening ___ Anointing ___ Jehovah'S Witness ___ Bereavement ___ Communion _x__ Cass exploration ___ _x__ Life review _x__ Prayer ___ Reconciliation ___ Sacrament of Sick _x__ Supportive presence ___ Wedding ___ Other (describe below) Pastoral Comments patient is welcoming and even appears eager for spiritual care support; pt speaks openly about her cass and how it is helpful to her in life; pt has support from her son who lives with her; pt states she will not be able to go to her daughter's home in [place] as her normal winter routine but is accepting of what her situation is at this time; pt admits to surprise at surgery but will deal with it as it is; pt concern is for where she goes next but again speaks hopefully about outcome; pt welcomes prayer and presence
--- NOTE | 2020-06-06 14:30 | CASEMGMT ---
ELLIOTT RICHARDSON in to discuss discharge planning with patient and son. Patient was not able to maintain NWB on right foot, has wound vac, and will need IV ATBs at discharge. ELLIOTT RICHARDSON discuss options of HHC vs SNF and patient would like SNF. ELLIOTT RICHARDSON provided list of SNF to patient and son. First choice is TCU. ELLIOTT RICHARDSON called [facility] at [facility] and they have a bed available Thursday 06/07. ELLIOTT RICHARDSON updated patient and she is agreeable to TCU at discharge. ELLIOTT RICHARDSON updated hospitalist and nursinsg. Green sheet placed on chart for discharge to TCU when medically ready.
--- NOTE | 2020-06-06 15:49 | NURSING ---
wound photo: right foot
--- NOTE | 2020-06-06 15:49 | NURSING ---
wound photo: right foot
[2020-06-06] MEDS: Enoxaparin 40 MG/0.4 ML Syringe SC (17:00)
[2020-06-06 18:06] LABS: Bedside Glucose 191 mg/dL (70-110)
[2020-06-06 19:06] LABS: Probe Check PASS; Specimen Processing Control PASS
[2020-06-06] MEDS: Atorvastatin Calcium 80 MG Tablet PO (20:45)
[2020-06-06] MEDS: Fluconazole 100 MG Tablet 200 MG PO (20:45)
[2020-06-06 21:31] LABS: Bedside Glucose 273 mg/dL (70-110)
[2020-06-06] MEDS: 0.9% Saline Lock 10 ML Syringe IV ×3 (22:42→22:50)
[2020-06-07 02:49] VITALS: BP 156/75; PULSE 74; RESP 16; TEMP 37.1; O2SAT 95
[2020-06-07] MEDS: Levothyroxine 75 MCG Tablet PO (06:22)
[2020-06-07] MEDS: Insulin Lispro 100 UNIT/ML INSULN.PEN SC ×2 (06:23→11:46)
[2020-06-07 06:41] LABS: Bedside Glucose 177 mg/dL (70-110)
[2020-06-07 07:57] LABS: Anion Gap 3 (5-15); BUN 10 mg/dL (7-18); BUN/Creat Ratio 10.5 RATIO (10-20); Calcium,Total 8.7 mg/dL (8.5-10.1); Chloride 106 mmol/L (98-107); Creatinine, Serum 0.95 mg/dL (0.55-1.02); EST Glomerular Filtration Rate 63 mL/min (>60); Est Glom Filt Rate - Afr Amer 76 mL/min (>60); Estimated Creatinine Clearance 55.27 ml/min; Glucose 170 mg/dL (74-106); Sodium Level 140 mmol/L (136-145)
[2020-06-07 08:21] LABS: Absolute Lymphocyte Count 1.62 X10^3/uL (0.83-4.51); Absolute Neutrophil Count 6.6 X10^3/uL (2.0-7.7); Basophil# 0.05 X10^3/uL; Basophil% 0.5 % (0-1); Eosinophils% 3.2 % (0-5); Hematocrit 29.6 % (37-47); Hemoglobin 9.2 g/dL (12.0-15.0); Lymphocyte # 1.62 X10^3/ul (4.0); Lymphocyte % 17.3 % (19-41); Mean Corp Hgb Conc 31.1 g/dL (32-36); Mean Corpuscular Hgb 28.8 pg (27.0-32.0); Mean Corpuscular Volume 92.5 fL (81-99); Mean Platelet Vol. 8.9 fl (6.2-12.0); Monocyte# 0.67 X10^3/uL; Monocyte% 7.2 % (0-10); NRBC Flagged by Analyzer 0 % (0-5); Neutrophil # 6.64 X10^3/uL (2.7-7.7); Neutrophil % 71.1 % (47-70); Platelet Count 377 K/mm3 (150-450); RBC Distribution Width CV 12.9 % (11.6-14.6); RBC Distribution Width SD 44.2 fl (35.1-43.9); White Blood Count 9.4 K/mm3 (4.4-11.0)
[2020-06-07 08:46] VITALS: BP 138/71; PULSE 72; RESP 18; TEMP 36.6; O2SAT 93
[2020-06-07 08:50] VITALS: PULSE 72
[2020-06-07] MEDS: Sertraline 50 MG Tablet PO (08:50)
[2020-06-07] MEDS: Losartan Potassium 50 MG Tablet PO (08:50)
[2020-06-07] MEDS: glipiZIDE 10 MG Tablet PO (08:50)
[2020-06-07] MEDS: Metoprolol(XL)Succ 50 MG Tablet PO (08:50)
[2020-06-07] MEDS: Juven (unflavored) Packet 1 PACKET PO (08:51)
[2020-06-07] MEDS: Enoxaparin 40 MG/0.4 ML Syringe SC (08:51)
--- NOTE | 2020-06-07 10:34 | PCM.EXTCARCO ---
- Diet 06/05/20 12:09 Diet: Carbohydrate Controlled Is pt able to select menu?: Yes - Routine Orders/Code Status Suppository Type: Dulcolax 10mg Suppository Frequency: Daily PRN Routine Lab Work: CBC - 5 days, BMP - 5 days Code Status: Full Code - Wound(s) Right foot Wound Type: Surgical Incision Dressing Change: betadine with dry dressing Bottom of right foot Wound Type: Surgical Incision Top of right foot Wound Type: Surgical Incision right foot wound x3 Wound Type: Surgical Incision right lateral foot Wound Type: Surgical Incision Dressing Change: Dry Sterile Dressing right dorsal lateral foot Wound Type: Surgical Incision Dressing Change: applied KCI wound VAC right plantar foot Wound Type: Surgical Incision Dressing Change: KCI wound VAC - Therapies Weight Bearing: Non weight bearing Physical Therapy: Eval and Treat Occupational Therapy: Eval and Treat - Problem/Diagnosis (1) Osteomyelitis Status: Acute Current Visit: Yes (2) PAD (peripheral artery disease) Status: Chronic Current Visit: Yes (3) Type 2 diabetes mellitus with diabetic polyneuropathy Status: Chronic Current Visit: No (4) Hyperlipidemia Status: Chronic Current Visit: No (5) Hypothyroidism Status: Chronic Current Visit: No (6) History of CVA (cerebrovascular accident) Status: Chronic Current Visit: No (7) Diabetes Status: Chronic Current Visit: No - Allergies/Procedures Done in Hospital Allergies/Adverse Reactions: Allergies Inhaled Anesthetics (Halogen Based) Allergy (Verified 06/04/20 14:57) Unknown morphine Allergy (Verified 06/04/20 14:57) Unknown Procedures: None - Type of Care/Length of Stay Estimated LOS: Convalescent Care Less Than 30 days Type of Care Needed: Skilled Rehab Potential: Fair Prognosis: Fair - Additional Orders/Day of Discharge Day of Discharge: 06/07/20 - Dietary and Speech Recommendations Dietitian Recommendations/Changes: Rec LIBBY CHO controlled. Will continue glucerna 120 ml TID w/ medpass as pt w/ poor intake user acceptance tester and provide Jere 1 pkt BID to promote wound healing. - Follow Up Care Primary Care Physician: Maricruz Andino MD [Primary Care Provider] - Please follow up with your Primary Care Physician in: 2 weeks Please Follow Up With: Lenora Momin DPM - Podiatry When: 1-2 weeks Please Follow Up With: Armando Mejia MD - Vascular surgery When: 2-3 weeks Please Follow Up With: Armando Berry MD - Infectious disease When: 2-3 weeks
--- NOTE | 2020-06-07 10:42 | PCM.PROGNOTE ---
Patient Problems: Active and Suspected Problems (Last Reviewed 06/04/20 @ 17:[address] Armando Jimenez, DO) Osteomyelitis (Acute) Subjective: Patient was seen this morning for follow up on right foot. Patient with no complaints. No fever, chills, nausea or vomiting. - Physical Exam Vitals/I&O's: Vital Signs Temp Pulse Resp BP Pulse Ox 97.9 F 72 18 138/71 H 93 06/07/20 08:46 06/07/20 08:50 06/07/20 08:46 06/07/20 08:46 06/07/20 08:46 Oxygen Flow Rate (L/min) 2 Oxygen Delivery Method Room Air Weight: 98.2 kg Body Mass Index (BMI) 34.7 Finger Stick Blood Glucose 100 Intake and Output for Last 24 Hours 06/05/20 06/06/20 06/07/20 23:59 23:59 23:59 Intake Total 2650.00 / 2650.00 1425 / 1425 850 / 850 Output Total 350 / 350 400 / 400 Balance 2300.00 / 2300.00 1025 / 1025 850 / 850 General: Alert, Oriented x3, Cooperative, No apparent distress Extremities: Capillary Refill Less than 3 Seconds, No Calf Tenderness, - - Wound vac intact to the right foot, with good seal, no evidence of acute ischemia or complication at this time. Musculoskeletal: No Tenderness to Palpation of Joints or Extremities - to the right foot or ankle. Psych/Mental Status: Normal Affect, Appropriate, Alert and oriented to time, place, person, mood and affect Microbiology Past 72 Hours 06/05/20 13:07 Tissue - Right Foot Gram Stain - Final 06/05/20 13:07 Tissue - Right Foot Wound Culture - Final Streptococcus agalactiae (B) 06/05/20 13:00 Wound - Right Foot Gram Stain - Final 06/05/20 13:00 Wound - Right Foot Wound Culture - Final Streptococcus agalactiae (B) 06/04/20 16:45 Wound - Other Gram Stain - Final 06/04/20 16:45 Wound - Other Wound Culture - Final Streptococcus agalactiae (B) Laboratory Results 06/06/20 11:38: POC Glucose 211 H 06/06/20 16:49: POC Glucose 191 H 06/06/20 17:28: COVID-19 (SURY) Negative 06/06/20 20:43: POC Glucose 273 H 06/07/20 06:19: POC Glucose 177 H 06/07/20 07:19: WBC 9.4, RBC 3.20 L, Hgb 9.2 L, Hct 29.6 L, MCV 92.5, MCH 28.8, MCHC 31.1 L, RDW Std Deviation 44.2 H, RDW Coeff of Kadi 12.9, Plt Count 377, MPV 8.9, Immature Gran % (Auto) 0.700, Neut % (Auto) 71.1 H, Lymph % (Auto) 17.3 L, [place] % (Auto) 7.2, Eos % (Auto) 3.2, Baso % (Auto) 0.5, Absolute Neuts (auto) 6.6, Absolute Lymphs (auto) 1.62, Nucleated RBC % 0 06/07/20 07:19: Sodium 140, Potassium 4.0, Chloride 106, Carbon Dioxide 31.0, Anion Gap 3 L, BUN 10, Creatinine 0.95, Estim Creat Clear Calc 55.27, Est GFR (MDRD) Af Amer 76, Est GFR (MDRD) Non-Af 63, BUN/Creatinine Ratio 10.5, Glucose 170 H, Calcium 8.7 Current Medications Acetaminophen (Tylenol) 650 mg PO Q6H PRN PRN PRN Reason: Pain Score 1-10/Temp > 100.7 F Last Admin: 06/05/20 19:45 Dose: 650 mg Documented by: Atorvastatin Calcium (Lipitor) 80 mg PO QHS [facility] Last Admin: 06/06/20 20:45 Dose: 80 mg Documented by: Dextrose (D50w Syringe) 0 gm IV X1 PRN; Protocol PRN Reason: Hypoglycemia Enoxaparin Sodium (Lovenox) 40 mg SC DAILY [facility] Last Admin: 06/07/20 08:51 Dose: 40 mg Documented by: Ergocalciferol (Vitamin D) 50,000 unit PO [facility]) [facility] Last Admin: 06/07/20 08:50 Dose: 10 mg Documented by: Glucagon () 1 mg IM .X1 PRN PRN Reason: Hypoglycemia Piperacillin Sod/Tazobactam (Sod 3.375 gm/ Sodium Chloride) 50 mls @ 12.5 mls/hr IV Q8 [facility] Last Admin: 06/07/20 06:22 Dose: 12.5 mls/hr Documented by: Insulin Glargine (Lantus (Bkc)) 37 units SC BID [facility] Last Admin: 06/07/20 08:52 Dose: 37 u Documented by: Insulin Human Lispro (Humalog Kwikpen (Bk)) 0 unit SC ACHS [facility]; Protocol Last Admin: 06/07/20 06:23 Dose: 2 u Documented by: Levothyroxine Sodium (Synthroid) 150 mcg PO Victor@0600 [facility] Levothyroxine Sodium (Synthroid) 75 mcg PO MoTuWeThFrSa@0600 [facility] Last Admin: 06/07/20 06:22 Dose: 75 mcg Documented by: Losartan Potassium (Cozaar) 50 mg PO DAILY [facility] Last Admin: 06/07/20 08:50 Dose: 50 mg Documented by: Metoprolol Succinate (Toprol Xl (Beta [place])) 50 mg PO DAILY [facility] Last Admin: 06/07/20 08:50 Dose: 50 mg Documented by: Nutritional Formula (Lactose Free) (Glucerna Shake) 120 ml PO TIDCM [facility] Last Admin: 06/07/20 08:51 Dose: Not Given Documented by: Oxycodone HCl (Oxyir) 5 mg PO Q4H PRN PRN PRN Reason: Pain Score 4-5/10 Oxycodone HCl (Oxyir) 10 mg PO Q4H PRN PRN PRN Reason: Pain Score 6-10/10 Sertraline HCl (Zoloft) 50 mg PO DAILY [facility] Last Admin: 06/07/20 08:50 Dose: 50 mg Documented by: Sodium Chloride () 10 - 40 ml IV UD PRN PRN Reason: SALINE FLUSH Last Admin: 06/06/20 22:50 Dose: 10 ml Documented by: Medical Necessity - Tobacco Use Smoking Status: Never smoker Tobacco Use: Secondhand Assessment/Plan All Active Problems (Last Reviewed 06/04/20 @ 17:[address] Armando Jimenez, DO) Ulcer of right foot with fat layer exposed (Acute) Chronic ulcer of left foot with fat layer exposed (Resolved) Cellulitis of right foot (Acute) Foreign body in right foot (Resolved) Osteomyelitis (Acute) Cellulitis of right foot (Acute) Laceration of right foot with foreign body (Acute) Cellulitis of left foot (Resolved) Polycystic ovaries (Resolved) Right foot ulcer into fat/fascia; right 5th metatarsal and proximal phalanx osteomyelitis s/p right 5th ray amputation 06/05/2020 Right foot cellulitis abscess right foot DM2 w/ neuropathy Peripheral arterial disease lower extremity Patient afebrile, WBC normal, clinically significant improvement to right foot from infection standpoint, no evidence of acute ischemia. Wound vac intact; change MWF. Reviewed culture results - strep B - patient on IV antibiotics w/ PICC; Dr. Berry on consult. No weightbearing right foot, keep foot elevated. Lower extremity arterial studies reviewed. PAD noted - consult placed to vascular/Dr. Padilla. Discussed the importance of blood sugar control and nutrition for wound healing Discussed the importance of offloading for wound healing Plans for patient to be discharged to TCU, Podiatry will continue to follow.
--- NOTE | 2020-06-07 11:40 | CM.UR ---
discussed patient with ANIYA Hawk. Plan is for discharge today to TCU. Patient will need 6 weeks of IVAB. Jose Ramos RN, CCM.
[2020-06-07 11:55] LABS: Bedside Glucose 232 mg/dL (70-110)
--- NOTE | 2020-06-07 12:17 | NURSING ---
called report to [place] in TCU at this time.
--- NOTE | 2020-06-07 12:22 | DS.PCM_ITS ---
<Julita Harris - Last Filed: 06/07/20 13:24> Discharge Date and Diagnosis - Problem List Patient Problems: Active and Suspected Problems (Last Reviewed 06/04/20 @ 17:[address] Armando Jimenez DO) Osteomyelitis (Acute) Date of Discharge: 06/07/20 - Primary Discharge Diagnosis Acute Problems: Active Problems (Last Reviewed 06/04/20 @ 17:[address] Armando Jimenez DO) Osteomyelitis (Acute) - Secondary Discharge Diagnosis Chronic Problems: Chronic Problems (Last Reviewed 06/04/20 @ 17:[address] Armando Jimenez DO) Type 2 diabetes mellitus with diabetic polyneuropathy (Chronic) Hammer toe of right foot (Chronic) Delayed wound healing (Chronic) Peripheral vascular disease (Chronic) PAD (peripheral artery disease) (Chronic) Hallux limitus of left foot (Chronic) Type 2 diabetes mellitus with diabetic polyneuropathy (Chronic) Hypertension (Chronic) Type 2 diabetes mellitus (Chronic) Vitamin D deficiency (Chronic) Vision problems (Chronic) Neuropathy (Chronic) Heart murmur (Chronic) High cholesterol (Chronic) Back pain (Chronic) Anemia (Chronic) Overweight (BMI 25.0-29.9) (Chronic) Diabetic foot ulcer (Chronic) Chronic ulcer of great toe of left foot (Chronic) Diabetes (Chronic) Hyperlipidemia (Chronic) Hypothyroidism (Chronic) History of CVA (cerebrovascular accident) (Chronic) 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) Limb weakness (Chronic) Thyroid disease (Chronic) Diabetes (Chronic) Stroke (Chronic) Heart disease (Chronic) Hospital Course and Treatment Consultations 06/05/20 10:47 Consult: Onc/Wound/field installation technician Routine Comment: Reason for Consult:: right foot wound 06/06/20 09:23 Consult: Onc/Wound/field installation technician Routine Comment: wound vac right foot for inpatient and home use Summary of Care Provided: Patient seen by Carlos Enrique Mota PA-C under my supervision' The patient is a 64 year old F with an extensive past medical history as outlined who was admitted on 06/04/2020 with a complaint of right foot ulcer. She had pus expressed from the wound was in the chief librarian branch office and was directed to the emergency room. She was admitted and managed for diabetic foot ulcer and started on IV Zosyn in the ED. She denied any associated fever or chills. MRI of the lower extremity showed osteomyelitis of the fifth metatarsal and proximal phalanx. Podiatry was consulted. She also had arterial studies which showed moderately severe bilateral lower extremity arterial disease noted at rest especially in the bilateral posterior tibial arteries and bilateral dorsalis pedis indicis were normal but waveforms were biphasic suggesting moderate disease. There was also abnormal bilateral digital brachial indices. Patient had right foot fifth ray resection with right foot I&D on 06/05/2020 by podiatry. She tolerated procedure well. Infectious disease was also consulted. Wound cultures grew strep agalactiae. Patient remained stable and she had a PICC line inserted. Per ID, plan was for 6 weeks of IV ceftriaxone with p.o. Flagyl. She is to follow-up with her primary care doctor, podiatry, vascular surgery and infectious diseases. Patient seen and examined prior to discharge. She had no complaints and felt well. Review of signs otherwise negative. Labs and vitals reviewed. Home medication reviewed and reconciled. O/E: Vital Signs Temp Pulse Resp BP Pulse Ox 97.9 F 72 18 138/71 H 93 06/07/20 08:46 06/07/20 08:50 06/07/20 08:46 06/07/20 08:46 06/07/20 08:46 [] General: Alert, Oriented x3, Cooperative HEENT: Atraumatic, PERRLA, EOMI, Normocephalic Neck: Supple, No JVD, Negative Carotid Bruits Lungs: Clear to auscultation, Normal air movement Cardiovascular: Regular rate, No murmurs Abdomen: Bowel Sounds Present, Soft, Non Tender Extremities: No edema, Capillary Refill Less than 3 Seconds Skin: right foot wrapped in bandage Musculoskeletal: No Tenderness to Palpation of Joints or Extremities Neurological: Cranial nerves II-XII grossly intact Psych/Mental Status: Normal Affect, Appropriate, Alert and oriented to time, place, person, mood and affect Plan is for discharge to the transitional care unit on 6 weeks of IV ceftriaxone and p.o. Flagyl as above. Rest as per Carlos Enrique Mota PA-C's notes which I have reviewed and endorsed. Patient Problems: Active and Suspected Problems (Last Reviewed 06/04/20 @ 17:[address] Armando Jimenez, DO) Osteomyelitis (Acute) - Physical Exam Vitals/I&O's: Vital Signs Temp Pulse Resp BP Pulse Ox 97.9 F 72 18 138/71 H 93 06/07/20 08:46 06/07/20 08:50 06/07/20 08:46 06/07/20 08:46 06/07/20 08:46 Oxygen Flow Rate (L/min) 2 Oxygen Delivery Method Room Air Weight: 216 lb 7.903 oz Body Mass Index (BMI) 34.7 Finger Stick Blood Glucose 100 Intake and Output for Last 24 Hours 06/05/20 06/06/20 06/07/20 23:59 23:59 23:59 Intake Total 2650.00 / 2650.00 1425 / 1425 1260 / 1260 Output Total 350 / 350 400 / 400 Balance 2300.00 / 2300.00 1025 / 1025 1260 / 1260 Microbiology Past 72 Hours 06/05/20 13:07 Tissue - Right Foot Gram Stain - Final 06/05/20 13:07 Tissue - Right Foot Wound Culture - Final Streptococcus agalactiae (B) 06/05/20 13:00 Wound - Right Foot Gram Stain - Final 06/05/20 13:00 Wound - Right Foot Wound Culture - Final Streptococcus agalactiae (B) 06/04/20 16:45 Wound - Other Gram Stain - Final 06/04/20 16:45 Wound - Other Wound Culture - Final Streptococcus agalactiae (B) Laboratory Results 06/06/20 16:49: POC Glucose 191 H 06/06/20 17:28: COVID-19 (SURY) Negative 06/06/20 20:43: POC Glucose 273 H 06/07/20 06:19: POC Glucose 177 H 06/07/20 07:19: WBC 9.4, RBC 3.20 L, Hgb 9.2 L, Hct 29.6 L, MCV 92.5, MCH 28.8, MCHC 31.1 L, RDW Std Deviation 44.2 H, RDW Coeff of Kadi 12.9, Plt Count 377, MPV 8.9, Immature Gran % (Auto) 0.700, Neut % (Auto) 71.1 H, Lymph % (Auto) 17.3 L, Rusk % (Auto) 7.2, Eos % (Auto) 3.2, Baso % (Auto) 0.5, Absolute Neuts (auto) 6.6, Absolute Lymphs (auto) 1.62, Nucleated RBC % 0 06/07/20 07:19: Sodium 140, Potassium 4.0, Chloride 106, Carbon Dioxide 31.0, Anion Gap 3 L, BUN 10, Creatinine 0.95, Estim Creat Clear Calc 55.27, Est GFR (MDRD) Af Amer 76, Est GFR (MDRD) Non-Af 63, BUN/Creatinine Ratio 10.5, Glucose 170 H, Calcium 8.7 06/07/20 11:44: POC Glucose 232 H Current Medications Acetaminophen (Tylenol) 650 mg PO Q6H PRN PRN PRN Reason: Pain Score 1-10/Temp > 100.7 F Last Admin: 06/05/20 19:45 Dose: 650 mg Documented by: Atorvastatin Calcium (Lipitor) 80 mg PO QHS [facility] Last Admin: 06/06/20 20:45 Dose: 80 mg Documented by: Dextrose (D50w Syringe) 0 gm IV X1 PRN; Protocol PRN Reason: Hypoglycemia Enoxaparin Sodium (Lovenox) 40 mg SC DAILY [facility] Last Admin: 06/07/20 08:51 Dose: 40 mg Documented by: Ergocalciferol (Vitamin D) 50,000 unit PO [facility] Glipizide (Glucotrol) 10 mg PO DAILYCM [facility] Last Admin: 06/07/20 08:50 Dose: 10 mg Documented by: Glucagon () 1 mg IM .X1 PRN PRN Reason: Hypoglycemia Piperacillin Sod/Tazobactam (Sod 3.375 gm/ Sodium Chloride) 50 mls @ 12.5 mls/hr IV Q8 [facility] Last Admin: 06/07/20 13:07 Dose: Not Given Documented by: Insulin Glargine (Lantus (Bkc)) 37 units SC BID [facility] Last Admin: 06/07/20 08:52 Dose: 37 u Documented by: Insulin Human Lispro (Humalog Kwikpen (Bk)) 0 unit SC ACHS [facility]; Protocol Last Admin: 06/07/20 11:46 Dose: 4 u Documented by: Levothyroxine Sodium (Synthroid) 150 mcg PO Stokes@0600 [facility] Levothyroxine Sodium (Synthroid) 75 mcg PO MoTuWeThFrSa@0600 [facility] Last Admin: 06/07/20 06:22 Dose: 75 mcg Documented by: Losartan Potassium (Cozaar) 50 mg PO DAILY [facility] Last Admin: 06/07/20 08:50 Dose: 50 mg Documented by: Metoprolol Succinate (Toprol Xl (Beta [place])) 50 mg PO DAILY [facility] Last Admin: 06/07/20 08:50 Dose: 50 mg Documented by: Nutritional Formula (Lactose Free) (Glucerna Shake) 120 ml PO TIDCM [facility] Last Admin: 06/07/20 11:43 Dose: Not Given Documented by: Oxycodone HCl (Oxyir) 5 mg PO Q4H PRN PRN PRN Reason: Pain Score 4-5/10 Oxycodone HCl (Oxyir) 10 mg PO Q4H PRN PRN PRN Reason: Pain Score 6-10/10 Sertraline HCl (Zoloft) 50 mg PO DAILY [facility] Last Admin: 06/07/20 08:50 Dose: 50 mg Documented by: Sodium Chloride () 10 - 40 ml IV UD PRN PRN Reason: SALINE FLUSH Last Admin: 06/06/20 22:50 Dose: 10 ml Documented by: Discharge Diet: 1800 Calorie Control Diet Discharge Activity: Return to Normal Activity Weight Bearing Status: Weight bearing as tolerated Call your doctor if you observe: Fever of 101 or Higher, Coldness, Increased Pain, Swelling in the ankles Home Medications: Medications to take at Discharge Aspirin E.C. [Ecotrin] 81 mg PO DAILY@0800 06/04/20 Atorvastatin Calcium 80 mg PO QHS 06/04/20 Ergocalciferol (Vitamin D2) [Drisdol] 50,000 unit PO WE 06/04/20 Glipizide 10 mg PO DAILY 06/04/20 Insulin Aspart [Novolog Flexpen] 8 - 10 units SUBCUT TIDCM 06/04/20 Levothyroxine Sodium 75 mcg PO MOTUWETHFRSA 06/04/20 Levothyroxine [Synthroid] 150 mcg PO STOKES 06/04/20 Losartan Potassium 50 mg PO DAILY 06/04/20 Metoprolol Succinate 50 mg PO DAILY 06/04/20 Sertraline HCl [Zoloft] 50 mg PO DAILY 06/04/20 Turmeric Root Extract [Turmeric] 500 mg PO DAILY 06/04/20 Acetaminophen [Tylenol Tablet] 650 mg PO Q6H PRN PRN tab 06/07/20 Ceftriaxone [Rocephin] 2 gm IV Q24 42 Days bag 06/07/20 Glucerna Shake 120 ml PO TIDCM liquid 06/07/20 Insulin Glargine [Lantus SoloStar Pen] 37 units SUBCUT BID pen 06/07/20 Insulin Lispro [Humalog KwikPen] See Protocol SUBCUT ACHS #1 insuln.pen 06/07/20 Jere (unflavored) [Jere Packet] 1 packet PO BIDCM packet 06/07/20 Metronidazole [Flagyl] 500 mg PO TID #126 tab 06/07/20 Oxycodone [Oxyir] 5 mg PO Q4H PRN PRN 3 Days #18 tab 06/07/20 Following Prescriptions Were Given to Patient: Metronidazole [Flagyl] 500 mg PO TID #126 tab Oxycodone [Oxyir] 5 mg PO Q4H PRN PRN 3 Days #18 tab PRN Reason: Pain Score 6-10/10 Prescription Printed Ceftriaxone [Rocephin] 2 gm IV Q24 42 Days bag Primary Care Physician: Maricruz Andino MD [Primary Care Provider] - Disposition: Senior Living facility Patient Condition:: Stable Meaningful Use Info Meaningful Use Diagnoses (Choose all that apply): None applicable Inpatient E&M: 27124 Disch Hosp <Carlos Enrique Mota - Last Filed: 06/07/20 13:54> Discharge Date and Diagnosis Date of Admission: 06/04/20 - Primary Discharge Diagnosis Acute Problems: Active Problems (Last Reviewed 06/04/20 @ 17:[address] Armando Jimenez DO) Osteomyelitis right 5th ray s/p amputation PAD T2 DM - Secondary Discharge Diagnosis Chronic Problems: Chronic Problems (Last Reviewed 06/04/20 @ 17:[address] Armando Jimenez DO) Type 2 diabetes mellitus with diabetic polyneuropathy (Chronic) Hammer toe of right foot (Chronic) Delayed wound healing (Chronic) Peripheral vascular disease (Chronic) PAD (peripheral artery disease) (Chronic) Hallux limitus of left foot (Chronic) Type 2 diabetes mellitus with diabetic polyneuropathy (Chronic) Hypertension (Chronic) Type 2 diabetes mellitus (Chronic) Vitamin D deficiency (Chronic) Vision problems (Chronic) Neuropathy (Chronic) Heart murmur (Chronic) High cholesterol (Chronic) Back pain (Chronic) Anemia (Chronic) Overweight (BMI 25.0-29.9) (Chronic) Diabetic foot ulcer (Chronic) Chronic ulcer of great toe of left foot (Chronic) Diabetes (Chronic) Hyperlipidemia (Chronic) Hypothyroidism (Chronic) History of CVA (cerebrovascular accident) (Chronic) 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 MRI/Lower Ext No Joint W/WO Cont IMPRESSION: Osteomyelitis of the fifth metatarsal and proximal phalanx. Vascular Lab: Interpretation Summary Moderately severe bilateral lower extremity arterial disease noted at rest particularly noted in bilateral posterior tibial arteries. Bilateral dorsalis pedis indices are normal but waveforms biphasic suggesting moderate disease. Abnormal bilateral digital brachial indices. Consults: Zulema/Liliane - podiatry Jamal - infectious disease Operations: - - June 05, 2020 right foot fifth ray resection, I&D Procedures: None Summary of Care Provided: Hospital course: The patient is a 64 year old F past medical history as above with prior infections of her foot involving multiple bacteria in the past, who presented to the emergency room with complaints of worsening of the wound on her right foot with pus present. She was given Vanco and Zosyn and admitted to the medical surgical floor. An x-ray did not reveal acute changes, however MRI demonstrated osteomyelitis of the fifth ray. Podiatry was consulted. She was taken for 5th ray resection the third which she tolerated well. Surgical cultures were obtained and demonstrated strep agalactiae with resistance to clindamycin. Infectious disease was consulted as she has had a history of many different bacteria's aerobic and anaerobic. At this time infectious disease recommends 6 weeks of IV Rocephin, 6 weeks of oral Flagyl. Arterial studies were performed and demonstrated significant underlying PAD complicating her prognosis for healing her wounds. She will need follow-up with vascular surgery. The patient had significant debility following the surgery she is nonweightbearing on her right foot. TCU was recommended and she was agreeable. She was discharged to TCU in stable condition and will need to follow-up with a chief librarian branch in 2 to 3 weeks, infectious disease 2 to 3 weeks, vascular surgery 2 to 3 weeks, and routine follow-up with PCP in 1 to 2 weeks. This patient was seen by Carlos Enrique Mota PA-C under the supervision of Doctor Kimberly. [] - Physical Exam Vitals/I&O's: Vital Signs Temp Pulse Resp BP Pulse Ox 97.9 F 72 18 138/71 H 93 06/07/20 08:46 06/07/20 08:50 06/07/20 08:46 06/07/20 08:46 06/07/20 08:46 Oxygen Flow Rate (L/min) 2 Oxygen Delivery Method Room Air Weight: 216 lb 7.903 oz Body Mass Index (BMI) 34.7 Finger Stick Blood Glucose 100 Intake and Output for Last 24 Hours 06/05/20 06/06/20 06/07/20 23:59 23:59 23:59 Intake Total 2650.00 / 2650.00 1425 / 1425 1260 / 1260 Output Total 350 / 350 400 / 400 Balance 2300.00 / 2300.00 1025 / 1025 1260 / 1260 General: Alert, Oriented x3, Cooperative HEENT: Atraumatic, PERRLA, EOMI, Normocephalic Neck: Supple, No JVD, Negative Carotid Bruits Lungs: Clear to auscultation, Normal air movement Cardiovascular: Regular rate, No murmurs Abdomen: Bowel Sounds Present, Soft, Non Tender Extremities: No edema, Capillary Refill Less than 3 Seconds Skin: No rashes, No breakdown Musculoskeletal: No Tenderness to Palpation of Joints or Extremities Neurological: Cranial nerves II-XII grossly intact Psych/Mental Status: Normal Affect, Appropriate Microbiology Past 72 Hours 06/05/20 13:07 Tissue - Right Foot Gram Stain - Final 06/05/20 13:07 Tissue - Right Foot Wound Culture - Final Streptococcus agalactiae (B) 06/05/20 13:00 Wound - Right Foot Gram Stain - Final 06/05/20 13:00 Wound - Right Foot Wound Culture - Final Streptococcus agalactiae (B) 06/04/20 16:45 Wound - Other Gram Stain - Final 06/04/20 16:45 Wound - Other Wound Culture - Final Streptococcus agalactiae (B) Laboratory Results 06/06/20 16:49: POC Glucose 191 H 06/06/20 17:28: COVID-19 (SURY) Negative 06/06/20 20:43: POC Glucose 273 H 06/07/20 06:19: POC Glucose 177 H 06/07/20 07:19: WBC 9.4, RBC 3.20 L, Hgb 9.2 L, Hct 29.6 L, MCV 92.5, MCH 28.8, MCHC 31.1 L, RDW Std Deviation 44.2 H, RDW Coeff of Kadi 12.9, Plt Count 377, MPV 8.9, Immature Gran % (Auto) 0.700, Neut % (Auto) 71.1 H, Lymph % (Auto) 17.3 L, Rusk % (Auto) 7.2, Eos % (Auto) 3.2, Baso % (Auto) 0.5, Absolute Neuts (auto) 6.6, Absolute Lymphs (auto) 1.62, Nucleated RBC % 0 06/07/20 07:19: Sodium 140, Potassium 4.0, Chloride 106, Carbon Dioxide 31.0, Anion Gap 3 L, BUN 10, Creatinine 0.95, Estim Creat Clear Calc 55.27, Est GFR (MDRD) Af Amer 76, Est GFR (MDRD) Non-Af 63, BUN/Creatinine Ratio 10.5, Glucose 170 H, Calcium 8.7 06/07/20 11:44: POC Glucose 232 H Current Medications Acetaminophen (Tylenol) 650 mg PO Q6H PRN PRN PRN Reason: Pain Score 1-10/Temp > 100.7 F Last Admin: 06/05/20 19:45 Dose: 650 mg Documented by: Atorvastatin Calcium (Lipitor) 80 mg PO QHS [facility] Last Admin: 06/06/20 20:45 Dose: 80 mg Documented by: Dextrose (D50w Syringe) 0 gm IV X1 PRN; Protocol PRN Reason: Hypoglycemia Enoxaparin Sodium (Lovenox) 40 mg SC DAILY [facility] Last Admin: 06/07/20 08:51 Dose: 40 mg Documented by: Ergocalciferol (Vitamin D) 50,000 unit PO [facility]ip[facility] (Gl[facility]otrol) [facility] Last Admin: 06/07/20 08:50 Dose: 10 mg Documented by: Glucagon () 1 mg IM .X1 PRN PRN Reason: Hypoglycemia Piperacillin Sod/Tazobactam (Sod 3.375 gm/ Sodium Chloride) 50 mls @ 12.5 mls/hr IV Q8 [facility] Last Infusion: 06/07/20 10:58 Dose: Infused Documented by: Insulin Glargine (Lantus (Bk)) 37 units SC BID [facility] Last Admin: 06/07/20 08:52 Dose: 37 u Documented by: Insulin Human Lispro (Humalog Kwikpen ([facility])) 0 unit SC ACHS [facility]; Protocol Last Admin: 06/07/20 11:46 Dose: 4 u Documented by: Levothyroxine Sodium (Synthroid) 150 mcg PO Stokes@0600 [facility] Levothyroxine Sodium (Synthroid) 75 mcg PO MoTuWeThFrSa@0600 [facility] Last Admin: 06/07/20 06:22 Dose: 75 mcg Documented by: Losartan Potassium (Cozaar) 50 mg PO DAILY [facility] Last Admin: 06/07/20 08:50 Dose: 50 mg Documented by: Metoprolol Succinate (Toprol Xl (Beta [place])) 50 mg PO DAILY [facility] Last Admin: 06/07/20 08:50 Dose: 50 mg Documented by: Nutritional Formula (Lactose Free) (Glucerna Shake) 120 ml PO TIDCM [facility] Last Admin: 06/07/20 11:43 Dose: Not Given Documented by: Oxycodone HCl (Oxyir) 5 mg PO Q4H PRN PRN PRN Reason: Pain Score 4-5/10 Oxycodone HCl (Oxyir) 10 mg PO Q4H PRN PRN PRN Reason: Pain Score 6-10/10 Sertraline HCl (Zoloft) 50 mg PO DAILY [facility] Last Admin: 06/07/20 08:50 Dose: 50 mg Documented by: Sodium Chloride () 10 - 40 ml IV UD PRN PRN Reason: SALINE FLUSH Last Admin: 06/06/20 22:50 Dose: 10 ml Documented by: Please follow up with your Primary Care Physician in: 2 weeks Please Follow Up With: Lenora Momin DPM - Podiatry When: 1-2 weeks Please Follow Up With: Armando Mejia MD - Vascular surgery When: 2-3 weeks Please Follow Up With: Armando Berry MD - Infectious disease When: 2-3 weeks Minutes spent on discharge:: 35 Medical Necessity - Tobacco Use Smoking Status: Never smoker Tobacco Use: Secondhand Meaningful Use Info Meaningful Use Diagnoses (Choose all that apply): None applicable
[2020-06-07 14:06] VITALS: BP 154/71; PULSE 73; RESP 18; TEMP 36.6; O2SAT 98
== END 2020-06-07 15:30 | disposition skilled nursing facility (03) | DRG 617 ==
LOC: ED 15:35 → MS3 17:41
PROVIDERS: Family Medicine; Physician Assistant; Podiatrist Foot & Ankle Surgery; Emergency Provider Emergency Medicine; PCP Internal Medicine; Visit Provider Student in an Organized Health Care Education/Training Program
PROC: 0Y6M0Z8 Detachment at Right Foot, Complete 5th Ray, Open Approach (ICD-10-PCS; principal; 2020-06-05 11:45)
DX: E11.69 Type 2 diabetes mellitus with other specified complication (principal); L03.115 Cellulitis of right lower limb; M86.171 Other acute osteomyelitis, right ankle and foot; L02.611 Cutaneous abscess of right foot; E11.42 Type 2 diabetes mellitus with diabetic polyneuropathy; L97.512 Non-pressure chronic ulcer of other part of right foot with fat layer exposed; E11.621 Type 2 diabetes mellitus with foot ulcer; E11.51 Type 2 diabetes mellitus with diabetic peripheral angiopathy without gangrene; E78.5 Hyperlipidemia, unspecified; E03.9 Hypothyroidism, unspecified; E55.9 Vitamin D deficiency, unspecified; M20.41 Other hammer toe(s) (acquired), right foot; I10 Essential (primary) hypertension; E11.65 Type 2 diabetes mellitus with hyperglycemia
CPT/HCPCS: 36415; 36569; 73630; 73720; 80048; 80053; 80202; 82962; 83036; 84443; 85025; 85652; 87070; 87075; 87077; 87186; 87205; 87635; 88304; 88305; 88311; 93005; 93923; 97116; 97162; 97166; 97530; 97535; 97802; 99285; A9575; J7040; J7050; J7120; A4216; J2405; U0003

== ENCOUNTER 2020-06-07 16:08 | Inpatient (IN) | payer MEDICARE, OTHER, SELFPAY ==
[2020-06-05 07:53] VITALS: BMI 34.7
[2020-06-07 16:11] VITALS: BP 154/63; PULSE 70; RESP 16; TEMP 36.4; O2SAT 94; BMI 33.9
[2020-06-07 16:31] LABS: Bedside Glucose 249 mg/dL (70-110)
[2020-06-07] MEDS: Glucerna Shake 120 ML LIQUID PO (18:20)
[2020-06-07] MEDS: Nystatin Powder 15gm Bottle 1 APPLIC TOPICAL (18:21)
[2020-06-07] MEDS: Menthol/Lanolin/Calamine/Znox 113 GM Tube 1 APPLIC TOPICAL (18:21)
[2020-06-07] MEDS: Atorvastatin Calcium 80 MG Tablet PO (21:41)
[2020-06-07] MEDS: metroNIDAZOLE 500 MG Tablet PO (21:41)
[2020-06-07] MEDS: Insulin Lispro 100 UNIT/ML INSULN.PEN SC (21:42)
[2020-06-07 22:00] LABS: Bedside Glucose 258 mg/dL (70-110)
[2020-06-08 06:03] VITALS: BP 156/71; PULSE 76
[2020-06-08] MEDS: Metoprolol(XL)Succ 50 MG Tablet PO (06:03)
[2020-06-08] MEDS: metroNIDAZOLE 500 MG Tablet PO ×3 (06:03→21:19)
[2020-06-08] MEDS: Levothyroxine 150 MCG Tablet PO (06:03)
[2020-06-08] MEDS: Losartan Potassium 50 MG Tablet PO (06:04)
[2020-06-08] MEDS: Sertraline 50 MG Tablet PO (06:04)
[2020-06-08 06:08] LABS: Absolute Neutrophil Count 5.5 X10^3/uL (2.0-7.7); Basophil# 0.06 X10^3/uL; Basophil% 0.7 % (0-1); Eosinophil# 0.36 X10^3/uL; Eosinophils% 4.5 % (0-5); Hematocrit 30.4 % (37-47); Hemoglobin 8.9 g/dL (12.0-15.0); Lymphocyte % 18.6 % (19-41); Mean Corp Hgb Conc 29.3 g/dL (32-36); Mean Corpuscular Hgb 28.1 pg (27.0-32.0); Mean Corpuscular Volume 95.9 fL (81-99); Mean Platelet Vol. 8.6 fl (6.2-12.0); Monocyte# 0.59 X10^3/uL; Monocyte% 7.3 % (0-10); NRBC Flagged by Analyzer 0 % (0-5); Neutrophil # 5.51 X10^3/uL (2.7-7.7); Neutrophil % 68.2 % (47-70); Platelet Count 325 K/mm3 (150-450); RBC Distribution Width CV 13.2 % (11.6-14.6); RBC Distribution Width SD 46.4 fl (35.1-43.9); Red Blood Count 3.17 M/mm3 (4.2-5.4); White Blood Count 8.1 K/mm3 (4.4-11.0)
[2020-06-08] MEDS: 0.9% Saline Lock 10 ML Syringe IV ×3 (06:08→21:51)
[2020-06-08] MEDS: Nystatin Powder 15gm Bottle 1 APPLIC TOPICAL ×2 (06:19→17:02)
[2020-06-08 06:20] LABS: Bedside Glucose 125 mg/dL (70-110)
[2020-06-08] MEDS: Menthol/Lanolin/Calamine/Znox 113 GM Tube 1 APPLIC TOPICAL ×2 (06:38→17:00)
[2020-06-08] MEDS: Aspirin E.C. 81 MG Tablet PO (08:11)
[2020-06-08] MEDS: Juven (unflavored) Packet 1 PACKET PO ×2 (08:11→16:51)
[2020-06-08] MEDS: glipiZIDE 10 MG Tablet PO (08:12)
[2020-06-08] MEDS: Glucerna Shake 120 ML LIQUID PO ×3 (08:15→16:50)
[2020-06-08 10:00] VITALS: PULSE 71; RESP 16; O2SAT 97
[2020-06-08 11:11] LABS: Bedside Glucose 254 mg/dL (70-110)
[2020-06-08] MEDS: Insulin Lispro 100 UNIT/ML INSULN.PEN SC ×2 (11:28→16:51)
[2020-06-08] MEDS: Tuberculin,Purif.prot.deriv. 50 TU/ML Vial 5 ML ID (11:28)
[2020-06-08 13:49] VITALS: BP 157/70; PULSE 70; RESP 18; TEMP 36.2; O2SAT 96
[2020-06-08 16:40] LABS: Bedside Glucose 198 mg/dL (70-110)
[2020-06-08] MEDS: Insulin Lispro 100 UNIT/ML INSULN.PEN 8 UNIT SC (16:51)
[2020-06-08 21:16] LABS: Bedside Glucose 107 mg/dL (70-110)
[2020-06-08] MEDS: Atorvastatin Calcium 80 MG Tablet PO (21:20)
[2020-06-09 05:00] VITALS: BP 159/97; PULSE 72; RESP 16; TEMP 36.7; O2SAT 95
[2020-06-09 06:16] LABS: Bedside Glucose 87 mg/dL (70-110)
[2020-06-09] MEDS: Levothyroxine 75 MCG Tablet PO (06:17)
[2020-06-09] MEDS: metroNIDAZOLE 500 MG Tablet PO ×3 (06:17→21:35)
[2020-06-09] MEDS: Sertraline 50 MG Tablet PO (06:17)
[2020-06-09] MEDS: Losartan Potassium 50 MG Tablet PO (06:17)
[2020-06-09 06:19] VITALS: BP 158/78; PULSE 74
[2020-06-09] MEDS: Metoprolol(XL)Succ 50 MG Tablet PO (06:19)
[2020-06-09] MEDS: Menthol/Lanolin/Calamine/Znox 113 GM Tube 1 APPLIC TOPICAL ×2 (06:43→17:17)
[2020-06-09] MEDS: Nystatin Powder 15gm Bottle 1 APPLIC TOPICAL ×2 (06:44→17:18)
[2020-06-09] MEDS: Glucerna Shake 120 ML LIQUID PO (07:40)
[2020-06-09] MEDS: glipiZIDE 10 MG Tablet PO (07:41)
[2020-06-09] MEDS: Juven (unflavored) Packet 1 PACKET PO ×2 (07:41→17:15)
[2020-06-09] MEDS: Aspirin E.C. 81 MG Tablet PO (07:41)
[2020-06-09] MEDS: Insulin Lispro 100 UNIT/ML INSULN.PEN 8 UNIT SC ×3 (09:08→17:13)
[2020-06-09] MEDS: Acetaminophen 325 MG Tablet 650 MG PO (09:49)
[2020-06-09] MEDS: 0.9% Saline Lock 10 ML Syringe IV (10:25)
[2020-06-09] MEDS: 0.9% NaCl IVPB Med Flush (250 mL) 15 ML IV (10:31)
--- NOTE | 2020-06-09 10:33 | PN_ITS ---
Subjective: Patient was seen this morning for follow up on right foot. Relates no pain unless she puts foot down. No fever, chills, nausea, vomiting or any other complaints. - Physical Exam Vitals/I&O's: Vital Signs Temp Pulse Resp BP Pulse Ox 98.0 F 74 16 158/78 H 95 06/09/20 05:00 06/09/20 06:19 06/09/20 05:00 06/09/20 06:19 06/09/20 05:00 Oxygen Delivery Method Room Air Weight: 963.884 g Body Mass Index (BMI) 33.9 Finger Stick Blood Glucose 100 Intake and Output for Last 24 Hours 06/07/20 06/08/20 06/09/20 23:59 23:59 23:59 Intake Total 240 / 240 1390 / 1390 240 / 240 Balance 240 / 240 1390 / 1390 240 / 240 General: Alert, Oriented x3, Cooperative, No apparent distress Extremities: No cyanosis, Capillary Refill Less than 3 Seconds, No Calf Tenderness, - - s/p 5th toe and partial 5th ray amputation right foot, residual wound to the proximal aspect down to subcutaneous tissue layer, rest of site with intact sutures, there is no cellulitis, no fluctuance, no visible abscess, no necrosis, no streaking, no exposed bone, there is significant maceration around the edges of the site, there is some edema to the foot c/w infection hx and surgery, no POP or pain on ROM to the foot/ankle, peripheral neuropathy is present. No new ulcerations to the right foot. Psych/Mental Status: Normal Affect, Alert and oriented to time, place, person, mood and affect Laboratory Results 06/08/20 10:55: POC Glucose 254 H 06/08/20 16:31: POC Glucose 198 H 06/08/20 21:04: POC Glucose 107 06/09/20 06:04: POC Glucose 87 Current Medications Acetaminophen (Tylenol) 650 mg PO Q6H PRN PRN PRN Reason: Pain Score 1-10/Temp > 100.7 F Last Admin: 06/09/20 09:49 Dose: 650 mg Documented by: Aspirin (Ecotrin) 81 mg PO DAILY@0800 [facility] Last Admin: 06/09/20 07:41 Dose: 81 mg Documented by: Atorvastatin Calcium (Lipitor) 80 mg PO QHS [facility] Last Admin: 06/08/20 21:20 Dose: 80 mg Documented by: Bisacodyl (Dulcolax) 10 mg RECTAL DAILY PRN PRN Reason: Constipation Calamine/Phenol (Calmoseptine Ointment) 1 applic TOPICAL BID [facility]; Protocol Last Admin: 06/09/20 06:43 Dose: 1 applicatio Documented by: Ergocalciferol (Vitamin D) 50,000 unit PO We@1000 [facility] Glipizide (Glucotrol) 10 mg PO DAILYCM [facility] Last Admin: 06/09/20 07:41 Dose: 10 mg Documented by: Heparin Sodium (Beef Lung) () 50 units IV UD PRN PRN Reason: PICC Line Heparin Flush Ceftriaxone Sodium 2 gm/ (Sodium Chloride) 50 mls @ 100 mls/hr IV Q24 [facility] Stop: 07/19/20 10:01 Last Admin: 06/09/20 10:23 Dose: 100 mls/hr Documented by: Sodium Chloride () 250 mls @ 15 mls/hr IV .[id number] PRN PRN Reason: SALINE FLUSH Last Admin: 06/09/20 10:31 Dose: 15 mls/hr Documented by: Insulin Glargine (Lantus (Bkc)) 37 units SC BID [facility] Last Admin: 06/09/20 06:23 Dose: 37 units Documented by: Insulin Human Lispro (Humalog Kwikpen (Bkc)) 0 unit SC ACHS [facility]; Protocol Last Admin: 06/09/20 06:39 Dose: Not Given Documented by: Insulin Human Lispro (Humalog Kwikpen (Bk)) 8 unit SC 0800,1200,1700 [facility] Last Admin: 06/09/20 09:08 Dose: 8 units Documented by: Levothyroxine Sodium (Synthroid) 150 mcg PO Victor@0600 [facility] Last Admin: 06/08/20 06:03 Dose: 150 mcg Documented by: Levothyroxine Sodium (Synthroid) 75 mcg PO MoTuWeThFrSa@0600 [facility] Last Admin: 06/09/20 06:17 Dose: 75 mcg Documented by: Losartan Potassium (Cozaar) 50 mg PO DAILY [facility] Last Admin: 06/09/20 06:17 Dose: 50 mg Documented by: Metoprolol Succinate (Toprol Xl (Beta [place])) 50 mg PO DAILY [facility] Last Admin: 06/09/20 06:19 Dose: 50 mg Documented by: Metronidazole (Flagyl) 500 mg PO TID [facility] Stop: 07/19/20 22:01 Last Admin: 06/09/20 06:17 Dose: 500 mg Documented by: Nutritional Formula (Lactose Free) (Glucerna Shake) 120 ml PO TIDCM [facility] Last Admin: 06/09/20 07:40 Dose: 120 ml Documented by: Nystatin (Mycostatin Powder) 1 applic TOPICAL BID [facility]; Protocol Last Admin: 06/09/20 06:44 Dose: 1 applicatio Documented by: Oxycodone HCl (Oxyir) 5 mg PO Q4H PRN PRN PRN Reason: Pain Score 6-10/10 Senna/Docusate Sodium (Senokot-S, Salima-Colace) 2 tablet PO BID [facility] Last Admin: 06/09/20 06:22 Dose: Not Given Documented by: Sertraline HCl (Zoloft) 50 mg PO DAILY [facility] Last Admin: 06/09/20 06:17 Dose: 50 mg Documented by: Sodium Chloride () 10 - 40 ml IV UD PRN PRN Reason: Open End PICC Flush Last Admin: 06/09/20 10:25 Dose: 40 ml Documented by: Sodium Chloride (0.9% Nacl (Sterile) Posiflush) 10 - 40 ml IV UD PRN PRN Reason: Port access or dressing change Tuberculin PPD (Tubersol, Aplisol, Ppd) 5 tu ID X1 ONE Stop: 06/15/20 10:01 Medical Necessity - Tobacco Use Smoking Status: Never smoker Assessment/Plan All Active Problems (Last Reviewed 06/04/20 @ 17:[address] Armando Jimenez, DO) Ulcer of right foot with fat layer exposed (Acute) Chronic ulcer of left foot with fat layer exposed (Resolved) Cellulitis of right foot (Acute) Foreign body in right foot (Resolved) Osteomyelitis (Acute) Cellulitis of right foot (Acute) Laceration of right foot with foreign body (Acute) Cellulitis of left foot (Resolved) Polycystic ovaries (Resolved) Right foot ulcer into fat/fascia; right 5th metatarsal and proximal phalanx osteomyelitis s/p right 5th ray amputation 06/05/2020 Right foot cellulitis abscess right foot DM2 w/ neuropathy Peripheral arterial disease lower extremity Clinically significant improvement to right foot from infection standpoint, no evidence of acute ischemia. Wound vac was removed, there was some maceration to the edges so will hold off on reapplication of the wound today. Foot and ulcer site cleansed with normal saline soln. Painted site with betadine soln and applied gauze, kerlix and mohsen dressing. Change this evening - paint sutures and wound margins and macerated areas with betadine solution, apply normal saline wet to dry to wound site and cover with gauze, kerlix and mohsen. Plan to reapply wound vac tomorrow. Reviewed culture results - strep B - patient on IV antibiotics w/ PICC; Dr. Berry on consult. No weightbearing right foot, keep foot elevated. Lower extremity arterial studies reviewed. PAD noted - consult placed to vascular/Dr. Padilla. Discussed the importance of blood sugar control and nutrition for wound healing. Discussed the importance of offloading for wound healing. Podiatry will continue to follow.
[2020-06-09 10:50] LABS: Bedside Glucose 212 mg/dL (70-110)
[2020-06-09] MEDS: Insulin Lispro 100 UNIT/ML INSULN.PEN SC (11:33)
[2020-06-09 15:02] VITALS: BP 152/78; PULSE 74; RESP 20; TEMP 36.4; O2SAT 98
[2020-06-09 17:15] LABS: Bedside Glucose 112 mg/dL (70-110)
[2020-06-09 18:25] LABS: Bedside Glucose 109 mg/dL (70-110)
[2020-06-09 21:11] LABS: Bedside Glucose 111 mg/dL (70-110)
[2020-06-09] MEDS: Atorvastatin Calcium 80 MG Tablet PO (21:36)
[2020-06-10 05:00] VITALS: BP 146/61; PULSE 78; RESP 18; TEMP 37.3; O2SAT 93
[2020-06-10 05:29] VITALS: BP 146/61; PULSE 78
[2020-06-10] MEDS: Metoprolol(XL)Succ 50 MG Tablet PO (05:29)
[2020-06-10] MEDS: Sertraline 50 MG Tablet PO (05:29)
[2020-06-10] MEDS: Levothyroxine 75 MCG Tablet PO (05:29)
[2020-06-10] MEDS: Losartan Potassium 50 MG Tablet PO (05:30)
[2020-06-10] MEDS: Menthol/Lanolin/Calamine/Znox 113 GM Tube 1 APPLIC TOPICAL ×2 (05:30→17:31)
[2020-06-10] MEDS: metroNIDAZOLE 500 MG Tablet PO ×3 (05:32→21:59)
[2020-06-10] MEDS: Nystatin Powder 15gm Bottle 1 APPLIC TOPICAL ×2 (06:20→17:31)
[2020-06-10 06:26] LABS: Bedside Glucose 100 mg/dL (70-110)
--- NOTE | 2020-06-10 06:44 | NURSING ---
holding 34u lantus this am d/t glucose check reading 100. rn aware.
[2020-06-10] MEDS: glipiZIDE 10 MG Tablet PO (08:25)
[2020-06-10] MEDS: Aspirin E.C. 81 MG Tablet PO (08:25)
[2020-06-10] MEDS: Juven (unflavored) Packet 1 PACKET PO ×2 (08:27→17:30)
--- NOTE | 2020-06-10 09:03 | PCM.HP.STD ---
Problem List (1) Debility Status: Acute (2) Osteomyelitis of right foot Status: Acute (3) Depression Status: Chronic (4) Ulcer of right foot with fat layer exposed Status: Acute (5) Hypertension Status: Chronic (6) Vitamin D deficiency Status: Chronic (7) Hyperlipidemia Status: Chronic (8) Hypothyroidism Status: Chronic (9) Diabetes Status: Chronic History of Present Illness Date of Admission: 06/07/20 Chief Complaint: Here for rehabilitation, strengthening, intravenous antibiotics, wound care, prior to discharge home alone. The patient is a 64 year old Female with below past medical history hospitalized 06/04/20 with infected right foot ulcer. She was given Vancomycin, Zosyn in Emergency Department. X-ray right foot negative, but MRI right foot showed osteomyelitis 5th ray. Podiatry consulted and performed right 5th ray resection. Surgical cultures grew S. Agalactiae resistant to Clindamycin. Infectious Disease recommended 6 weeks of IV Rocephin, 6 weeks oral Flagyl. Arterial studies showed significant PAOD, need vascular surgery follow up. 06/07/20 Admit to TCU with debility, here for rehabilitation, strengthening, intravenous antibiotics, wound care, prior to discharge home alone. Past Medical History Past Medical History (Chronic Problems): Chronic Problems (Last Reviewed 06/04/20 @ 17:[address] Armando Jimenez, DO) Type 2 diabetes mellitus with diabetic polyneuropathy (Chronic) Hammer toe of right foot (Chronic) Delayed wound healing (Chronic) Peripheral vascular disease (Chronic) PAD (peripheral artery disease) (Chronic) Depression (Chronic) Hallux limitus of left foot (Chronic) Type 2 diabetes mellitus with diabetic polyneuropathy (Chronic) Hypertension (Chronic) Type 2 diabetes mellitus (Chronic) Vitamin D deficiency (Chronic) Vision problems (Chronic) Neuropathy (Chronic) Heart murmur (Chronic) High cholesterol (Chronic) Back pain (Chronic) Anemia (Chronic) Overweight (BMI 25.0-29.9) (Chronic) Diabetic foot ulcer (Chronic) Chronic ulcer of great toe of left foot (Chronic) Diabetes (Chronic) Hyperlipidemia (Chronic) Hypothyroidism (Chronic) History of CVA (cerebrovascular accident) (Chronic) 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 Armando Jimenez, DO) Vitamin D deficiency (Chronic) E55.9 Vision problems (Chronic) H54.7 Neuropathy (Chronic) G62.9 Heart murmur (Chronic) R01.1 High cholesterol (Chronic) E78.00 Back pain (Chronic) M54.9 Anemia (Chronic) D64.9 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) N97.9 Limb weakness (Chronic) R29.898 Thyroid disease (Chronic) E07.9 Diabetes (Chronic) E11.9 Stroke (Chronic) I63.9 Heart disease (Chronic) I51.9 Polycystic ovaries (Resolved) E28.2 Allergies Inhaled Anesthetics (Halogen Based) Allergy (Verified 06/07/20 16:11) Unknown morphine Allergy (Verified 06/07/20 16:11) Unknown Home Medications: Ambulatory Orders Medication Instructions Recorded Aspirin E.C. [Ecotrin] 81 mg PO DAILY@0800 06/04/20 Atorvastatin Calcium 80 mg PO QHS 06/04/20 Ergocalciferol (Vitamin D2) 50,000 unit PO WE 06/04/20 [Drisdol] Glipizide 10 mg PO DAILY 06/04/20 Insulin Aspart [Novolog Flexpen] 8 - 10 units SUBCUT TIDCM 06/04/20 Levothyroxine Sodium 75 mcg PO MOTUWETHFRSA 06/04/20 Levothyroxine [Synthroid] 150 mcg PO STOKES 06/04/20 Losartan Potassium 50 mg PO DAILY 06/04/20 Metoprolol Succinate 50 mg PO DAILY 06/04/20 Sertraline HCl [Zoloft] 50 mg PO DAILY 06/04/20 Turmeric Root Extract [Turmeric] 500 mg PO DAILY 06/04/20 Acetaminophen [Tylenol Tablet] 650 mg PO Q6H PRN PRN tab 06/07/20 Ceftriaxone [Rocephin] 2 gm IV Q24 06/07/20 Glucerna Shake 120 ml PO TIDCM 06/07/20 Insulin Glargine [Lantus SoloStar 37 units SUBCUT BID 06/07/20 Pen] Insulin Lispro [Humalog KwikPen] See Protocol SUBCUT ACHS 06/07/20 Jere (unflavored) [Jere Packet] 1 packet PO BIDCM 06/07/20 Metronidazole [Flagyl] 500 mg PO TID 06/07/20 Oxycodone [Oxyir] 5 mg PO Q4H PRN PRN 3 Days #18 tab 06/07/20 Surgical History: Surgical History (Last Reviewed 05/17/19 @ 11:05 by Marcelina Wang) History of hysterectomy Z90.710 History of shoulder surgery Z98.890 Surgical History: hysterectomy, - Psychiatric History: Depression [employer]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 Armando Jimenez DO) Mother Anemia Angina pectoris Heart disease CVA (cerebral vascular accident) Thyroid disorder Diabetes Father Angina pectoris Myocardial infarction Kidney disease Diabetes Grandmother Colon cancer History Items: - - Patient's father at the age of 75 with a history of renal failure, heart disease, and diabetes mellitus. Patient's mother at the age of 87, with a history of diabetes mellitus, heart disease, and cerebrovascular accident. Review of Systems Constitutional: Denies: Chills, Fever, Weight Change HEENT: Denies: Head Aches, Sinus Congestion, Sinus Drainage Cardiovascular: Denies: Chest Pain, Palpitations Respiratory: Denies: Cough, Shortness of breath at rest, Sputum production Gastrointestinal: Denies: Abdominal Pain, Nausea, Vomiting Genitourinary: Denies: Dysuria Musculoskeletal: Denies: Joint Pain, Joint Tenderness Skin: Denies: Rash, Wounds Neurological: Denies: Numbness, Tingling, Focal weakness Psychiatric: Denies: Anxiety, Depression, Homicidal Ideations, Suicidal Ideations Hematologic/ Lymphatic: Denies: Easy Bruising, Easy Bleeding VTE Information - Inpt Only VTE Present on Admission: No VTE Mechan Device Prophylaxis: Knee High HARISH Hose VTE Pharm Prophylaxis ordered?: Yes Patient Problems: Active and Suspected Problems (Last Reviewed 06/04/20 @ 17:[address] Armando Jimenez DO) Debility (Acute) Osteomyelitis of right foot (Acute) - Physical Exam Vitals/I&O's: Vital Signs Temp Pulse Resp BP Pulse Ox 99.2 F H 78 18 146/61 H 93 06/10/20 05:00 06/10/20 05:29 06/10/20 05:00 06/10/20 05:29 06/10/20 05:00 Oxygen Delivery Method Room Air Weight: 963.884 g Body Mass Index (BMI) 33.9 Finger Stick Blood Glucose 100 Intake and Output for Last 24 Hours 06/08/20 06/09/20 06/10/20 23:59 23:59 23:59 Intake Total 1390 / 1390 666.75 / 666.75 240 / 240 Balance 1390 / 1390 666.75 / 666.75 240 / 240 General: Alert, Oriented x3, Cooperative HEENT: Atraumatic, PERRLA, EOMI, Normocephalic Neck: Supple, No JVD, Negative Carotid Bruits Lungs: Clear to auscultation, Normal air movement Cardiovascular: Regular rate, No murmurs Abdomen: Bowel Sounds Present, Soft, Non Tender Extremities: No edema, Capillary Refill Less than 3 Seconds, - - Right foot dressed, Right upper extremity PICC line. Skin: No rashes, No breakdown Musculoskeletal: No Tenderness to Palpation of Joints or Extremities Neurological: Cranial nerves II-XII grossly intact Psych/Mental Status: Normal Affect, Appropriate Laboratory Results 06/09/20 10:41: POC Glucose 212 H 06/09/20 17:11: POC Glucose 112 H 06/09/20 18:14: POC Glucose 109 06/09/20 21:04: POC Glucose 111 H 06/10/20 06:20: POC Glucose 100 Current Medications Acetaminophen (Tylenol) 650 mg PO Q6H PRN PRN PRN Reason: Pain Score 1-10/Temp > 100.7 F Last Admin: 06/09/20 09:49 Dose: 650 mg Documented by: Aspirin (Ecotrin) 81 mg PO DAILY@0800 [facility] Last Admin: 06/10/20 08:25 Dose: 81 mg Documented by: Atorvastatin Calcium (Lipitor) 80 mg PO QHS [facility] Last Admin: 06/09/20 21:36 Dose: 80 mg Documented by: Bisacodyl (Dulcolax) 10 mg RECTAL DAILY PRN PRN Reason: Constipation Calamine/Phenol (Calmoseptine Ointment) 1 applic TOPICAL BID [facility]; Protocol Last Admin: 06/10/20 05:30 Dose: 1 applicatio Documented by: Ergocalciferol (Vitamin D) 50,000 unit PO We@1000 [facility] Glipizide (Glucotrol) 10 mg PO DAILYCM [facility] Last Admin: 06/10/20 08:25 Dose: 10 mg Documented by: Heparin Sodium (Beef Lung) () 50 units IV UD PRN PRN Reason: PICC Line Heparin Flush Ceftriaxone Sodium 2 gm/ (Sodium Chloride) 50 mls @ 100 mls/hr IV Q24 [facility] Stop: 07/19/20 10:01 Last Infusion: 06/09/20 11:38 Dose: Infused Documented by: Sodium Chloride () 250 mls @ 15 mls/hr IV .[id number] PRN PRN Reason: SALINE FLUSH Last Infusion: 06/09/20 11:38 Dose: 0 mls/hr Documented by: Insulin Glargine (Lantus (Bk)) 37 units SC BID [facility] Last Admin: 06/09/20 18:15 Dose: 37 units Documented by: Insulin Human Lispro (Humalog Kwikpen ([facility])) 0 unit SC ACHS [facility]; Protocol Last Admin: 06/10/20 08:24 Dose: Not Given Documented by: Insulin Human Lispro (Humalog Kwikpen ([facility])) 8 unit SC 0800,1200,1700 [facility] Last Admin: 06/09/20 17:13 Dose: 8 units Documented by: Levothyroxine Sodium (Synthroid) 150 mcg PO Stokes@0600 [facility] Last Admin: 06/08/20 06:03 Dose: 150 mcg Documented by: Levothyroxine Sodium (Synthroid) 75 mcg PO MoTuWeThFrSa@0600 [facility] Last Admin: 06/10/20 05:29 Dose: 75 mcg Documented by: Losartan Potassium (Cozaar) 50 mg PO DAILY [facility] Last Admin: 06/10/20 05:30 Dose: 50 mg Documented by: Metoprolol Succinate (Toprol Xl (Beta [place])) 50 mg PO DAILY [facility] Last Admin: 06/10/20 05:29 Dose: 50 mg Documented by: Metronidazole (Flagyl) 500 mg PO TID [facility] Stop: 07/19/20 22:01 Last Admin: 06/10/20 05:32 Dose: 500 mg Documented by: Nutritional Formula (Lactose Free) (Glucerna Shake) 120 ml PO TIDCM [facility] Last Admin: 06/10/20 08:25 Dose: Not Given Documented by: Nystatin (Mycostatin Powder) 1 applic TOPICAL BID [facility]; Protocol Last Admin: 06/10/20 06:20 Dose: 1 applicatio Documented by: Oxycodone HCl (Oxyir) 5 mg PO Q4H PRN PRN PRN Reason: Pain Score 6-10/10 Senna/Docusate Sodium (Senokot-S, Salima-Colace) 2 tablet PO BID [facility] Last Admin: 06/10/20 05:30 Dose: Not Given Documented by: Sertraline HCl (Zoloft) 50 mg PO DAILY [facility] Last Admin: 06/10/20 05:29 Dose: 50 mg Documented by: Sodium Chloride () 10 - 40 ml IV UD PRN PRN Reason: Open End PICC Flush Last Admin: 06/09/20 10:25 Dose: 40 ml Documented by: Sodium Chloride (0.9% Nacl (Sterile) Posiflush) 10 - 40 ml IV UD PRN PRN Reason: Port access or dressing change Tuberculin PPD (Tubersol, Aplisol, Ppd) 5 tu ID X1 ONE Stop: 06/15/20 10:01 Assessment/Plan All Active Problems (Last Reviewed 06/04/20 @ 17:[address] Armando Jimenez, DO) Ulcer of right foot with fat layer exposed (Acute) Chronic ulcer of left foot with fat layer exposed (Resolved) Cellulitis of right foot (Acute) Foreign body in right foot (Resolved) Osteomyelitis (Acute) Debility (Acute) Osteomyelitis of right foot (Acute) Cellulitis of right foot (Acute) Laceration of right foot with foreign body (Acute) Cellulitis of left foot (Resolved) Polycystic ovaries (Resolved) 64 year old female with below past medical history hospitalized osteomyelitis right foot, underwent right 5th ray resection, admitted to TCU with debility, here for rehabilitation, strengthening, intravenous antibiotics, wound care, prior to discharge home alone. Debility - PT/OT. Pain - Tylenol 1000MG Q6H PRN pain (1-5), Oxycodone 5MG Q4H PRN pain (6-10). Bowel - Miralax 17GM daily, Senna/colace 2 tablets BID, Dulcolax 10MG AK daily PRN. Adult immunization - Administer Prevnar 13, Pneumovax 23, Fluzone as appropriate. DVT prophylaxis - Lovenox 40MG SC daily. CV prophylaxis - Aspirin 81MG daily. Hyperlipidemia - Atorvastatin 80MG QHS. Osteomyelitis right foot - Rocephin 2GM IV Q24H, Flagyl 500MG TID thru 07/19/20. Vitamin D deficiency - D2 50,000 units per week. Diabetes Mellitus II - Glipizide 10MG daily, Lantus 37 units BID, Humalog 8 units TID. Nutrition - Glucerna 120ML TID, Jere 1 packet BID. Hypothyroidism - Levothyroxine 75MCG 6 days/week, 150MCG 1 day/week. Hypertension - Metoprolol succinate 50MG daily, Losartan 50MG daily. Skin irritation - Calmoseptine BID. Tinea Corporis - Nystatin powder topical BID. Depression - Sertraline 50MG daily.
--- NOTE | 2020-06-10 09:32 | ADUL_ITS ---
Reason For Study: PAD, diabetic w/ ulcer Right Velocities Ext. Iliac Artery, dist = 144 cm./sec. Common Femoral Artery, mid = 133 cm./sec. Supf Femoral Artery, prox = 92.4 cm./sec. Supf Femoral Artery, mid = 95 cm./sec. Supf Femoral Artery, dist. = 79.6 cm./sec. Profunda Femoral Artery = 75.9 cm./sec. Popliteal Artery, prox. = 74.1 cm./sec. Popliteal Artery, mid = 99.6 cm./sec. Popliteal Artery, dist = 81.4 cm./sec. Post. Tibial Artery, prox = 61.3 cm./sec. Post. Tibial Artery, mid = 23.2 cm./sec. [employer] [facility] distal, No flow noted. Peroneal Artery, prox = 45 cm./sec. Peroneal Artery, mid = 78 cm./sec. Peroneal Artery,dist = 210.9 cm./sec. Ant. Tibial Artery, prox = 118.1 cm./sec. Ant. Tibial Artery, mid = 128.4 cm./sec. Ant. Tibial Artery, dist = 154.2 cm./sec. Procedure Exam performed portable in patient room. Interpretation Summary Right leg with no proximal stenosis through popliteal. Posterior tibial occluded distally and stenosis in peroneal and anterior tibial. Ordering Physician: Sam Poole Referring Physician: Maricruz Andino Performed By: Stephani Jackson RVT
[2020-06-10] MEDS: 0.9% Saline Lock 10 ML Syringe IV ×2 (09:38→21:59)
[2020-06-10 10:00] VITALS: PULSE 74; RESP 18; O2SAT 94
[2020-06-10 10:00] LABS: Anion Gap 5 (5-15); BUN 8 mg/dL (7-18); BUN/Creat Ratio 10.7 RATIO (10-20); Calcium,Total 8.7 mg/dL (8.5-10.1); Chloride 107 mmol/L (98-107); Creatinine, Serum 0.75 mg/dL (0.55-1.02); EST Glomerular Filtration Rate 82 mL/min (>60); Est Glom Filt Rate - Afr Amer 99 mL/min (>60); Estimated Creatinine Clearance 70.01 ml/min; Glucose 124 mg/dL (74-106); Potassium 3.5 mmol/L (3.5-5.1); Sodium Level 140 mmol/L (136-145)
[2020-06-10 11:10] LABS: Bedside Glucose 168 mg/dL (70-110)
[2020-06-10] MEDS: Insulin Lispro 100 UNIT/ML INSULN.PEN 8 UNIT SC ×2 (11:44→17:38)
--- NOTE | 2020-06-10 11:46 | NURSING ---
PT STATED SHE UP DATES HER S WHEN HE CALLS.
[2020-06-10 13:54] VITALS: BP 135/62; PULSE 75; RESP 14; TEMP 36.8; O2SAT 97
[2020-06-10 16:41] LABS: Bedside Glucose 167 mg/dL (70-110)
--- NOTE | 2020-06-10 17:00 | CASEMGMT ---
Social Work Discussed code status with pt. Pt confirmed DNR-CCA, no intubation. MOLST form completed and placed in chart. Jayde Lynch, MANAGER UROLOGY MANAGER SIGN
[2020-06-10] MEDS: Atorvastatin Calcium 80 MG Tablet PO (21:59)
[2020-06-10 22:25] LABS: Bedside Glucose 234 mg/dL (70-110)
[2020-06-11 05:00] VITALS: BP 164/84; PULSE 70; RESP 18; TEMP 37; O2SAT 96
[2020-06-11 06:20] LABS: Bedside Glucose 94 mg/dL (70-110)
[2020-06-11 06:28] VITALS: BP 164/84; PULSE 70
[2020-06-11] MEDS: Levothyroxine 75 MCG Tablet PO (06:28)
[2020-06-11] MEDS: Enoxaparin 40 MG/0.4 ML Syringe SC (06:28)
[2020-06-11] MEDS: Sertraline 50 MG Tablet PO (06:28)
[2020-06-11] MEDS: metroNIDAZOLE 500 MG Tablet PO ×3 (06:28→21:55)
[2020-06-11] MEDS: Losartan Potassium 50 MG Tablet PO (06:28)
[2020-06-11] MEDS: Metoprolol(XL)Succ 50 MG Tablet PO (06:28)
[2020-06-11] MEDS: Nystatin Powder 15gm Bottle 1 APPLIC TOPICAL ×2 (06:32→17:44)
[2020-06-11] MEDS: Menthol/Lanolin/Calamine/Znox 113 GM Tube 1 APPLIC TOPICAL ×2 (06:32→17:43)
--- NOTE | 2020-06-11 08:00 | CON.PCM_ITS ---
Problem List (1) Peripheral vascular disease Status: Chronic Reason for Consult Date of Consultation: 06/11/20 History of Present Illness: The patient is a 64 year old F with longstanding diabetes and a right foot wound with a right fifth toe ray amputation. She is now in TCU. She is doing well. Wound appears to be healing. Wound VAC is can be going back on today. She is otherwise just sitting comfortably. She had vascular lab studies that showed an ALEXANDER 1.18 on the right which was through the dorsalis pedis. And biphasic flow. Left was 1.22 and triphasic flow. Digit brachial index 0.41 on the right 0.63 on the left. Her right leg duplex showed normal flow through the popliteal. Distal posterior tibial artery was occluded. Peroneal and anterior tibial artery had some stenosis and elevated velocities noted. Although the anterior tibial through the dorsalis pedis appeared to be the best flow and pretty adequate flow to the foot. No coronary history. Had a stroke 5 years ago and told carotids are normal. Never smoked. Hypertension on meds and is controlled. Hyperlipidemia on a statin. She has been diabetic since the s. No significant PAD. Prior surgeries including shoulder and hysterectomy. [] Past Medical History Past Medical History (Chronic Problems): Chronic Problems (Last Reviewed 06/04/20 @ 17:[address] Armando Jimenez DO) Type 2 diabetes mellitus with diabetic polyneuropathy (Chronic) Hammer toe of right foot (Chronic) Delayed wound healing (Chronic) Peripheral vascular disease (Chronic) PAD (peripheral artery disease) (Chronic) Depression (Chronic) Hallux limitus of left foot (Chronic) Type 2 diabetes mellitus with diabetic polyneuropathy (Chronic) Hypertension (Chronic) Type 2 diabetes mellitus (Chronic) Vitamin D deficiency (Chronic) Vision problems (Chronic) Neuropathy (Chronic) Heart murmur (Chronic) High cholesterol (Chronic) Back pain (Chronic) Anemia (Chronic) Overweight (BMI 25.0-29.9) (Chronic) Diabetic foot ulcer (Chronic) Chronic ulcer of great toe of left foot (Chronic) Diabetes (Chronic) Hyperlipidemia (Chronic) Hypothyroidism (Chronic) History of CVA (cerebrovascular accident) (Chronic) 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 Victorino Padilla MD) Vitamin D deficiency (Chronic) E55.9 Vision problems (Chronic) H54.7 Neuropathy (Chronic) G62.9 Heart murmur (Chronic) R01.1 High cholesterol (Chronic) E78.00 Back pain (Chronic) M54.9 Anemia (Chronic) D64.9 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) N97.9 Limb weakness (Chronic) R29.898 Thyroid disease (Chronic) E07.9 Diabetes (Chronic) E11.9 Stroke (Chronic) I63.9 Heart disease (Chronic) I51.9 Polycystic ovaries (Resolved) E28.2 Allergies Inhaled Anesthetics (Halogen Based) Allergy (Verified 06/07/20 16:11) Unknown morphine Allergy (Verified 06/07/20 16:11) Unknown Home Medications: Ambulatory Orders Medication Instructions Recorded Aspirin E.C. [Ecotrin] 81 mg PO DAILY@0800 06/04/20 Atorvastatin Calcium 80 mg PO QHS 06/04/20 Ergocalciferol (Vitamin D2) 50,000 unit PO WE 06/04/20 [Drisdol] Glipizide 10 mg PO DAILY 06/04/20 Insulin Aspart [Novolog Flexpen] 8 - 10 units SUBCUT TIDCM 06/04/20 Levothyroxine Sodium 75 mcg PO MOTUWETHFRSA 06/04/20 Levothyroxine [Synthroid] 150 mcg PO VICTOR 06/04/20 Losartan Potassium 50 mg PO DAILY 06/04/20 Metoprolol Succinate 50 mg PO DAILY 06/04/20 Sertraline HCl [Zoloft] 50 mg PO DAILY 06/04/20 Turmeric Root Extract [Turmeric] 500 mg PO DAILY 06/04/20 Acetaminophen [Tylenol Tablet] 650 mg PO Q6H PRN PRN tab 06/07/20 Ceftriaxone [Rocephin] 2 gm IV Q24 06/07/20 Glucerna Shake 120 ml PO TIDCM 06/07/20 Insulin Glargine [Lantus SoloStar 37 units SUBCUT BID 06/07/20 Pen] Insulin Lispro [Humalog KwikPen] See Protocol SUBCUT ACHS 06/07/20 Jere (unflavored) [Jere Packet] 1 packet PO BIDCM 06/07/20 Metronidazole [Flagyl] 500 mg PO TID 06/07/20 Oxycodone [Oxyir] 5 mg PO Q4H PRN PRN 3 Days #18 tab 06/07/20 Surgical History: Surgical History (Last Reviewed 06/11/20 @ 08:[address] 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 Armando Jimenez DO) Mother Anemia Angina pectoris Heart disease CVA (cerebral vascular accident) Thyroid disorder Diabetes Father Angina pectoris Myocardial infarction Kidney disease Diabetes Grandmother Colon cancer History Items: - - Patient's father at the age of 75 with a history of renal failure, heart disease, and diabetes mellitus. Patient's mother at the age of 87, with a history of diabetes mellitus, heart disease, and cerebrovascular accident. Review of Systems Constitutional: Denies: Chills, Fever, Weight Change HEENT: Denies: Head Aches, Sinus Congestion, Sinus Drainage Cardiovascular: Denies: Chest Pain, Palpitations Respiratory: Denies: Cough, Shortness of breath at rest, Sputum production Gastrointestinal: Denies: Abdominal Pain, Nausea, Vomiting Genitourinary: Denies: Dysuria Musculoskeletal: Denies: Joint Pain, Joint Tenderness Skin: Reports: - - right foot wound Neurological: Denies: Numbness, Tingling, Focal weakness Patient Problems: Active and Suspected Problems (Last Reviewed 06/04/20 @ 17:[address] Armando Jimenez DO) Debility (Acute) Osteomyelitis of right foot (Acute) - Physical Exam Vitals/I&O's: Vital Signs Temp Pulse Resp BP Pulse Ox 98.6 F 70 18 164/84 H 96 06/11/20 05:00 06/11/20 06:28 06/11/20 05:00 06/11/20 06:28 06/11/20 05:00 Oxygen Delivery Method Room Air Weight: 208 lb 7.012 oz Body Mass Index (BMI) 33.9 Finger Stick Blood Glucose 100 Intake and Output for Last 24 Hours 0906/10/20 06/11/20 23:59 23:59 23:59 Intake Total 666.75 / 666.75 770 / 770 Balance 666.75 / 666.75 770 / 770 General: Alert, Oriented x3, Cooperative HEENT: Atraumatic, PERRLA, EOMI, Normocephalic Neck: Supple, No JVD, Negative Carotid Bruits Lungs: Clear to auscultation, Normal air movement Cardiovascular: Regular rate Abdomen: Non Tender Extremities: - - dressing intact right foot Neurological: Motor Exam 5/5 strength throughout Laboratory Results 06/08/20 05:54: Sodium Cancelled, Potassium Cancelled, Chloride Cancelled, Carbon Dioxide Cancelled, Anion Gap Cancelled, BUN Cancelled, Creatinine Cancelled, Estim Creat Clear Calc Cancelled, Est GFR (MDRD) Af Amer Cancelled, Est GFR (MDRD) Non-Af Cancelled, BUN/Creatinine Ratio Cancelled, Glucose Cancelled, Calcium Cancelled 06/08/20 05:54: Sodium 140, Potassium 3.5, Chloride 107, Carbon Dioxide 28.0, Anion Gap 5, BUN 8, Creatinine 0.75, Estim Creat Clear Calc 70.01, Est GFR (MDRD) Af Amer 99, Est GFR (MDRD) Non-Af 82, BUN/Creatinine Ratio 10.7, Glucose 124 H, Calcium 8.7 06/10/20 10:35: COVID-19 (SURY) Pending 06/10/20 11:02: POC Glucose 168 H 06/10/20 16:34: POC Glucose 167 H 06/10/20 22:12: POC Glucose 234 H 06/11/20 06:08: POC Glucose 94 Current Medications Acetaminophen (Tylenol) 1,000 mg PO Q6H PRN PRN PRN Reason: Pain Score 1-5/10 Aspirin (Ecotrin) 81 mg PO DAILY@0800 [facility] Last Admin: 06/10/20 08:25 Dose: 81 mg Documented by: Atorvastatin Calcium (Lipitor) 80 mg PO QHS [facility] Last Admin: 06/10/20 21:59 Dose: 80 mg Documented by: Bisacodyl (Dulcolax) 10 mg RECTAL DAILY PRN PRN Reason: Constipation Calamine/Phenol (Calmoseptine Ointment) 1 applic TOPICAL BID [facility]; Protocol Last Admin: 06/11/20 06:32 Dose: 1 applicatio Documented by: Enoxaparin Sodium (Lovenox) 40 mg SC DAILY@0600 [facility] Last Admin: 06/11/20 06:28 Dose: 40 mg Documented by: Ergocalciferol (Vitamin D) 50,000 unit PO We@1000 [facility] Glipizide (Glucotrol) 10 mg PO DAILYCM [facility] Last Admin: 06/10/20 08:25 Dose: 10 mg Documented by: Heparin Sodium (Beef Lung) () 50 units IV UD PRN PRN Reason: PICC Line Heparin Flush Ceftriaxone Sodium 2 gm/ (Sodium Chloride) 50 mls @ 100 mls/hr IV Q24 [facility] Stop: 07/19/20 10:01 Last Infusion: 06/10/20 10:15 Dose: Infused Documented by: Sodium Chloride () 250 mls @ 15 mls/hr IV .[id number] PRN PRN Reason: SALINE FLUSH Last Infusion: 06/09/20 11:38 Dose: 0 mls/hr Documented by: Insulin Glargine (Lantus (Bk)) 37 units SC BID [facility] Last Admin: 06/10/20 17:41 Dose: 37 units Documented by: Insulin Human Lispro (Humalog Kwikpen ([facility])) 8 unit SC 0800,1200,1700 [facility] Last Admin: 06/10/20 17:38 Dose: 8 units Documented by: Lactobacillus Acidophilus (Acidophilus) 1 tablet PO BID [facility] Last Admin: 06/11/20 06:29 Dose: 1 tablet Documented by: Levothyroxine Sodium (Synthroid) 150 mcg PO Victor@0600 [facility] Last Admin: 06/08/20 06:03 Dose: 150 mcg Documented by: Levothyroxine Sodium (Synthroid) 75 mcg PO MoTuWeThFrSa@0600 [facility] Last Admin: 06/11/20 06:28 Dose: 75 mcg Documented by: Losartan Potassium (Cozaar) 50 mg PO DAILY [facility] Last Admin: 06/11/20 06:28 Dose: 50 mg Documented by: Metoprolol Succinate (Toprol Xl (Beta [place])) 50 mg PO DAILY [facility] Last Admin: 06/11/20 06:28 Dose: 50 mg Documented by: Metronidazole (Flagyl) 500 mg PO TID [facility] Stop: 07/19/20 22:01 Last Admin: 06/11/20 06:28 Dose: 500 mg Documented by: Nutritional Formula (Lactose Free) (Glucerna Shake) 120 ml PO TIDCM [facility] Last Admin: 06/10/20 17:29 Dose: Not Given Documented by: Nystatin (Mycostatin Powder) 1 applic TOPICAL BID [facility]; Protocol Last Admin: 06/11/20 06:32 Dose: 1 applicatio Documented by: Oxycodone HCl (Oxyir) 5 mg PO Q4H PRN PRN PRN Reason: Pain Score 6-10/10 Polyethylene Glycol (Miralax) 17 gm PO DAILY [facility] Last Admin: 06/11/20 06:29 Dose: Not Given Documented by: Senna/Docusate Sodium (Senokot-S, Salima-Colace) 2 tablet PO BID [facility] Last Admin: 06/11/20 06:29 Dose: Not Given Documented by: Sertraline HCl (Zoloft) 50 mg PO DAILY [facility] Last Admin: 06/11/20 06:28 Dose: 50 mg Documented by: Sodium Chloride () 10 - 40 ml IV UD PRN PRN Reason: Open End PICC Flush Last Admin: 06/10/20 21:59 Dose: 20 ml Documented by: Sodium Chloride (0.9% Nacl (Sterile) Posiflush) 10 - 40 ml IV UD PRN PRN Reason: Port access or dressing change Tuberculin PPD (Tubersol, Aplisol, Ppd) 5 tu ID [id number] Stop: 06/15/20 10:01 Assessment/Plan All Active Problems (Last Reviewed 06/04/20 @ 17:[address] Armando Jimenez, DO) Ulcer of right foot with fat layer exposed (Acute) Chronic ulcer of left foot with fat layer exposed (Resolved) Cellulitis of right foot (Acute) Foreign body in right foot (Resolved) Osteomyelitis (Acute) Debility (Acute) Osteomyelitis of right foot (Acute) Cellulitis of right foot (Acute) Laceration of right foot with foreign body (Acute) Cellulitis of left foot (Resolved) Polycystic ovaries (Resolved) PAD. Patient with some mild tibial PAD. Little bit worse on the right than the left. Wound appears to be healing. If this starts to slow healing we would plan for right leg angiogram and some angioplasty of her tibial disease. Otherwise we will plan on seeing her back in the office in 3 to 4 weeks
--- NOTE | 2020-06-11 08:07 | PHA.CONS_ITS ---
<Martha Woods - Last Filed: 06/11/20 08:07> Progress Note - Pharmacy Subjective: TCU Admission Objective: Allergies Inhaled Anesthetics (Halogen Based) Allergy (Verified 06/07/20 16:11) Unknown morphine Allergy (Verified 06/07/20 16:11) Unknown Current Medications Generic Name Dose Route Start Last Admin Trade Name Freq PRN Reason Stop Dose Admin Acetaminophen 1,000 mg 06/10/20 09:50 Tylenol PO Q6H PRN PRN Pain Score 1-5/10 Aspirin 81 mg 06/08/20 08:00 06/10/20 08:25 Ecotrin PO 81 mg DAILY@0800 [facility] Administration Atorvastatin Calcium 80 mg 06/07/20 22:00 06/10/20 21:59 Lipitor PO 80 mg QHS SHE Administration Bisacodyl 10 mg 06/07/20 16:26 Dulcolax RECTAL DAILY PRN Constipation Calamine/Phenol 1 applic 06/07/20 18:00 06/11/20 06:32 Calmoseptine Ointment TOPICAL 1 applicatio BID [facility] Administration Protocol Enoxaparin Sodium 40 mg 06/11/20 06:00 06/11/20 06:28 Lovenox SC 40 mg DAILY@0600 [facility] Administration Ergocalciferol 50,000 unit 06/11/20 10:00 Vitamin D PO We@1000 SHE Glipizide 10 mg 06/08/20 08:00 06/10/20 08:25 Glucotrol PO 10 mg DAILYCM SHE Administration Heparin Sodium (Beef Lung) 50 units 06/07/20 16:40 IV UD PRN PICC Line Heparin Flush Ceftriaxone Sodium 2 gm/ 50 mls @ 100 mls/hr 06/08/20 10:00 06/10/20 10:15 Sodium Chloride IV 07/19/20 10:01 Infused Q24 SHE Infusion Sodium Chloride 250 mls @ 15 mls/hr 06/08/20 10:45 06/09/20 11:38 IV 0 mls/hr .[id number] PRN Infusion SALINE FLUSH Insulin Glargine 37 units 06/07/20 18:00 06/10/20 17:41 Lantus ([facility]) SC 37 units BID SHE Administration Insulin Human Lispro 8 unit 06/08/20 17:00 06/10/20 17:38 Humalog Kwikpen ([facility]) SC 8 units 0800,1200,1700 SHE Administration Lactobacillus Acidophilus 1 tablet 06/10/20 18:00 06/11/20 06:29 Acidophilus PO 1 tablet BID SHE Administration Levothyroxine Sodium 150 mcg 06/08/20 06:00 06/08/20 06:03 Synthroid PO 150 mcg Victor@0600 SHE Administration Levothyroxine Sodium 75 mcg 06/09/20 06:00 06/11/20 06:28 Synthroid PO 75 mcg MoTuWeThFrSa@0600 SHE Administration Losartan Potassium 50 mg 06/08/20 06:00 06/11/20 06:28 Cozaar PO 50 mg DAILY [facility] Administration Metoprolol Succinate 50 mg 06/08/20 06:00 06/11/20 06:28 Toprol Xl (Beta [place]) PO 50 mg DAILY [facility] Administration Metronidazole 500 mg 06/07/20 22:00 06/11/20 06:28 Flagyl PO 07/19/20 22:01 500 mg TID SHE Administration Nutritional Formula (Lactose Free) 120 ml 06/07/20 17:45 06/10/20 17:29 Glucerna Shake PO Not Given TIDCM [facility] Nystatin 1 applic 06/07/20 18:00 06/11/20 06:32 Mycostatin Powder TOPICAL 1 applicatio BID [facility] Administration Protocol Oxycodone HCl 5 mg 06/07/20 16:43 Oxyir PO Q4H PRN PRN Pain Score 6-10/10 Polyethylene Glycol 17 gm 06/11/20 06:00 06/11/20 06:29 Miralax PO Not Given DAILY [facility] Senna/Docusate Sodium 2 tablet 06/07/20 18:00 06/11/20 06:29 Senokot-S, Salima-Colace PO Not Given BID [facility] Sertraline HCl 50 mg 06/08/20 06:00 06/11/20 06:28 Zoloft PO 50 mg DAILY [facility] Administration Sodium Chloride 10 - 40 ml 06/07/20 16:40 06/10/20 21:59 IV 20 ml UD PRN Administration Open End PICC Flush Sodium Chloride 10 - 40 ml 06/07/20 16:40 0.9% Nacl (Sterile) Posiflush IV UD PRN Port access or dressing change Tuberculin PPD 5 tu 06/15/20 10:00 Tubersol, Aplisol, Ppd ID 06/15/20 10:01 X1 ONE Problem List (Last Reviewed 06/11/20 @ 08:[address] Victorino Padilla MD) Debility (Acute) Osteomyelitis of right foot (Acute) Depression (Chronic) Vital Signs Temp Pulse Resp BP Pulse Ox 98.6 F 70 18 164/84 H 96 06/11/20 05:00 06/11/20 06:28 06/11/20 05:00 06/11/20 06:28 06/11/20 05:00 Oxygen Delivery Method Room Air Weight: 94.546 kg Body Mass Index (BMI) 33.9 Finger Stick Blood Glucose 100 Sodium 140 mmol/L (136-145) 06/08/20 05:54 Sodium Cancelled 06/08/20 05:54 Potassium 3.5 mmol/L (3.5-5.1) 06/08/20 05:54 Potassium Cancelled 06/08/20 05:54 Chloride 107 mmol/L (98-107) 06/08/20 05:54 Chloride Cancelled 06/08/20 05:54 Carbon Dioxide 28.0 mmol/L (21.0-32.0) 06/08/20 05:54 Carbon Dioxide Cancelled 06/08/20 05:54 Anion Gap 5 (5-15) 06/08/20 05:54 Anion Gap Cancelled 06/08/20 05:54 BUN 8 mg/dL (7-18) 06/08/20 05:54 BUN Cancelled 06/08/20 05:54 Creatinine 0.75 mg/dL (0.55-1.02) 06/08/20 05:54 Creatinine Cancelled 06/08/20 05:54 Est GFR (MDRD) Af Amer 99 mL/min (>60) 06/08/20 05:54 Est GFR (MDRD) Af Amer Cancelled 06/08/20 05:54 Est GFR (MDRD) Non-Af 82 mL/min (>60) 06/08/20 05:54 Est GFR (MDRD) Non-Af Cancelled 06/08/20 05:54 BUN/Creatinine Ratio 10.7 RATIO (10-20) 06/08/20 05:54 BUN/Creatinine Ratio Cancelled 06/08/20 05:54 Glucose 124 mg/dL (74-106) H 06/08/20 05:54 Glucose Cancelled 06/08/20 05:54 Assessment/Plan: 1. Pain: acetaminophen 1000mg Q6H PRN pain (-02/09) and oxycodone 5mg Q4H PRN pain (-07/12). Please continue to monitor for pain relief and PRN usage. 2. Osteomyelitis: ceftriaxone 2gm IV Q24 thru 07/19/20 and metronidazole 500mg PO TID thru 07/19/20. Please continue to monitor for S/S of infection, fevers, diarrhea, and metallic taste in mouth. 3. DVT prophylaxis: enoxaparin 40mg SC daily. Please monitor for signs/symptoms of bleeding/bruising, DVT, platelets, renal function, and hemoglobin. 4. Hypertension/CV prophylaxis: metoprolol succinate 50mg PO daily, losartan 50mg PO daily, aspirin 81mg PO daily. Please continue to monitor HR (75 bpm), BP (135/62), renal function, and sings/symptoms of bleeding/bruising. *5. Hyperlipidemia: atorvastatin 80mg PO QHS. There is no lipid panel in the patient's chart. Please consider ordering lipid panel now and then annually as clinically appropriate. Thanks. Please continue to monitor for muscle pain. 6. Diabetes Mellitus II: glipizide 10mg PO daily, insulin glargine 37 units SC BID, insulin lispro 8 units SC TIDAC. Please continue to monitor for S/S of hypo/hyperglycemia, blood glucose (last 94 mg/dL), HbA1c (13.6% 06/04/2020). 7. Hypothyroidism: levothyroxine 75mcg PO 6 days/week, 150mcg PO on Sundays. Please continue to monitor TSH levels annually and for S/S of hypo/hyperthyroidism. *8. Vitamin D deficiency: ergocalciferol 50,000 units PO on Wednesdays. Please consider ordering a vitamin D level now and then annually as clinically appropr iate. Thanks. Psychotropic Medications: *1. Depression: sertraline 50mg PO daily. Please consider GDR by 12/2020 if clinically appropriate. Thanks. *Unnecessary Medications: lactobacillus acidophilus 1T PO BID. I did not see a documented indication for this medication. Please consider adding an indication. Thanks. *Bowel Regimen: Miralax 17gm PO daily, senna/docusate 2 tablets PO BID, bisacodyl 10mg MT daily PRN constipation. Patient has refused 8/8 doses of senna/docusate. Please consider changing from scheduled to PRN constipation. Thanks. Please continue to monitor for normal bowel movements and signs/symptoms of diarrhea. Date of Note:: 06/11/20 - Provider Comments Provider responsibility: Provider responsible to enter orders to implement recommendations <Quinn Combs Chi - Last Filed: 06/11/20 08:30> Progress Note - Pharmacy Subjective: [] Objective: Allergies Inhaled Anesthetics (Halogen Based) Allergy (Verified 06/07/20 16:11) Unknown morphine Allergy (Verified 06/07/20 16:11) Unknown Current Medications Generic Name Dose Route Start Last Admin Trade Name Freq PRN Reason Stop Dose Admin Acetaminophen 1,000 mg 06/10/20 09:50 Tylenol PO Q6H PRN PRN Pain Score 1-5/10 Aspirin 81 mg 06/08/20 08:00 06/11/20 08:23 Ecotrin PO 81 mg DAILY@0800 [facility] Administration Atorvastatin Calcium 80 mg 06/07/20 22:00 06/10/20 21:59 Lipitor PO 80 mg QHS SHE Administration Bisacodyl 10 mg 06/07/20 16:26 Dulcolax RECTAL DAILY PRN Constipation Calamine/Phenol 1 applic 06/07/20 18:00 06/11/20 06:32 Calmoseptine Ointment TOPICAL 1 applicatio BID SHE Administration Protocol Enoxaparin Sodium 40 mg 06/11/20 06:00 06/11/20 06:28 Lovenox SC 40 mg DAILY@0600 [facility] Administration Ergocalciferol 50,000 unit 06/11/20 10:00 Vitamin D PO We@1000 SHE Glipizide 10 mg 06/08/20 08:00 06/11/20 08:23 Glucotrol PO 10 mg DAILYCM SHE Administration Heparin Sodium (Beef Lung) 50 units 06/07/20 16:40 IV UD PRN PICC Line Heparin Flush Ceftriaxone Sodium 2 gm/ 50 mls @ 100 mls/hr 06/08/20 10:00 06/10/20 10:15 Sodium Chloride IV 07/19/20 10:01 Infused Q24 SHE Infusion Sodium Chloride 250 mls @ 15 mls/hr 06/08/20 10:45 06/09/20 11:38 IV 0 mls/hr .[id number] PRN Infusion SALINE FLUSH Insulin Glargine 37 units 06/07/20 18:00 06/11/20 08:23 Lantus ([facility]) SC 37 units BID SHE Administration Insulin Human Lispro 8 unit 06/08/20 17:00 06/11/20 08:20 Humalog Kwikpen ([facility]) SC Not Given 0800,1200,1700 [facility] Lactobacillus Acidophilus 1 tablet 06/10/20 18:00 06/11/20 06:29 Acidophilus PO 1 tablet BID [facility] Administration Levothyroxine Sodium 150 mcg 06/08/20 06:00 06/08/20 06:03 Synthroid PO 150 mcg Victor@0600 [facility] Administration Levothyroxine Sodium 75 mcg 06/09/20 06:00 06/11/20 06:28 Synthroid PO 75 mcg MoTuWeThFrSa@0600 [facility] Administration Losartan Potassium 50 mg 06/08/20 06:00 06/11/20 06:28 Cozaar PO 50 mg DAILY [facility] Administration Metoprolol Succinate 50 mg 06/08/20 06:00 06/11/20 06:28 Toprol Xl (Beta [place]) PO 50 mg DAILY [facility] Administration Metronidazole 500 mg 06/07/20 22:00 06/11/20 06:28 Flagyl PO 07/19/20 22:01 500 mg TID [facility] Administration Nutritional Formula (Lactose Free) 120 ml 06/07/20 17:45 06/11/20 08:22 Glucerna Shake PO Not Given TIDCM [facility] Nystatin 1 applic 06/07/20 18:00 06/11/20 06:32 Mycostatin Powder TOPICAL 1 applicatio BID [facility] Administration Protocol Oxycodone HCl 5 mg 06/07/20 16:43 Oxyir PO Q4H PRN PRN Pain Score 6-10/10 Polyethylene Glycol 17 gm 06/11/20 06:00 06/11/20 06:29 Miralax PO Not Given DAILY [facility] Senna/Docusate Sodium 2 tablet 06/07/20 18:00 06/11/20 06:29 Senokot-S, Salima-Colace PO Not Given BID [facility] Sertraline HCl 50 mg 06/08/20 06:00 09/09/20 06:28 Zoloft PO 50 mg DAILY SHE Administration Sodium Chloride 10 - 40 ml 06/07/20 16:40 06/10/20 21:59 IV 20 ml UD PRN Administration Open End PICC Flush Sodium Chloride 10 - 40 ml 06/07/20 16:40 0.9% Nacl (Sterile) Posiflush IV UD PRN Port access or dressing change Tuberculin PPD 5 tu 06/15/20 10:00 Tubersol, Aplisol, Ppd ID 06/15/20 10:01 X1 ONE Problem List (Last Reviewed 06/11/20 @ 08:[address] Victorino Padilla MD) Debility (Acute) Osteomyelitis of right foot (Acute) Depression (Chronic) Vital Signs Temp Pulse Resp BP Pulse Ox 98.6 F 70 18 164/84 H 96 06/11/20 05:00 06/11/20 06:28 06/11/20 05:00 06/11/20 06:28 06/11/20 05:00 Oxygen Delivery Method Room Air Weight: 94.546 kg Body Mass Index (BMI) 33.9 Finger Stick Blood Glucose 100 Sodium 140 mmol/L (136-145) 06/08/20 05:54 Sodium Cancelled 06/08/20 05:54 Potassium 3.5 mmol/L (3.5-5.1) 06/08/20 05:54 Potassium Cancelled 06/08/20 05:54 Chloride 107 mmol/L (98-107) 06/08/20 05:54 Chloride Cancelled 06/08/20 05:54 Carbon Dioxide 28.0 mmol/L (21.0-32.0) 06/08/20 05:54 Carbon Dioxide Cancelled 06/08/20 05:54 Anion Gap 5 (5-15) 06/08/20 05:54 Anion Gap Cancelled 06/08/20 05:54 BUN 8 mg/dL (7-18) 06/08/20 05:54 BUN Cancelled 06/08/20 05:54 Creatinine 0.75 mg/dL (0.55-1.02) 06/08/20 05:54 Creatinine Cancelled 06/08/20 05:54 Est GFR (MDRD) Af Amer 99 mL/min (>60) 06/08/20 05:54 Est GFR (MDRD) Af Amer Cancelled 06/08/20 05:54 Est GFR (MDRD) Non-Af 82 mL/min (>60) 06/08/20 05:54 Est GFR (MDRD) Non-Af Cancelled 06/08/20 05:54 BUN/Creatinine Ratio 10.7 RATIO (10-20) 06/08/20 05:54 BUN/Creatinine Ratio Cancelled 06/08/20 05:54 Glucose 124 mg/dL (74-106) H 06/08/20 05:54 Glucose Cancelled 06/08/20 05:54 Assessment/Plan: Psychotropic Medications: Unnecessary Medications: Bowel Regimen: - Provider Comments Provider responsibility: Provider responsible to enter orders to implement recommendations Provider Comments to Recommendations by Pharmacy: Agree
[2020-06-11] MEDS: Juven (unflavored) Packet 1 PACKET PO (08:23)
[2020-06-11] MEDS: Aspirin E.C. 81 MG Tablet PO (08:23)
[2020-06-11] MEDS: glipiZIDE 10 MG Tablet PO (08:23)
[2020-06-11] MEDS: 0.9% Saline Lock 10 ML Syringe IV ×3 (09:18→22:00)
[2020-06-11] MEDS: 0.9% NaCl IVPB Med Flush (250 mL) 15 ML IV (09:21)
--- NOTE | 2020-06-11 09:46 | CASEMGMT ---
Social Work IDT met with patient for care plan meeting. Discussed patient's progress in therapy. Pt is mod I for bed mobility, transfers, ambulation, walking 150 ft wit hFWW, using 3# wts for LE exercises, trailing knee scooter. Pt has WBS through right heel with surgical shoe on. Pt is adlib in room, Bonnie for bathing, and LE dressing, mod I for all other ADLs. Pt is on a Carb controlled diet, DC Glucerna, receiving Jere, weight is stable. Pt is out of isolation 06/21, has wound vac, IV ATB Q24 DC 07/19. The goal is for pt to DC home 07/20. Explained Medicare benefit in TCU and community with IVs and wound vac. Will continue to follow. CHEO SosaW
[2020-06-11 11:20] LABS: Bedside Glucose 164 mg/dL (70-110)
[2020-06-11] MEDS: Insulin Lispro 100 UNIT/ML INSULN.PEN 8 UNIT SC ×2 (11:22→17:46)
--- NOTE | 2020-06-11 11:25 | NURSING ---
PT STATED SHE UP DATES SON EVERY DAY.
--- NOTE | 2020-06-11 12:00 | NURSING ---
wound photo: right dorsal/lateral foot
--- NOTE | 2020-06-11 12:01 | NURSING ---
wound photo: right plantar foot
--- NOTE | 2020-06-11 13:51 | CASEMGMT ---
Social Work SW met with pt and assisted in completing HCPOA and LW. Pt naming her son Elbert Andrew as HCPOA. Original given to pt and copy placed in chart. ROBERT Saucedo
[2020-06-11 14:22] VITALS: BP 162/72; PULSE 75; RESP 16; TEMP 36.6; O2SAT 98
--- NOTE | 2020-06-11 15:56 | CHAPLAIN ---
Type of Pastoral Visit ___ Initial Visit _x__ Follow-up Visit ___ On-call Visit ___ General Patient Visit ___ Spiritual Assessment ___ Family Conference ___ Bereavement ___ Rapid Response ___ Code Blue ___ Other (describe below) Pastoral Care Referral From _x__ Patient ___ Family ___ Nurse ___ Physician ___ Printer Slotter Feeder ___ Manager Enterprise ___ Other (describe below) Sacrament/Intervention _x__ Active listening ___ Anointing ___ Muslim ___ Bereavement ___ Communion ___ Cass exploration ___ _x__ Life review _x__ Prayer ___ Reconciliation ___ Sacrament of Sick _x__ Supportive presence ___ Wedding ___ Other (describe below) Pastoral Comments had talked at length with this patient when she was admitted to [facility]; this is update; pt has good foundation of cass and perspective; pt likes to be involved with patient and she admits it is hard to be isolated yet nice to see the staff come in and out; 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
[2020-06-11 16:31] LABS: Bedside Glucose 238 mg/dL (70-110)
[2020-06-11 21:46] LABS: Bedside Glucose 203 mg/dL (70-110)
[2020-06-11 21:55] VITALS: PULSE 72; RESP 16; O2SAT 96
[2020-06-11] MEDS: Atorvastatin Calcium 80 MG Tablet PO (21:56)
[2020-06-11] MEDS: Alteplase 2 MG/2 ML Vial IV (23:15)
--- NOTE | 2020-06-12 01:12 | NURSING ---
PATENCY OF RT ARM PICC CHECKED AFTER 45 MINUTES OF CATHFLO SIT TIME. UNABLE TO WITHDRAW CATHFLO FROM LUMEN. RECHECKED AFTER ANOTHER 45 MINUTES FOR A TOTAL OF 90 MINUTES OF CATHFLO SIT TIME. ABLE TO ASPIRATE 3 CC OF BLOOD, BUT UNABLE TO FLUSH LUMEN. PT REPOSITIONED IN BED. STILL UNABLE TO FLUSH. HAD PATIENT SIT UP AT SIDE OF BED. ABLE TO ASPIRATE BLOOD AND FLUSH EASILY IN THIS POSITION. INSTRUCTED NURSES AND PATIENT TO SIT AT SIDE OF BED FOR BLOOD DRAWS.
[2020-06-12 06:21] LABS: Bedside Glucose 88 mg/dL (70-110)
[2020-06-12 06:40] VITALS: BP 191/91; PULSE 72; RESP 16; TEMP 36.6; O2SAT 96
[2020-06-12] MEDS: Enoxaparin 40 MG/0.4 ML Syringe SC (06:46)
[2020-06-12] MEDS: Losartan Potassium 50 MG Tablet PO (06:46)
[2020-06-12] MEDS: Sertraline 50 MG Tablet PO (06:46)
[2020-06-12] MEDS: metroNIDAZOLE 500 MG Tablet PO ×3 (06:46→21:12)
[2020-06-12] MEDS: Levothyroxine 75 MCG Tablet PO (06:46)
[2020-06-12 06:47] VITALS: BP 191/91; PULSE 72
[2020-06-12] MEDS: Metoprolol(XL)Succ 50 MG Tablet PO (06:47)
[2020-06-12] MEDS: 0.9% Saline Lock 10 ML Syringe IV ×2 (06:52→09:51)
[2020-06-12] MEDS: Nystatin Powder 15gm Bottle 1 APPLIC TOPICAL ×2 (06:53→17:45)
[2020-06-12] MEDS: Menthol/Lanolin/Calamine/Znox 113 GM Tube 1 APPLIC TOPICAL ×2 (06:53→17:45)
--- NOTE | 2020-06-12 07:23 | PN_ITS ---
Patient Problems: Active and Suspected Problems (Last Reviewed 06/11/20 @ 08:[address] Victorino Padilla MD) Debility (Acute) Osteomyelitis of right foot (Acute) Subjective: Patient was seen this morning for follow up on right foot. Relates no pain unless she puts foot down. No fever, chills, nausea, vomiting or any other complaints. She had a fifth ray resection on 06/05/2020. - Physical Exam Vitals/I&O's: Vital Signs Temp Pulse Resp BP Pulse Ox 97.8 F 72 16 191/91 H 96 06/12/20 06:40 06/12/20 06:47 06/12/20 06:40 06/12/20 06:47 06/12/20 06:40 Oxygen Delivery Method Room Air Weight: 94.546 kg Body Mass Index (BMI) 33.9 Finger Stick Blood Glucose 100 Intake and Output for Last 24 Hours 06/10/20 06/11/20 06/12/20 23:59 23:59 23:59 Intake Total 770 / 770 1021.5 / 1021.5 Balance 770 / 770 1021.5 / 1021.5 General: Alert, Oriented x3, Cooperative Extremities: No cyanosis, Capillary Refill Less than 3 Seconds - all digit right foot, No Calf Tenderness - negative ashley and thompson signs bilateral. compartments soft to palpate right lower extremity, Diminished Peripheral Pulses, Edema - mild right foot Skin: Ulcer/ Wound - no purulence, no erythema, no streaking, no odor, non infection. proximal ulcer site has granular tissue with mild fibrous tissue and deep tissue exposure. distal incision is macerated. plantar ulcer has granular tissue. adjacent skin is hairless and atrophic Musculoskeletal: Muscle Wasting, - - amputation noted. no bogginess or fluctuance on palpation Neurological: - - lack of epicritic sensation via light touch is noted consistent with neuropathy status Psych/Mental Status: Normal Affect, Appropriate Laboratory Results 06/11/20 11:06: POC Glucose 164 H 06/11/20 16:18: POC Glucose 238 H 06/11/20 21:40: POC Glucose 203 H 06/12/20 06:14: POC Glucose 88 Current Medications Acetaminophen (Tylenol) 1,000 mg PO Q6H PRN PRN PRN Reason: Pain Score 1-5/10 Aspirin (Ecotrin) 81 mg PO DAILY@0800 SHE Last Admin: 06/11/20 08:23 Dose: 81 mg Documented by: Atorvastatin Calcium (Lipitor) 80 mg PO QHS [facility] Last Admin: 06/11/20 21:56 Dose: 80 mg Documented by: Bisacodyl (Dulcolax) 10 mg RECTAL DAILY PRN PRN Reason: Constipation Calamine/Phenol (Calmoseptine Ointment) 1 applic TOPICAL BID [facility]; Protocol Last Admin: 06/12/20 06:53 Dose: 1 applicatio Documented by: Enoxaparin Sodium (Lovenox) 40 mg SC DAILY@0600 [facility] Last Admin: 06/12/20 06:46 Dose: 40 mg Documented by: Ergocalciferol (Vitamin D) 50,000 unit PO We@1000 [facility] Last Admin: 06/11/20 10:08 Dose: 50,000 unit Documented by: Glipizide (Glucotrol) 10 mg PO DAILYCM [facility] Last Admin: 06/11/20 08:23 Dose: 10 mg Documented by: Heparin Sodium (Beef Lung) () 50 units IV UD PRN PRN Reason: PICC Line Heparin Flush Ceftriaxone Sodium 2 gm/ (Sodium Chloride) 50 mls @ 100 mls/hr IV Q24 [facility] Stop: 07/19/20 10:01 Last Infusion: 06/11/20 10:07 Dose: Infused Documented by: Sodium Chloride () 250 mls @ 15 mls/hr IV .[id number] PRN PRN Reason: SALINE FLUSH Last Infusion: 06/11/20 10:07 Dose: 0 mls/hr Documented by: Insulin Glargine (Lantus (Bk)) 37 units SC BID [facility] Last Admin: 06/12/20 06:50 Dose: 37 units Documented by: Insulin Human Lispro (Humalog Kwikpen ([facility])) 8 unit SC 0800,1200,1700 [facility] Last Admin: 06/11/20 17:46 Dose: 8 units Documented by: Lactobacillus Acidophilus (Acidophilus) 1 tablet PO BID [facility] Last Admin: 06/12/20 06:46 Dose: 1 tablet Documented by: Levothyroxine Sodium (Synthroid) 150 mcg PO Victor@0600 [facility] Last Admin: 06/08/20 06:03 Dose: 150 mcg Documented by: Levothyroxine Sodium (Synthroid) 75 mcg PO MoTuWeThFrSa@0600 [facility] Last Admin: 06/12/20 06:46 Dose: 75 mcg Documented by: Losartan Potassium (Cozaar) 50 mg PO DAILY [facility] Last Admin: 06/12/20 06:46 Dose: 50 mg Documented by: Metoprolol Succinate (Toprol Xl (Beta [place])) 50 mg PO DAILY [facility] Last Admin: 06/12/20 06:47 Dose: 50 mg Documented by: Metronidazole (Flagyl) 500 mg PO TID [facility] Stop: 07/19/20 22:01 Last Admin: 06/12/20 06:46 Dose: 500 mg Documented by: Mirtazapine (Remeron) 7.5 mg PO QHS [facility] Last Admin: 06/11/20 21:55 Dose: Not Given Documented by: Nystatin (Mycostatin Powder) 1 applic TOPICAL BID [facility]; Protocol Last Admin: 06/12/20 06:53 Dose: 1 applicatio Documented by: Oxycodone HCl (Oxyir) 5 mg PO Q4H PRN PRN PRN Reason: Pain Score 6-10/10 Polyethylene Glycol (Miralax) 17 gm PO DAILY [facility] Last Admin: 06/12/20 06:47 Dose: Not Given Documented by: Senna/Docusate Sodium (Senokot-S, Salima-Colace) 2 tablet PO BID [facility] Last Admin: 06/12/20 06:47 Dose: Not Given Documented by: Sertraline HCl (Zoloft) 50 mg PO DAILY [facility] Last Admin: 06/12/20 06:46 Dose: 50 mg Documented by: Sodium Chloride () 10 - 40 ml IV UD PRN PRN Reason: Open End PICC Flush Last Admin: 06/12/20 06:52 Dose: 20 ml Documented by: Sodium Chloride (0.9% Nacl (Sterile) Posiflush) 10 - 40 ml IV UD PRN PRN Reason: Port access or dressing change Tuberculin PPD (Tubersol, Aplisol, Ppd) 5 tu ID X1 ONE Stop: 06/15/20 10:01 Medical Necessity - Tobacco Use Smoking Status: Never smoker Tobacco Use: Secondhand Assessment/Plan All Active Problems (Last Reviewed 06/11/20 @ 08:[address] Victorino Padilla MD) Ulcer of right foot with fat layer exposed (Acute) Chronic ulcer of left foot with fat layer exposed (Resolved) Cellulitis of right foot (Acute) Foreign body in right foot (Resolved) Osteomyelitis (Acute) Debility (Acute) Osteomyelitis of right foot (Acute) Cellulitis of right foot (Acute) Laceration of right foot with foreign body (Acute) Cellulitis of left foot (Resolved) Polycystic ovaries (Resolved) Right foot ulcer into fat/fascia; right 5th metatarsal and proximal phalanx osteomyelitis s/p right 5th ray amputation 06/05/2020 Right foot cellulitis / abscess resolved DM2 w/ neuropathy Peripheral arterial disease lower extremity I reviewed her case. Her vitals are stable and she is afebrile. She did not have leukocytosis this past week. Wound vac was removed, there was some maceration to the edges so will hold off on reapplication of the wound today. I recommend holding the vac until Tuesday pending maceration resolution. Adaptic was applied to open ulcer sites. Wound care order will be placed for aquacell ag to ulcer sites and betadine to macerated distal incision closure site. Reviewed culture results - strep B - patient on IV antibiotics w/ PICC; Dr. Berry on consult. Input is appreciated. No weightbearing right foot, keep foot elevated. Discussed the importance of offloading for wound healing. Lower extremity arterial studies reviewed. PAD noted - consult placed to vascular/Dr. Padilla. She was advised to follow up in the outpatient setting in 3-4 weeks. Angiogram and angioplasty of tibial disease will be considered if lack of healing is noted. Discussed the importance of blood sugar control and nutrition for wound healing. Supplementation order was confirmed. Discussed the importance of offloading for wound healing. Podiatry will continue to follow while in house. Please call if questions. Amalia Phillip DPM, [facility] [phone]
[2020-06-12] MEDS: glipiZIDE 10 MG Tablet PO (07:42)
[2020-06-12] MEDS: Juven (unflavored) Packet 1 PACKET PO ×2 (07:42→16:13)
[2020-06-12] MEDS: Aspirin E.C. 81 MG Tablet PO (07:42)
[2020-06-12] MEDS: 0.9% NaCl IVPB Med Flush (250 mL) 15 ML IV (09:51)
[2020-06-12 10:00] VITALS: PULSE 73; RESP 16; O2SAT 98
[2020-06-12 11:16] LABS: Bedside Glucose 179 mg/dL (70-110)
[2020-06-12] MEDS: Insulin Lispro 100 UNIT/ML INSULN.PEN 8 UNIT SC ×2 (11:23→17:40)
--- NOTE | 2020-06-12 11:30 | MDS.RN ---
Completed pain interview for JOSEY 06/14/20.
[2020-06-12 14:06] VITALS: BP 143/78; PULSE 74; RESP 16; TEMP 36.3; O2SAT 96
--- NOTE | 2020-06-12 14:30 | NURSING ---
Wound VAC was removed by Dr Phillip this morning. Orders received to hold VAC until Tuesday d/t periwound maceration. will monitor closely. For now, pt to get daily dressing changes with [employer].
[2020-06-12 16:11] LABS: Bedside Glucose 159 mg/dL (70-110)
[2020-06-12] MEDS: Atorvastatin Calcium 80 MG Tablet PO (21:12)
[2020-06-12 21:26] LABS: Bedside Glucose 198 mg/dL (70-110)
[2020-06-13] MEDS: 0.9% NaCl IVPB Med Flush (250 mL) 15 ML IV (03:46)
[2020-06-13 04:01] VITALS: BP 156/80; PULSE 72; RESP 16; TEMP 36.8; O2SAT 95
[2020-06-13] MEDS: Enoxaparin 40 MG/0.4 ML Syringe SC (06:17)
[2020-06-13 06:18] VITALS: PULSE 76
[2020-06-13] MEDS: Metoprolol(XL)Succ 50 MG Tablet PO (06:18)
[2020-06-13] MEDS: Sertraline 50 MG Tablet PO (06:18)
[2020-06-13] MEDS: Losartan Potassium 50 MG Tablet PO (06:19)
[2020-06-13] MEDS: Levothyroxine 75 MCG Tablet PO (06:19)
[2020-06-13] MEDS: Menthol/Lanolin/Calamine/Znox 113 GM Tube 1 APPLIC TOPICAL ×2 (06:19→17:46)
[2020-06-13] MEDS: Nystatin Powder 15gm Bottle 1 APPLIC TOPICAL ×2 (06:20→17:47)
[2020-06-13] MEDS: metroNIDAZOLE 500 MG Tablet PO ×3 (06:21→21:08)
[2020-06-13 06:30] LABS: Bedside Glucose 101 mg/dL (70-110)
[2020-06-13] MEDS: glipiZIDE 10 MG Tablet PO (08:12)
[2020-06-13] MEDS: Juven (unflavored) Packet 1 PACKET PO ×2 (08:12→17:45)
[2020-06-13] MEDS: Aspirin E.C. 81 MG Tablet PO (08:12)
[2020-06-13] MEDS: Insulin Lispro 100 UNIT/ML INSULN.PEN 8 UNIT SC ×3 (08:13→17:47)
--- NOTE | 2020-06-13 09:41 | CASEMGMT ---
Social Work BIMS and PHQ-9 completed for MDS assessment. Jayde Lynch, PRINCIPAL ENGINEER PRODUCTION REPRODUCTION MANAGER
[2020-06-13] MEDS: 0.9% Saline Lock 10 ML Syringe IV ×3 (10:10→14:10)
--- NOTE | 2020-06-13 10:23 | NURSING ---
PT STATED THAT SHE UP DATES SON EVERY DAY. ALSO PREVNAR 13 GIVEN IN LEFT DELT. PT TOLERATED WELL.
[2020-06-13 11:01] LABS: Bedside Glucose 156 mg/dL (70-110)
--- NOTE | 2020-06-13 13:15 | RAD_ITS ---
STUDY: X-RAY - RIGHT FOOT CLINICAL: Female, 64 years old. follow up amputation, patient states she has no issues with her foot TECHNIQUE: 3 view(s) of the foot. COMPARISON: 06/04/2020. FINDINGS: Status post amputation of the 5th digit at the level of the proximal metatarsal shaft. Sesamoid bones of the 5th digit are present. Postoperative changes include soft tissue gas and swelling. No acute fracture or dislocation. Soft tissues and bony structures are otherwise unremarkable. RAD/Foot min 3 Views IMPRESSION: Postoperative changes status post 5th digit amputation. Electronically Signed: Kely Sauceda MD at 16:49 EDT Tel , Service support ,
[2020-06-13 14:31] VITALS: BP 167/75; PULSE 75; RESP 16; TEMP 36.8; O2SAT 96
[2020-06-13 16:40] LABS: Bedside Glucose 141 mg/dL (70-110)
[2020-06-13] MEDS: Atorvastatin Calcium 80 MG Tablet PO (21:08)
[2020-06-13 22:00] VITALS: RESP 15
[2020-06-13 22:50] LABS: Bedside Glucose 181 mg/dL (70-110)
[2020-06-14 04:19] VITALS: BP 152/79; PULSE 76; RESP 15; TEMP 37.4; O2SAT 96
[2020-06-14] MEDS: Levothyroxine 75 MCG Tablet PO (04:22)
[2020-06-14 04:23] VITALS: BP 152/79; PULSE 76
[2020-06-14] MEDS: Sertraline 50 MG Tablet PO (04:23)
[2020-06-14] MEDS: metroNIDAZOLE 500 MG Tablet PO ×3 (04:23→21:56)
[2020-06-14] MEDS: Metoprolol(XL)Succ 50 MG Tablet PO (04:23)
[2020-06-14] MEDS: Menthol/Lanolin/Calamine/Znox 113 GM Tube 1 APPLIC TOPICAL ×2 (04:24→17:47)
[2020-06-14] MEDS: Nystatin Powder 15gm Bottle 1 APPLIC TOPICAL ×2 (04:25→17:46)
[2020-06-14] MEDS: Enoxaparin 40 MG/0.4 ML Syringe SC (04:25)
[2020-06-14] MEDS: 0.9% Saline Lock 10 ML Syringe IV ×3 (04:59→21:56)
[2020-06-14 06:25] LABS: Bedside Glucose 72 mg/dL (70-110)
[2020-06-14] MEDS: Aspirin E.C. 81 MG Tablet PO (07:54)
[2020-06-14] MEDS: Juven (unflavored) Packet 1 PACKET PO ×2 (07:55→17:40)
[2020-06-14] MEDS: glipiZIDE 10 MG Tablet PO (07:55)
[2020-06-14 10:00] VITALS: PULSE 78; RESP 16; O2SAT 98
[2020-06-14 11:06] LABS: Bedside Glucose 171 mg/dL (70-110)
[2020-06-14] MEDS: Insulin Lispro 100 UNIT/ML INSULN.PEN 8 UNIT SC ×2 (11:42→17:39)
[2020-06-14 14:10] VITALS: BP 128/61; PULSE 74; RESP 15; TEMP 36.7; O2SAT 95
[2020-06-14 16:35] LABS: Bedside Glucose 167 mg/dL (70-110)
[2020-06-14 21:36] LABS: Bedside Glucose 259 mg/dL (70-110)
[2020-06-14] MEDS: Atorvastatin Calcium 80 MG Tablet PO (21:56)
[2020-06-15 05:00] VITALS: BP 173/81; PULSE 72; RESP 16; TEMP 36.9; O2SAT 95
[2020-06-15 06:20] LABS: Absolute Lymphocyte Count 1.37 X10^3/uL (0.83-4.51); Absolute Neutrophil Count 4.9 X10^3/uL (2.0-7.7); Basophil# 0.04 X10^3/uL; Basophil% 0.5 % (0-1); Eosinophil# 0.43 X10^3/uL; Eosinophils% 5.7 % (0-5); Hematocrit 29.2 % (37-47); Hemoglobin 8.8 g/dL (12.0-15.0); Lymphocyte # 1.37 X10^3/ul (4.0); Lymphocyte % 18.3 % (19-41); Mean Corp Hgb Conc 30.1 g/dL (32-36); Mean Corpuscular Hgb 27.8 pg (27.0-32.0); Mean Corpuscular Volume 92.4 fL (81-99); Monocyte# 0.71 X10^3/uL; Monocyte% 9.5 % (0-10); NRBC Flagged by Analyzer 0 % (0-5); Neutrophil % 65.5 % (47-70); Platelet Count 375 K/mm3 (150-450); RBC Distribution Width CV 13.9 % (11.6-14.6); Red Blood Count 3.16 M/mm3 (4.2-5.4); White Blood Count 7.5 K/mm3 (4.4-11.0)
[2020-06-15 06:31] LABS: Bedside Glucose 112 mg/dL (70-110)
[2020-06-15] MEDS: metroNIDAZOLE 500 MG Tablet PO ×3 (06:39→22:39)
[2020-06-15] MEDS: Losartan Potassium 50 MG Tablet PO (06:39)
[2020-06-15] MEDS: Enoxaparin 40 MG/0.4 ML Syringe SC (06:39)
[2020-06-15 06:40] VITALS: BP 173/81; PULSE 72
[2020-06-15] MEDS: Levothyroxine 150 MCG Tablet PO (06:40)
[2020-06-15] MEDS: Metoprolol(XL)Succ 50 MG Tablet PO (06:40)
[2020-06-15] MEDS: Sertraline 50 MG Tablet PO (06:40)
[2020-06-15 06:43] LABS: Anion Gap 4 (5-15); BUN 23 mg/dL (7-18); BUN/Creat Ratio 30.1 RATIO (10-20); Calcium,Total 8.6 mg/dL (8.5-10.1); Chloride 107 mmol/L (98-107); Creatinine, Serum 0.76 mg/dL (0.55-1.02); EST Glomerular Filtration Rate 80 mL/min (>60); Est Glom Filt Rate - Afr Amer 97 mL/min (>60); Estimated Creatinine Clearance 69.09 ml/min; Glucose 135 mg/dL (74-106); Potassium 3.7 mmol/L (3.5-5.1); Sodium Level 140 mmol/L (136-145)
[2020-06-15] MEDS: Aspirin E.C. 81 MG Tablet PO (08:09)
[2020-06-15] MEDS: glipiZIDE 10 MG Tablet PO (08:10)
[2020-06-15] MEDS: Insulin Lispro 100 UNIT/ML INSULN.PEN 8 UNIT SC ×3 (08:10→17:09)
[2020-06-15] MEDS: Juven (unflavored) Packet 1 PACKET PO ×2 (08:11→17:09)
[2020-06-15] MEDS: Nystatin Powder 15gm Bottle 1 APPLIC TOPICAL ×2 (08:13→17:22)
[2020-06-15] MEDS: Menthol/Lanolin/Calamine/Znox 113 GM Tube 1 APPLIC TOPICAL ×2 (08:16→17:21)
[2020-06-15 11:06] LABS: Bedside Glucose 164 mg/dL (70-110)
[2020-06-15] MEDS: Tuberculin,Purif.prot.deriv. 50 TU/ML Vial 5 ML ID (11:15)
[2020-06-15] MEDS: 0.9% Saline Lock 10 ML Syringe IV (11:17)
--- NOTE | 2020-06-15 13:49 | NURSING ---
Pt denies need for staff to update family at this time.
[2020-06-15 14:02] VITALS: BP 149/77; PULSE 75; RESP 19; TEMP 36.9; O2SAT 96
--- NOTE | 2020-06-15 14:07 | PN_ITS ---
Patient Problems: Active and Suspected Problems (Last Reviewed 06/11/20 @ 08:[address] Victorino Padilla MD) Debility (Acute) Osteomyelitis of right foot (Acute) Subjective: 64-year-old female seen bedside status post right fifth ray resection. She denies fever, chill, nausea, vomiting. She denies loss of appetite. Her dressing is intact. - Physical Exam Vitals/I&O's: Vital Signs Temp Pulse Resp BP Pulse Ox 98.4 F 75 19 H 149/77 H 96 06/15/20 14:02 06/15/20 14:02 06/15/20 14:02 06/15/20 14:02 06/15/20 14:02 Oxygen Delivery Method Room Air Weight: 94.546 kg Body Mass Index (BMI) 33.9 Finger Stick Blood Glucose 100 Intake and Output for Last 24 Hours 06/13/20 06/14/20 06/15/20 23:59 23:59 23:59 Intake Total 630 / 630 1330 / 1330 530 / 530 Balance 630 / 630 1330 / 1330 530 / 530 General: Alert, Oriented x3, Cooperative HEENT: Atraumatic Extremities: No cyanosis, No edema, No Calf Tenderness, Diminished Peripheral Pulses, Edema Skin: Ulcer/ Wound - No purulence, erythema, streaking, odor. There is fibrous tissue to the proximal wound that measures approximately 3 cm x 2 and half centimeters by 0.2 cm. Post debridement 3.1 x 2.6 x 0.2 cm. There is some granular tissue and moderate drainage continued. There is no eschar. The incision site is still moist with continued drainage. The plantar lateral foot ulcer measures 0.3 x 0.3 x 0.1 cm and post debridement 0.8 x 0.8 x 0.2 cm, - - The adjacent skin is hairless and atrophic Musculoskeletal: No Tenderness to Palpation of Joints or Extremities, Muscle Wasting, - - Fifth ray resection right. Compartments remain soft. Active range of motion of remaining toes on the right foot. There is no bogginess or fluctuance on palpation Neurological: - - Lack of epicritic sensation light touch is consistent with neuropathy status Laboratory Results 06/14/20 16:20: POC Glucose 167 H 06/14/20 21:30: POC Glucose 259 H 06/15/20 05:07: WBC 7.5, RBC 3.16 L, Hgb 8.8 L, Hct 29.2 L, MCV 92.4, MCH 27.8, MCHC 30.1 L, RDW Std Deviation 47.0 H, RDW Coeff of Kadi 13.9, Plt Count 375, MPV 9.0, Immature Gran % (Auto) 0.500, Neut % (Auto) 65.5, Lymph % (Auto) 18.3 L, [place] % (Auto) 9.5, Eos % (Auto) 5.7 H, Baso % (Auto) 0.5, Absolute Neuts (auto) 4.9, Absolute Lymphs (auto) 1.37, Nucleated RBC % 0 06/15/20 05:07: Sodium 140, Potassium 3.7, Chloride 107, Carbon Dioxide 29.0, Anion Gap 4 L, BUN 23 H, Creatinine 0.76, Estim Creat Clear Calc 69.09, Est GFR (MDRD) Af Amer 97, Est GFR (MDRD) Non-Af 80, BUN/Creatinine Ratio 30.1 H, Glucose 135 H, Calcium 8.6 06/15/20 06:14: POC Glucose 112 H 06/15/20 10:52: POC Glucose 164 H Current Medications Acetaminophen (Tylenol) 1,000 mg PO Q6H PRN PRN PRN Reason: Pain Score 1-5/10 Aspirin (Ecotrin) 81 mg PO DAILY@0800 [facility] Last Admin: 06/15/20 08:09 Dose: 81 mg Documented by: Atorvastatin Calcium (Lipitor) 80 mg PO QHS [facility] Last Admin: 06/14/20 21:56 Dose: 80 mg Documented by: Bisacodyl (Dulcolax) 10 mg RECTAL DAILY PRN PRN Reason: Constipation Calamine/Phenol (Calmoseptine Ointment) 1 applic TOPICAL BID [facility]; Protocol Last Admin: 06/15/20 08:16 Dose: 1 applicatio Documented by: Enoxaparin Sodium (Lovenox) 40 mg SC DAILY@0600 [facility] Last Admin: 06/15/20 06:39 Dose: 40 mg Documented by: Ergocalciferol (Vitamin D) 50,000 unit PO We@1000 [facility] Last Admin: 06/11/20 10:08 Dose: 50,000 unit Documented by: [facility] Last Admin: 06/15/20 08:10 Dose: 10 mg Documented by: Heparin Sodium (Beef Lung) () 50 units IV UD PRN PRN Reason: PICC Line Heparin Flush Ceftriaxone Sodium 2 gm/ (Sodium Chloride) 50 mls @ 100 mls/hr IV Q24 [facility] Stop: 07/19/20 10:01 Last Infusion: 06/15/20 13:04 Dose: Infused Documented by: Sodium Chloride () 250 mls @ 15 mls/hr IV .[id number] PRN PRN Reason: SALINE FLUSH Last Infusion: 06/13/20 10:26 Dose: 0 mls/hr Documented by: Insulin Glargine (Lantus ([facility])) 37 units SC BID [facility] Last Admin: 06/15/20 06:44 Dose: 37 units Documented by: Insulin Human Lispro (Humalog Kwikpen ([facility])) 8 unit SC 0800,1200,1700 [facility] Last Admin: 06/15/20 11:33 Dose: 8 units Documented by: Lactobacillus Acidophilus (Acidophilus) 1 tablet PO BID [facility] Last Admin: 06/15/20 06:39 Dose: 1 tablet Documented by: Levothyroxine Sodium (Synthroid) 150 mcg PO Victor@0600 [facility] Last Admin: 06/15/20 06:40 Dose: 150 mcg Documented by: Levothyroxine Sodium (Synthroid) 75 mcg PO MoTuWeThFrSa@0600 [facility] Last Admin: 06/14/20 04:22 Dose: 75 mcg Documented by: Losartan Potassium (Cozaar) 50 mg PO DAILY [facility] Last Admin: 06/15/20 06:39 Dose: 50 mg Documented by: Metoprolol Succinate (Toprol Xl (Beta [place])) 50 mg PO DAILY [facility] Last Admin: 06/15/20 06:40 Dose: 50 mg Documented by: Metronidazole (Flagyl) 500 mg PO TID [facility] Stop: 07/19/20 22:01 Last Admin: 06/15/20 06:39 Dose: 500 mg Documented by: Nystatin (Mycostatin Powder) 1 applic TOPICAL BID [facility]; Protocol Last Admin: 06/15/20 08:13 Dose: 1 applicatio Documented by: Oxycodone HCl (Oxyir) 5 mg PO Q4H PRN PRN PRN Reason: Pain Score 6-10/10 Polyethylene Glycol (Miralax) 17 gm PO DAILY [facility] Last Admin: 06/15/20 06:41 Dose: Not Given Documented by: Senna/Docusate Sodium (Senokot-S, Salima-Colace) 2 tablet PO BID [facility] Last Admin: 06/15/20 06:45 Dose: Not Given Documented by: Sertraline HCl (Zoloft) 50 mg PO DAILY [facility] Last Admin: 06/15/20 06:40 Dose: 50 mg Documented by: Sodium Chloride () 10 - 40 ml IV UD PRN PRN Reason: Open End PICC Flush Last Admin: 06/15/20 11:17 Dose: 20 ml Documented by: Sodium Chloride (0.9% Nacl (Sterile) Posiflush) 10 - 40 ml IV UD PRN PRN Reason: Port access or dressing change Medical Necessity - Tobacco Use Smoking Status: Never smoker Tobacco Use: Secondhand Assessment/Plan All Active Problems (Last Reviewed 06/11/20 @ 08:[address] Victorino Padilla MD) Ulcer of right foot with fat layer exposed (Acute) Chronic ulcer of left foot with fat layer exposed (Resolved) Cellulitis of right foot (Acute) Foreign body in right foot (Resolved) Osteomyelitis (Acute) Debility (Acute) Osteomyelitis of right foot (Acute) Cellulitis of right foot (Acute) Laceration of right foot with foreign body (Acute) Cellulitis of left foot (Resolved) Polycystic ovaries (Resolved) Right foot ulcer into fat/fascia; right 5th metatarsal and proximal phalanx osteomyelitis s/p right 5th ray amputation 06/05/2020 Right foot cellulitis / abscess resolved DM2 w/ neuropathy Peripheral arterial disease lower extremity I reviewed her case. Her vitals are stable and she is afebrile. She does not have leukocytosis. She is continued extra moisture to her wound and surgical site. I recommend holding the wound VAC until next Tuesday. Her dressing orders were changed and these were placed in the computer. Subcutaneous excisional debridement was performed with a curette, medical scissor and pickup to debride and excise devitalized subcutaneous tissue, biofilm, slough, and fibrous tissue. Pressure was applied to maintain hemostasis. She tolerated this well. Local anesthetic was not needed due to her neuropathy status. Her postoperative x-ray was reviewed including 3 nonweightbearing views of the right foot AP, lateral, oblique as the following: No acute fractures or dislocations. Status post fifth ray resection is noted without osseous proliferation or calcification. There is also no soft tissue emphysema or foreign body retention or other acute injuries. Reviewed culture results - strep B - patient on IV antibiotics w/ PICC; Dr. Berry on consult. Input is appreciated. No weightbearing right foot, keep foot elevated. Discussed the importance of offloading for wound healing. Lower extremity arterial studies reviewed. PAD noted - consult placed to vascular/Dr. Padilla. She was advised to follow up in the outpatient setting in 3-4 weeks. Angiogram and angioplasty of tibial disease will be considered if lack of healing is noted. Discussed the importance of blood sugar control and nutrition for wound healing. Supplementation order was confirmed. Discussed the importance of offloading for wound healing. Podiatry will continue to follow while in house. Please call if questions. Amalia Phillip DPM, [facility] [phone]
[2020-06-15 22:06] LABS: Bedside Glucose 140 mg/dL (70-110)
[2020-06-15 22:15] LABS: Bedside Glucose 177 mg/dL (70-110)
[2020-06-15] MEDS: Atorvastatin Calcium 80 MG Tablet PO (22:39)
[2020-06-15] MEDS: Acetaminophen 500 MG Tablet 1000 MG PO (22:41)
[2020-06-16 05:27] VITALS: BP 179/94; PULSE 73; RESP 16; TEMP 36.3; O2SAT 93
[2020-06-16 05:38] VITALS: BP 179/94; PULSE 73
[2020-06-16] MEDS: Metoprolol(XL)Succ 50 MG Tablet PO (05:38)
[2020-06-16] MEDS: metroNIDAZOLE 500 MG Tablet PO ×3 (05:38→19:55)
[2020-06-16] MEDS: Losartan Potassium 50 MG Tablet PO (05:38)
[2020-06-16] MEDS: Enoxaparin 40 MG/0.4 ML Syringe SC (05:38)
[2020-06-16] MEDS: Levothyroxine 75 MCG Tablet PO (05:38)
[2020-06-16] MEDS: Sertraline 50 MG Tablet PO (05:38)
[2020-06-16] MEDS: Menthol/Lanolin/Calamine/Znox 113 GM Tube 1 APPLIC TOPICAL ×2 (05:41→17:27)
[2020-06-16] MEDS: Nystatin Powder 15gm Bottle 1 APPLIC TOPICAL ×2 (05:41→17:27)
[2020-06-16 05:46] LABS: Bedside Glucose 80 mg/dL (70-110)
[2020-06-16] MEDS: glipiZIDE 10 MG Tablet PO (07:27)
[2020-06-16] MEDS: Aspirin E.C. 81 MG Tablet PO (07:27)
[2020-06-16] MEDS: Juven (unflavored) Packet 1 PACKET PO ×2 (07:28→17:22)
[2020-06-16] MEDS: Insulin Lispro 100 UNIT/ML INSULN.PEN 8 UNIT SC ×3 (08:11→17:23)
--- NOTE | 2020-06-16 09:31 | NURSING ---
wound photo: right plantar foot
--- NOTE | 2020-06-16 09:31 | NURSING ---
wound photo: right dorsal/lateral foot
[2020-06-16 10:50] LABS: Bedside Glucose 163 mg/dL (70-110)
[2020-06-16 14:09] VITALS: BP 128/74; PULSE 74; RESP 16; TEMP 36.6; O2SAT 96
[2020-06-16 16:31] LABS: Bedside Glucose 158 mg/dL (70-110)
[2020-06-16] MEDS: Atorvastatin Calcium 80 MG Tablet PO (19:55)
[2020-06-16 21:11] LABS: Bedside Glucose 240 mg/dL (70-110)
[2020-06-17 05:00] VITALS: BP 162/82; PULSE 79; RESP 18; TEMP 36.6; O2SAT 94
[2020-06-17 06:14] VITALS: BP 162/82; PULSE 79
[2020-06-17] MEDS: Metoprolol(XL)Succ 50 MG Tablet PO (06:14)
[2020-06-17] MEDS: Sertraline 50 MG Tablet PO (06:14)
[2020-06-17] MEDS: Enoxaparin 40 MG/0.4 ML Syringe SC (06:14)
[2020-06-17] MEDS: Losartan Potassium 50 MG Tablet PO (06:14)
[2020-06-17] MEDS: metroNIDAZOLE 500 MG Tablet PO ×3 (06:14→20:17)
[2020-06-17] MEDS: Levothyroxine 75 MCG Tablet PO (06:15)
[2020-06-17] MEDS: Nystatin Powder 15gm Bottle 1 APPLIC TOPICAL ×2 (06:18→17:33)
[2020-06-17] MEDS: Menthol/Lanolin/Calamine/Znox 113 GM Tube 1 APPLIC TOPICAL ×2 (06:18→17:32)
[2020-06-17 06:26] LABS: Bedside Glucose 82 mg/dL (70-110)
[2020-06-17] MEDS: glipiZIDE 10 MG Tablet PO (08:02)
[2020-06-17] MEDS: Aspirin E.C. 81 MG Tablet PO (08:02)
[2020-06-17] MEDS: Iron Polysaccharide Complex 150 MG CAPSULE PO (08:02)
[2020-06-17] MEDS: Juven (unflavored) Packet 1 PACKET PO ×2 (08:03→17:23)
--- NOTE | 2020-06-17 08:10 | MDS.RN ---
Information for the mds was obtained from review of the clinical record, interview of resident, staff, and direct observation of resident's care.
[2020-06-17] MEDS: 0.9% Saline Lock 10 ML Syringe IV (09:23)
[2020-06-17 09:30] VITALS: PULSE 76; RESP 18; O2SAT 94
[2020-06-17 11:06] LABS: Bedside Glucose 119 mg/dL (70-110)
[2020-06-17] MEDS: Insulin Lispro 100 UNIT/ML INSULN.PEN 8 UNIT SC (11:41)
[2020-06-17 13:48] VITALS: BP 160/68; PULSE 76; RESP 17; TEMP 36.7; O2SAT 97
--- NOTE | 2020-06-17 14:30 | NURSING ---
pt stated she up dates son every day.
[2020-06-17 17:01] LABS: Bedside Glucose 75 mg/dL (70-110)
[2020-06-17] MEDS: Atorvastatin Calcium 80 MG Tablet PO (20:17)
[2020-06-17 21:40] LABS: Bedside Glucose 189 mg/dL (70-110)
[2020-06-18] MEDS: Levothyroxine 75 MCG Tablet PO (06:03)
[2020-06-18 06:04] VITALS: BP 156/85; PULSE 79
[2020-06-18] MEDS: Metoprolol(XL)Succ 50 MG Tablet PO (06:04)
[2020-06-18] MEDS: Losartan Potassium 50 MG Tablet PO (06:04)
[2020-06-18] MEDS: metroNIDAZOLE 500 MG Tablet PO ×3 (06:04→20:50)
[2020-06-18] MEDS: Sertraline 50 MG Tablet PO (06:05)
[2020-06-18] MEDS: Menthol/Lanolin/Calamine/Znox 113 GM Tube 1 APPLIC TOPICAL ×2 (06:06→17:04)
[2020-06-18] MEDS: Enoxaparin 40 MG/0.4 ML Syringe SC (06:07)
[2020-06-18] MEDS: Nystatin Powder 15gm Bottle 1 APPLIC TOPICAL ×2 (06:07→17:05)
[2020-06-18 06:11] VITALS: BP 156/85; PULSE 79; RESP 16; TEMP 36.6; O2SAT 98
--- NOTE | 2020-06-18 06:21 | NURSING ---
fasting Blood sugar 53, given orange juice peanut butter and crackers. pt states feels a little sweaty. skin warm and dry, ashley held this am
[2020-06-18 06:35] LABS: Bedside Glucose 53 mg/dL (70-110)
--- NOTE | 2020-06-18 06:54 | NURSING ---
repeat blood sugar 101, skin warm and dry, pt states i feel fine
[2020-06-18 06:56] LABS: Bedside Glucose 101 mg/dL (70-110)
[2020-06-18] MEDS: Iron Polysaccharide Complex 150 MG CAPSULE PO (08:16)
[2020-06-18] MEDS: Aspirin E.C. 81 MG Tablet PO (08:16)
[2020-06-18] MEDS: glipiZIDE 10 MG Tablet PO (08:16)
[2020-06-18] MEDS: Juven (unflavored) Packet 1 PACKET PO ×2 (08:16→17:06)
[2020-06-18 11:15] LABS: Bedside Glucose 200 mg/dL (70-110)
[2020-06-18] MEDS: 0.9% NaCl IVPB Med Flush (250 mL) 15 ML IV (12:01)
[2020-06-18 14:02] VITALS: BP 161/75; PULSE 77; RESP 16; TEMP 36.8; O2SAT 96
[2020-06-18 18:00] LABS: Bedside Glucose 228 mg/dL (70-110)
[2020-06-18] MEDS: Atorvastatin Calcium 80 MG Tablet PO (20:50)
[2020-06-18 21:30] LABS: Bedside Glucose 223 mg/dL (70-110)
[2020-06-19 06:18] VITALS: BP 182/75; PULSE 78; RESP 18; TEMP 36.6; O2SAT 95
[2020-06-19 06:19] VITALS: BP 182/75; PULSE 78
[2020-06-19] MEDS: Losartan Potassium 50 MG Tablet PO (06:19)
[2020-06-19] MEDS: metroNIDAZOLE 500 MG Tablet PO ×3 (06:19→21:57)
[2020-06-19] MEDS: Metoprolol(XL)Succ 50 MG Tablet PO (06:19)
[2020-06-19] MEDS: Levothyroxine 75 MCG Tablet PO (06:19)
[2020-06-19] MEDS: Sertraline 50 MG Tablet PO (06:19)
[2020-06-19] MEDS: Enoxaparin 40 MG/0.4 ML Syringe SC (06:20)
[2020-06-19] MEDS: Menthol/Lanolin/Calamine/Znox 113 GM Tube 1 APPLIC TOPICAL ×2 (06:31→17:08)
[2020-06-19] MEDS: Nystatin Powder 15gm Bottle 1 APPLIC TOPICAL ×2 (06:32→17:07)
[2020-06-19] MEDS: Aspirin E.C. 81 MG Tablet PO (08:12)
[2020-06-19] MEDS: Iron Polysaccharide Complex 150 MG CAPSULE PO (08:13)
[2020-06-19] MEDS: glipiZIDE 10 MG Tablet PO (08:13)
[2020-06-19] MEDS: Juven (unflavored) Packet 1 PACKET PO ×2 (08:13→17:03)
[2020-06-19] MEDS: 0.9% Saline Lock 10 ML Syringe IV (10:37)
[2020-06-19] MEDS: 0.9% NaCl IVPB Med Flush (250 mL) 15 ML IV (10:38)
[2020-06-19 10:45] LABS: Bedside Glucose 224 mg/dL (70-110)
[2020-06-19 11:01] LABS: Bedside Glucose 226 mg/dL (70-110)
[2020-06-19 14:11] VITALS: BP 166/71; PULSE 78; RESP 14; TEMP 37.1; O2SAT 94
[2020-06-19 16:35] LABS: Bedside Glucose 258 mg/dL (70-110)
--- NOTE | 2020-06-19 17:40 | NURSING ---
DR. SMITH UPDATED IN INCREASED BLOOD PRESSURES AND BLOOD SUGARS. HUMALOG 7UNITS AND INCREASE TOPROL AND COZAAR. WILL UPDATE R'.
[2020-06-19] MEDS: Insulin Lispro 100 UNIT/ML INSULN.PEN 7 UNIT SC (18:32)
[2020-06-19 21:31] LABS: Bedside Glucose 300 mg/dL (70-110)
[2020-06-19] MEDS: Atorvastatin Calcium 80 MG Tablet PO (21:57)
[2020-06-19] MEDS: Acetaminophen 500 MG Tablet 1000 MG PO (21:59)
[2020-06-20 06:06] VITALS: BP 175/66; PULSE 77; RESP 16; TEMP 36.3; O2SAT 95
[2020-06-20] MEDS: Losartan Potassium 100 MG Tablet PO (06:09)
[2020-06-20 06:10] VITALS: BP 175/66; PULSE 77
[2020-06-20] MEDS: Enoxaparin 40 MG/0.4 ML Syringe SC (06:10)
[2020-06-20] MEDS: metroNIDAZOLE 500 MG Tablet PO ×3 (06:10→19:47)
[2020-06-20] MEDS: Levothyroxine 75 MCG Tablet PO (06:10)
[2020-06-20] MEDS: Sertraline 50 MG Tablet PO (06:10)
[2020-06-20] MEDS: Metoprolol(XL)Succ 100 MG Tablet PO (06:10)
[2020-06-20] MEDS: Nystatin Powder 15gm Bottle 1 APPLIC TOPICAL ×2 (06:15→17:29)
[2020-06-20] MEDS: Menthol/Lanolin/Calamine/Znox 113 GM Tube 1 APPLIC TOPICAL ×2 (06:15→17:30)
[2020-06-20 06:26] LABS: Bedside Glucose 190 mg/dL (70-110)
[2020-06-20] MEDS: Aspirin E.C. 81 MG Tablet PO (08:04)
[2020-06-20] MEDS: Iron Polysaccharide Complex 150 MG CAPSULE PO (08:05)
[2020-06-20] MEDS: glipiZIDE 10 MG Tablet PO (08:05)
[2020-06-20] MEDS: Juven (unflavored) Packet 1 PACKET PO ×2 (08:05→17:29)
[2020-06-20] MEDS: Insulin Lispro 100 UNIT/ML INSULN.PEN 10 UNIT SC ×3 (08:29→17:30)
[2020-06-20] MEDS: 0.9% Saline Lock 10 ML Syringe IV ×3 (10:30→19:50)
[2020-06-20 11:11] LABS: Bedside Glucose 234 mg/dL (70-110)
[2020-06-20 14:12] VITALS: BP 163/79; PULSE 82; RESP 16; TEMP 36.8; O2SAT 94
[2020-06-20 16:56] LABS: Bedside Glucose 112 mg/dL (70-110)
[2020-06-20] MEDS: Atorvastatin Calcium 80 MG Tablet PO (19:47)
[2020-06-20 23:41] LABS: Bedside Glucose 159 mg/dL (70-110)
[2020-06-21 06:05] VITALS: BP 146/75; PULSE 78; RESP 16; TEMP 36.6; O2SAT 92
[2020-06-21] MEDS: 0.9% Saline Lock 10 ML Syringe IV ×2 (06:09→11:40)
[2020-06-21 06:10] VITALS: PULSE 78
[2020-06-21] MEDS: Metoprolol(XL)Succ 100 MG Tablet PO (06:10)
[2020-06-21] MEDS: Enoxaparin 40 MG/0.4 ML Syringe SC (06:10)
[2020-06-21] MEDS: Levothyroxine 75 MCG Tablet PO (06:11)
[2020-06-21] MEDS: Losartan Potassium 100 MG Tablet PO (06:11)
[2020-06-21] MEDS: Sertraline 50 MG Tablet PO (06:11)
[2020-06-21] MEDS: Menthol/Lanolin/Calamine/Znox 113 GM Tube 1 APPLIC TOPICAL ×2 (06:12→16:56)
[2020-06-21] MEDS: Nystatin Powder 15gm Bottle 1 APPLIC TOPICAL ×2 (06:12→16:57)
[2020-06-21] MEDS: metroNIDAZOLE 500 MG Tablet PO ×3 (06:12→20:32)
[2020-06-21 07:10] LABS: Bedside Glucose 134 mg/dL (70-110)
[2020-06-21] MEDS: Insulin Lispro 100 UNIT/ML INSULN.PEN 10 UNIT SC ×3 (08:21→18:11)
[2020-06-21] MEDS: Aspirin E.C. 81 MG Tablet PO (08:22)
[2020-06-21] MEDS: glipiZIDE 10 MG Tablet PO (08:22)
[2020-06-21] MEDS: Iron Polysaccharide Complex 150 MG CAPSULE PO (08:22)
[2020-06-21] MEDS: Juven (unflavored) Packet 1 PACKET PO ×2 (08:22→16:52)
[2020-06-21 11:21] LABS: Bedside Glucose 171 mg/dL (70-110)
[2020-06-21 14:34] VITALS: PULSE 74; RESP 18; O2SAT 94
[2020-06-21 16:09] VITALS: BP 148/80; PULSE 74; RESP 18; TEMP 36.3; O2SAT 94
[2020-06-21 17:55] LABS: Bedside Glucose 97 mg/dL (70-110)
--- NOTE | 2020-06-21 18:10 | NURSING ---
Dr Combs notified of blood sugar 97 tonight, new orders given.
[2020-06-21] MEDS: Atorvastatin Calcium 80 MG Tablet PO (20:32)
[2020-06-21 21:46] LABS: Bedside Glucose 206 mg/dL (70-110)
[2020-06-22 06:00] VITALS: BP 182/82; PULSE 75; RESP 18; TEMP 36.9; O2SAT 96
[2020-06-22 06:04] LABS: Absolute Lymphocyte Count 1.58 X10^3/uL (0.83-4.51); Absolute Neutrophil Count 3.5 X10^3/uL (2.0-7.7); Basophil# 0.05 X10^3/uL; Basophil% 0.8 % (0-1); Eosinophil# 0.45 X10^3/uL; Eosinophils% 7.4 % (0-5); Hemoglobin 9.9 g/dL (12.0-15.0); Lymphocyte # 1.58 X10^3/ul (4.0); Lymphocyte % 25.8 % (19-41); Mean Corp Hgb Conc 30.9 g/dL (32-36); Mean Corpuscular Hgb 28.6 pg (27.0-32.0); Mean Corpuscular Volume 92.5 fL (81-99); Mean Platelet Vol. 8.7 fl (6.2-12.0); Monocyte# 0.52 X10^3/uL; Monocyte% 8.5 % (0-10); NRBC Flagged by Analyzer 0 % (0-5); Neutrophil # 3.51 X10^3/uL (2.7-7.7); Neutrophil % 57.3 % (47-70); Platelet Count 319 K/mm3 (150-450); RBC Distribution Width CV 14.6 % (11.6-14.6); RBC Distribution Width SD 48.8 fl (35.1-43.9); Red Blood Count 3.46 M/mm3 (4.2-5.4); White Blood Count 6.1 K/mm3 (4.4-11.0)
[2020-06-22 06:12] VITALS: PULSE 75
[2020-06-22] MEDS: 0.9% Saline Lock 10 ML Syringe IV ×2 (06:12→20:56)
[2020-06-22] MEDS: Sertraline 50 MG Tablet PO (06:12)
[2020-06-22] MEDS: metroNIDAZOLE 500 MG Tablet PO ×3 (06:12→20:56)
[2020-06-22] MEDS: Menthol/Lanolin/Calamine/Znox 113 GM Tube 1 APPLIC TOPICAL ×2 (06:12→17:27)
[2020-06-22] MEDS: Losartan Potassium 100 MG Tablet PO (06:12)
[2020-06-22] MEDS: Enoxaparin 40 MG/0.4 ML Syringe SC (06:12)
[2020-06-22] MEDS: Metoprolol(XL)Succ 100 MG Tablet PO (06:12)
[2020-06-22] MEDS: Levothyroxine 150 MCG Tablet PO (06:12)
[2020-06-22] MEDS: Nystatin Powder 15gm Bottle 1 APPLIC TOPICAL ×2 (06:14→17:27)
[2020-06-22 06:28] LABS: Anion Gap 3 (5-15); BUN 21 mg/dL (7-18); BUN/Creat Ratio 27.1 RATIO (10-20); Calcium,Total 8.8 mg/dL (8.5-10.1); Chloride 105 mmol/L (98-107); Creatinine, Serum 0.78 mg/dL (0.55-1.02); EST Glomerular Filtration Rate 79 mL/min (>60); Est Glom Filt Rate - Afr Amer 96 mL/min (>60); Estimated Creatinine Clearance 67.31 ml/min; Glucose 181 mg/dL (74-106); Potassium 3.7 mmol/L (3.5-5.1); Sodium Level 139 mmol/L (136-145)
[2020-06-22 06:45] LABS: Bedside Glucose 164 mg/dL (70-110)
[2020-06-22] MEDS: Juven (unflavored) Packet 1 PACKET PO ×2 (08:24→17:26)
[2020-06-22] MEDS: Insulin Lispro 100 UNIT/ML INSULN.PEN 7 UNIT SC ×3 (08:24→18:17)
[2020-06-22] MEDS: Aspirin E.C. 81 MG Tablet PO (08:24)
[2020-06-22] MEDS: glipiZIDE 10 MG Tablet PO (08:24)
[2020-06-22] MEDS: Iron Polysaccharide Complex 150 MG CAPSULE PO (08:24)
[2020-06-22] MEDS: 0.9% NaCl IVPB Med Flush (250 mL) 15 ML IV (10:31)
[2020-06-22 10:36] VITALS: PULSE 74; RESP 16; O2SAT 98
[2020-06-22 11:15] LABS: Bedside Glucose 239 mg/dL (70-110)
[2020-06-22 16:11] VITALS: BP 164/82; PULSE 74; RESP 16; TEMP 36.4; O2SAT 98
[2020-06-22 16:36] LABS: Bedside Glucose 203 mg/dL (70-110)
--- NOTE | 2020-06-22 20:46 | PN_ITS ---
Patient Problems: Active and Suspected Problems (Last Reviewed 06/11/20 @ 08:[address] Victorino Padilla MD) Debility (Acute) Osteomyelitis of right foot (Acute) Subjective: Patient seen and examined bedside. Patient reports no new issues. She is largely pain free. Patient denies N/F/V/C/CP/SOB/streaking or purulence. - Physical Exam Vitals/I&O's: Vital Signs Temp Pulse Resp BP Pulse Ox 97.6 F L 74 16 164/82 H 98 06/22/20 16:11 06/22/20 16:11 06/22/20 16:11 06/22/20 16:11 06/22/20 16:11 Oxygen Delivery Method Room Air Weight: 96.417 kg Body Mass Index (BMI) 33.9 Finger Stick Blood Glucose 100 Intake and Output for Last 24 Hours 06/20/20 06/21/20 06/22/20 23:59 23:59 23:59 Intake Total 770 / 770 770 / 770 530 / 530 Balance 770 / 770 770 / 770 530 / 530 General: Alert, Oriented x3 HEENT: Atraumatic Extremities: No cyanosis, No Calf Tenderness, Diminished Peripheral Pulses, Edema Skin: Ulcer/ Wound - Right foot lateral: No purulence, erythema, streaking, odor. There is fibrous tissue to the proximal wound that predebridment measures approximately 2.8 cm x 1.8 and half centimeters by 0.2 cm. Post debridement measurements 3 x 2 x 0.3 cm. There is some granular tissue and mild drainage continued. There is no eschar. The incision site is well coapted with sutures intact. The plantar lateral foot ulcer measures predebriement 0.4 x 0.4 x 0.2 cm and post debridement 0.5 x 0.5 x 0.3 cm. The lateral ulcer just plantar to incision measures predebridment 0.2x0.2x0.1cm and postdebridment 0.2x0.2x0.2cm. The adjacent skin is hairless and atrophic Musculoskeletal: Tenderness - mild at wound with palpation Neurological: - - lack of epicritic sensation light touch is consistent with neuropathy status Psych/Mental Status: Normal Affect, Appropriate Laboratory Results 06/21/20 21:37: POC Glucose 206 H 06/22/20 05:50: WBC 6.1, RBC 3.46 L, Hgb 9.9 L, Hct 32.0 L, MCV 92.5, MCH 28.6, MCHC 30.9 L, RDW Std Deviation 48.8 H, RDW Coeff of Kadi 14.6, Plt Count 319, MPV 8.7, Immature Gran % (Auto) 0.200, Neut % (Auto) 57.3, Lymph % (Auto) 25.8, [place] % (Auto) 8.5, Eos % (Auto) 7.4 H, Baso % (Auto) 0.8, Absolute Neuts (auto) 3.5, Absolute Lymphs (auto) 1.58, Nucleated RBC % 0 06/22/20 05:50: Sodium 139, Potassium 3.7, Chloride 105, Carbon Dioxide 31.0, Anion Gap 3 L, BUN 21 H, Creatinine 0.78, Estim Creat Clear Calc 67.31, Est GFR (MDRD) Af Amer 96, Est GFR (MDRD) Non-Af 79, BUN/Creatinine Ratio 27.1 H, Glucose 181 H, Calcium 8.8 06/22/20 06:23: POC Glucose 164 H 06/22/20 11:07: POC Glucose 239 H 06/22/20 16:31: POC Glucose 203 H Current Medications Acetaminophen (Tylenol) 1,000 mg PO Q6H PRN PRN PRN Reason: Pain Score 1-5/10 Last Admin: 06/19/20 21:59 Dose: 1,000 mg Documented by: Aspirin (Ecotrin) 81 mg PO DAILY@0800 [facility] Last Admin: 06/22/20 08:24 Dose: 81 mg Documented by: Atorvastatin Calcium (Lipitor) 80 mg PO QHS [facility] Last Admin: 06/21/20 20:32 Dose: 80 mg Documented by: Bisacodyl (Dulcolax) 10 mg RECTAL DAILY PRN PRN Reason: Constipation Calamine/Phenol (Calmoseptine Ointment) 1 applic TOPICAL BID [facility]; Protocol Last Admin: 06/22/20 17:27 Dose: 1 applicatio Documented by: Enoxaparin Sodium (Lovenox) 40 mg SC DAILY@0600 [facility] Last Admin: 06/22/20 06:12 Dose: 40 mg Documented by: Ergocalciferol (Vitamin D) 50,000 unit PO We@1000 [facility] Last Admin: 06/18/20 12:02 Dose: 50,000 unit Documented by: Glipizide (Glucotrol) 10 mg PO DAILYCM [facility] Last Admin: 06/22/20 08:24 Dose: 10 mg Documented by: Heparin Sodium (Beef Lung) () 50 units IV UD PRN PRN Reason: PICC Line Heparin Flush Ceftriaxone Sodium 2 gm/ (Sodium Chloride) 50 mls @ 100 mls/hr IV Q24 [facility] Stop: 07/19/20 10:01 Last Infusion: 06/22/20 11:15 Dose: Infused Documented by: Sodium Chloride () 250 mls @ 15 mls/hr IV .[id number] PRN PRN Reason: SALINE FLUSH Last Admin: 06/22/20 10:31 Dose: 15 mls/hr Documented by: Insulin Glargine (Lantus ([facility])) 10 units SC BID [facility] Last Admin: 06/22/20 18:20 Dose: 10 units Documented by: Insulin Human Lispro (Humalog Kwikpen ([facility])) 7 unit SC TIDAC [facility] Last Admin: 06/22/20 18:17 Dose: 7 units Documented by: Lactobacillus Acidophilus (Acidophilus) 1 tablet PO BID [facility] Last Admin: 06/22/20 17:26 Dose: 1 tablet Documented by: Levothyroxine Sodium (Synthroid) 150 mcg PO Victor@0600 [facility] Last Admin: 06/22/20 06:12 Dose: 150 mcg Documented by: Levothyroxine Sodium (Synthroid) 75 mcg PO MoTuWeThFrSa@0600 [facility] Last Admin: 06/21/20 06:11 Dose: 75 mcg Documented by: Losartan Potassium (Cozaar) 100 mg PO DAILY [facility] Last Admin: 06/22/20 06:12 Dose: 100 mg Documented by: Metoprolol Succinate (Toprol Xl (Beta [place])) 100 mg PO DAILY [facility] Last Admin: 06/22/20 06:12 Dose: 100 mg Documented by: Metronidazole (Flagyl) 500 mg PO TID [facility] Stop: 07/19/20 22:01 Last Admin: 06/22/20 13:13 Dose: 500 mg Documented by: Nystatin (Mycostatin Powder) 1 applic TOPICAL BID [facility]; Protocol Last Admin: 06/22/20 17:27 Dose: 1 applicatio Documented by: Oxycodone HCl (Oxyir) 5 mg PO Q4H PRN PRN PRN Reason: Pain Score 6-10/10 Polyethylene Glycol (Miralax) 17 gm PO DAILY [facility] Last Admin: 06/22/20 06:13 Dose: Not Given Documented by: Polysaccharide Iron Complex (Ferrex 150) 150 mg PO DAILYCM [facility] Last Admin: 06/22/20 08:24 Dose: 150 mg Documented by: Senna/Docusate Sodium (Senokot-S, Salima-Colace) 2 tablet PO BID [facility] Last Admin: 06/22/20 17:27 Dose: Not Given Documented by: Sertraline HCl (Zoloft) 50 mg PO DAILY [facility] Last Admin: 06/22/20 06:12 Dose: 50 mg Documented by: Sodium Chloride () 10 - 40 ml IV UD PRN PRN Reason: Open End PICC Flush Last Admin: 06/22/20 06:12 Dose: 20 ml Documented by: Sodium Chloride (0.9% Nacl (Sterile) Posiflush) 10 - 40 ml IV UD PRN PRN Reason: Port access or dressing change Medical Necessity - Tobacco Use Smoking Status: Never smoker Tobacco Use: Secondhand Assessment/Plan All Active Problems (Last Reviewed 06/11/20 @ 08:[address] Victorino Padilla MD) Ulcer of right foot with fat layer exposed (Acute) Chronic ulcer of left foot with fat layer exposed (Resolved) Cellulitis of right foot (Acute) Foreign body in right foot (Resolved) Osteomyelitis (Acute) Debility (Acute) Osteomyelitis of right foot (Acute) Cellulitis of right foot (Acute) Laceration of right foot with foreign body (Acute) Cellulitis of left foot (Resolved) Polycystic ovaries (Resolved) Right foot ulcer into fat/fascia; right 5th metatarsal and proximal phalanx osteomyelitis s/p right 5th ray amputation 06/05/2020 Right foot cellulitis / abscess resolved DM2 w/ neuropathy Peripheral arterial disease lower extremity Patient seen and examined bedside Wound was evaluated and the state of the wound is appropriate to resume wound vac therapy, discussed this with wound nurse Continue abx per ID Reviewed culture results - strep B - patient on IV antibiotics w/ PICC; Dr. Berry on consult. Input is appreciated. No weightbearing right foot, keep foot elevated. Discussed the importance of offloading for wound healing. Lower extremity arterial studies reviewed. PAD noted - consult placed to vascular/Dr. Padilla. She was advised to follow up in the outpatient setting in 3-4 weeks. Angiogram and angioplasty of tibial disease will be considered if lack of healing is noted. Discussed the importance of blood sugar control and nutrition for wound healing. Supplementation order was confirmed. Discussed the importance of offloading for wound healing. Discussed importance of proper nutrition for wound healing Sharp excisional nonselective debridment of right foot dorsal, lateral and plantar wound were carried out with a currette into the level of fat/fascia with removal of all devitalized tissue without incident was carried out with measurements in objective Resume wound vac therapy per nursing Podiatry will continue to follow while in house. Please call if questions.
[2020-06-22] MEDS: Atorvastatin Calcium 80 MG Tablet PO (20:56)
[2020-06-22 21:31] LABS: Bedside Glucose 345 mg/dL (70-110)
[2020-06-23 06:16] LABS: Bedside Glucose 197 mg/dL (70-110)
[2020-06-23 06:21] VITALS: BP 149/62; PULSE 77
[2020-06-23] MEDS: Enoxaparin 40 MG/0.4 ML Syringe SC (06:21)
[2020-06-23] MEDS: Metoprolol(XL)Succ 100 MG Tablet PO (06:21)
[2020-06-23] MEDS: Sertraline 50 MG Tablet PO (06:21)
[2020-06-23] MEDS: Losartan Potassium 100 MG Tablet PO (06:21)
[2020-06-23] MEDS: Levothyroxine 75 MCG Tablet PO (06:21)
[2020-06-23] MEDS: metroNIDAZOLE 500 MG Tablet PO ×2 (06:22→15:18)
[2020-06-23] MEDS: Menthol/Lanolin/Calamine/Znox 113 GM Tube 1 APPLIC TOPICAL ×2 (06:25→17:31)
[2020-06-23] MEDS: Nystatin Powder 15gm Bottle 1 APPLIC TOPICAL ×2 (06:26→17:33)
[2020-06-23 06:37] VITALS: RESP 17; TEMP 36.6; O2SAT 98
[2020-06-23] MEDS: Insulin Lispro 100 UNIT/ML INSULN.PEN 7 UNIT SC ×3 (08:17→17:31)
[2020-06-23] MEDS: glipiZIDE 10 MG Tablet PO (08:18)
[2020-06-23] MEDS: Aspirin E.C. 81 MG Tablet PO (08:18)
[2020-06-23] MEDS: Juven (unflavored) Packet 1 PACKET PO ×2 (08:18→17:33)
[2020-06-23] MEDS: Iron Polysaccharide Complex 150 MG CAPSULE PO (08:18)
[2020-06-23] MEDS: 0.9% Saline Lock 10 ML Syringe IV ×2 (10:33→19:36)
[2020-06-23] MEDS: 0.9% NaCl IVPB Med Flush (250 mL) 15 ML IV (10:33)
[2020-06-23 10:56] LABS: Bedside Glucose 245 mg/dL (70-110)
--- NOTE | 2020-06-23 12:01 | NURSING ---
wound photo: right plantar foot
--- NOTE | 2020-06-23 12:01 | NURSING ---
wound photo: right dorsal/lateral foot
[2020-06-23 13:57] VITALS: BP 140/75; PULSE 76; RESP 14; TEMP 36.6; O2SAT 97
--- NOTE | 2020-06-23 15:47 | PN.ID_ITS ---
Patient Problems: Active and Suspected Problems (Last Reviewed 06/11/20 @ 08:[address] Victorino Padilla MD) Debility (Acute) Osteomyelitis of right foot (Acute) Subjective: Feeling well, mild loose stool, no fever, no abd pain. - Physical Exam Vitals/I&O's: Vital Signs Temp Pulse Resp BP Pulse Ox 97.8 F 76 14 140/75 H 97 06/23/20 13:57 06/23/20 13:57 06/23/20 13:57 06/23/20 13:57 06/23/20 13:57 Oxygen Delivery Method Room Air Weight: 96.417 kg Body Mass Index (BMI) 33.9 Finger Stick Blood Glucose 100 Intake and Output for Last 24 Hours 06/21/20 06/22/20 06/23/20 23:59 23:59 23:59 Intake Total 770 / 770 890 / 890 860 / 860 Balance 770 / 770 890 / 890 860 / 860 General: Alert, Cooperative, No apparent distress Cardiovascular: Regular rate, Regular Rhythm Abdomen: Soft, Non Tender, Non-Distended Skin: Ulcer/ Wound - R foot wrapped Laboratory Results 06/22/20 16:31: POC Glucose 203 H 06/22/20 21:28: POC Glucose 345 H 06/23/20 06:03: POC Glucose 197 H 06/23/20 10:49: POC Glucose 245 H Current Medications Acetaminophen (Tylenol) 1,000 mg PO Q6H PRN PRN PRN Reason: Pain Score 1-5/10 Last Admin: 06/19/20 21:59 Dose: 1,000 mg Documented by: Aspirin (Ecotrin) 81 mg PO DAILY@0800 [facility] Last Admin: 06/23/20 08:18 Dose: 81 mg Documented by: Atorvastatin Calcium (Lipitor) 80 mg PO QHS [facility] Last Admin: 06/22/20 20:56 Dose: 80 mg Documented by: Bisacodyl (Dulcolax) 10 mg RECTAL DAILY PRN PRN Reason: Constipation Calamine/Phenol (Calmoseptine Ointment) 1 applic TOPICAL BID [facility]; Protocol Last Admin: 06/23/20 06:25 Dose: 1 applicatio Documented by: Enoxaparin Sodium (Lovenox) 40 mg SC DAILY@0600 [facility] Last Admin: 06/23/20 06:21 Dose: 40 mg Documented by: Ergocalciferol (Vitamin D) 50,000 unit PO We@1000 [facility] Last Admin: 06/18/20 12:02 Dose: 50,000 unit Documented by: Glipizide (Glucotrol) 10 mg PO DAILYCM [facility] Last Admin: 06/23/20 08:18 Dose: 10 mg Documented by: Heparin Sodium (Beef Lung) () 50 units IV UD PRN PRN Reason: PICC Line Heparin Flush Ceftriaxone Sodium 2 gm/ (Sodium Chloride) 50 mls @ 100 mls/hr IV Q24 [facility] Stop: 07/19/20 10:01 Last Infusion: 06/23/20 11:03 Dose: Infused Documented by: Sodium Chloride () 250 mls @ 15 mls/hr IV .[id number] PRN PRN Reason: SALINE FLUSH Last Admin: 06/23/20 10:33 Dose: 15 mls/hr Documented by: Insulin Glargine (Lantus ([facility])) 10 units SC BID [facility] Last Admin: 06/23/20 06:21 Dose: 10 units Documented by: Insulin Human Lispro (Humalog Kwikpen ([facility])) 7 unit SC TIDAC [facility] Last Admin: 06/23/20 11:35 Dose: 7 units Documented by: Lactobacillus Acidophilus (Acidophilus) 1 tablet PO BID [facility] Last Admin: 06/23/20 06:21 Dose: 1 tablet Documented by: Levothyroxine Sodium (Synthroid) 150 mcg PO Victor@0600 [facility] Last Admin: 06/22/20 06:12 Dose: 150 mcg Documented by: Levothyroxine Sodium (Synthroid) 75 mcg PO MoTuWeThFrSa@0600 [facility] Last Admin: 06/23/20 06:21 Dose: 75 mcg Documented by: Losartan Potassium (Cozaar) 100 mg PO DAILY [facility] Last Admin: 06/23/20 06:21 Dose: 100 mg Documented by: Metoprolol Succinate (Toprol Xl (Beta [place])) 100 mg PO DAILY [facility] Last Admin: 06/23/20 06:21 Dose: 100 mg Documented by: Metronidazole (Flagyl) 500 mg PO TID [facility] Stop: 07/19/20 22:01 Last Admin: 06/23/20 15:18 Dose: 500 mg Documented by: Nystatin (Mycostatin Powder) 1 applic TOPICAL BID [facility]; Protocol Last Admin: 06/23/20 06:26 Dose: 1 applicatio Documented by: Oxycodone HCl (Oxyir) 5 mg PO Q4H PRN PRN PRN Reason: Pain Score 6-10/10 Polyethylene Glycol (Miralax) 17 gm PO DAILY [facility] Last Admin: 06/23/20 06:22 Dose: Not Given Documented by: Polysaccharide Iron [facility] (Ferrex 150) [facility] Last Admin: 06/23/20 08:18 Dose: 150 mg Documented by: Senna/Docusate Sodium (Senokot-S, Salima-Colace) 2 tablet PO BID [facility] Last Admin: 06/23/20 06:22 Dose: Not Given Documented by: Sertraline HCl (Zoloft) 50 mg PO DAILY [facility] Last Admin: 06/23/20 06:21 Dose: 50 mg Documented by: Sodium Chloride () 10 - 40 ml IV UD PRN PRN Reason: Open End PICC Flush Last Admin: 06/23/20 10:33 Dose: 20 ml Documented by: Sodium Chloride (0.9% Nacl (Sterile) Posiflush) 10 - 40 ml IV UD PRN PRN Reason: Port access or dressing change Medical Necessity - Tobacco Use Smoking Status: Never smoker Tobacco Use: Secondhand Route of nutrition/ use of supplements: [] Nutritional Intake: [] IV Site: [] Greene Catheter: [] - Assessment/Plan Antibiotics: [] Assessment/Plan: [] Active and Suspected Problems (Last Reviewed 06/11/20 @ 08:[address] Victorino Padilla MD) Debility (Acute) Osteomyelitis of right foot (Acute) R foot GBS osteo - taken to OR 06/05/[address] Momin for 5th ray resection. Discharged to select on 6 week course of ceftriaxone and flagyl. Will stop flagyl now. Cont ceftriaxone, stop date 07/19/20. Will follow.
--- NOTE | 2020-06-23 15:55 | CHAPLAIN ---
Type of Pastoral Visit ___ Initial Visit _x__ Follow-up Visit ___ On-call Visit ___ General Patient Visit ___ Spiritual Assessment ___ Family Conference ___ Bereavement ___ Rapid Response ___ Code Blue ___ Other (describe below) Pastoral Care Referral From _x__ Patient ___ Family ___ Nurse ___ Physician ___ Student Affairs Dean ___ Surveillance Monitor ___ Other (describe below) Sacrament/Intervention _x__ Active listening ___ Anointing ___ Jainism ___ Bereavement ___ Communion ___ Cass exploration ___ _x__ Life review _x__ Prayer ___ Reconciliation ___ Sacrament of Sick _x__ Supportive presence ___ Wedding ___ Other (describe below) Pastoral Comments patient is open to visit and support of spiritual care; pt asks questions of this ophthalmic tech mostly for conversation; pt states progress is slow but steady and like the turtle; pt shows willingness to persevere through therapy and continue as long as it takes; pt is finding things to occupy her mind;
[2020-06-23 17:01] LABS: Bedside Glucose 169 mg/dL (70-110)
[2020-06-23] MEDS: Acetaminophen 500 MG Tablet 1000 MG PO (19:35)
[2020-06-23] MEDS: Atorvastatin Calcium 80 MG Tablet PO (19:35)
[2020-06-23 21:35] LABS: Bedside Glucose 203 mg/dL (70-110)
[2020-06-24 06:14] VITALS: BP 182/83; PULSE 77; RESP 18; TEMP 36.6; O2SAT 93
[2020-06-24] MEDS: Sertraline 50 MG Tablet PO (06:17)
[2020-06-24] MEDS: Levothyroxine 75 MCG Tablet PO (06:17)
[2020-06-24] MEDS: Losartan Potassium 100 MG Tablet PO (06:17)
[2020-06-24 06:19] VITALS: BP 182/83; PULSE 77
[2020-06-24] MEDS: Metoprolol(XL)Succ 100 MG Tablet PO (06:19)
[2020-06-24] MEDS: Enoxaparin 40 MG/0.4 ML Syringe SC (06:19)
[2020-06-24 06:21] LABS: Bedside Glucose 262 mg/dL (70-110)
[2020-06-24] MEDS: Nystatin Powder 15gm Bottle 1 APPLIC TOPICAL ×2 (06:24→17:23)
[2020-06-24] MEDS: Juven (unflavored) Packet 1 PACKET PO ×2 (09:02→17:19)
[2020-06-24] MEDS: glipiZIDE 10 MG Tablet PO (09:03)
[2020-06-24] MEDS: Aspirin E.C. 81 MG Tablet PO (09:04)
[2020-06-24] MEDS: Iron Polysaccharide Complex 150 MG CAPSULE PO (09:04)
[2020-06-24] MEDS: Insulin Lispro 100 UNIT/ML INSULN.PEN 7 UNIT SC (10:00)
[2020-06-24 11:10] LABS: Bedside Glucose 303 mg/dL (70-110)
[2020-06-24] MEDS: 0.9% Saline Lock 10 ML Syringe IV ×2 (11:17→20:30)
[2020-06-24] MEDS: Insulin Lispro 100 UNIT/ML INSULN.PEN 10 UNIT SC ×2 (11:19→17:21)
[2020-06-24 12:58] VITALS: BP 149/83
[2020-06-24] MEDS: amLODIPine 5 MG Tablet PO (12:58)
--- NOTE | 2020-06-24 12:59 | NURSING ---
[facility] sent up to unit from Pharmacy. BP rechecked and then medication given at this time.
[2020-06-24 15:05] VITALS: BP 149/72; PULSE 72; RESP 16; TEMP 36.4; O2SAT 98
[2020-06-24 16:46] LABS: Bedside Glucose 179 mg/dL (70-110)
[2020-06-24] MEDS: Menthol/Lanolin/Calamine/Znox 113 GM Tube 1 APPLIC TOPICAL (17:23)
[2020-06-24] MEDS: Atorvastatin Calcium 80 MG Tablet PO (20:28)
[2020-06-24 21:40] LABS: Bedside Glucose 173 mg/dL (70-110)
[2020-06-25 05:42] VITALS: BP 162/83; PULSE 76; RESP 16; TEMP 36.8; O2SAT 93
[2020-06-25] MEDS: Enoxaparin 40 MG/0.4 ML Syringe SC (05:51)
[2020-06-25] MEDS: 0.9% Saline Lock 10 ML Syringe IV ×2 (05:51→10:16)
[2020-06-25 05:52] VITALS: PULSE 76
[2020-06-25] MEDS: Levothyroxine 75 MCG Tablet PO (05:52)
[2020-06-25] MEDS: amLODIPine 5 MG Tablet PO (05:52)
[2020-06-25] MEDS: Sertraline 50 MG Tablet PO (05:52)
[2020-06-25] MEDS: Metoprolol(XL)Succ 100 MG Tablet PO (05:52)
[2020-06-25] MEDS: Losartan Potassium 100 MG Tablet PO (05:52)
[2020-06-25] MEDS: Menthol/Lanolin/Calamine/Znox 113 GM Tube 1 APPLIC TOPICAL ×2 (05:53→17:29)
[2020-06-25] MEDS: Nystatin Powder 15gm Bottle 1 APPLIC TOPICAL (05:53)
[2020-06-25 06:10] LABS: Bedside Glucose 175 mg/dL (70-110)
--- NOTE | 2020-06-25 07:51 | PN_ITS ---
Patient Problems: Active and Suspected Problems (Last Reviewed 06/11/20 @ 08:[address] Victorino Padilla MD) Debility (Acute) Osteomyelitis of right foot (Acute) Subjective: Patient was seen today for follow up on right foot. She relates she is doing well, no complaints of fever, chills, nausea or vomiting. She does have some dry skin on the left foot. - Physical Exam Vitals/I&O's: Vital Signs Temp Pulse Resp BP Pulse Ox 98.2 F 76 16 162/83 H 93 06/25/20 05:42 06/25/20 05:52 06/25/20 05:42 06/25/20 05:42 06/25/20 05:42 Oxygen Delivery Method Room Air Weight: 94.982 kg Body Mass Index (BMI) 33.9 Finger Stick Blood Glucose 100 Intake and Output for Last 24 Hours 06/23/20 06/24/20 06/25/20 23:59 23:59 23:59 Intake Total 1100 / 1100 1370 / 1370 Balance 1100 / 1100 1370 / 1370 General: Alert, Oriented x3, Cooperative, No apparent distress Extremities: Capillary Refill Less than 3 Seconds, No Calf Tenderness, - - s/p 5th toe and partial 5th ray amputation right foot, residual wound to the proximal aspect down to subcutaneous tissue layer with some superficial nonviable tissue, rest of site with intact sutures and healed, there is no cellulitis, no fluctuance, no visible abscess, no necrosis, no streaking, no exposed bone, no maceration, minimal edema to the foot, no edema to the leg, no POP or pain on ROM to the foot/ankle, peripheral neuropathy is present. No new ulcerations to the right foot. No open lesions left foot or evidence of infection, there is diffuse xerosis noted. Psych/Mental Status: Normal Affect, Appropriate, Alert and oriented to time, place, person, mood and affect Laboratory Results 06/24/20 11:05: POC Glucose 303 H 06/24/20 16:34: POC Glucose 179 H 06/24/20 21:38: POC Glucose 173 H 06/25/20 05:50: POC Glucose 175 H Current Medications Acetaminophen (Tylenol) 1,000 mg PO Q6H PRN PRN PRN Reason: Pain Score 1-5/10 Last Admin: 06/23/20 19:35 Dose: 1,000 mg Documented by: Amlodipine Besylate (Norvasc) 5 mg PO DAILY [facility] Last Admin: 06/25/20 05:52 Dose: 5 mg Documented by: Aspirin (Ecotrin) 81 mg PO DAILY@0800 [facility] Last Admin: 06/24/20 09:04 Dose: 81 mg Documented by: Atorvastatin Calcium (Lipitor) 80 mg PO QHS [facility] Last Admin: 06/24/20 20:28 Dose: 80 mg Documented by: Bisacodyl (Dulcolax) 10 mg RECTAL DAILY PRN PRN Reason: Constipation Calamine/Phenol (Calmoseptine Ointment) 1 applic TOPICAL BID [facility]; Protocol Last Admin: 06/25/20 05:53 Dose: 1 applicatio Documented by: Enoxaparin Sodium (Lovenox) 40 mg SC DAILY@0600 [facility] Last Admin: 06/25/20 05:51 Dose: 40 mg Documented by: Ergocalciferol (Vitamin D) 50,000 unit PO We@1000 [facility] Last Admin: 06/18/20 12:02 Dose: 50,000 unit Documented by: Glipizide (Glucotrol) 10 mg PO DAILYCM [facility] Last Admin: 06/24/20 09:03 Dose: 10 mg Documented by: Heparin Sodium (Beef Lung) () 50 units IV UD PRN PRN Reason: PICC Line Heparin Flush Ceftriaxone Sodium 2 gm/ (Sodium Chloride) 50 mls @ 100 mls/hr IV Q24 [facility] Stop: 07/19/20 10:01 Last Infusion: 06/24/20 10:50 Dose: Infused Documented by: Sodium Chloride () 250 mls @ 15 mls/hr IV .[id number] PRN PRN Reason: SALINE FLUSH Last Admin: 06/23/20 10:33 Dose: 15 mls/hr Documented by: Insulin Glargine (Lantus (Bkc)) 15 units SC BID [facility] Last Admin: 06/25/20 05:51 Dose: 15 units Documented by: Insulin Human Lispro (Humalog Kwikpen (Bk)) 10 unit SC TIDAC [facility] Last Admin: 06/24/20 17:21 Dose: 10 units Documented by: Lactobacillus Acidophilus (Acidophilus) 1 tablet PO BID [facility] Last Admin: 06/25/20 05:52 Dose: 1 tablet Documented by: Levothyroxine Sodium (Synthroid) 150 mcg PO Victor@0600 [facility] Last Admin: 06/22/20 06:12 Dose: 150 mcg Documented by: Levothyroxine Sodium (Synthroid) 75 mcg PO MoTuWeThFrSa@0600 [facility] Last Admin: 06/25/20 05:52 Dose: 75 mcg Documented by: Losartan Potassium (Cozaar) 100 mg PO DAILY [facility] Last Admin: 06/25/20 05:52 Dose: 100 mg Documented by: Metoprolol Succinate (Toprol Xl (Beta [place])) 100 mg PO DAILY [facility] Last Admin: 06/25/20 05:52 Dose: 100 mg Documented by: Nystatin (Mycostatin Powder) 1 applic TOPICAL BID [facility]; Protocol Last Admin: 06/25/20 05:53 Dose: 1 applicatio Documented by: Oxycodone HCl (Oxyir) 5 mg PO Q4H PRN PRN PRN Reason: Pain Score 6-10/10 Polyethylene Glycol (Miralax) 17 gm PO DAILY [facility] Last Admin: 06/25/20 05:53 Dose: Not Given Documented by: Polysaccharide [facility] ([facility]rex 150[facility] Last Admin: 06/24/20 09:04 Dose: 150 mg Documented by: Senna/Docusate Sodium (Senokot-S, Salima-Colace) 2 tablet PO BID [facility] Last Admin: 06/25/20 05:52 Dose: Not Given Documented by: Sertraline HCl (Zoloft) 50 mg PO DAILY [facility] Last Admin: 06/25/20 05:52 Dose: 50 mg Documented by: Sodium Chloride () 10 - 40 ml IV UD PRN PRN Reason: Open End PICC Flush Last Admin: 06/25/20 05:51 Dose: 20 ml Documented by: Sodium Chloride (0.9% Nacl (Sterile) Posiflush) 10 - 40 ml IV UD PRN PRN Reason: Port access or dressing change Medical Necessity - Tobacco Use Smoking Status: Never smoker Tobacco Use: Secondhand Assessment/Plan All Active Problems (Last Reviewed 06/11/20 @ 08:[address] Victorino Padilla MD) Ulcer of right foot with fat layer exposed (Acute) Chronic ulcer of left foot with fat layer exposed (Resolved) Cellulitis of right foot (Acute) Foreign body in right foot (Resolved) Osteomyelitis (Acute) Debility (Acute) Osteomyelitis of right foot (Acute) Cellulitis of right foot (Acute) Laceration of right foot with foreign body (Acute) Cellulitis of left foot (Resolved) Polycystic ovaries (Resolved) Right foot ulcer into fat/fascia; right 5th metatarsal and proximal phalanx osteomyelitis s/p right 5th ray amputation 06/05/2020 Right foot cellulitis abscess right foot DM2 w/ neuropathy Peripheral arterial disease lower extremity Xerosis Left foot healing well. Sutures removed. Wound was debrided in selective fashion, wound measured 4.1cm x 2cm and 0.3cm in depth. Continue with wound vac which will be reapplied. Reviewed culture results - patient on IV antibiotics w/ PICC; Dr. Berry on consult. No weightbearing right foot, keep foot elevated. Lower extremity arterial studies reviewed. PAD noted - consult placed to vascular/Dr. Padilla who has seen and following patient. Discussed the importance of blood sugar control and nutrition for wound healing. Discussed the importance of offloading for wound healing. Recommended application of topical moisturizing cream to left foot BID - she has amlactin she is going to use. Podiatry will continue to follow.
[2020-06-25] MEDS: Insulin Lispro 100 UNIT/ML INSULN.PEN 10 UNIT SC ×3 (08:24→17:28)
[2020-06-25] MEDS: Aspirin E.C. 81 MG Tablet PO (08:25)
[2020-06-25] MEDS: glipiZIDE 10 MG Tablet PO (08:25)
[2020-06-25] MEDS: Iron Polysaccharide Complex 150 MG CAPSULE PO (08:25)
[2020-06-25] MEDS: Juven (unflavored) Packet 1 PACKET PO ×2 (08:25→17:28)
[2020-06-25] MEDS: 0.9% NaCl IVPB Med Flush (250 mL) 15 ML IV (10:16)
[2020-06-25 10:46] LABS: Bedside Glucose 226 mg/dL (70-110)
[2020-06-25 15:22] VITALS: BP 147/64; PULSE 72; RESP 16; TEMP 37; O2SAT 98
[2020-06-25 17:06] LABS: Bedside Glucose 217 mg/dL (70-110)
[2020-06-25] MEDS: Acetaminophen 500 MG Tablet 1000 MG PO (19:57)
[2020-06-25] MEDS: Atorvastatin Calcium 80 MG Tablet PO (19:57)
[2020-06-25 21:40] LABS: Bedside Glucose 291 mg/dL (70-110)
[2020-06-26 06:07] VITALS: BP 189/96; PULSE 78; RESP 18; TEMP 36.3; O2SAT 95
[2020-06-26] MEDS: Enoxaparin 40 MG/0.4 ML Syringe SC (06:14)
[2020-06-26 06:15] VITALS: PULSE 78
[2020-06-26] MEDS: amLODIPine 5 MG Tablet PO (06:15)
[2020-06-26] MEDS: Losartan Potassium 100 MG Tablet PO (06:15)
[2020-06-26] MEDS: Metoprolol(XL)Succ 100 MG Tablet PO (06:15)
[2020-06-26] MEDS: Sertraline 50 MG Tablet PO (06:15)
[2020-06-26] MEDS: Levothyroxine 75 MCG Tablet PO (06:15)
[2020-06-26] MEDS: 0.9% Saline Lock 10 ML Syringe IV ×2 (06:15→10:28)
[2020-06-26] MEDS: Menthol/Lanolin/Calamine/Znox 113 GM Tube 1 APPLIC TOPICAL ×2 (06:16→16:09)
[2020-06-26] MEDS: Nystatin Powder 15gm Bottle 1 APPLIC TOPICAL ×2 (06:16→16:09)
[2020-06-26 06:21] LABS: Bedside Glucose 229 mg/dL (70-110)
[2020-06-26] MEDS: Juven (unflavored) Packet 1 PACKET PO ×2 (08:14→16:08)
[2020-06-26] MEDS: Iron Polysaccharide Complex 150 MG CAPSULE PO (08:14)
[2020-06-26] MEDS: Aspirin E.C. 81 MG Tablet PO (08:14)
[2020-06-26] MEDS: glipiZIDE 10 MG Tablet PO (08:14)
[2020-06-26] MEDS: Insulin Lispro 100 UNIT/ML INSULN.PEN 13 UNIT SC ×2 (08:30→12:47)
[2020-06-26] MEDS: 0.9% NaCl IVPB Med Flush (250 mL) 15 ML IV (10:27)
[2020-06-26 10:55] LABS: Bedside Glucose 277 mg/dL (70-110)
[2020-06-26 14:56] VITALS: BP 156/82; PULSE 74; RESP 16; TEMP 36.7; O2SAT 98
[2020-06-26 16:46] LABS: Bedside Glucose 197 mg/dL (70-110)
[2020-06-26] MEDS: Insulin Lispro 100 UNIT/ML INSULN.PEN 17 UNIT SC (17:21)
[2020-06-26 18:30] VITALS: PULSE 76; RESP 16
[2020-06-26 21:21] LABS: Bedside Glucose 278 mg/dL (70-110)
[2020-06-26] MEDS: Atorvastatin Calcium 80 MG Tablet PO (22:07)
[2020-06-27 05:44] VITALS: BP 158/87; PULSE 81; RESP 16; TEMP 36.6; O2SAT 98
[2020-06-27] MEDS: Enoxaparin 40 MG/0.4 ML Syringe SC (05:47)
[2020-06-27 05:48] VITALS: BP 158/87; PULSE 81
[2020-06-27] MEDS: Losartan Potassium 100 MG Tablet PO (05:48)
[2020-06-27] MEDS: Metoprolol(XL)Succ 100 MG Tablet PO (05:48)
[2020-06-27] MEDS: Sertraline 50 MG Tablet PO (05:48)
[2020-06-27] MEDS: Levothyroxine 75 MCG Tablet PO (05:48)
[2020-06-27] MEDS: amLODIPine 5 MG Tablet PO (05:48)
[2020-06-27] MEDS: Nystatin Powder 15gm Bottle 1 APPLIC TOPICAL ×2 (05:50→16:55)
[2020-06-27] MEDS: Menthol/Lanolin/Calamine/Znox 113 GM Tube 1 APPLIC TOPICAL ×2 (05:50→16:54)
[2020-06-27 06:31] LABS: Bedside Glucose 282 mg/dL (70-110)
[2020-06-27] MEDS: Juven (unflavored) Packet 1 PACKET PO ×2 (08:29→16:49)
[2020-06-27] MEDS: Aspirin E.C. 81 MG Tablet PO (08:30)
[2020-06-27] MEDS: glipiZIDE 10 MG Tablet PO (08:30)
[2020-06-27] MEDS: Iron Polysaccharide Complex 150 MG CAPSULE PO (08:30)
[2020-06-27] MEDS: Insulin Lispro 100 UNIT/ML INSULN.PEN 23 UNIT SC ×2 (08:31→12:01)
[2020-06-27] MEDS: 0.9% Saline Lock 10 ML Syringe IV (10:09)
[2020-06-27 11:06] LABS: Bedside Glucose 113 mg/dL (70-110)
[2020-06-27 16:06] VITALS: BP 142/78; PULSE 76; RESP 16; TEMP 36.9; O2SAT 96
[2020-06-27 16:36] LABS: Bedside Glucose 137 mg/dL (70-110)
[2020-06-27] MEDS: Insulin Lispro 100 UNIT/ML INSULN.PEN 10 UNIT SC (16:49)
[2020-06-27] MEDS: Atorvastatin Calcium 80 MG Tablet PO (20:50)
[2020-06-27 21:25] LABS: Bedside Glucose 240 mg/dL (70-110)
[2020-06-28 05:57] VITALS: BP 166/64; PULSE 76; RESP 16; TEMP 36.6; O2SAT 98
[2020-06-28 06:00] VITALS: BP 166/64; PULSE 76
[2020-06-28] MEDS: Metoprolol(XL)Succ 100 MG Tablet PO (06:00)
[2020-06-28] MEDS: amLODIPine 5 MG Tablet PO (06:01)
[2020-06-28] MEDS: Enoxaparin 40 MG/0.4 ML Syringe SC (06:01)
[2020-06-28] MEDS: Sertraline 50 MG Tablet PO (06:02)
[2020-06-28] MEDS: Levothyroxine 75 MCG Tablet PO (06:04)
[2020-06-28] MEDS: Menthol/Lanolin/Calamine/Znox 113 GM Tube 1 APPLIC TOPICAL ×2 (06:05→17:39)
[2020-06-28] MEDS: Losartan Potassium 100 MG Tablet PO (06:08)
[2020-06-28 06:26] LABS: Bedside Glucose 173 mg/dL (70-110)
[2020-06-28] MEDS: Juven (unflavored) Packet 1 PACKET PO ×2 (08:12→17:35)
[2020-06-28] MEDS: glipiZIDE 10 MG Tablet PO (08:12)
[2020-06-28] MEDS: Iron Polysaccharide Complex 150 MG CAPSULE PO (08:13)
[2020-06-28] MEDS: Aspirin E.C. 81 MG Tablet PO (08:13)
[2020-06-28] MEDS: Insulin Lispro 100 UNIT/ML INSULN.PEN 10 UNIT SC ×2 (08:15→11:42)
[2020-06-28 10:45] LABS: Bedside Glucose 205 mg/dL (70-110)
[2020-06-28] MEDS: 0.9% NaCl IVPB Med Flush (250 mL) 15 ML IV (11:27)
[2020-06-28] MEDS: 0.9% Saline Lock 10 ML Syringe IV (11:27)
[2020-06-28 13:39] VITALS: BP 148/78; PULSE 77; RESP 16; TEMP 36.4; O2SAT 97
[2020-06-28 16:46] LABS: Bedside Glucose 225 mg/dL (70-110)
[2020-06-28] MEDS: Insulin Lispro 100 UNIT/ML INSULN.PEN 15 UNIT SC (17:35)
[2020-06-28] MEDS: Nystatin Powder 15gm Bottle 1 APPLIC TOPICAL (17:39)
[2020-06-28] MEDS: Acetaminophen 500 MG Tablet 1000 MG PO (21:08)
[2020-06-28] MEDS: Atorvastatin Calcium 80 MG Tablet PO (21:08)
[2020-06-28 21:30] LABS: Bedside Glucose 191 mg/dL (70-110)
[2020-06-29 04:00] VITALS: BP 181/80; PULSE 75; RESP 15; TEMP 36.4; O2SAT 96
[2020-06-29 06:21] LABS: Bedside Glucose 144 mg/dL (70-110)
[2020-06-29 06:45] VITALS: BP 181/80; PULSE 73
[2020-06-29] MEDS: Metoprolol(XL)Succ 100 MG Tablet PO (06:45)
[2020-06-29] MEDS: Levothyroxine 150 MCG Tablet PO (06:45)
[2020-06-29] MEDS: Losartan Potassium 100 MG Tablet PO (06:45)
[2020-06-29] MEDS: Sertraline 50 MG Tablet PO (06:45)
[2020-06-29] MEDS: amLODIPine 5 MG Tablet PO (06:45)
[2020-06-29] MEDS: Enoxaparin 40 MG/0.4 ML Syringe SC (06:51)
[2020-06-29] MEDS: Menthol/Lanolin/Calamine/Znox 113 GM Tube 1 APPLIC TOPICAL ×2 (06:58→16:21)
[2020-06-29] MEDS: Nystatin Powder 15gm Bottle 1 APPLIC TOPICAL (06:59)
[2020-06-29] MEDS: Juven (unflavored) Packet 1 PACKET PO ×2 (08:32→16:21)
[2020-06-29] MEDS: Iron Polysaccharide Complex 150 MG CAPSULE PO (08:32)
[2020-06-29] MEDS: glipiZIDE 10 MG Tablet PO (08:33)
[2020-06-29] MEDS: Aspirin E.C. 81 MG Tablet PO (08:33)
[2020-06-29] MEDS: Insulin Lispro 100 UNIT/ML INSULN.PEN 15 UNIT SC ×2 (08:37→11:50)
[2020-06-29] MEDS: 0.9% Saline Lock 10 ML Syringe IV (10:09)
[2020-06-29 11:01] LABS: Bedside Glucose 227 mg/dL (70-110)
[2020-06-29 14:09] VITALS: BP 141/72; PULSE 74; RESP 15; TEMP 36.4
[2020-06-29 16:41] LABS: Bedside Glucose 150 mg/dL (70-110)
[2020-06-29] MEDS: Insulin Lispro 100 UNIT/ML INSULN.PEN 20 UNIT SC (17:35)
[2020-06-29] MEDS: Atorvastatin Calcium 80 MG Tablet PO (21:17)
[2020-06-29 22:10] LABS: Bedside Glucose 117 mg/dL (70-110)
[2020-06-30 05:47] VITALS: BP 126/80; PULSE 81; RESP 18; TEMP 36.8; O2SAT 94
[2020-06-30] MEDS: Enoxaparin 40 MG/0.4 ML Syringe SC (05:49)
[2020-06-30 05:50] VITALS: BP 126/80; PULSE 81
[2020-06-30] MEDS: Sertraline 50 MG Tablet PO (05:50)
[2020-06-30] MEDS: Levothyroxine 75 MCG Tablet PO (05:50)
[2020-06-30] MEDS: amLODIPine 5 MG Tablet PO (05:50)
[2020-06-30] MEDS: Losartan Potassium 100 MG Tablet PO (05:50)
[2020-06-30] MEDS: Metoprolol(XL)Succ 100 MG Tablet PO (05:50)
[2020-06-30] MEDS: Menthol/Lanolin/Calamine/Znox 113 GM Tube 1 APPLIC TOPICAL ×2 (05:53→17:41)
[2020-06-30 06:35] LABS: Bedside Glucose 113 mg/dL (70-110)
[2020-06-30] MEDS: Insulin Lispro 100 UNIT/ML INSULN.PEN 20 UNIT SC ×2 (08:19→12:05)
[2020-06-30] MEDS: glipiZIDE 10 MG Tablet PO (08:20)
[2020-06-30] MEDS: Aspirin E.C. 81 MG Tablet PO (08:20)
[2020-06-30] MEDS: Iron Polysaccharide Complex 150 MG CAPSULE PO (08:20)
[2020-06-30] MEDS: Juven (unflavored) Packet 1 PACKET PO ×2 (08:20→17:39)
[2020-06-30] MEDS: 0.9% NaCl IVPB Med Flush (250 mL) 15 ML IV (10:20)
[2020-06-30] MEDS: 0.9% Saline Lock 10 ML Syringe IV ×2 (10:21→20:45)
[2020-06-30 11:10] LABS: Bedside Glucose 120 mg/dL (70-110)
--- NOTE | 2020-06-30 11:51 | NURSING ---
wound photo: right plantar foot
--- NOTE | 2020-06-30 11:51 | NURSING ---
wound photo: right dorsal/lateral foot
[2020-06-30 13:48] VITALS: BP 130/60; PULSE 75; RESP 14; TEMP 36.5; O2SAT 96
[2020-06-30 16:41] LABS: Bedside Glucose 80 mg/dL (70-110)
[2020-06-30] MEDS: Atorvastatin Calcium 80 MG Tablet PO (20:45)
[2020-06-30 21:11] LABS: Bedside Glucose 173 mg/dL (70-110)
[2020-06-30 22:19] VITALS: O2SAT 98
[2020-07-01 05:23] VITALS: BP 153/75; PULSE 79; RESP 18; TEMP 36.7; O2SAT 94
[2020-07-01 05:25] VITALS: BP 153/75; PULSE 79
[2020-07-01] MEDS: Losartan Potassium 100 MG Tablet PO (05:25)
[2020-07-01] MEDS: Enoxaparin 40 MG/0.4 ML Syringe SC (05:25)
[2020-07-01] MEDS: Levothyroxine 75 MCG Tablet PO (05:25)
[2020-07-01] MEDS: Metoprolol(XL)Succ 100 MG Tablet PO (05:25)
[2020-07-01] MEDS: amLODIPine 5 MG Tablet PO (05:25)
[2020-07-01] MEDS: Sertraline 50 MG Tablet PO (05:25)
[2020-07-01 05:27] LABS: Absolute Lymphocyte Count 1.39 X10^3/uL (0.83-4.51); Absolute Neutrophil Count 3.5 X10^3/uL (2.0-7.7); Basophil# 0.05 X10^3/uL; Basophil% 0.8 % (0-1); Eosinophil# 0.42 X10^3/uL; Hematocrit 32.5 % (37-47); Lymphocyte # 1.39 X10^3/ul (4.0); Lymphocyte % 23.2 % (19-41); Mean Corp Hgb Conc 30.8 g/dL (32-36); Mean Corpuscular Hgb 28.3 pg (27.0-32.0); Mean Corpuscular Volume 92.1 fL (81-99); Monocyte# 0.63 X10^3/uL; Monocyte% 10.5 % (0-10); NRBC Flagged by Analyzer 0 % (0-5); Neutrophil % 58.3 % (47-70); Platelet Count 243 K/mm3 (150-450); RBC Distribution Width CV 14.6 % (11.6-14.6); RBC Distribution Width SD 49.5 fl (35.1-43.9); Red Blood Count 3.53 M/mm3 (4.2-5.4)
[2020-07-01] MEDS: Menthol/Lanolin/Calamine/Znox 113 GM Tube 1 APPLIC TOPICAL ×2 (05:27→16:58)
[2020-07-01 05:40] LABS: Anion Gap 3 (5-15); BUN 27 mg/dL (7-18); BUN/Creat Ratio 32.2 RATIO (10-20); Calcium,Total 8.6 mg/dL (8.5-10.1); Chloride 107 mmol/L (98-107); Creatinine, Serum 0.84 mg/dL (0.55-1.02); EST Glomerular Filtration Rate 72 mL/min (>60); Est Glom Filt Rate - Afr Amer 88 mL/min (>60); Estimated Creatinine Clearance 62.51 ml/min; Glucose 162 mg/dL (74-106); Sodium Level 140 mmol/L (136-145)
[2020-07-01 06:26] LABS: Bedside Glucose 171 mg/dL (70-110)
[2020-07-01] MEDS: Insulin Lispro 100 UNIT/ML INSULN.PEN 17 UNIT SC ×2 (08:04→12:40)
[2020-07-01] MEDS: Aspirin E.C. 81 MG Tablet PO (08:06)
[2020-07-01] MEDS: Iron Polysaccharide Complex 150 MG CAPSULE PO (08:06)
[2020-07-01] MEDS: Juven (unflavored) Packet 1 PACKET PO ×2 (08:07→16:53)
[2020-07-01] MEDS: glipiZIDE 10 MG Tablet PO (08:07)
[2020-07-01 10:00] VITALS: PULSE 68; RESP 18; O2SAT 96
[2020-07-01 11:05] LABS: Bedside Glucose 127 mg/dL (70-110)
[2020-07-01 13:52] VITALS: BP 128/66; PULSE 78; RESP 16; TEMP 36.6; O2SAT 98
[2020-07-01 16:36] LABS: Bedside Glucose 144 mg/dL (70-110)
[2020-07-01] MEDS: Insulin Lispro 100 UNIT/ML INSULN.PEN 13 UNIT SC (16:54)
[2020-07-01] MEDS: Atorvastatin Calcium 80 MG Tablet PO (20:50)
[2020-07-01 21:21] LABS: Bedside Glucose 112 mg/dL (70-110)
[2020-07-02] MEDS: Enoxaparin 40 MG/0.4 ML Syringe SC (06:18)
[2020-07-02 06:19] VITALS: BP 141/60; PULSE 80
[2020-07-02] MEDS: Levothyroxine 75 MCG Tablet PO (06:19)
[2020-07-02] MEDS: Metoprolol(XL)Succ 100 MG Tablet PO (06:19)
[2020-07-02] MEDS: Sertraline 50 MG Tablet PO (06:19)
[2020-07-02] MEDS: Losartan Potassium 100 MG Tablet PO (06:19)
[2020-07-02] MEDS: amLODIPine 5 MG Tablet PO (06:19)
[2020-07-02 06:26] LABS: Bedside Glucose 146 mg/dL (70-110)
[2020-07-02 06:33] VITALS: RESP 18; TEMP 36.9; O2SAT 98
[2020-07-02] MEDS: Insulin Lispro 100 UNIT/ML INSULN.PEN 13 UNIT SC ×3 (08:09→17:40)
[2020-07-02] MEDS: Aspirin E.C. 81 MG Tablet PO (08:15)
[2020-07-02] MEDS: Iron Polysaccharide Complex 150 MG CAPSULE PO (08:15)
[2020-07-02] MEDS: glipiZIDE 10 MG Tablet PO (08:16)
[2020-07-02] MEDS: Juven (unflavored) Packet 1 PACKET PO ×2 (08:16→17:39)
[2020-07-02] MEDS: 0.9% NaCl IVPB Med Flush (250 mL) 15 ML IV (10:23)
[2020-07-02] MEDS: 0.9% Saline Lock 10 ML Syringe IV ×2 (10:24→11:25)
[2020-07-02 10:51] LABS: Bedside Glucose 187 mg/dL (70-110)
--- NOTE | 2020-07-02 12:55 | PCM.PROGNOTE ---
Patient Problems: Active and Suspected Problems (Last Reviewed 06/11/20 @ 08:[address] Victorino Padilla MD) Debility (Acute) Osteomyelitis of right foot (Acute) Subjective: This 64-year-old female was seen bedside status post fifth ray resection with residual ulcer. She is kept her wound VAC clean and intact. She denies fever, chill, nausea, vomiting, pain. She continues on IV antibiotics and resides in the transitional care unit. - Physical Exam Vitals/I&O's: Vital Signs Temp Pulse Resp BP Pulse Ox 98.4 F 80 18 141/60 H 98 07/02/20 06:33 07/02/20 06:19 07/02/20 06:33 07/02/20 06:19 07/02/20 06:33 Oxygen Flow Rate (L/min) 93 Oxygen Delivery Method Room Air Weight: 96.19 kg Body Mass Index (BMI) 33.9 Finger Stick Blood Glucose 100 Intake and Output for Last 24 Hours 06/30/20 07/01/20 07/02/20 23:59 23:59 23:59 Intake Total 1030.75 / 1030.75 1190 / 1190 546.25 / 546.25 Balance 1030.75 / 1030.75 1190 / 1190 546.25 / 546.25 General: Alert, Oriented x3, Cooperative Extremities: No cyanosis, Capillary Refill Less than 3 Seconds, No Calf Tenderness, Diminished Peripheral Pulses, Edema Skin: Ulcer/ Wound - No purulence, erythema, streaking, odor, infection. There is no maceration or necrosis. There is improvement in granular healthy bleeding ulcer base. Her adjacent skin is hairless and atrophic. There is no exposed bone. There is full epithelialization to the prior plantar ulcer site Musculoskeletal: No Tenderness to Palpation of Joints or Extremities, Muscle Wasting, - - Right fifth ray resection Neurological: - - Lack of epicritic sensation is consistent with neuropathy status Psych/Mental Status: Normal Affect, Appropriate Laboratory Results 07/01/20 16:33: POC Glucose 144 H 07/01/20 21:04: POC Glucose 112 H 07/02/20 06:16: POC Glucose 146 H 07/02/20 10:43: POC Glucose 187 H Current Medications Acetaminophen (Tylenol) 1,000 mg PO Q6H PRN PRN PRN Reason: Pain Score 1-5/10 Last Admin: 06/28/20 21:08 Dose: 1,000 mg Documented by: Amlodipine Besylate (Norvasc) 5 mg PO DAILY [facility] Last Admin: 07/02/20 06:19 Dose: 5 mg Documented by: Aspirin (Ecotrin) 81 mg PO DAILY@0800 [facility] Last Admin: 07/02/20 08:15 Dose: 81 mg Documented by: Atorvastatin Calcium (Lipitor) 80 mg PO QHS [facility] Last Admin: 07/01/20 20:50 Dose: 80 mg Documented by: Bisacodyl (Dulcolax) 10 mg RECTAL DAILY PRN PRN Reason: Constipation Calamine/Phenol (Calmoseptine Ointment) 1 applic TOPICAL BID [facility]; Protocol Last Admin: 07/02/20 06:22 Dose: Not Given Documented by: Enoxaparin Sodium (Lovenox) 40 mg SC DAILY@0600 [facility] Last Admin: 07/02/20 06:18 Dose: 40 mg Documented by: Ergocalciferol (Vitamin D) 50,000 unit PO We@1000 [facility] Last Admin: 07/02/20 10:36 Dose: 50,000 unit Documented by: Glipizide (Glucotrol) 10 mg PO DAILYCM [facility] Last Admin: 07/02/20 08:16 Dose: 10 mg Documented by: Heparin Sodium (Beef Lung) () 50 units IV UD PRN PRN Reason: PICC Line Heparin Flush Ceftriaxone Sodium 2 gm/ (Sodium Chloride) 50 mls @ 100 mls/hr IV Q24 [facility] Stop: 07/19/20 10:01 Last Infusion: 07/02/20 11:28 Dose: Infused Documented by: Sodium Chloride () 250 mls @ 15 mls/hr IV .[id number] PRN PRN Reason: SALINE FLUSH Last Infusion: 07/02/20 11:28 Dose: 0 mls/hr Documented by: Insulin Glargine (Lantus ([facility])) 20 units SC BID [facility] Last Admin: 07/02/20 08:15 Dose: 20 units Documented by: Insulin Human Lispro (Humalog Kwikpen ([facility])) 13 unit SC TIDAC [facility] Last Admin: 07/02/20 12:04 Dose: 13 units Documented by: Lactobacillus Acidophilus (Acidophilus) 1 tablet PO BID [facility] Last Admin: 07/02/20 06:19 Dose: 1 tablet Documented by: Levothyroxine Sodium (Synthroid) 150 mcg PO Victor@0600 [facility] Last Admin: 06/29/20 06:45 Dose: 150 mcg Documented by: Levothyroxine Sodium (Synthroid) 75 mcg PO MoTuWeThFrSa@0600 [facility] Last Admin: 07/02/20 06:19 Dose: 75 mcg Documented by: Losartan Potassium (Cozaar) 100 mg PO DAILY [facility] Last Admin: 07/02/20 06:19 Dose: 100 mg Documented by: Metoprolol Succinate (Toprol Xl (Beta [place])) 100 mg PO DAILY [facility] Last Admin: 07/02/20 06:19 Dose: 100 mg Documented by: Nystatin (Mycostatin Powder) 1 applic TOPICAL BID [facility]; Protocol Last Admin: 07/02/20 06:20 Dose: Not Given Documented by: Oxycodone HCl (Oxyir) 5 mg PO Q4H PRN PRN PRN Reason: Pain Score 6-10/10 Polyethylene Glycol (Miralax) 17 gm PO DAILY [facility] Last Admin: 07/02/20 06:20 Dose: Not Given Documented by: Polysaccharide Iron Complex (Ferrex 150) 150 mg PO DAILYCM [facility] Last Admin: 07/02/20 08:15 Dose: 150 mg Documented by: Senna/Docusate Sodium (Senokot-S, Salima-Colace) 2 tablet PO BID [facility] Last Admin: 07/02/20 06:20 Dose: Not Given Documented by: Sertraline HCl (Zoloft) 50 mg PO DAILY [facility] Last Admin: 07/02/20 06:19 Dose: 50 mg Documented by: Sodium Chloride () 10 - 40 ml IV UD PRN PRN Reason: Open End PICC Flush Last Admin: 07/02/20 11:25 Dose: 10 ml Documented by: Sodium Chloride (0.9% Nacl (Sterile) Posiflush) 10 - 40 ml IV UD PRN PRN Reason: Port access or dressing change Medical Necessity - Tobacco Use Smoking Status: Never smoker Tobacco Use: Secondhand Assessment/Plan All Active Problems (Last Reviewed 06/11/20 @ 08:[address] Victorino Padilla MD) Ulcer of right foot with fat layer exposed (Acute) Chronic ulcer of left foot with fat layer exposed (Resolved) Cellulitis of right foot (Acute) Foreign body in right foot (Resolved) Osteomyelitis (Acute) Debility (Acute) Osteomyelitis of right foot (Acute) Cellulitis of right foot (Acute) Laceration of right foot with foreign body (Acute) Cellulitis of left foot (Resolved) Polycystic ovaries (Resolved) Right foot ulcer into fat/fascia; right 5th metatarsal and proximal phalanx osteomyelitis s/p right 5th ray amputation 06/05/2020 Right foot cellulitis resolved DM2 w/ neuropathy Peripheral arterial disease lower extremity Xerosis Her right foot is healing well. She is afebrile with vital signs stable. Labs were reviewed from yesterday and she does not have leukocytosis. Continue with wound vac which will be reapplied this afternoon. Reviewed culture results - patient on IV antibiotics w/ PICC; Dr. Berry on consult. No weightbearing right foot, keep foot elevated. Lower extremity arterial studies reviewed. PAD noted - consult placed to vascular/Dr. Padilla who has seen and following patient. Discussed the importance of blood sugar control and nutrition for wound healing. Discussed the importance of offloading for wound healing. Recommended continued application of topical moisturizing cream to bilateral foot (amlactin). Podiatry will continue to follow. Amalia Phillip DPM, FACFAS [facility] [phone]
[2020-07-02 14:53] VITALS: BP 144/70; PULSE 74; RESP 20; TEMP 36.2; O2SAT 97
[2020-07-02 16:31] LABS: Bedside Glucose 129 mg/dL (70-110)
[2020-07-02] MEDS: Menthol/Lanolin/Calamine/Znox 113 GM Tube 1 APPLIC TOPICAL (17:42)
--- NOTE | 2020-07-02 19:12 | PCM.DC ---
- Discharge Diagnoses Current Active Problems: Current Active and Chronic Problems (Last Reviewed 06/11/20 @ 08:[address] Victorino Padilla MD) Debility (Acute) Osteomyelitis of right foot (Acute) Depression (Chronic) You will use the following diet at home:: No restrictions, Regular, Fiber restricted Your liquids should be the consistency of: Regular/Thin Discharge Activity: Return to Normal Activity, May Shower, Use Walker Weight Bearing Status: No weight bearing Keep extremity elevated above heart level: Operative Extremity, Right Leg Call your doctor if you observe: Fever of 101 or Higher, Inability to urinate, Inability to have a bowel movement, Shortness of breath, Chest pain, Uncontrolled pain Allergies/Adverse Reactions: Allergies Inhaled Anesthetics (Halogen Based) Allergy (Verified 06/07/20 16:11) Unknown morphine Allergy (Verified 06/07/20 16:11) Unknown Medications to take at Discharge Aspirin E.C. [Ecotrin] 81 mg PO DAILY@0800 06/04/20 Atorvastatin Calcium 80 mg PO QHS 06/04/20 Ergocalciferol (Vitamin D2) [Drisdol] 50,000 unit PO WE 06/04/20 Glipizide 10 mg PO DAILY 06/04/20 Levothyroxine Sodium 75 mcg PO MOTUWETHFRSA 06/04/20 Levothyroxine [Synthroid] 150 mcg PO STOKES 06/04/20 Losartan Potassium 50 mg PO DAILY 06/04/20 Metoprolol Succinate 50 mg PO DAILY 06/04/20 Sertraline HCl [Zoloft] 50 mg PO DAILY 06/04/20 Acetaminophen [Tylenol] 1,000 mg PO Q6H PRN PRN tablet 07/02/20 Amlodipine [Norvasc] 5 mg PO DAILY #30 tab 07/02/20 Insulin Glargine [Lantus SoloStar Pen] 20 units SUBCUT BID #1 pen 07/02/20 Insulin Lispro [Humalog KwikPen] 13 unit SUBCUT TIDAC #1 insuln.pen 07/02/20 Iron Polysaccharide Complex [Ferrex 150] 150 mg PO DAILYCM #30 cap 07/02/20 Jere (unflavored) [Jere Packet] 1 packet PO BIDCM #60 packet 07/02/20 Lactobacillus Acidophilus [Acidophilus] 1 tablet PO BID tablet 07/02/20 Menthol/Lanolin/Calamine/Znox [Calmoseptine Ointment] 1 applic TOPICAL BID tube 07/02/20 The following prescriptions were given: Iron Polysaccharide Complex [Ferrex 150] 150 mg PO DAILYCM #30 cap Transmission Status: Pending to [facility]/pharmacy #[id number] Insulin Lispro [Humalog KwikPen] 13 unit SUBCUT TIDAC #1 insuln.pen Transmission Status: Pending to [facility]/pharmacy #[id number] Jere (unflavored) [Jere Packet] 1 packet PO BIDCM #60 packet Transmission Status: Pending to [facility]/pharmacy #[id number] Insulin Glargine [Lantus SoloStar Pen] 20 units SUBCUT BID #1 pen Transmission Status: Pending to [facility]/pharmacy #[id number] Amlodipine [Norvasc] 5 mg PO DAILY #30 tab Transmission Status: Pending to [facility]/pharmacy #[id number] Primary Care Physician: Qiunn Combs Chi, MD [COURTESY STAFF PHYSICIAN] - Please follow up with your Primary Care Physician in: 1 week. Test Results: Test results from this visit will be discussed in further detail at your follow-up appointment, if applicable. Please Follow Up With: Lenora Momin DPM When: 1-2 weeks Please Follow Up With: Armando Mejia MD When: 2-3 weeks Please Follow Up With: Armando Obrien MD When: 2-3 weeks Proposed Discharge Date: 07/20/20
--- NOTE | 2020-07-02 19:14 | DS.PCM_ITS ---
Discharge Date and Diagnosis - Problem List Patient Problems: Active and Suspected Problems (Last Reviewed 06/11/20 @ 08:[address] Victorino Padilla MD) Debility (Acute) Osteomyelitis of right foot (Acute) Date of Admission: 06/07/20 Date of Discharge: 07/20/20 - Primary Discharge Diagnosis Acute Problems: Active Problems (Last Reviewed 06/11/20 @ 08:[address] Victorino Padilla MD) Debility (Acute) Osteomyelitis of right foot (Acute) - Secondary Discharge Diagnosis Chronic Problems: Chronic Problems (Last Reviewed 06/11/20 @ 08:[address] Victorino Padilla MD) Type 2 diabetes mellitus with diabetic polyneuropathy (Chronic) Hammer toe of right foot (Chronic) Delayed wound healing (Chronic) Peripheral vascular disease (Chronic) PAD (peripheral artery disease) (Chronic) Depression (Chronic) Hallux limitus of left foot (Chronic) Type 2 diabetes mellitus with diabetic polyneuropathy (Chronic) Hypertension (Chronic) Type 2 diabetes mellitus (Chronic) Vitamin D deficiency (Chronic) Vision problems (Chronic) Neuropathy (Chronic) Heart murmur (Chronic) High cholesterol (Chronic) Back pain (Chronic) Anemia (Chronic) Overweight (BMI 25.0-29.9) (Chronic) Diabetic foot ulcer (Chronic) Chronic ulcer of great toe of left foot (Chronic) Diabetes (Chronic) Hyperlipidemia (Chronic) Hypothyroidism (Chronic) History of CVA (cerebrovascular accident) (Chronic) 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 Electronically Signed: Kely Sauceda MD at 16:49 EDT Tel , Service support , Labs (Last 48 Hours) 06/30/20 07/01/20 07/01/20 20:48 05:19 05:19 WBC 6.0 RBC 3.53 L Hgb 10.0 L Hct 32.5 L MCV 92.1 MCH 28.3 MCHC 30.8 L RDW Std Deviation 49.5 H RDW Coeff of Kadi 14.6 Plt Count 243 MPV 9.0 Immature Gran % (Auto) 0.200 Neut % (Auto) 58.3 Lymph % (Auto) 23.2 [place] % (Auto) 10.5 H Eos % (Auto) 7.0 H Baso % (Auto) 0.8 Absolute Neuts (auto) 3.5 Absolute Lymphs (auto) 1.39 Nucleated RBC % 0 Sodium 140 Potassium 4.0 Chloride 107 Carbon Dioxide 30.0 Anion Gap 3 L BUN 27 H Creatinine 0.84 Estim Creat Clear Calc 62.51 Est GFR (MDRD) Af Amer 88 Est GFR (MDRD) Non-Af 72 BUN/Creatinine Ratio 32.2 H Glucose 162 H Calcium 8.6 POC Glucose 173 H 07/01/20 07/01/20 07/01/20 06:13 11:02 16:33 WBC RBC Hgb Hct MCV MCH MCHC RDW Std Deviation RDW Coeff of Kadi Plt Count MPV Immature Gran % (Auto) Neut % (Auto) Lymph % (Auto) [place] % (Auto) Eos % (Auto) Baso % (Auto) Absolute Neuts (auto) Absolute Lymphs (auto) Nucleated RBC % Sodium Potassium Chloride Carbon Dioxide Anion Gap BUN Creatinine Estim Creat Clear Calc Est GFR (MDRD) Af Amer Est GFR (MDRD) Non-Af BUN/Creatinine Ratio Glucose Calcium POC Glucose 171 H 127 H 144 H 07/01/20 07/02/20 07/02/20 21:04 06:16 10:43 WBC RBC Hgb Hct MCV MCH MCHC RDW Std Deviation RDW Coeff of Kadi Plt Count MPV Immature Gran % (Auto) Neut % (Auto) Lymph % (Auto) [place] % (Auto) Eos % (Auto) Baso % (Auto) Absolute Neuts (auto) Absolute Lymphs (auto) Nucleated RBC % Sodium Potassium Chloride Carbon Dioxide Anion Gap BUN Creatinine Estim Creat Clear Calc Est GFR (MDRD) Af Amer Est GFR (MDRD) Non-Af BUN/Creatinine Ratio Glucose Calcium POC Glucose 112 H 146 H 187 H 07/02/20 16:22 WBC RBC Hgb Hct MCV MCH MCHC RDW Std Deviation RDW Coeff of Kadi Plt Count MPV Immature Gran % (Auto) Neut % (Auto) Lymph % (Auto) [place] % (Auto) Eos % (Auto) Baso % (Auto) Absolute Neuts (auto) Absolute Lymphs (auto) Nucleated RBC % Sodium Potassium Chloride Carbon Dioxide Anion Gap BUN Creatinine Estim Creat Clear Calc Est GFR (MDRD) Af Amer Est GFR (MDRD) Non-Af BUN/Creatinine Ratio Glucose Calcium POC Glucose 129 H Consultations 06/10/20 10:33 Consult: Onc/Wound/attending pathologist Routine Comment: Reason for Consult:: rt foot wound vac Operations: None, - - June 05, 2020 right foot fifth ray resection, I&D Procedures: None Summary of Care Provided: The patient is a 64 year old Female with below past medical history hospitalized osteomyelitis right foot, underwent right 5th ray resection, admitted to TCU with debility, here for rehabilitation, strengthening, intravenous antibiotics, wound care, prior to discharge home alone. [] Discharge home alone, [facility], Wound VAC. Patient Problems: Active and Suspected Problems (Last Reviewed 06/11/20 @ 08:[address] Victorino Padilla MD) Debility (Acute) Osteomyelitis of right foot (Acute) - Physical Exam Vitals/I&O's: Vital Signs Temp Pulse Resp BP Pulse Ox 97.2 F L 74 20 H 144/70 H 97 07/02/20 14:53 07/02/20 14:53 07/02/20 14:53 07/02/20 14:53 07/02/20 14:53 Oxygen Flow Rate (L/min) 93 Oxygen Delivery Method Room Air Weight: 96.19 kg Body Mass Index (BMI) 33.9 Finger Stick Blood Glucose 100 Intake and Output for Last 24 Hours 06/30/20 07/01/20 07/02/20 23:59 23:59 23:59 Intake Total 1030.75 / 1030.75 1190 / 1190 906.25 / 906.25 Balance 1030.75 / 1030.75 1190 / 1190 906.25 / 906.25 Laboratory Results 07/01/20 21:04: POC Glucose 112 H 07/02/20 06:16: POC Glucose 146 H 07/02/20 10:43: POC Glucose 187 H 07/02/20 16:22: POC Glucose 129 H Current Medications Acetaminophen (Tylenol) 1,000 mg PO Q6H PRN PRN PRN Reason: Pain Score 1-5/10 Last Admin: 06/28/20 21:08 Dose: 1,000 mg Documented by: Amlodipine Besylate (Norvasc) 5 mg PO DAILY [facility] Last Admin: 07/02/20 06:19 Dose: 5 mg Documented by: Aspirin (Ecotrin) 81 mg PO DAILY@0800 [facility] Last Admin: 07/02/20 08:15 Dose: 81 mg Documented by: Atorvastatin Calcium (Lipitor) 80 mg PO QHS [facility] Last Admin: 07/01/20 20:50 Dose: 80 mg Documented by: Bisacodyl (Dulcolax) 10 mg RECTAL DAILY PRN PRN Reason: Constipation Calamine/Phenol (Calmoseptine Ointment) 1 applic TOPICAL BID [facility]; Protocol Last Admin: 07/02/20 17:42 Dose: 1 applicatio Documented by: Enoxaparin Sodium (Lovenox) 40 mg SC DAILY@0600 [facility] Last Admin: 07/02/20 06:18 Dose: 40 mg Documented by: Ergocalciferol (Vitamin D) 50,000 unit PO We@1000 [facility] Last Admin: 07/02/20 10:36 Dose: 50,000 unit Documented by: Glipizide (Glucotrol) 10 mg PO DAILYCM [facility] Last Admin: 07/02/20 08:16 Dose: 10 mg Documented by: Heparin Sodium (Beef Lung) () 50 units IV UD PRN PRN Reason: PICC Line Heparin Flush Ceftriaxone Sodium 2 gm/ (Sodium Chloride) 50 mls @ 100 mls/hr IV Q24 [facility] Stop: 07/19/20 10:01 Last Infusion: 07/02/20 11:28 Dose: Infused Documented by: Sodium Chloride () 250 mls @ 15 mls/hr IV .[id number] PRN PRN Reason: SALINE FLUSH Last Infusion: 07/02/20 11:28 Dose: 0 mls/hr Documented by: Insulin Glargine (Lantus (Bkc)) 20 units SC BID [facility] Last Admin: 07/02/20 17:38 Dose: 20 units Documented by: Insulin Human Lispro (Humalog Kwikpen (Bk)) 13 unit SC TIDAC [facility] Last Admin: 07/02/20 17:40 Dose: 13 units Documented by: Lactobacillus Acidophilus (Acidophilus) 1 tablet PO BID [facility] Last Admin: 07/02/20 17:41 Dose: 1 tablet Documented by: Levothyroxine Sodium (Synthroid) 150 mcg PO Stokes@0600 [facility] Last Admin: 06/29/20 06:45 Dose: 150 mcg Documented by: Levothyroxine Sodium (Synthroid) 75 mcg PO MoTuWeThFrSa@0600 [facility] Last Admin: 07/02/20 06:19 Dose: 75 mcg Documented by: Losartan Potassium (Cozaar) 100 mg PO DAILY [facility] Last Admin: 07/02/20 06:19 Dose: 100 mg Documented by: Metoprolol Succinate (Toprol Xl (Beta [place])) 100 mg PO DAILY [facility] Last Admin: 07/02/20 06:19 Dose: 100 mg Documented by: Oxycodone HCl (Oxyir) 5 mg PO Q4H PRN PRN PRN Reason: Pain Score 6-10/10 Polyethylene Glycol (Miralax) 17 gm PO DAILY [facility] Last Admin: 07/02/20 06:20 Dose: Not Given Documented by: Polysaccharide [facility] ([facility] 150[facility] Last Admin: 07/02/20 08:15 Dose: 150 mg Documented by: Senna/Docusate Sodium (Senokot-S, Salima-Colace) 2 tablet PO BID [facility] Last Admin: 07/02/20 17:42 Dose: Not Given Documented by: Sertraline HCl (Zoloft) 50 mg PO DAILY [facility] Last Admin: 07/02/20 06:19 Dose: 50 mg Documented by: Sodium Chloride () 10 - 40 ml IV UD PRN PRN Reason: Open End PICC Flush Last Admin: 07/02/20 11:25 Dose: 10 ml Documented by: Sodium Chloride (0.9% Nacl (Sterile) Posiflush) 10 - 40 ml IV UD PRN PRN Reason: Port access or dressing change Discharge Diet: No Restrictions Discharge Activity: Return to Normal Activity, May Shower, Use Walker Weight Bearing Status: No weight bearing Keep extremity elevated above heart level: Operative Extremity, Right Leg Call your doctor if you observe: Fever of 101 or Higher, Inability to urinate, Inability to have a bowel movement, Shortness of breath, Chest pain, Uncontrolled pain Home Medications: Medications to take at Discharge Aspirin E.C. [Ecotrin] 81 mg PO DAILY@0800 06/04/20 Atorvastatin Calcium 80 mg PO QHS 06/04/20 Ergocalciferol (Vitamin D2) [Drisdol] 50,000 unit PO WE 06/04/20 Glipizide 10 mg PO DAILY 06/04/20 Levothyroxine Sodium 75 mcg PO MOTUWETHFRSA 06/04/20 Levothyroxine [Synthroid] 150 mcg PO STOKES 06/04/20 Losartan Potassium 50 mg PO DAILY 06/04/20 Metoprolol Succinate 50 mg PO DAILY 06/04/20 Sertraline HCl [Zoloft] 50 mg PO DAILY 06/04/20 Acetaminophen [Tylenol] 1,000 mg PO Q6H PRN PRN tablet 07/02/20 Amlodipine [Norvasc] 5 mg PO DAILY #30 tab 07/02/20 Insulin Glargine [Lantus SoloStar Pen] 20 units SUBCUT BID #1 pen 07/02/20 Insulin Lispro [Humalog KwikPen] 13 unit SUBCUT TIDAC #1 insuln.pen 07/02/20 Iron Polysaccharide Complex [Ferrex 150] 150 mg PO DAILYCM #30 cap 07/02/20 Jere (unflavored) [Jere Packet] 1 packet PO BIDCM #60 packet 07/02/20 Lactobacillus Acidophilus [Acidophilus] 1 tablet PO BID tablet 07/02/20 Menthol/Lanolin/Calamine/Znox [Calmoseptine Ointment] 1 applic TOPICAL BID tube 07/02/20 Following Prescriptions Were Given to Patient: Iron Polysaccharide Complex [Ferrex 150] 150 mg PO DAILYCM #30 cap Transmission Status: Pending to [facility]pharmacy #[id number] Insulin Lispro [Humalog KwikPen] 13 unit SUBCUT TIDAC #1 insuln.pen Transmission Status: Pending to [facility]acy #[id number] Jere (unflavored) [Jere Packet] 1 packet PO BIDCM #60 packet Transmission Status: Pending to [facility]acy #[id number] Insulin Glargine [Lantus SoloStar Pen] 20 units SUBCUT BID #1 pen Transmission Status: Pending to [facility]acy #[id number] Amlodipine [Norvasc] 5 mg PO DAILY #30 tab Transmission Status: Pending to [facility][id number] Primary Care Physician: Quinn Combs Chi, MD [COURTESY STAFF PHYSICIAN] - Please follow up with your Primary Care Physician in: 1 week. Please Follow Up With: Lenora Momin DPM When: 1-2 weeks Please Follow Up With: Armando Mejia MD When: 2-3 weeks Please Follow Up With: Armando Obrien MD When: 2-3 weeks Disposition: Home with Home Health Minutes spent on discharge:: 35 Patient Condition:: Stable Medical Necessity - Tobacco Use Smoking Status: Never smoker Tobacco Use: Secondhand Meaningful Use Info Meaningful Use Diagnoses (Choose all that apply): None applicable
[2020-07-02] MEDS: Atorvastatin Calcium 80 MG Tablet PO (20:36)
[2020-07-02 21:21] LABS: Bedside Glucose 226 mg/dL (70-110)
[2020-07-03 06:15] VITALS: BP 146/70; PULSE 76; RESP 16; TEMP 36.4; O2SAT 94
[2020-07-03] MEDS: 0.9% Saline Lock 10 ML Syringe IV ×2 (06:15→10:02)
[2020-07-03] MEDS: Losartan Potassium 100 MG Tablet PO (06:15)
[2020-07-03] MEDS: Levothyroxine 75 MCG Tablet PO (06:15)
[2020-07-03] MEDS: Enoxaparin 40 MG/0.4 ML Syringe SC (06:15)
[2020-07-03 06:16] VITALS: BP 146/70; PULSE 76
[2020-07-03] MEDS: Sertraline 50 MG Tablet PO (06:16)
[2020-07-03] MEDS: amLODIPine 5 MG Tablet PO (06:16)
[2020-07-03] MEDS: Metoprolol(XL)Succ 100 MG Tablet PO (06:16)
[2020-07-03 06:26] LABS: Bedside Glucose 127 mg/dL (70-110)
[2020-07-03] MEDS: Iron Polysaccharide Complex 150 MG CAPSULE PO (08:19)
[2020-07-03] MEDS: Insulin Lispro 100 UNIT/ML INSULN.PEN 13 UNIT SC ×2 (08:19→12:07)
[2020-07-03] MEDS: glipiZIDE 10 MG Tablet PO (08:19)
[2020-07-03] MEDS: Juven (unflavored) Packet 1 PACKET PO ×2 (08:19→16:51)
[2020-07-03] MEDS: Aspirin E.C. 81 MG Tablet PO (08:19)
[2020-07-03] MEDS: 0.9% NaCl IVPB Med Flush (250 mL) 15 ML IV (10:01)
[2020-07-03 11:06] LABS: Bedside Glucose 129 mg/dL (70-110)
[2020-07-03 15:48] VITALS: BP 136/52; PULSE 76; RESP 20; TEMP 36.8; O2SAT 100
[2020-07-03 16:51] LABS: Bedside Glucose 54 mg/dL (70-110)
[2020-07-03 17:35] LABS: Bedside Glucose 106 mg/dL (70-110)
[2020-07-03] MEDS: Menthol/Lanolin/Calamine/Znox 113 GM Tube 1 APPLIC TOPICAL (18:11)
[2020-07-03 21:30] LABS: Bedside Glucose 239 mg/dL (70-110)
[2020-07-03] MEDS: Atorvastatin Calcium 80 MG Tablet PO (21:43)
[2020-07-04 06:14] VITALS: BP 140/61; PULSE 77; RESP 18; TEMP 37.1; O2SAT 97
[2020-07-04] MEDS: Enoxaparin 40 MG/0.4 ML Syringe SC (06:15)
[2020-07-04 06:16] LABS: Bedside Glucose 169 mg/dL (70-110)
[2020-07-04 06:17] VITALS: BP 140/61; PULSE 77
[2020-07-04] MEDS: Levothyroxine 75 MCG Tablet PO (06:17)
[2020-07-04] MEDS: amLODIPine 5 MG Tablet PO (06:17)
[2020-07-04] MEDS: Losartan Potassium 100 MG Tablet PO (06:17)
[2020-07-04] MEDS: Sertraline 50 MG Tablet PO (06:17)
[2020-07-04] MEDS: Metoprolol(XL)Succ 100 MG Tablet PO (06:17)
[2020-07-04] MEDS: Menthol/Lanolin/Calamine/Znox 113 GM Tube 1 APPLIC TOPICAL ×2 (06:23→17:53)
[2020-07-04] MEDS: Insulin Lispro 100 UNIT/ML INSULN.PEN 10 UNIT SC ×2 (07:49→12:07)
[2020-07-04] MEDS: Iron Polysaccharide Complex 150 MG CAPSULE PO (07:49)
[2020-07-04] MEDS: Juven (unflavored) Packet 1 PACKET PO ×2 (07:49→17:54)
[2020-07-04] MEDS: glipiZIDE 10 MG Tablet PO (07:49)
[2020-07-04] MEDS: Aspirin E.C. 81 MG Tablet PO (07:49)
[2020-07-04] MEDS: 0.9% Saline Lock 10 ML Syringe IV (09:47)
[2020-07-04 11:00] LABS: Bedside Glucose 119 mg/dL (70-110)
[2020-07-04 17:00] LABS: Bedside Glucose 69 mg/dL (70-110)
[2020-07-04 18:00] VITALS: PULSE 74; RESP 16; O2SAT 96
[2020-07-04 18:12] VITALS: BP 158/82; PULSE 74; RESP 16; TEMP 36.8; O2SAT 96
[2020-07-04 18:31] LABS: Bedside Glucose 116 mg/dL (70-110)
[2020-07-04] MEDS: Atorvastatin Calcium 80 MG Tablet PO (20:29)
[2020-07-04 20:40] LABS: Bedside Glucose 211 mg/dL (70-110)
[2020-07-05 04:00] VITALS: BP 165/85; PULSE 77; RESP 16; TEMP 36.6; O2SAT 97
[2020-07-05] MEDS: Enoxaparin 40 MG/0.4 ML Syringe SC (06:06)
[2020-07-05] MEDS: amLODIPine 5 MG Tablet PO (06:07)
[2020-07-05 06:08] VITALS: BP 165/85; PULSE 77
[2020-07-05] MEDS: Sertraline 50 MG Tablet PO (06:08)
[2020-07-05] MEDS: Losartan Potassium 100 MG Tablet PO (06:08)
[2020-07-05] MEDS: Metoprolol(XL)Succ 100 MG Tablet PO (06:08)
[2020-07-05] MEDS: Levothyroxine 75 MCG Tablet PO (06:08)
[2020-07-05] MEDS: Menthol/Lanolin/Calamine/Znox 113 GM Tube 1 APPLIC TOPICAL (06:10)
[2020-07-05 06:11] LABS: Bedside Glucose 163 mg/dL (70-110)
[2020-07-05] MEDS: Insulin Lispro 100 UNIT/ML INSULN.PEN 7 UNIT SC ×3 (08:13→18:48)
[2020-07-05] MEDS: Aspirin E.C. 81 MG Tablet PO (08:14)
[2020-07-05] MEDS: Juven (unflavored) Packet 1 PACKET PO ×2 (08:14→18:49)
[2020-07-05] MEDS: glipiZIDE 10 MG Tablet PO (08:14)
[2020-07-05] MEDS: Iron Polysaccharide Complex 150 MG CAPSULE PO (08:14)
[2020-07-05] MEDS: 0.9% NaCl IVPB Med Flush (250 mL) 15 ML IV (10:27)
[2020-07-05] MEDS: 0.9% Saline Lock 10 ML Syringe IV ×2 (10:27→13:57)
[2020-07-05 11:00] LABS: Bedside Glucose 142 mg/dL (70-110)
[2020-07-05 14:45] VITALS: BP 151/60; PULSE 72; RESP 18; TEMP 36.5; O2SAT 98
[2020-07-05 16:11] LABS: Bedside Glucose 176 mg/dL (70-110)
[2020-07-05 21:11] LABS: Bedside Glucose 153 mg/dL (70-110)
[2020-07-05] MEDS: Atorvastatin Calcium 80 MG Tablet PO (21:37)
[2020-07-05] MEDS: Acetaminophen 500 MG Tablet 1000 MG PO (21:37)
[2020-07-06 06:18] VITALS: BP 163/71; PULSE 76; RESP 18; TEMP 36.6; O2SAT 95
[2020-07-06 06:20] VITALS: BP 163/71; PULSE 76
[2020-07-06] MEDS: amLODIPine 5 MG Tablet PO (06:20)
[2020-07-06] MEDS: Metoprolol(XL)Succ 100 MG Tablet PO (06:20)
[2020-07-06] MEDS: Sertraline 50 MG Tablet PO (06:20)
[2020-07-06] MEDS: Enoxaparin 40 MG/0.4 ML Syringe SC (06:20)
[2020-07-06] MEDS: Losartan Potassium 100 MG Tablet PO (06:20)
[2020-07-06 06:21] LABS: Bedside Glucose 217 mg/dL (70-110)
[2020-07-06] MEDS: Levothyroxine 150 MCG Tablet PO (06:21)
[2020-07-06] MEDS: Insulin Lispro 100 UNIT/ML INSULN.PEN 7 UNIT SC ×3 (08:10→17:42)
[2020-07-06] MEDS: Iron Polysaccharide Complex 150 MG CAPSULE PO (08:11)
[2020-07-06] MEDS: Aspirin E.C. 81 MG Tablet PO (08:11)
[2020-07-06] MEDS: glipiZIDE 10 MG Tablet PO (08:11)
[2020-07-06] MEDS: Juven (unflavored) Packet 1 PACKET PO ×2 (08:11→17:42)
[2020-07-06] MEDS: 0.9% Saline Lock 10 ML Syringe IV (10:56)
[2020-07-06 11:06] LABS: Bedside Glucose 191 mg/dL (70-110)
[2020-07-06 14:02] VITALS: BP 133/61; PULSE 68; RESP 16; TEMP 36.3; O2SAT 97
[2020-07-06 16:25] LABS: Bedside Glucose 132 mg/dL (70-110)
[2020-07-06 21:26] LABS: Bedside Glucose 186 mg/dL (70-110)
[2020-07-06] MEDS: Atorvastatin Calcium 80 MG Tablet PO (21:38)
[2020-07-07 04:00] VITALS: BP 164/56; PULSE 77; RESP 16; TEMP 36.9; O2SAT 96
[2020-07-07 06:21] VITALS: PULSE 77
[2020-07-07 06:21] LABS: Bedside Glucose 187 mg/dL (70-110)
[2020-07-07] MEDS: Sertraline 50 MG Tablet PO (06:21)
[2020-07-07] MEDS: amLODIPine 5 MG Tablet PO (06:21)
[2020-07-07] MEDS: Metoprolol(XL)Succ 100 MG Tablet PO (06:21)
[2020-07-07] MEDS: Levothyroxine 75 MCG Tablet PO (06:21)
[2020-07-07] MEDS: Losartan Potassium 100 MG Tablet PO (06:22)
[2020-07-07] MEDS: Enoxaparin 40 MG/0.4 ML Syringe SC (06:22)
[2020-07-07] MEDS: 0.9% Saline Lock 10 ML Syringe IV ×2 (06:22→11:44)
[2020-07-07] MEDS: Menthol/Lanolin/Calamine/Znox 113 GM Tube 1 APPLIC TOPICAL (06:23)
--- NOTE | 2020-07-07 08:16 | PN_ITS ---
Subjective: Resident seen for regulatory visit. She has no new problems, concerns complaints. We discussed her Diabetes, she is currently on Glipizide, Metform in, Lantus, Humalog. Pioglitazone not helpful in the past, Byetta, Victoza caused nausea, and not affordable. Trulicity not affordable. I offered bariatric surgery as a solution to her Diabetes, and possible cure. I let her know if she underwent weight loss surgery, more than likely, all of her medications would go away, and her risk of diabetes complications would lower greatly. Vitals/I&O's: Vital Signs Temp Pulse Resp BP Pulse Ox 98.4 F 77 16 164/56 H 96 07/07/20 04:00 07/07/20 06:21 07/07/20 04:00 07/07/20 04:00 07/07/20 04:00 Oxygen Flow Rate (L/min) 93 Oxygen Delivery Method Room Air Weight: 96.19 kg Body Mass Index (BMI) 33.9 Finger Stick Blood Glucose 100 Intake and Output for Last 24 Hours 07/05/20 07/06/20 07/07/20 23:59 23:59 23:59 Intake Total 1141.75 / 1141.75 1050 / 1050 Balance 1141.75 / 1141.75 1050 / 1050 Laboratory Results 07/06/20 10:55: POC Glucose 191 H 07/06/20 16:12: POC Glucose 132 H 07/06/20 21:01: POC Glucose 186 H 07/07/20 06:15: POC Glucose 187 H Past Medical History Past Medical History (Chronic Problems): Chronic Problems (Last Reviewed 06/11/20 @ 08:[address] Victorino Padilla MD) Type 2 diabetes mellitus with diabetic polyneuropathy (Chronic) Hammer toe of right foot (Chronic) Delayed wound healing (Chronic) Peripheral vascular disease (Chronic) PAD (peripheral artery disease) (Chronic) Depression (Chronic) Hallux limitus of left foot (Chronic) Type 2 diabetes mellitus with diabetic polyneuropathy (Chronic) Hypertension (Chronic) Type 2 diabetes mellitus (Chronic) Vitamin D deficiency (Chronic) Vision problems (Chronic) Neuropathy (Chronic) Heart murmur (Chronic) High cholesterol (Chronic) Back pain (Chronic) Anemia (Chronic) Overweight (BMI 25.0-29.9) (Chronic) Diabetic foot ulcer (Chronic) Chronic ulcer of great toe of left foot (Chronic) Diabetes (Chronic) Hyperlipidemia (Chronic) Hypothyroidism (Chronic) History of CVA (cerebrovascular accident) (Chronic) 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 Victorino Padilla MD) Vitamin D deficiency (Chronic) E55.9 Vision problems (Chronic) H54.7 Neuropathy (Chronic) G62.9 Heart murmur (Chronic) R01.1 High cholesterol (Chronic) E78.00 Back pain (Chronic) M54.9 Anemia (Chronic) D64.9 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) N97.9 Limb weakness (Chronic) R29.898 Thyroid disease (Chronic) E07.9 Diabetes (Chronic) E11.9 Stroke (Chronic) I63.9 Heart disease (Chronic) I51.9 Polycystic ovaries (Resolved) E28.2 Allergies Inhaled Anesthetics (Halogen Based) Allergy (Verified 06/07/20 16:11) Unknown morphine Allergy (Verified 06/07/20 16:11) Unknown Home Medications: Ambulatory Orders Medication Instructions Recorded Aspirin E.C. [Ecotrin] 81 mg PO DAILY@0800 06/04/20 Atorvastatin Calcium 80 mg PO QHS 06/04/20 Ergocalciferol (Vitamin D2) 50,000 unit PO WE 06/04/20 [Drisdol] Glipizide 10 mg PO DAILY 06/04/20 Levothyroxine Sodium 75 mcg PO MOTUWETHFRSA 06/04/20 Levothyroxine [Synthroid] 150 mcg PO VICTOR 06/04/20 Losartan Potassium 50 mg PO DAILY 06/04/20 Metoprolol Succinate 50 mg PO DAILY 06/04/20 Sertraline HCl [Zoloft] 50 mg PO DAILY 06/04/20 Acetaminophen [Tylenol] 1,000 mg PO Q6H PRN PRN tab 07/02/20 Amlodipine [Norvasc] 5 mg PO DAILY #30 tab 07/02/20 Insulin Glargine [Lantus SoloStar 20 units SUBCUT BID #1 pen 07/02/20 Pen] Insulin Lispro [Humalog KwikPen] 13 unit SUBCUT TIDAC #1 insuln.pen 07/02/20 Iron Polysaccharide Complex 150 mg PO DAILYCM #30 cap 07/02/20 [Ferrex 150] Jere (unflavored) [Jere Packet] 1 packet PO BIDCM #60 packet 07/02/20 Lactobacillus Acidophilus 1 tab PO BID tab 07/02/20 [Acidophilus] Menthol/Lanolin/Calamine/Znox 1 applic TOPICAL BID tube 07/02/20 [Calmoseptine Ointment] Surgical History: Surgical History (Last Reviewed 06/11/20 @ 08:[address] Victorino Padilla MD) History of hysterectomy Z90.710 History of shoulder surgery Z98.890 Surgical History: hysterectomy, - Psychiatric History: Depression [employer] History: No pertinent [employer] history Lives: Alone Smoking Status: Never smoker Tobacco Use: Secondhand Alcohol: None Drugs: None - *Family History Paternal Family History: Family History (Last Reviewed 06/04/20 @ 17:[address] Armando Jimenez, DO) Mother Anemia Angina pectoris Heart disease CVA (cerebral vascular accident) Thyroid disorder Diabetes Father Angina pectoris Myocardial infarction Kidney disease Diabetes Grandmother Colon cancer History Items: - - Patient's father at the age of 75 with a history of renal failure, heart disease, and diabetes mellitus. Patient's mother at the age of 87, with a history of diabetes mellitus, heart disease, and cerebrovascular accident. Capacity - Capacity Assessment Tool Can the patient make a choice & communicate that choice?: Yes Can the patient understand benefits, risks and alternatives?: Yes Can the patient make a logical, rational choice?: Yes Is the choice the patient makes consistent w/ their values?: Yes Is there an impending, emergent risk to the patient?: No Does the patient have an Advance Directive?: Yes Is there a Surrogate Available?: Yes i.e. HCPOA: Yes i.e. close relative (spouse, child, parent, sibling)?: Yes Review of Systems Constitutional: Denies: Chills, Fever, Weight Change HEENT: Denies: Head Aches, Sinus Congestion, Sinus Drainage Cardiovascular: Denies: Chest Pain, Palpitations Respiratory: Denies: Cough, Shortness of breath at rest, Sputum production Gastrointestinal: Denies: Abdominal Pain, Nausea, Vomiting Genitourinary: Denies: Dysuria Musculoskeletal: Denies: Joint Pain, Joint Tenderness Skin: Denies: Rash, Wounds Neurological: Denies: Numbness, Tingling, Focal weakness Psychiatric: Denies: Anxiety, Depression, Homicidal Ideations, Suicidal Ideations Hematologic/ Lymphatic: Denies: Easy Bruising, Easy Bleeding Patient Problems: Active and Suspected Problems (Last Reviewed 06/11/20 @ 08:[address] Victorino Padilla MD) Debility (Acute) Osteomyelitis of right foot (Acute) - Physical Exam Vitals/I&O's: Vital Signs Temp Pulse Resp BP Pulse Ox 98.4 F 77 16 164/56 H 96 07/07/20 04:00 07/07/20 06:21 07/07/20 04:00 07/07/20 04:00 07/07/20 04:00 Oxygen Flow Rate (L/min) 93 Oxygen Delivery Method Room Air Weight: 96.19 kg Body Mass Index (BMI) 33.9 Finger Stick Blood Glucose 100 Intake and Output for Last 24 Hours 07/05/20 07/06/20 07/07/20 23:59 23:59 23:59 Intake Total 1141.75 / 1141.75 1050 / 1050 Balance 1141.75 / 1141.75 1050 / 1050 General: Alert, Oriented x3, Cooperative HEENT: Atraumatic, PERRLA, EOMI, Normocephalic Neck: Supple, No JVD, Negative Carotid Bruits Lungs: Clear to auscultation, Normal air movement Cardiovascular: Regular rate, No murmurs Abdomen: Bowel Sounds Present, Soft, Non Tender Extremities: No edema, Capillary Refill Less than 3 Seconds, - - Right foot wound VAC. Skin: No rashes, No breakdown Musculoskeletal: No Tenderness to Palpation of Joints or Extremities Neurological: Cranial nerves II-XII grossly intact Psych/Mental Status: Normal Affect, Appropriate Laboratory Results 07/06/20 10:55: POC Glucose 191 H 07/06/20 16:12: POC Glucose 132 H 07/06/20 21:01: POC Glucose 186 H 07/07/20 06:15: POC Glucose 187 H Current Medications Acetaminophen (Tylenol) 1,000 mg PO Q6H PRN PRN PRN Reason: Pain Score 1-5/10 Last Admin: 07/05/20 21:37 Dose: 1,000 mg Documented by: Amlodipine Besylate (Norvasc) 5 mg PO DAILY [facility] Last Admin: 07/07/20 06:21 Dose: 5 mg Documented by: Aspirin (Ecotrin) 81 mg PO DAILY@0800 [facility] Last Admin: 07/06/20 08:11 Dose: 81 mg Documented by: Atorvastatin Calcium (Lipitor) 80 mg PO QHS [facility] Last Admin: 07/06/20 21:38 Dose: 80 mg Documented by: Bisacodyl (Dulcolax) 10 mg RECTAL DAILY PRN PRN Reason: Constipation Calamine/Phenol (Calmoseptine Ointment) 1 applic TOPICAL BID [facility]; Protocol Last Admin: 07/07/20 06:23 Dose: 1 applicatio Documented by: Enoxaparin Sodium (Lovenox) 40 mg SC DAILY@0600 [facility] Last Admin: 07/07/20 06:22 Dose: 40 mg Documented by: Ergocalciferol (Vitamin D) 50,000 unit PO We@1000 [facility] Last Admin: 07/02/20 10:36 Dose: 50,000 unit Documented by: [facility] Last Admin: 07/06/20 08:11 Dose: 10 mg Documented by: Heparin Sodium (Beef Lung) () 50 units IV UD PRN PRN Reason: PICC Line Heparin Flush Ceftriaxone Sodium 2 gm/ (Sodium Chloride) 50 mls @ 100 mls/hr IV Q24 [facility] Stop: 07/19/20 10:01 Last Infusion: 07/06/20 11:30 Dose: Infused Documented by: Sodium Chloride () 250 mls @ 15 mls/hr IV .[id number] PRN PRN Reason: SALINE FLUSH Last Infusion: 07/05/20 11:14 Dose: Infused Documented by: Insulin Glargine (Lantus (Bk)) 10 units SC BID [facility] Last Admin: 07/07/20 06:22 Dose: 10 u Documented by: Insulin Human Lispro (Humalog Kwikpen ([facility])) 7 unit SC TIDAC [facility] Last Admin: 07/06/20 17:42 Dose: 7 u Documented by: L-Arginine/L-Glutamine/Calcium HMB (Jere Packet) [facility] Last Admin: 07/06/20 17:42 Dose: 1 packet Documented by: Lactobacillus Acidophilus (Acidophilus) 1 tablet PO BID [facility] Last Admin: 10/05/20 06:21 Dose: 1 tablet Documented by: Levothyroxine Sodium (Synthroid) 150 mcg PO Victor@0600 [facility] Last Admin: 07/06/20 06:21 Dose: 150 mcg Documented by: Levothyroxine Sodium (Synthroid) 75 mcg PO MoTuWeThFrSa@0600 [facility] Last Admin: 07/07/20 06:21 Dose: 75 mcg Documented by: Losartan Potassium (Cozaar) 100 mg PO DAILY [facility] Last Admin: 07/07/20 06:22 Dose: 100 mg Documented by: Metoprolol Succinate (Toprol Xl (Beta [place])) 100 mg PO DAILY [facility] Last Admin: 07/07/20 06:21 Dose: 100 mg Documented by: Oxycodone HCl (Oxyir) 5 mg PO Q4H PRN PRN PRN Reason: Pain Score 6-10/10 Polyethylene Glycol (Miralax) 17 gm PO DAILY PRN PRN Reason: Constipation Polysaccharide Iron Complex (Ferrex 150) [facility] Last Admin: 07/06/20 08:11 Dose: 150 mg Documented by: Senna/Docusate Sodium (Senokot-S, Salima-Colace) 2 tablet PO BID PRN PRN Reason: Constipation Sertraline HCl (Zoloft) 50 mg PO DAILY [facility] Last Admin: 07/07/20 06:21 Dose: 50 mg Documented by: Sodium Chloride () 10 - 40 ml IV UD PRN PRN Reason: Open End PICC Flush Last Admin: 07/07/20 06:22 Dose: 20 ml Documented by: Sodium Chloride (0.9% Nacl (Sterile) Posiflush) 10 - 40 ml IV UD PRN PRN Reason: Port access or dressing change Assessment/Plan All Active Problems (Last Reviewed 06/11/20 @ 08:[address] Victorino Padilla MD) Ulcer of right foot with fat layer exposed (Acute) Chronic ulcer of left foot with fat layer exposed (Resolved) Cellulitis of right foot (Acute) Foreign body in right foot (Resolved) Osteomyelitis (Acute) Debility (Acute) Osteomyelitis of right foot (Acute) Cellulitis of right foot (Acute) Laceration of right foot with foreign body (Acute) Cellulitis of left foot (Resolved) Polycystic ovaries (Resolved) 64 year old female with below past medical history hospitalized osteomyelitis right foot, underwent right 5th ray resection, admitted to TCU with debility, here for rehabilitation, strengthening, intravenous antibiotics, wound care, prior to discharge home alone. * Debility - PT/OT. * Pain - Tylenol 1000MG Q6H PRN pain (1-5), Oxycodone 5MG Q4H PRN pain (6-10). * Bowel - Miralax 17GM daily PRN, Senna/colace 2 tablets BID PRN, Dulcolax 10MG PA daily PRN. * Adult immunization - Administer Prevnar 13, Pneumovax 23, Fluzone as appropriate. * DVT prophylaxis - Lovenox 40MG SC daily. * CV prophylaxis - Aspirin 81MG daily. * Hyperlipidemia - Atorvastatin 80MG QHS. * Osteomyelitis right foot - Rocephin 2GM IV Q24H thru 07/19/20, Lactobacillus 1 tablet BID. * Vitamin D deficiency - D2 50,000 units per week. * Diabetes Mellitus II - Glipizide 10MG daily, Lantus 10 units BID, Humalog 7 units TID. * Nutrition - Jere 1 packet BID. * Hypothyroidism - Levothyroxine 75MCG 6 days/week, 150MCG 1 day/week. * Hypertension - Metoprolol succinate 100MG daily, Losartan 100MG daily, A mlodipine 5MG daily. * Skin irritation - Calmoseptine BID. * Iron deficiency anemia - Ferrex 150MG daily. * Depression - Sertraline 50MG daily.
[2020-07-07] MEDS: Iron Polysaccharide Complex 150 MG CAPSULE PO (08:58)
[2020-07-07] MEDS: Aspirin E.C. 81 MG Tablet PO (08:58)
[2020-07-07] MEDS: glipiZIDE 10 MG Tablet PO (08:58)
[2020-07-07] MEDS: Insulin Lispro 100 UNIT/ML INSULN.PEN 7 UNIT SC ×3 (08:59→17:39)
[2020-07-07] MEDS: Juven (unflavored) Packet 1 PACKET PO ×2 (09:00→17:41)
[2020-07-07 10:50] LABS: Bedside Glucose 187 mg/dL (70-110)
[2020-07-07 14:12] VITALS: BP 147/66; PULSE 75; RESP 16; TEMP 36.4; O2SAT 97
--- NOTE | 2020-07-07 15:13 | NURSING ---
wound photo: right foot
--- NOTE | 2020-07-07 15:13 | NURSING ---
wound photo: right plantar foot
[2020-07-07 16:50] LABS: Bedside Glucose 81 mg/dL (70-110)
[2020-07-07] MEDS: Atorvastatin Calcium 80 MG Tablet PO (19:53)
[2020-07-07 21:55] LABS: Bedside Glucose 311 mg/dL (70-110)
[2020-07-08 05:50] LABS: Absolute Lymphocyte Count 1.29 X10^3/uL (0.83-4.51); Absolute Neutrophil Count 3.1 X10^3/uL (2.0-7.7); Basophil# 0.05 X10^3/uL; Basophil% 0.9 % (0-1); Eosinophil# 0.42 X10^3/uL; Eosinophils% 7.6 % (0-5); Hemoglobin 9.9 g/dL (12.0-15.0); Lymphocyte # 1.29 X10^3/ul (4.0); Lymphocyte % 23.5 % (19-41); Mean Corp Hgb Conc 30.9 g/dL (32-36); Mean Corpuscular Hgb 28.9 pg (27.0-32.0); Mean Corpuscular Volume 93.6 fL (81-99); Mean Platelet Vol. 9.4 fl (6.2-12.0); Monocyte# 0.65 X10^3/uL; Monocyte% 11.8 % (0-10); NRBC Flagged by Analyzer 0 % (0-5); Neutrophil # 3.08 X10^3/uL (2.7-7.7); Platelet Count 243 K/mm3 (150-450); RBC Distribution Width CV 14.2 % (11.6-14.6); RBC Distribution Width SD 48.5 fl (35.1-43.9); Red Blood Count 3.42 M/mm3 (4.2-5.4); White Blood Count 5.5 K/mm3 (4.4-11.0)
[2020-07-08 06:04] VITALS: BP 146/84; PULSE 76; RESP 16; TEMP 36.6; O2SAT 97
[2020-07-08 06:06] VITALS: BP 146/84; PULSE 76
[2020-07-08 06:06] LABS: Bedside Glucose 206 mg/dL (70-110)
[2020-07-08] MEDS: Levothyroxine 75 MCG Tablet PO (06:06)
[2020-07-08] MEDS: Metoprolol(XL)Succ 100 MG Tablet PO (06:06)
[2020-07-08] MEDS: Sertraline 50 MG Tablet PO (06:06)
[2020-07-08] MEDS: Enoxaparin 40 MG/0.4 ML Syringe SC (06:06)
[2020-07-08] MEDS: amLODIPine 5 MG Tablet PO (06:06)
[2020-07-08] MEDS: Losartan Potassium 100 MG Tablet PO (06:09)
[2020-07-08 06:10] LABS: Anion Gap 4 (5-15); BUN 23 mg/dL (7-18); BUN/Creat Ratio 30.2 RATIO (10-20); Calcium,Total 8.7 mg/dL (8.5-10.1); Chloride 106 mmol/L (98-107); Creatinine, Serum 0.76 mg/dL (0.55-1.02); EST Glomerular Filtration Rate 81 mL/min (>60); Est Glom Filt Rate - Afr Amer 98 mL/min (>60); Estimated Creatinine Clearance 69.09 ml/min; Glucose 208 mg/dL (74-106); Potassium 3.7 mmol/L (3.5-5.1); Sodium Level 138 mmol/L (136-145)
[2020-07-08] MEDS: Menthol/Lanolin/Calamine/Znox 113 GM Tube 1 APPLIC TOPICAL ×2 (06:13→18:20)
[2020-07-08] MEDS: Insulin Lispro 100 UNIT/ML INSULN.PEN 7 UNIT SC ×3 (08:24→18:17)
[2020-07-08] MEDS: Aspirin E.C. 81 MG Tablet PO (08:24)
[2020-07-08] MEDS: Iron Polysaccharide Complex 150 MG CAPSULE PO (08:25)
[2020-07-08] MEDS: Juven (unflavored) Packet 1 PACKET PO ×2 (08:25→18:15)
[2020-07-08] MEDS: glipiZIDE 10 MG Tablet PO (08:25)
[2020-07-08] MEDS: 0.9% Saline Lock 10 ML Syringe IV (10:35)
[2020-07-08 11:05] LABS: Bedside Glucose 235 mg/dL (70-110)
[2020-07-08 14:00] VITALS: BP 152/71; PULSE 72; RESP 18; TEMP 36; O2SAT 98
[2020-07-08 16:36] LABS: Bedside Glucose 190 mg/dL (70-110)
--- NOTE | 2020-07-08 18:57 | PN_ITS ---
Patient Problems: Active and Suspected Problems (Last Reviewed 06/11/20 @ 08:[address] Victorino Padilla MD) Debility (Acute) Osteomyelitis of right foot (Acute) Subjective: This 64-year-old female was seen bedside status post fifth ray resection with residual ulcer. She has kept her wound VAC clean and intact. She denies fever, chill, nausea, vomiting, pain. She continues on IV antibiotics and resides in the transitional care unit. - Physical Exam Vitals/I&O's: Vital Signs Temp Pulse Resp BP Pulse Ox 96.8 F L 72 18 152/71 H 98 07/08/20 14:00 07/08/20 14:00 07/08/20 14:00 07/08/20 14:00 07/08/20 14:00 Oxygen Flow Rate (L/min) 93 Oxygen Delivery Method Room Air Weight: 95.028 kg Body Mass Index (BMI) 33.9 Finger Stick Blood Glucose 100 Intake and Output for Last 24 Hours 07/06/20 07/07/20 07/08/20 23:59 23:59 23:59 Intake Total 1050 / 1050 1370 / 1370 960 / 960 Balance 1050 / 1050 1370 / 1370 960 / 960 General: Alert, Oriented x3 HEENT: Atraumatic Extremities: No clubbing, No cyanosis, Capillary Refill Less than 3 Seconds, No Calf Tenderness, Diminished Peripheral Pulses, Edema Skin: Ulcer/ Wound - proximal dorsal foot ulceration: No purulence, erythema, streaking, odor, infection. There is no maceration or necrosis. There is granular healthy bleeding ulcer base measuring 3x1.5x0.7cm after debridment. Her adjacent skin is hairless and atrophic. There is no exposed bone. Distal dorsal lateral foot ulceration noted where sutures were with minimal opening with granular base measuring 0.8x0.2x0.2cm. There is almost full epithelialization to the plantar ulcer site with ulcer to dermis and slight sanginous drainage Musculoskeletal: No Tenderness to Palpation of Joints or Extremities, Muscle Wasting, - - right 5th ray resection Neurological: - - decreased light touch sensation consistant with neuropathy Psych/Mental Status: Normal Affect, Appropriate Laboratory Results 07/07/20 21:49: POC Glucose 311 H 07/08/20 05:25: WBC 5.5, RBC 3.42 L, Hgb 9.9 L, Hct 32.0 L, MCV 93.6, MCH 28.9, MCHC 30.9 L, RDW Std Deviation 48.5 H, RDW Coeff of Kadi 14.2, Plt Count 243, MPV 9.4, Immature Gran % (Auto) 0.200, Neut % (Auto) 56.0, Lymph % (Auto) 23.5, Lassen % (Auto) 11.8 H, Eos % (Auto) 7.6 H, Baso % (Auto) 0.9, Absolute Neuts (auto) 3.1, Absolute Lymphs (auto) 1.29, Nucleated RBC % 0 07/08/20 05:25: Sodium 138, Potassium 3.7, Chloride 106, Carbon Dioxide 28.0, Anion Gap 4 L, BUN 23 H, Creatinine 0.76, Estim Creat Clear Calc 69.09, Est GFR (MDRD) Af Amer 98, Est GFR (MDRD) Non-Af 81, BUN/Creatinine Ratio 30.2 H, Glucose 208 H, Calcium 8.7 07/08/20 05:59: POC Glucose 206 H 07/08/20 10:30: POC Glucose 235 H 07/08/20 16:20: POC Glucose 190 H Current Medications Acetaminophen (Tylenol) 1,000 mg PO Q6H PRN PRN PRN Reason: Pain Score 1-5/10 Last Admin: 07/05/20 21:37 Dose: 1,000 mg Documented by: Amlodipine Besylate (Norvasc) 5 mg PO DAILY [facility] Last Admin: 07/08/20 06:06 Dose: 5 mg Documented by: Aspirin (Ecotrin) 81 mg PO DAILY@0800 [facility] Last Admin: 07/08/20 08:24 Dose: 81 mg Documented by: Atorvastatin Calcium (Lipitor) 80 mg PO QHS [facility] Last Admin: 07/07/20 19:53 Dose: 80 mg Documented by: Bisacodyl (Dulcolax) 10 mg RECTAL DAILY PRN PRN Reason: Constipation Calamine/Phenol (Calmoseptine Ointment) 1 applic TOPICAL BID [facility]; Protocol Last Admin: 07/08/20 18:20 Dose: 1 applicatio Documented by: Enoxaparin Sodium (Lovenox) 40 mg SC DAILY@0600 [facility] Last Admin: 10/06/20 06:06 Dose: 40 mg Documented by: Ergocalciferol (Vitamin D) 50,000 unit PO We@1000 [facility] Last Admin: 07/02/20 10:36 Dose: 50,000 unit Documented by: Glipizide (Glucotrol) 10 mg PO DAILYCM [facility] Last Admin: 07/08/20 08:25 Dose: 10 mg Documented by: Heparin Sodium (Beef Lung) () 50 units IV UD PRN PRN Reason: PICC Line Heparin Flush Ceftriaxone Sodium 2 gm/ (Sodium Chloride) 50 mls @ 100 mls/hr IV Q24 [facility] Stop: 07/19/20 10:01 Last Admin: 07/08/20 10:35 Dose: 100 mls/hr Documented by: Sodium Chloride () 250 mls @ 15 mls/hr IV .[id number] PRN PRN Reason: SALINE FLUSH Last Infusion: 07/05/20 11:14 Dose: Infused Documented by: Insulin Glargine (Lantus ([facility])) 10 units SC BID [facility] Last Admin: 07/08/20 18:18 Dose: 10 u Documented by: Insulin Human Lispro (Humalog Kwikpen ([facility])) 7 unit SC TIDAC [facility] Last Admin: 07/08/20 18:17 Dose: 7 u Documented by: L-Arginine/L-Glutamine/Calcium HMB (Jere Packet) [facility] Last Admin: 07/08/20 18:15 Dose: 1 packet Documented by: Lactobacillus Acidophilus (Acidophilus) 1 tablet PO BID [facility] Last Admin: 07/08/20 18:16 Dose: 1 tablet Documented by: Levothyroxine Sodium (Synthroid) 150 mcg PO Victor@0600 [facility] Last Admin: 07/06/20 06:21 Dose: 150 mcg Documented by: Levothyroxine Sodium (Synthroid) 75 mcg PO MoTuWeThFrSa@0600 [facility] Last Admin: 07/08/20 06:06 Dose: 75 mcg Documented by: Losartan Potassium (Cozaar) 100 mg PO DAILY [facility] Last Admin: 07/08/20 06:09 Dose: 100 mg Documented by: Metoprolol Succinate (Toprol Xl (Beta [place])) 100 mg PO DAILY [facility] Last Admin: 07/08/20 06:06 Dose: 100 mg Documented by: Oxycodone HCl (Oxyir) 5 mg PO Q4H PRN PRN PRN Reason: Pain Score 6-10/10 Polyethylene Glycol (Miralax) 17 gm PO DAILY PRN PRN Reason: Constipation Polysaccharide Iron Complex (Ferrex 150) 150 mg PO DAILYCM [facility] Last Admin: 07/08/20 08:25 Dose: 150 mg Documented by: Senna/Docusate Sodium (Senokot-S, Salima-Colace) 2 tablet PO BID PRN PRN Reason: Constipation Sertraline HCl (Zoloft) 50 mg PO DAILY [facility] Last Admin: 07/08/20 06:06 Dose: 50 mg Documented by: Sodium Chloride () 10 - 40 ml IV UD PRN PRN Reason: Open End PICC Flush Last Admin: 07/08/20 10:35 Dose: 30 ml Documented by: Sodium Chloride (0.9% Nacl (Sterile) Posiflush) 10 - 40 ml IV UD PRN PRN Reason: Port access or dressing change Medical Necessity - Tobacco Use Smoking Status: Never smoker Tobacco Use: Secondhand Assessment/Plan All Active Problems (Last Reviewed 06/11/20 @ 08:[address] Victorino Padilla MD) Ulcer of right foot with fat layer exposed (Acute) Chronic ulcer of left foot with fat layer exposed (Resolved) Cellulitis of right foot (Acute) Foreign body in right foot (Resolved) Osteomyelitis (Acute) Debility (Acute) Osteomyelitis of right foot (Acute) Cellulitis of right foot (Acute) Laceration of right foot with foreign body (Acute) Cellulitis of left foot (Resolved) Polycystic ovaries (Resolved) Ulcer of right foot with fat layer exposed (Acute) Chronic ulcer of left foot with fat layer exposed (Resolved) Cellulitis of right foot (Acute) Foreign body in right foot (Resolved) Osteomyelitis (Acute) Debility (Acute) Osteomyelitis of right foot (Acute) Cellulitis of right foot (Acute) Laceration of right foot with foreign body (Acute) Cellulitis of left foot (Resolved) Polycystic ovaries (Resolved) Right foot ulcer into fat/fascia; right 5th metatarsal and proximal phalanx osteomyelitis s/p right 5th ray amputation 06/05/2020 Right foot cellulitis resolved DM2 w/ neuropathy Peripheral arterial disease lower extremity Xerosis Her right foot is healing well. She is afebrile with vital signs stable Continue with wound vac which will be reapplied tomorrow. Reviewed culture results - patient on IV antibiotics w/ PICC; Dr. Berry on consult. Minimal weightbearing right foot, keep foot elevated. Lower extremity arterial studies reviewed. PAD noted - consult placed to vascular/Dr. Padilla who has seen and following patient. Discussed the importance of blood sugar control and nutrition for wound healing. Discussed the importance of offloading for wound healing. Recommended continued application of topical moisturizing cream to bilateral foot (amlactin). Recommend wound vac upon DC Podiatry will continue to follow.
[2020-07-08] MEDS: Atorvastatin Calcium 80 MG Tablet PO (21:20)
[2020-07-08 21:40] LABS: Bedside Glucose 221 mg/dL (70-110)
[2020-07-09 06:36] LABS: Bedside Glucose 225 mg/dL (70-110)
[2020-07-09 06:50] VITALS: BP 180/86; PULSE 74; RESP 18; TEMP 36.6; O2SAT 92
[2020-07-09 06:53] VITALS: BP 180/86; PULSE 74
[2020-07-09] MEDS: Levothyroxine 75 MCG Tablet PO (06:53)
[2020-07-09] MEDS: amLODIPine 5 MG Tablet PO (06:53)
[2020-07-09] MEDS: Losartan Potassium 100 MG Tablet PO (06:53)
[2020-07-09] MEDS: Sertraline 50 MG Tablet PO (06:53)
[2020-07-09] MEDS: Metoprolol(XL)Succ 100 MG Tablet PO (06:53)
[2020-07-09] MEDS: Enoxaparin 40 MG/0.4 ML Syringe SC (06:54)
[2020-07-09] MEDS: Menthol/Lanolin/Calamine/Znox 113 GM Tube 1 APPLIC TOPICAL ×2 (06:55→17:40)
[2020-07-09] MEDS: Insulin Lispro 100 UNIT/ML INSULN.PEN 7 UNIT SC ×3 (08:07→17:37)
[2020-07-09] MEDS: glipiZIDE 10 MG Tablet PO (08:08)
[2020-07-09] MEDS: Aspirin E.C. 81 MG Tablet PO (08:08)
[2020-07-09] MEDS: Juven (unflavored) Packet 1 PACKET PO ×2 (08:08→17:39)
[2020-07-09] MEDS: Iron Polysaccharide Complex 150 MG CAPSULE PO (08:08)
[2020-07-09] MEDS: 0.9% Saline Lock 10 ML Syringe IV (10:38)
[2020-07-09] MEDS: 0.9% NaCl IVPB Med Flush (250 mL) 15 ML IV (10:38)
[2020-07-09 11:06] LABS: Bedside Glucose 199 mg/dL (70-110)
[2020-07-09 14:00] VITALS: BP 121/62; PULSE 70; RESP 18; TEMP 36.7; O2SAT 97
[2020-07-09 16:35] LABS: Bedside Glucose 106 mg/dL (70-110)
[2020-07-09] MEDS: Atorvastatin Calcium 80 MG Tablet PO (20:52)
[2020-07-09 21:16] LABS: Bedside Glucose 153 mg/dL (70-110)
[2020-07-10] MEDS: amLODIPine 5 MG Tablet PO (06:18)
[2020-07-10] MEDS: Sertraline 50 MG Tablet PO (06:18)
[2020-07-10] MEDS: Losartan Potassium 100 MG Tablet PO (06:18)
[2020-07-10] MEDS: Levothyroxine 75 MCG Tablet PO (06:18)
[2020-07-10] MEDS: Enoxaparin 40 MG/0.4 ML Syringe SC (06:19)
[2020-07-10 06:22] VITALS: BP 150/75; PULSE 76
[2020-07-10] MEDS: Metoprolol(XL)Succ 100 MG Tablet PO (06:22)
[2020-07-10 06:24] VITALS: BP 150/75; PULSE 76; RESP 18; TEMP 36.9; O2SAT 98
[2020-07-10 06:26] LABS: Bedside Glucose 172 mg/dL (70-110)
[2020-07-10] MEDS: Insulin Lispro 100 UNIT/ML INSULN.PEN 7 UNIT SC ×3 (07:57→17:28)
[2020-07-10] MEDS: Iron Polysaccharide Complex 150 MG CAPSULE PO (07:57)
[2020-07-10] MEDS: Aspirin E.C. 81 MG Tablet PO (07:57)
[2020-07-10] MEDS: glipiZIDE 10 MG Tablet PO (07:58)
[2020-07-10] MEDS: Juven (unflavored) Packet 1 PACKET PO ×2 (07:58→17:31)
[2020-07-10] MEDS: 0.9% Saline Lock 10 ML Syringe IV (09:56)
[2020-07-10 10:00] VITALS: PULSE 88; RESP 18; O2SAT 96
[2020-07-10 10:50] LABS: Bedside Glucose 245 mg/dL (70-110)
--- NOTE | 2020-07-10 13:54 | NURSING ---
Picc line dressing changed d/t old one falling off, pt tolerated procedure well
[2020-07-10 14:35] VITALS: BP 152/70; PULSE 73; RESP 16; TEMP 36.6; O2SAT 97
--- NOTE | 2020-07-10 14:36 | NURSING ---
g left w/wound healing center re:pt has need for wound vac care after d/c from TCU on 07/20
[2020-07-10 16:16] LABS: Bedside Glucose 183 mg/dL (70-110)
[2020-07-10] MEDS: Atorvastatin Calcium 80 MG Tablet PO (21:32)
[2020-07-10 21:35] LABS: Bedside Glucose 259 mg/dL (70-110)
[2020-07-11 06:18] VITALS: BP 175/81; PULSE 80; RESP 16; TEMP 36.8; O2SAT 94
[2020-07-11 06:20] VITALS: BP 175/81; PULSE 80
[2020-07-11 06:20] LABS: Bedside Glucose 228 mg/dL (70-110)
[2020-07-11] MEDS: amLODIPine 5 MG Tablet PO (06:20)
[2020-07-11] MEDS: Losartan Potassium 100 MG Tablet PO (06:20)
[2020-07-11] MEDS: Metoprolol(XL)Succ 100 MG Tablet PO (06:20)
[2020-07-11] MEDS: Sertraline 50 MG Tablet PO (06:20)
[2020-07-11] MEDS: Enoxaparin 40 MG/0.4 ML Syringe SC (06:20)
[2020-07-11] MEDS: Levothyroxine 75 MCG Tablet PO (06:20)
[2020-07-11] MEDS: Juven (unflavored) Packet 1 PACKET PO ×2 (08:07→17:46)
[2020-07-11] MEDS: Aspirin E.C. 81 MG Tablet PO (08:09)
[2020-07-11] MEDS: glipiZIDE 10 MG Tablet PO (08:09)
[2020-07-11] MEDS: Iron Polysaccharide Complex 150 MG CAPSULE PO (08:09)
[2020-07-11] MEDS: Insulin Lispro 100 UNIT/ML INSULN.PEN 10 UNIT SC ×3 (08:29→17:45)
[2020-07-11] MEDS: 0.9% Saline Lock 10 ML Syringe IV (10:08)
[2020-07-11] MEDS: 0.9% NaCl IVPB Med Flush (250 mL) 15 ML IV (10:08)
[2020-07-11 11:46] LABS: Bedside Glucose 146 mg/dL (70-110)
[2020-07-11 13:46] VITALS: BP 155/77; PULSE 75; RESP 16; TEMP 36.3; O2SAT 96
[2020-07-11 17:01] LABS: Bedside Glucose 179 mg/dL (70-110)
[2020-07-11] MEDS: Atorvastatin Calcium 80 MG Tablet PO (20:18)
[2020-07-11 22:01] LABS: Bedside Glucose 252 mg/dL (70-110)
[2020-07-12 05:52] VITALS: BP 156/77; PULSE 74; RESP 16; TEMP 36.2; O2SAT 95
[2020-07-12] MEDS: amLODIPine 5 MG Tablet PO (05:54)
[2020-07-12] MEDS: Losartan Potassium 100 MG Tablet PO (05:54)
[2020-07-12] MEDS: Enoxaparin 40 MG/0.4 ML Syringe SC (05:54)
[2020-07-12] MEDS: Levothyroxine 75 MCG Tablet PO (05:55)
[2020-07-12 05:56] VITALS: BP 156/77; PULSE 74
[2020-07-12] MEDS: Metoprolol(XL)Succ 100 MG Tablet PO (05:56)
[2020-07-12] MEDS: Sertraline 50 MG Tablet PO (05:56)
[2020-07-12] MEDS: 0.9% Saline Lock 10 ML Syringe IV ×2 (05:57→11:16)
[2020-07-12 06:31] LABS: Bedside Glucose 229 mg/dL (70-110)
[2020-07-12] MEDS: Juven (unflavored) Packet 1 PACKET PO ×2 (08:16→17:40)
[2020-07-12] MEDS: Aspirin E.C. 81 MG Tablet PO (08:16)
[2020-07-12] MEDS: glipiZIDE 10 MG Tablet PO (08:17)
[2020-07-12] MEDS: Iron Polysaccharide Complex 150 MG CAPSULE PO (08:17)
[2020-07-12] MEDS: Insulin Lispro 100 UNIT/ML INSULN.PEN 10 UNIT SC ×2 (08:20→12:10)
[2020-07-12] MEDS: 0.9% NaCl IVPB Med Flush (250 mL) 15 ML IV (11:16)
[2020-07-12 11:20] LABS: Bedside Glucose 272 mg/dL (70-110)
[2020-07-12 14:40] VITALS: BP 142/64; PULSE 81; RESP 16; TEMP 36.9; O2SAT 98
[2020-07-12 17:10] LABS: Bedside Glucose 129 mg/dL (70-110)
[2020-07-12] MEDS: Atorvastatin Calcium 80 MG Tablet PO (20:18)
[2020-07-12 20:21] VITALS: O2SAT 98
[2020-07-12 21:25] LABS: Bedside Glucose 222 mg/dL (70-110)
[2020-07-13] MEDS: Enoxaparin 40 MG/0.4 ML Syringe SC (06:21)
[2020-07-13] MEDS: Sertraline 50 MG Tablet PO (06:21)
[2020-07-13] MEDS: Losartan Potassium 100 MG Tablet PO (06:21)
[2020-07-13] MEDS: Levothyroxine 150 MCG Tablet PO (06:21)
[2020-07-13] MEDS: amLODIPine 5 MG Tablet PO (06:22)
[2020-07-13 06:24] VITALS: BP 151/83; PULSE 78
[2020-07-13] MEDS: Metoprolol(XL)Succ 100 MG Tablet PO (06:24)
[2020-07-13 06:25] LABS: Bedside Glucose 193 mg/dL (70-110)
[2020-07-13 06:41] VITALS: RESP 18; TEMP 36.6; O2SAT 98
[2020-07-13] MEDS: Juven (unflavored) Packet 1 PACKET PO ×2 (08:20→17:50)
[2020-07-13] MEDS: Aspirin E.C. 81 MG Tablet PO (08:21)
[2020-07-13] MEDS: glipiZIDE 10 MG Tablet PO (08:21)
[2020-07-13] MEDS: Iron Polysaccharide Complex 150 MG CAPSULE PO (08:21)
[2020-07-13] MEDS: Insulin Lispro 100 UNIT/ML INSULN.PEN 10 UNIT SC ×3 (08:22→17:48)
[2020-07-13 11:06] VITALS: PULSE 72; RESP 16; O2SAT 98
[2020-07-13 11:11] LABS: Bedside Glucose 164 mg/dL (70-110)
[2020-07-13] MEDS: 0.9% Saline Lock 10 ML Syringe IV (11:59)
[2020-07-13 15:05] VITALS: BP 149/68; PULSE 72; RESP 18; TEMP 36.5; O2SAT 97
[2020-07-13 17:25] LABS: Bedside Glucose 127 mg/dL (70-110)
[2020-07-13 22:20] LABS: Bedside Glucose 177 mg/dL (70-110)
[2020-07-13] MEDS: Atorvastatin Calcium 80 MG Tablet PO (22:41)
[2020-07-14 04:00] VITALS: BP 163/81; PULSE 74; RESP 16; TEMP 36.7; O2SAT 97
[2020-07-14 06:20] VITALS: BP 163/81; PULSE 74
[2020-07-14] MEDS: Sertraline 50 MG Tablet PO (06:20)
[2020-07-14] MEDS: Enoxaparin 40 MG/0.4 ML Syringe SC (06:20)
[2020-07-14] MEDS: Metoprolol(XL)Succ 100 MG Tablet PO (06:20)
[2020-07-14] MEDS: Levothyroxine 75 MCG Tablet PO (06:21)
[2020-07-14] MEDS: amLODIPine 5 MG Tablet PO (06:21)
[2020-07-14] MEDS: Losartan Potassium 100 MG Tablet PO (06:21)
[2020-07-14 06:26] LABS: Bedside Glucose 168 mg/dL (70-110)
[2020-07-14] MEDS: glipiZIDE 10 MG Tablet PO (08:02)
[2020-07-14] MEDS: Insulin Lispro 100 UNIT/ML INSULN.PEN 10 UNIT SC ×3 (08:02→18:33)
[2020-07-14] MEDS: Juven (unflavored) Packet 1 PACKET PO ×2 (08:02→18:35)
[2020-07-14] MEDS: Iron Polysaccharide Complex 150 MG CAPSULE PO (08:02)
[2020-07-14] MEDS: Aspirin E.C. 81 MG Tablet PO (08:02)
[2020-07-14] MEDS: 0.9% Saline Lock 10 ML Syringe IV (09:59)
[2020-07-14] MEDS: 0.9% NaCl IVPB Med Flush (250 mL) 15 ML IV (09:59)
[2020-07-14 11:01] LABS: Bedside Glucose 141 mg/dL (70-110)
[2020-07-14 13:10] VITALS: BP 151/73; PULSE 72; RESP 16; TEMP 36.6; O2SAT 96
--- NOTE | 2020-07-14 14:34 | PN.ID_ITS ---
Patient Problems: Active and Suspected Problems (Last Reviewed 06/11/20 @ 08:[address] Victorino Padilla MD) Debility (Acute) Osteomyelitis of right foot (Acute) Subjective: Feeling well, no pain in foot, wound vac in place, no fever, no n/v/d/. - Physical Exam Vitals/I&O's: Vital Signs Temp Pulse Resp BP Pulse Ox 97.8 F 72 16 151/73 H 96 07/14/20 13:10 07/14/20 13:10 07/14/20 13:10 07/14/20 13:10 07/14/20 13:10 Oxygen Flow Rate (L/min) 93 Oxygen Delivery Method Room Air Weight: 95.028 kg Body Mass Index (BMI) 33.9 Finger Stick Blood Glucose 100 Intake and Output for Last 24 Hours 07/12/20 07/13/20 07/14/20 23:59 23:59 23:59 Intake Total 925.5 / 925.5 890 / 890 600 / 600 Balance 925.5 / 925.5 890 / 890 600 / 600 General: Alert, Cooperative, No apparent distress Lungs: Clear to auscultation, Normal air movement Cardiovascular: Regular rate, Regular Rhythm Abdomen: Soft, Non Tender, Non-Distended Skin: Ulcer/ Wound - reviewed photos Laboratory Results 07/13/20 17:03: POC Glucose 127 H 07/13/20 22:12: POC Glucose 177 H 07/14/20 06:20: POC Glucose 168 H 07/14/20 10:56: POC Glucose 141 H Current Medications Acetaminophen (Tylenol) 1,000 mg PO Q6H PRN PRN PRN Reason: Pain Score 1-5/10 Last Admin: 07/05/20 21:37 Dose: 1,000 mg Documented by: Amlodipine Besylate (Norvasc) 5 mg PO DAILY [facility] Last Admin: 07/14/20 06:21 Dose: 5 mg Documented by: Aspirin (Ecotrin) 81 mg PO DAILY@0800 [facility] Last Admin: 07/14/20 08:02 Dose: 81 mg Documented by: Atorvastatin Calcium (Lipitor) 80 mg PO QHS [facility] Last Admin: 07/13/20 22:41 Dose: 80 mg Documented by: Bisacodyl (Dulcolax) 10 mg RECTAL DAILY PRN PRN Reason: Constipation Calamine/Phenol (Calmoseptine Ointment) 1 applic TOPICAL BID PRN; Protocol PRN Reason: skin irritation Enoxaparin Sodium (Lovenox) 40 mg SC DAILY@0600 [facility] Last Admin: 07/14/20 06:20 Dose: 40 mg Documented by: Ergocalciferol (Vitamin D) 50,000 unit PO We@1000 [facility] Last Admin: 07/09/20 10:49 Dose: 50,000 unit Documented by: Glipizide (Glucotrol) 10 mg PO DAILYCM [facility] Last Admin: 07/14/20 08:02 Dose: 10 mg Documented by: Heparin Sodium (Beef Lung) () 50 units IV UD PRN PRN Reason: PICC Line Heparin Flush Ceftriaxone Sodium 2 gm/ (Sodium Chloride) 50 mls @ 100 mls/hr IV Q24 [facility] Stop: 07/19/20 10:01 Last Admin: 07/14/20 09:58 Dose: 100 mls/hr Documented by: Sodium Chloride () 250 mls @ 15 mls/hr IV .[id number] PRN PRN Reason: SALINE FLUSH Last Admin: 07/14/20 09:59 Dose: 15 mls/hr Documented by: Insulin Glargine (Lantus ([facility])) 10 units SC BID [facility] Last Admin: 07/14/20 06:22 Dose: 10 u Documented by: Insulin Human Lispro (Humalog Kwikpen ([facility])) 10 unit SC TIDAC [facility] Last Admin: 07/14/20 12:28 Dose: 10 u Documented by: L-Arginine/L-Glutamine/Calcium HMB (Jere Packet) 1 packet PO BIDCM [facility] Last Admin: 07/14/20 08:02 Dose: 1 packet Documented by: Lactobacillus Acidophilus (Acidophilus) 1 tablet PO BID [facility] Last Admin: 07/14/20 06:21 Dose: 1 tablet Documented by: Levothyroxine Sodium (Synthroid) 150 mcg PO Victor@0600 [facility] Last Admin: 07/13/20 06:21 Dose: 150 mcg Documented by: Levothyroxine Sodium (Synthroid) 75 mcg PO MoTuWeThFrSa@0600 [facility] Last Admin: 07/14/20 06:21 Dose: 75 mcg Documented by: Losartan Potassium (Cozaar) 100 mg PO DAILY [facility] Last Admin: 07/14/20 06:21 Dose: 100 mg Documented by: Metoprolol Succinate (Toprol Xl (Beta [place])) 100 mg PO DAILY [facility] Last Admin: 07/14/20 06:20 Dose: 100 mg Documented by: Oxycodone HCl (Oxyir) 5 mg PO Q4H PRN PRN PRN Reason: Pain Score 6-10/10 Polyethylene Glycol (Miralax) 17 gm PO DAILY PRN PRN Reason: Constipation Polysaccharide Iron Complex (Ferrex 150) 150 mg PO DAILYCM [facility] Last Admin: 07/14/20 08:02 Dose: 150 mg Documented by: Senna/Docusate Sodium (Senokot-S, Salima-Colace) 2 tablet PO BID PRN PRN Reason: Constipation Sertraline HCl (Zoloft) 50 mg PO DAILY [facility] Last Admin: 07/14/20 06:20 Dose: 50 mg Documented by: Sodium Chloride () 10 - 40 ml IV UD PRN PRN Reason: Open End PICC Flush Last Admin: 07/14/20 09:59 Dose: 20 ml Documented by: Sodium Chloride (0.9% Nacl (Sterile) Posiflush) 10 - 40 ml IV UD PRN PRN Reason: Port access or dressing change Medical Necessity - Tobacco Use Smoking Status: Never smoker Tobacco Use: Secondhand Route of nutrition/ use of supplements: [] Nutritional Intake: [] IV Site: [] Greene Catheter: [] - Assessment/Plan Antibiotics: [] Assessment/Plan: [] Active and Suspected Problems (Last Reviewed 06/11/20 @ 08:[address] Victorino Padilla MD) Debility (Acute) Osteomyelitis of right foot (Acute) R foot GBS osteo - taken to OR 06/05/[address] Momin for 5th ray resection. [facility] on 6 week course of ceftriaxone. Cont ceftriaxone, stop date 07/19/20. Foot much improved. Ok for picc removal once course is complete. Will follow as needed, please call with any questions
--- NOTE | 2020-07-14 15:29 | NURSING ---
wound photo: right foot
--- NOTE | 2020-07-14 15:30 | NURSING ---
wound photo: right plantar foot
[2020-07-14 16:11] LABS: Bedside Glucose 152 mg/dL (70-110)
[2020-07-14] MEDS: Atorvastatin Calcium 80 MG Tablet PO (20:50)
[2020-07-14 21:41] LABS: Bedside Glucose 242 mg/dL (70-110)
[2020-07-15 05:57] LABS: Absolute Lymphocyte Count 1.12 X10^3/uL (0.83-4.51); Absolute Neutrophil Count 3.1 X10^3/uL (2.0-7.7); Basophil# 0.04 X10^3/uL; Basophil% 0.8 % (0-1); Eosinophil# 0.39 X10^3/uL; Eosinophils% 7.5 % (0-5); Lymphocyte # 1.12 X10^3/ul (4.0); Lymphocyte % 21.4 % (19-41); Mean Corp Hgb Conc 31.3 g/dL (32-36); Mean Corpuscular Hgb 28.8 pg (27.0-32.0); Mean Corpuscular Volume 92.2 fL (81-99); Mean Platelet Vol. 9.5 fl (6.2-12.0); Monocyte# 0.56 X10^3/uL; Monocyte% 10.7 % (0-10); NRBC Flagged by Analyzer 0 % (0-5); Neutrophil # 3.11 X10^3/uL (2.7-7.7); Neutrophil % 59.4 % (47-70); Platelet Count 237 K/mm3 (150-450); RBC Distribution Width CV 14.1 % (11.6-14.6); Red Blood Count 3.47 M/mm3 (4.2-5.4); White Blood Count 5.2 K/mm3 (4.4-11.0)
[2020-07-15 06:20] LABS: Anion Gap 4 (5-15); BUN 27 mg/dL (7-18); BUN/Creat Ratio 34.1 RATIO (10-20); Calcium,Total 8.9 mg/dL (8.5-10.1); Chloride 105 mmol/L (98-107); Creatinine, Serum 0.79 mg/dL (0.55-1.02); EST Glomerular Filtration Rate 77 mL/min (>60); Est Glom Filt Rate - Afr Amer 94 mL/min (>60); Estimated Creatinine Clearance 66.46 ml/min; Glucose 256 mg/dL (74-106); Potassium 4.1 mmol/L (3.5-5.1); Sodium Level 139 mmol/L (136-145)
[2020-07-15 06:23] VITALS: BP 170/78; PULSE 73; RESP 93; TEMP 36.4; O2SAT 93
[2020-07-15 06:24] VITALS: BP 170/78; PULSE 73
[2020-07-15] MEDS: Metoprolol(XL)Succ 100 MG Tablet PO (06:24)
[2020-07-15] MEDS: amLODIPine 5 MG Tablet PO (06:25)
[2020-07-15] MEDS: Losartan Potassium 100 MG Tablet PO (06:25)
[2020-07-15] MEDS: Levothyroxine 75 MCG Tablet PO (06:25)
[2020-07-15] MEDS: Sertraline 50 MG Tablet PO (06:25)
[2020-07-15] MEDS: Enoxaparin 40 MG/0.4 ML Syringe SC (06:26)
[2020-07-15 07:42] LABS: Bedside Glucose 247 mg/dL (70-110)
[2020-07-15] MEDS: Aspirin E.C. 81 MG Tablet PO (08:07)
[2020-07-15] MEDS: Juven (unflavored) Packet 1 PACKET PO ×2 (08:07→17:36)
[2020-07-15] MEDS: Insulin Lispro 100 UNIT/ML INSULN.PEN 10 UNIT SC ×3 (08:07→17:34)
[2020-07-15] MEDS: glipiZIDE 10 MG Tablet PO (08:07)
[2020-07-15] MEDS: Iron Polysaccharide Complex 150 MG CAPSULE PO (08:07)
[2020-07-15] MEDS: 0.9% Saline Lock 10 ML Syringe IV (09:48)
[2020-07-15 11:01] LABS: Bedside Glucose 170 mg/dL (70-110)
--- NOTE | 2020-07-15 12:02 | CASEMGMT ---
Social Work Left message with wound center about changing pt's wound vac. Wound nurse relayed that they are unable to do that at his time. Pt agreeable to C. [facility]. CHEO SosaW
[2020-07-15 14:00] VITALS: BP 142/62; PULSE 72; RESP 18; TEMP 36.3; O2SAT 98
[2020-07-15 16:15] LABS: Bedside Glucose 153 mg/dL (70-110)
[2020-07-15] MEDS: Atorvastatin Calcium 80 MG Tablet PO (20:47)
[2020-07-15 21:21] LABS: Bedside Glucose 233 mg/dL (70-110)
[2020-07-16 06:21] LABS: Bedside Glucose 194 mg/dL (70-110)
[2020-07-16 06:28] VITALS: BP 149/84; PULSE 76; RESP 18; TEMP 36.1; O2SAT 94
[2020-07-16 06:31] VITALS: BP 149/84; PULSE 76
[2020-07-16] MEDS: Sertraline 50 MG Tablet PO (06:31)
[2020-07-16] MEDS: amLODIPine 5 MG Tablet PO (06:31)
[2020-07-16] MEDS: Metoprolol(XL)Succ 100 MG Tablet PO (06:31)
[2020-07-16] MEDS: Losartan Potassium 100 MG Tablet PO (06:31)
[2020-07-16] MEDS: Levothyroxine 75 MCG Tablet PO (06:31)
[2020-07-16] MEDS: Enoxaparin 40 MG/0.4 ML Syringe SC (06:31)
--- NOTE | 2020-07-16 07:30 | PCM.PROGNOTE ---
Patient Problems: Active and Suspected Problems (Last Reviewed 06/11/20 @ 08:[address] Victorino Padilla MD) Debility (Acute) Osteomyelitis of right foot (Acute) Subjective: Patient was seen this morning for follow up on right foot. Wound is healing, continues with wound vac. She is on antibiotics as well. She is planning to be d/dagmar home this weekend. She has no complaints at this time. - Physical Exam Vitals/I&O's: Vital Signs Temp Pulse Resp BP Pulse Ox 98.2 F 76 16 147/64 H 97 07/16/20 14:03 07/16/20 14:03 07/16/20 14:03 07/16/20 14:03 07/16/20 14:03 Oxygen Flow Rate (L/min) 93 Oxygen Delivery Method Room Air Weight: 95.51 kg Body Mass Index (BMI) 33.9 Finger Stick Blood Glucose 100 Intake and Output for Last 24 Hours 07/14/20 07/15/20 07/16/20 23:59 23:59 23:59 Intake Total 897.75 / 897.75 1136 / 1136 484 / 484 Balance 897.75 / 897.75 1136 / 1136 484 / 484 General: Alert, Oriented x3, Cooperative, No apparent distress Extremities: No cyanosis, Capillary Refill Less than 3 Seconds, No Calf Tenderness, - - s/p 5th toe and partial 5th ray amputation right foot, residual wound to the proximal aspect down to subcutaneous tissue layer with some superficial nonviable tissue,there is no cellulitis, no fluctuance, no visible abscess, no necrosis, no streaking Skin: - - No other open lesions to the foot or ankle bilateral. Laboratory Results 07/15/20 21:12: POC Glucose 233 H 07/16/20 06:14: POC Glucose 194 H 07/16/20 11:07: POC Glucose 237 H 07/16/20 16:28: POC Glucose 143 H Current Medications Acetaminophen (Tylenol) 1,000 mg PO Q6H PRN PRN PRN Reason: Pain Score 1-5/10 Last Admin: 07/05/20 21:37 Dose: 1,000 mg Documented by: Amlodipine Besylate (Norvasc) 5 mg PO DAILY [facility] Last Admin: 07/16/20 06:31 Dose: 5 mg Documented by: Aspirin (Ecotrin) 81 mg PO DAILY@0800 [facility] Last Admin: 07/16/20 08:15 Dose: 81 mg Documented by: Atorvastatin Calcium (Lipitor) 80 mg PO QHS [facility] Last Admin: 07/15/20 20:47 Dose: 80 mg Documented by: Bisacodyl (Dulcolax) 10 mg RECTAL DAILY PRN PRN Reason: Constipation Calamine/Phenol (Calmoseptine Ointment) 1 applic TOPICAL BID PRN; Protocol PRN Reason: skin irritation Enoxaparin Sodium (Lovenox) 40 mg SC DAILY@0600 [facility] Last Admin: 07/16/20 06:31 Dose: 40 mg Documented by: Ergocalciferol (Vitamin D) 50,000 unit PO We@1000 [facility] Last Admin: 07/16/20 11:44 Dose: 50,000 unit Documented by: Glipizide (Glucotrol) 10 mg PO DAILYCM [facility] Last Admin: 07/16/20 08:15 Dose: 10 mg Documented by: Heparin Sodium (Beef Lung) () 50 units IV UD PRN PRN Reason: PICC Line Heparin Flush Ceftriaxone Sodium 2 gm/ (Sodium Chloride) 50 mls @ 100 mls/hr IV Q24 [facility] Stop: 07/19/20 10:01 Last Infusion: 07/16/20 12:01 Dose: Infused Documented by: Sodium Chloride () 250 mls @ 15 mls/hr IV .[id number] PRN PRN Reason: SALINE FLUSH Last Infusion: 07/16/20 11:00 Dose: 0 mls/hr Documented by: Insulin Glargine (Lantus (Bkc)) 10 units SC BID [facility] Last Admin: 07/16/20 06:34 Dose: 10 u Documented by: Insulin Human Lispro (Humalog Kwikpen (Bk)) 10 unit SC TIDAC [facility] Last Admin: 07/16/20 11:44 Dose: 10 u Documented by: L-Arginine/L-Glutamine/Calcium HMB (Jere Packet) [facility] Last Admin: 07/16/20 08:15 Dose: 1 packet Documented by: Lactobacillus Acidophilus (Acidophilus) 1 tablet PO BID [facility] Last Admin: 07/16/20 06:34 Dose: 1 tablet Documented by: Levothyroxine Sodium (Synthroid) 150 mcg PO Victor@0600 [facility] Last Admin: 07/13/20 06:21 Dose: 150 mcg Documented by: Levothyroxine Sodium (Synthroid) 75 mcg PO MoTuWeThFrSa@0600 [facility] Last Admin: 07/16/20 06:31 Dose: 75 mcg Documented by: Losartan Potassium (Cozaar) 100 mg PO DAILY [facility] Last Admin: 07/16/20 06:31 Dose: 100 mg Documented by: Metoprolol Succinate (Toprol Xl (Beta [place])) 100 mg PO DAILY [facility] Last Admin: 07/16/20 06:31 Dose: 100 mg Documented by: Oxycodone HCl (Oxyir) 5 mg PO Q4H PRN PRN PRN Reason: Pain Score 6-10/10 Polyethylene Glycol (Miralax) 17 gm PO DAILY PRN PRN Reason: Constipation Polysaccharide Iron Complex (Ferrex 150) [facility] Last Admin: 07/16/20 08:16 Dose: 150 mg Documented by: Senna/Docusate Sodium (Senokot-S, Salima-Colace) 2 tablet PO BID PRN PRN Reason: Constipation Sertraline HCl (Zoloft) 50 mg PO DAILY [facility] Last Admin: 07/16/20 06:31 Dose: 50 mg Documented by: Sodium Chloride () 10 - 40 ml IV UD PRN PRN Reason: Open End PICC Flush Last Admin: 07/16/20 10:05 Dose: 30 ml Documented by: Sodium Chloride (0.9% Nacl (Sterile) Posiflush) 10 - 40 ml IV UD PRN PRN Reason: Port access or dressing change Medical Necessity - Tobacco Use Smoking Status: Never smoker Tobacco Use: Secondhand Assessment/Plan All Active Problems (Last Reviewed 06/11/20 @ 08:[address] Victorino Padilla MD) Ulcer of right foot with fat layer exposed (Acute) Chronic ulcer of left foot with fat layer exposed (Resolved) Cellulitis of right foot (Acute) Foreign body in right foot (Resolved) Osteomyelitis (Acute) Debility (Acute) Osteomyelitis of right foot (Acute) Cellulitis of right foot (Acute) Laceration of right foot with foreign body (Acute) Cellulitis of left foot (Resolved) Polycystic ovaries (Resolved) Right foot ulcer into fat/fascia; right 5th metatarsal and proximal phalanx osteomyelitis s/p right 5th ray amputation 06/05/2020 DM2 w/ neuropathy Peripheral arterial disease lower extremity Xerosis Left foot healing well. Wound was debrided in selective fashion, wound measured 2.7cm x 1.1cm and 0.2cm in depth. Continue with wound vac which will be reapplied. Reviewed culture results - patient on IV antibiotics w/ PICC; Dr. Berry on consult. No weightbearing right foot, keep foot elevated. Lower extremity arterial studies reviewed. PAD noted - consult placed to vascular/Dr. Padilla who has seen and following patient. Discussed the importance of blood sugar control and nutrition for wound healing. Discussed the importance of offloading for wound healing. Recommended application of topical moisturizing cream to left foot BID - she has amlactin she is going to use. Podiatry will continue to follow, but patient to follow up with Dr. Momin 1 week from discharge [facility].
[2020-07-16] MEDS: glipiZIDE 10 MG Tablet PO (08:15)
[2020-07-16] MEDS: Juven (unflavored) Packet 1 PACKET PO ×2 (08:15→18:25)
[2020-07-16] MEDS: Aspirin E.C. 81 MG Tablet PO (08:15)
[2020-07-16] MEDS: Iron Polysaccharide Complex 150 MG CAPSULE PO (08:16)
[2020-07-16] MEDS: Insulin Lispro 100 UNIT/ML INSULN.PEN 10 UNIT SC ×3 (08:17→18:27)
[2020-07-16] MEDS: 0.9% NaCl IVPB Med Flush (250 mL) 15 ML IV (10:04)
[2020-07-16] MEDS: 0.9% Saline Lock 10 ML Syringe IV (10:05)
[2020-07-16 11:15] LABS: Bedside Glucose 237 mg/dL (70-110)
[2020-07-16 12:37] VITALS: PULSE 75; RESP 16; O2SAT 98
[2020-07-16 14:03] VITALS: BP 147/64; PULSE 76; RESP 16; TEMP 36.8; O2SAT 97
[2020-07-16 16:36] LABS: Bedside Glucose 143 mg/dL (70-110)
[2020-07-16] MEDS: Acetaminophen 500 MG Tablet 1000 MG PO (20:30)
[2020-07-16] MEDS: Atorvastatin Calcium 80 MG Tablet PO (20:31)
[2020-07-16 22:10] LABS: Bedside Glucose 329 mg/dL (70-110)
[2020-07-17 05:58] VITALS: BP 154/78; PULSE 73; RESP 16; TEMP 36.7; O2SAT 96
[2020-07-17] MEDS: Enoxaparin 40 MG/0.4 ML Syringe SC (06:00)
[2020-07-17 06:01] VITALS: BP 154/78; PULSE 73
[2020-07-17] MEDS: Levothyroxine 75 MCG Tablet PO (06:01)
[2020-07-17] MEDS: Sertraline 50 MG Tablet PO (06:01)
[2020-07-17] MEDS: Losartan Potassium 100 MG Tablet PO (06:01)
[2020-07-17] MEDS: amLODIPine 5 MG Tablet PO (06:01)
[2020-07-17] MEDS: Metoprolol(XL)Succ 100 MG Tablet PO (06:01)
[2020-07-17 06:20] LABS: Bedside Glucose 215 mg/dL (70-110)
[2020-07-17] MEDS: glipiZIDE 10 MG Tablet PO (08:06)
[2020-07-17] MEDS: Iron Polysaccharide Complex 150 MG CAPSULE PO (08:06)
[2020-07-17] MEDS: Aspirin E.C. 81 MG Tablet PO (08:07)
[2020-07-17] MEDS: Juven (unflavored) Packet 1 PACKET PO ×2 (08:07→18:46)
[2020-07-17] MEDS: Insulin Lispro 100 UNIT/ML INSULN.PEN 10 UNIT SC ×3 (08:08→18:47)
[2020-07-17] MEDS: 0.9% Saline Lock 10 ML Syringe IV (09:36)
[2020-07-17] MEDS: 0.9% NaCl IVPB Med Flush (250 mL) 15 ML IV (09:36)
[2020-07-17 11:11] LABS: Bedside Glucose 196 mg/dL (70-110)
[2020-07-17 14:09] VITALS: BP 116/65; PULSE 76; RESP 16; TEMP 36.9; O2SAT 98
[2020-07-17 17:11] LABS: Bedside Glucose 165 mg/dL (70-110)
[2020-07-17] MEDS: Atorvastatin Calcium 80 MG Tablet PO (20:38)
[2020-07-17 21:30] LABS: Bedside Glucose 335 mg/dL (70-110)
[2020-07-18 06:35] LABS: Bedside Glucose 213 mg/dL (70-110)
[2020-07-18] MEDS: Enoxaparin 40 MG/0.4 ML Syringe SC (06:40)
[2020-07-18 06:41] VITALS: BP 142/80; PULSE 68
[2020-07-18] MEDS: Levothyroxine 75 MCG Tablet PO (06:41)
[2020-07-18] MEDS: Metoprolol(XL)Succ 100 MG Tablet PO (06:41)
[2020-07-18] MEDS: amLODIPine 5 MG Tablet PO (06:41)
[2020-07-18] MEDS: Losartan Potassium 100 MG Tablet PO (06:41)
[2020-07-18] MEDS: Sertraline 50 MG Tablet PO (06:41)
[2020-07-18 06:46] VITALS: RESP 18; TEMP 36.8; O2SAT 98
[2020-07-18] MEDS: Juven (unflavored) Packet 1 PACKET PO ×2 (08:05→18:15)
[2020-07-18] MEDS: Aspirin E.C. 81 MG Tablet PO (08:06)
[2020-07-18] MEDS: glipiZIDE 10 MG Tablet PO (08:06)
[2020-07-18] MEDS: Iron Polysaccharide Complex 150 MG CAPSULE PO (08:06)
[2020-07-18] MEDS: Insulin Lispro 100 UNIT/ML INSULN.PEN 10 UNIT SC ×3 (08:13→18:16)
--- NOTE | 2020-07-18 10:23 | MDS.RN ---
Pain interview for lacy 07/20/20 completed.
[2020-07-18] MEDS: 0.9% Saline Lock 10 ML Syringe IV (10:36)
[2020-07-18] MEDS: 0.9% NaCl IVPB Med Flush (250 mL) 15 ML IV (10:43)
--- NOTE | 2020-07-18 10:54 | CASEMGMT ---
Social Work BIMS and PHQ-9 completed for MDS assessment. Jayde Lynch, COMIC ARTIST CLINICAL PSYCHIATRIST
[2020-07-18 11:21] LABS: Bedside Glucose 196 mg/dL (70-110)
--- NOTE | 2020-07-18 14:04 | NURSING ---
home wound vac placed today for DC on Tuesday
--- NOTE | 2020-07-18 14:19 | NURSING ---
[facility] notified of wound vac needs picked up.
[2020-07-18 16:56] LABS: Bedside Glucose 92 mg/dL (70-110)
[2020-07-18] MEDS: Atorvastatin Calcium 80 MG Tablet PO (21:04)
[2020-07-18 21:52] LABS: Bedside Glucose 255 mg/dL (70-110)
[2020-07-19 06:49] VITALS: BP 159/78; PULSE 72; RESP 18; TEMP 36.4; O2SAT 94
[2020-07-19] MEDS: Enoxaparin 40 MG/0.4 ML Syringe SC (06:52)
[2020-07-19 06:53] VITALS: PULSE 72
[2020-07-19] MEDS: Losartan Potassium 100 MG Tablet PO (06:53)
[2020-07-19] MEDS: Metoprolol(XL)Succ 100 MG Tablet PO (06:53)
[2020-07-19] MEDS: Levothyroxine 75 MCG Tablet PO (06:54)
[2020-07-19] MEDS: amLODIPine 5 MG Tablet PO (06:54)
[2020-07-19] MEDS: Sertraline 50 MG Tablet PO (06:54)
[2020-07-19] MEDS: 0.9% Saline Lock 10 ML Syringe IV (06:55)
[2020-07-19] MEDS: glipiZIDE 10 MG Tablet PO (08:16)
[2020-07-19] MEDS: Juven (unflavored) Packet 1 PACKET PO ×2 (08:16→16:31)
[2020-07-19] MEDS: Iron Polysaccharide Complex 150 MG CAPSULE PO (08:16)
[2020-07-19] MEDS: Aspirin E.C. 81 MG Tablet PO (08:16)
[2020-07-19] MEDS: Insulin Lispro 100 UNIT/ML INSULN.PEN 10 UNIT SC ×3 (08:18→17:54)
[2020-07-19 10:11] LABS: Bedside Glucose 225 mg/dL (70-110)
[2020-07-19 11:20] LABS: Bedside Glucose 263 mg/dL (70-110)
[2020-07-19 14:36] VITALS: BP 138/70; PULSE 70; RESP 16; TEMP 36.7; O2SAT 95
[2020-07-19 16:55] LABS: Bedside Glucose 171 mg/dL (70-110)
--- NOTE | 2020-07-19 20:31 | NURSING ---
Patient's PICC line removed at 1929. Patient tolerated procedure well. 41cm removed intact.
[2020-07-19] MEDS: Atorvastatin Calcium 80 MG Tablet PO (20:33)
[2020-07-19 20:41] LABS: Bedside Glucose 233 mg/dL (70-110)
[2020-07-20 06:05] VITALS: BP 144/88; PULSE 77; RESP 16; TEMP 36.4; O2SAT 93
[2020-07-20] MEDS: Enoxaparin 40 MG/0.4 ML Syringe SC (06:07)
[2020-07-20 06:08] VITALS: BP 144/88; PULSE 77
[2020-07-20] MEDS: amLODIPine 5 MG Tablet PO (06:08)
[2020-07-20] MEDS: Metoprolol(XL)Succ 100 MG Tablet PO (06:08)
[2020-07-20] MEDS: Levothyroxine 150 MCG Tablet PO (06:08)
[2020-07-20] MEDS: Losartan Potassium 100 MG Tablet PO (06:08)
[2020-07-20] MEDS: Sertraline 50 MG Tablet PO (06:08)
[2020-07-20 06:35] LABS: Bedside Glucose 204 mg/dL (70-110)
--- NOTE | 2020-07-20 07:30 | DS_ITS ---
Discharge Date and Diagnosis - Problem List Patient Problems: Active and Suspected Problems (Last Reviewed 06/11/20 @ 08:[address] Victorino Padilla MD) Debility (Acute) Osteomyelitis of right foot (Acute) Date of Admission: 06/07/20 Date of Discharge: 07/20/20 - Primary Discharge Diagnosis Acute Problems: Active Problems (Last Reviewed 06/11/20 @ 08:[address] Victorino Padilla MD) Debility (Acute) Osteomyelitis of right foot (Acute) - Secondary Discharge Diagnosis Chronic Problems: Chronic Problems (Last Reviewed 06/11/20 @ 08:[address] Victorino Padilla MD) Type 2 diabetes mellitus with diabetic polyneuropathy (Chronic) Hammer toe of right foot (Chronic) Delayed wound healing (Chronic) Peripheral vascular disease (Chronic) PAD (peripheral artery disease) (Chronic) Depression (Chronic) Hallux limitus of left foot (Chronic) Type 2 diabetes mellitus with diabetic polyneuropathy (Chronic) Hypertension (Chronic) Type 2 diabetes mellitus (Chronic) Vitamin D deficiency (Chronic) Vision problems (Chronic) Neuropathy (Chronic) Heart murmur (Chronic) High cholesterol (Chronic) Back pain (Chronic) Anemia (Chronic) Overweight (BMI 25.0-29.9) (Chronic) Diabetic foot ulcer (Chronic) Chronic ulcer of great toe of left foot (Chronic) Diabetes (Chronic) Hyperlipidemia (Chronic) Hypothyroidism (Chronic) History of CVA (cerebrovascular accident) (Chronic) 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 Electronically Signed: Kely Sauceda MD at 16:49 EDT Tel , Service support , Labs (Last 48 Hours) 06/30/20 07/01/20 07/01/20 20:48 05:19 05:19 WBC 6.0 RBC 3.53 L Hgb 10.0 L Hct 32.5 L MCV 92.1 MCH 28.3 MCHC 30.8 L RDW Std Deviation 49.5 H RDW Coeff of Kadi 14.6 Plt Count 243 MPV 9.0 Immature Gran % (Auto) 0.200 Neut % (Auto) 58.3 Lymph % (Auto) 23.2 Early % (Auto) 10.5 H Eos % (Auto) 7.0 H Baso % (Auto) 0.8 Absolute Neuts (auto) 3.5 Absolute Lymphs (auto) 1.39 Nucleated RBC % 0 Sodium 140 Potassium 4.0 Chloride 107 Carbon Dioxide 30.0 Anion Gap 3 L BUN 27 H Creatinine 0.84 Estim Creat Clear Calc 62.51 Est GFR (MDRD) Af Amer 88 Est GFR (MDRD) Non-Af 72 BUN/Creatinine Ratio 32.2 H Glucose 162 H Calcium 8.6 POC Glucose 173 H 07/01/20 07/01/20 07/01/20 06:13 11:02 16:33 WBC RBC Hgb Hct MCV MCH MCHC RDW Std Deviation RDW Coeff of Kadi Plt Count MPV Immature Gran % (Auto) Neut % (Auto) Lymph % (Auto) Early % (Auto) Eos % (Auto) Baso % (Auto) Absolute Neuts (auto) Absolute Lymphs (auto) Nucleated RBC % Sodium Potassium Chloride Carbon Dioxide Anion Gap BUN Creatinine Estim Creat Clear Calc Est GFR (MDRD) Af Amer Est GFR (MDRD) Non-Af BUN/Creatinine Ratio Glucose Calcium POC Glucose 171 H 127 H 144 H 07/01/20 07/02/20 07/02/20 21:04 06:16 10:43 WBC RBC Hgb Hct MCV MCH MCHC RDW Std Deviation RDW Coeff of Kadi Plt Count MPV Immature Gran % (Auto) Neut % (Auto) Lymph % (Auto) Early % (Auto) Eos % (Auto) Baso % (Auto) Absolute Neuts (auto) Absolute Lymphs (auto) Nucleated RBC % Sodium Potassium Chloride Carbon Dioxide Anion Gap BUN Creatinine Estim Creat Clear Calc Est GFR (MDRD) Af Amer Est GFR (MDRD) Non-Af BUN/Creatinine Ratio Glucose Calcium POC Glucose 112 H 146 H 187 H 07/02/20 16:22 WBC RBC Hgb Hct MCV MCH MCHC RDW Std Deviation RDW Coeff of Kadi Plt Count MPV Immature Gran % (Auto) Neut % (Auto) Lymph % (Auto) Early % (Auto) Eos % (Auto) Baso % (Auto) Absolute Neuts (auto) Absolute Lymphs (auto) Nucleated RBC % Sodium Potassium Chloride Carbon Dioxide Anion Gap BUN Creatinine Estim Creat Clear Calc Est GFR (MDRD) Af Amer Est GFR (MDRD) Non-Af BUN/Creatinine Ratio Glucose Calcium POC Glucose 129 H Consultations 06/10/20 10:33 Consult: Onc/Wound/battery tester Routine Comment: Reason for Consult:: rt foot wound vac Operations: None, - - June 05, 2020 right foot fifth ray resection, I&D Procedures: None Summary of Care Provided: The patient is a 64 year old Female with below past medical history hospitalized osteomyelitis right foot, underwent right 5th ray resection, admitted to TCU with debility, here for rehabilitation, strengthening, intravenous antibiotics, wound care, prior to discharge home alone. [] Discharge home alone, [facility], Wound VAC. Patient Problems: Active and Suspected Problems (Last Reviewed 06/11/20 @ 08:[address] Victorino Padilla MD) Debility (Acute) Osteomyelitis of right foot (Acute) - Physical Exam Vitals/I&O's: Vital Signs Temp Pulse Resp BP Pulse Ox 97.2 F L 74 20 H 144/70 H 97 07/02/20 14:53 07/02/20 14:53 07/02/20 14:53 07/02/20 14:53 07/02/20 14:53 Oxygen Flow Rate (L/min) 93 Oxygen Delivery Method Room Air Weight: 96.19 kg Body Mass Index (BMI) 33.9 Finger Stick Blood Glucose 100 Intake and Output for Last 24 Hours 06/30/20 07/01/20 07/02/20 23:59 23:59 23:59 Intake Total 1030.75 / 1030.75 1190 / 1190 906.25 / 906.25 Balance 1030.75 / 1030.75 1190 / 1190 906.25 / 906.25 Laboratory Results 07/01/20 21:04: POC Glucose 112 H 07/02/20 06:16: POC Glucose 146 H 07/02/20 10:43: POC Glucose 187 H 07/02/20 16:22: POC Glucose 129 H Current Medications Acetaminophen (Tylenol) 1,000 mg PO Q6H PRN PRN PRN Reason: Pain Score 1-5/10 Last Admin: 06/28/20 21:08 Dose: 1,000 mg Documented by: Amlodipine Besylate (Norvasc) 5 mg PO DAILY [facility] Last Admin: 07/02/20 06:19 Dose: 5 mg Documented by: Aspirin (Ecotrin) 81 mg PO DAILY@0800 [facility] Last Admin: 07/02/20 08:15 Dose: 81 mg Documented by: Atorvastatin Calcium (Lipitor) 80 mg PO QHS [facility] Last Admin: 07/01/20 20:50 Dose: 80 mg Documented by: Bisacodyl (Dulcolax) 10 mg RECTAL DAILY PRN PRN Reason: Constipation Calamine/Phenol (Calmoseptine Ointment) 1 applic TOPICAL BID [facility]; Protocol Last Admin: 07/02/20 17:42 Dose: 1 applicatio Documented by: Enoxaparin Sodium (Lovenox) 40 mg SC DAILY@0600 [facility] Last Admin: 07/02/20 06:18 Dose: 40 mg Documented by: Ergocalciferol (Vitamin D) 50,000 unit PO We@1000 [facility] Last Admin: 07/02/20 10:36 Dose: 50,000 unit Documented by: Glipizide (Glucotrol) 10 mg PO DAILYCM [facility] Last Admin: 07/02/20 08:16 Dose: 10 mg Documented by: Heparin Sodium (Beef Lung) () 50 units IV UD PRN PRN Reason: PICC Line Heparin Flush Ceftriaxone Sodium 2 gm/ (Sodium Chloride) 50 mls @ 100 mls/hr IV Q24 [facility] Stop: 07/19/20 10:01 Last Infusion: 07/02/20 11:28 Dose: Infused Documented by: Sodium Chloride () 250 mls @ 15 mls/hr IV .[id number] PRN PRN Reason: SALINE FLUSH Last Infusion: 07/02/20 11:28 Dose: 0 mls/hr Documented by: Insulin Glargine (Lantus (Bkc)) 20 units SC BID [facility] Last Admin: 07/02/20 17:38 Dose: 20 units Documented by: Insulin Human Lispro (Humalog Kwikpen (Bk)) 13 unit SC TIDAC [facility] Last Admin: 07/02/20 17:40 Dose: 13 units Documented by: Lactobacillus Acidophilus (Acidophilus) 1 tablet PO BID [facility] Last Admin: 07/02/20 17:41 Dose: 1 tablet Documented by: Levothyroxine Sodium (Synthroid) 150 mcg PO Stokes@0600 [facility] Last Admin: 06/29/20 06:45 Dose: 150 mcg Documented by: Levothyroxine Sodium (Synthroid) 75 mcg PO MoTuWeThFrSa@0600 [facility] Last Admin: 07/02/20 06:19 Dose: 75 mcg Documented by: Losartan Potassium (Cozaar) 100 mg PO DAILY [facility] Last Admin: 07/02/20 06:19 Dose: 100 mg Documented by: Metoprolol Succinate (Toprol Xl (Beta [place])) 100 mg PO DAILY [facility] Last Admin: 07/02/20 06:19 Dose: 100 mg Documented by: Oxycodone HCl (Oxyir) 5 mg PO Q4H PRN PRN PRN Reason: Pain Score 6-10/10 Polyethylene Glycol (Miralax) 17 gm PO DAILY [facility] Last Admin: 07/02/20 06:20 Dose: Not Given Documented by: Pol[facility]accharide [facility] 150[facility] Last Admin: 07/02/20 08:15 Dose: 150 mg Documented by: Senna/Docusate Sodium (Senokot-S, Salima-Colace) 2 tablet PO BID [facility] Last Admin: 07/02/20 17:42 Dose: Not Given Documented by: Sertraline HCl (Zoloft) 50 mg PO DAILY [facility] Last Admin: 07/02/20 06:19 Dose: 50 mg Documented by: Sodium Chloride () 10 - 40 ml IV UD PRN PRN Reason: Open End PICC Flush Last Admin: 07/02/20 11:25 Dose: 10 ml Documented by: Sodium Chloride (0.9% Nacl (Sterile) Posiflush) 10 - 40 ml IV UD PRN PRN Reason: Port access or dressing change Discharge Diet: No Restrictions Discharge Activity: Return to Normal Activity, May Shower, Use Walker Weight Bearing Status: No weight bearing Keep extremity elevated above heart level: Operative Extremity, Right Leg Call your doctor if you observe: Fever of 101 or Higher, Inability to urinate, Inability to have a bowel movement, Shortness of breath, Chest pain, Uncontrolled pain Home Medications: Medications to take at Discharge Aspirin E.C. [Ecotrin] 81 mg PO DAILY@0800 06/04/20 Atorvastatin Calcium 80 mg PO QHS 06/04/20 Ergocalciferol (Vitamin D2) [Drisdol] 50,000 unit PO WE 06/04/20 Glipizide 10 mg PO DAILY 06/04/20 Levothyroxine Sodium 75 mcg PO MOTUWETHFRSA 06/04/20 Levothyroxine [Synthroid] 150 mcg PO STOKES 06/04/20 Losartan Potassium 50 mg PO DAILY 06/04/20 Metoprolol Succinate 50 mg PO DAILY 06/04/20 Sertraline HCl [Zoloft] 50 mg PO DAILY 06/04/20 Acetaminophen [Tylenol] 1,000 mg PO Q6H PRN PRN tablet 07/02/20 Amlodipine [Norvasc] 5 mg PO DAILY #30 tab 07/02/20 Insulin Glargine [Lantus SoloStar Pen] 20 units SUBCUT BID #1 pen 07/02/20 Insulin Lispro [Humalog KwikPen] 13 unit SUBCUT TIDAC #1 insuln.pen 07/02/20 Iron Polysaccharide Complex [Ferrex 150] 150 mg PO DAILYCM #30 cap 07/02/20 Jere (unflavored) [Jere Packet] 1 packet PO BIDCM #60 packet 07/02/20 Lactobacillus Acidophilus [Acidophilus] 1 tablet PO BID tablet 07/02/20 Menthol/Lanolin/Calamine/Znox [Calmoseptine Ointment] 1 applic TOPICAL BID tube 07/02/20 Following Prescriptions Were Given to Patient: Iron Polysaccharide Complex [Ferrex 150] 150 mg PO DAILYCM #30 cap Transmission Status: Pending to [id number] Insulin Lispro [Humalog KwikPen] 13 unit SUBCUT TIDAC #1 insuln.pen Transmission Status: Pending to [id number] Jere (unflavored) [Jere Packet] 1 packet PO BIDCM #60 packet Transmission Status: Pending to [id number] Insulin Glargine [Lantus SoloStar Pen] 20 units SUBCUT BID #1 pen Transmission Status: Pending to [id number] Amlodipine [Norvasc] 5 mg PO DAILY #30 tab Transmission Status: Pending to [id number] Primary Care Physician: Quinn Combs Chi, MD [COURTESY STAFF PHYSICIAN] - Please follow up with your Primary Care Physician in: 1 week. Please Follow Up With: Lenora Momin DPM When: 1-2 weeks Please Follow Up With: Armando Mejia MD When: 2-3 weeks Please Follow Up With: Armando Obrien MD When: 2-3 weeks Disposition: Home with Home Health Minutes spent on discharge:: 35 Patient Condition:: Stable Medical Necessity - Tobacco Use Smoking Status: Never smoker Tobacco Use: Secondhand Meaningful Use Info Meaningful Use Diagnoses (Choose all that apply): None applicable
[2020-07-20] MEDS: Iron Polysaccharide Complex 150 MG CAPSULE PO (07:54)
[2020-07-20] MEDS: Aspirin E.C. 81 MG Tablet PO (07:54)
[2020-07-20] MEDS: Insulin Lispro 100 UNIT/ML INSULN.PEN 10 UNIT SC (07:54)
[2020-07-20] MEDS: glipiZIDE 10 MG Tablet PO (07:54)
[2020-07-20] MEDS: Juven (unflavored) Packet 1 PACKET PO (07:55)
== END 2020-07-20 10:28 | disposition home health service (06) | DRG 464 ==
PROVIDERS: Admitting Provider Family Medicine Geriatric Medicine; PCP Internal Medicine; Visit Provider Family Medicine Geriatric Medicine
DX: Z47.81 Encounter for orthopedic aftercare following surgical amputation (principal); M86.171 Other acute osteomyelitis, right ankle and foot; Z16.29 Resistance to other single specified antibiotic; L03.115 Cellulitis of right lower limb; Z89.431 Acquired absence of right foot; E11.69 Type 2 diabetes mellitus with other specified complication; E11.51 Type 2 diabetes mellitus with diabetic peripheral angiopathy without gangrene; B95.1 Streptococcus, group B, as the cause of diseases classified elsewhere; Z23 Encounter for immunization; F32.9 Major depressive disorder, single episode, unspecified; E03.9 Hypothyroidism, unspecified; E78.5 Hyperlipidemia, unspecified; E55.9 Vitamin D deficiency, unspecified; B35.4 Tinea corporis; I10 Essential (primary) hypertension; E11.42 Type 2 diabetes mellitus with diabetic polyneuropathy; E11.621 Type 2 diabetes mellitus with foot ulcer; L97.529 Non-pressure chronic ulcer of other part of left foot with unspecified severity; D50.9 Iron deficiency anemia, unspecified
CPT/HCPCS: 36415; 73630; 80048; 82962; 85025; 87635; 93926; 97110; 97116; 97162; 97165; 97530; 97535; C9803; G0008; G0009; J2997; J7050; 90670; 90686; A4216; J0696; U0003

== ENCOUNTER → 2021-03-11 15:18 | Outpatient (CLI) | payer MEDICARE, OTHER, SELFPAY ==
[2021-03-11 14:36] VITALS: BMI 33.9
[2021-03-11 16:32] LABS: Absolute Neutrophil Count 5.8 X10^3/uL (2.0-7.7); Basophil# 0.05 X10^3/uL; Basophil% 0.6 % (0-1); Eosinophil# 0.33 X10^3/uL; Hematocrit 34.7 % (37-47); Lymphocyte % 17.2 % (19-41); Mean Corp Hgb Conc 31.7 g/dL (32-36); Mean Corpuscular Hgb 29.2 pg (27.0-32.0); Mean Platelet Vol. 9.9 fl (6.2-12.0); Monocyte# 0.59 X10^3/uL; Monocyte% 7.2 % (0-10); NRBC Flagged by Analyzer 0 % (0-5); Neutrophil # 5.76 X10^3/uL (2.7-7.7); Neutrophil % 70.6 % (47-70); Platelet Count 325 K/mm3 (150-450); RBC Distribution Width CV 13.7 % (11.6-14.6); RBC Distribution Width SD 46.5 fl (35.1-43.9); Red Blood Count 3.77 M/mm3 (4.2-5.4); White Blood Count 8.2 K/mm3 (4.4-11.0)
[2021-03-11 17:10] LABS: ALB/GLOB Ratio 0.8 RATIO (0.9-2.4); AST(SGOT) 10 U/L (15-37); Alanine Aminotransfer ALT/SGPT 22 U/L (13-56); Albumin, Serum 3.3 g/dL (3.2-5.0); Alkaline Phosphatase 92 U/L (45-117); Anion Gap 6 (5-15); BUN 16 mg/dL (7-18); BUN/Creat Ratio 17.4 RATIO (10-20); Calcium,Total 8.8 mg/dL (8.5-10.1); Chloride 103 mmol/L (98-107); Cholesterol 201 mg/dL (200); Creatinine, Serum 0.92 mg/dL (0.55-1.02); EST Glomerular Filtration Rate 65 mL/min (>60); Est Glom Filt Rate - Afr Amer 78 mL/min (>60); Globulin 4.3 g/dL (2.2-4.2); Glucose 274 mg/dL (74-106); High Density Lipoprotein 39 mg/dL; Protein, Total 7.6 g/dL (6.4-8.2); Sodium Level 138 mmol/L (136-145); Thyroid Stim Hormone (TSH) 3.59 uIU/mL (0.358-3.74); Triglycerides 154 mg/dL; Very Low Density Lipoprotein 31 mg/dL (5-40)
[2021-03-11 17:40] LABS: BNP,B-Type NATRIURETIC PEPTIDE 403.1 pg/mL (0-100)
== END ==
PROVIDERS: PCP Internal Medicine; Referring Provider Nurse Practitioner Family; Visit Provider Nurse Practitioner Family
DX: R06.00 Dyspnea, unspecified (principal); I51.9 Heart disease, unspecified; E11.42 Type 2 diabetes mellitus with diabetic polyneuropathy; E03.9 Hypothyroidism, unspecified
CPT/HCPCS: 36415; 80053; 80061; 83880; 84443; 85025

== ENCOUNTER → 2021-03-20 11:21 | Outpatient (CLI) | payer MEDICARE, OTHER, SELFPAY ==
[2021-03-11 15:28] VITALS: BMI 33.9
[2021-03-20 13:21] LABS: Anion Gap 7 (5-15); BUN 25 mg/dL (7-18); BUN/Creat Ratio 20.5 RATIO (10-20); Calcium,Total 9.4 mg/dL (8.5-10.1); Chloride 98 mmol/L (98-107); Creatinine, Serum 1.22 mg/dL (0.55-1.02); EST Glomerular Filtration Rate 47 mL/min (>60); Est Glom Filt Rate - Afr Amer 57 mL/min (>60); Glucose 427 mg/dL (74-106); Sodium Level 136 mmol/L (136-145)
[2021-03-20 15:52] LABS: Microalbumin,Random Urine 31.3 mg/L (NO RANGE EST.)
== END ==
PROVIDERS: PCP Internal Medicine; Referring Provider Nurse Practitioner Family; Visit Provider Nurse Practitioner Family
DX: I11.0 Hypertensive heart disease with heart failure (principal); I50.9 Heart failure, unspecified; E11.42 Type 2 diabetes mellitus with diabetic polyneuropathy; E03.9 Hypothyroidism, unspecified
CPT/HCPCS: 36415; 80048; 82043; 82570

== ENCOUNTER → 2021-03-23 10:51 | Outpatient (CLI) | payer MEDICARE, OTHER, SELFPAY ==
[2021-03-11 15:28] VITALS: BMI 33.9
[2021-03-20 11:37] VITALS: BMI 33.9
--- NOTE | 2021-03-23 10:53 | ECHOCS_ITS ---
Version 2 Reason For Study: PALPITATIONS Procedure This was a 2D Doppler, Color Flow transthoracic echocardiogram. The study was technically difficult. Contrast injection was performed. Exam performed in department. Left Ventricle Normal LV size. Left ventricular systolic function is normal. The estimated ejection fraction is 65 %. Stage 1 diastolic dysfunction. No regional wall motion abnormalities noted. Right Ventricle Normal RV size. Normal systolic function. Atria Normal left atrium. Normal right atrium. Mitral Valve Normal mitral valve. Tricuspid Valve Normal tricuspid valve. Mild tricuspid valve insufficiency. Pulmonary artery systolic pressure is 30 mmHg. Aortic Valve Trisinus/trileaflet aortic valve. Mild focal aortic valve calcification. Peak aortic valve gradient 27 mmHg. Mean aortic valve gradient 17 mmHg. Mild aortic stenosis. Pulmonic Valve The pulmonic valve is not well visualized. Great Vessels Normal aortic root. The pulmonary artery is normal size. Normal inferior vena cava. Pericardium/Pleural No pericardial effusion. Medication 22 gauge I.V. with prn adaptor inserted into right arm. Diluted definity 2.5ml given slow IV push to enhance endocardial definition. MMode/2D Measurements & Calculations LVIDd: 4.2 cm IVSd: 1.2 cm LVOT diam: 2.0 cm LVIDs: 2.9 cm LVPWd: 1.2 cm FS: 32.0 % LVOT area: 3.1 cm2 Ao root diam: 3.4 cm LAV(MOD-bp): 49.5 ml LVAd ap4: 29.2 cm2 LAV(MOD-bp) Indexed: 24.3 ml/m2 LVLd ap4: 8.2 cm LAV(MOD-sp2): 60.7 ml EDV(MOD-sp4): 84.3 ml LAV(MOD-sp4): 39.7 ml EDV(sp4-el): 87.9 ml LVAs ap4: 14.8 cm2 LVLs ap4: 6.9 cm ESV(MOD-sp4): 26.5 ml ESV(sp4-el): 26.9 ml EF(MOD-sp4): 68.6 % EF(sp4-el): 69.4 % LVAd ap2: 24.2 cm2 SV(MOD-sp4): 57.8 ml SV(MOD-sp2): 41.7 ml LVLd ap2: 8.0 cm EDV(MOD-sp2): 62.5 ml EDV(sp2-el): 62.5 ml LVAs ap2: 12.4 cm2 LVLs ap2: 6.1 cm ESV(MOD-sp2): 20.8 ml ESV(sp2-el): 21.7 ml EF(MOD-sp2): 66.7 % SV(sp4-el): 61.0 ml Aortic Valve Planimetry: 1.2 cm2 LA A4 area: 15.9 cm2 LA dimension(2D): 4.4 cm RA A4 area: 9.9 cm2 Time Measurements MV dec time: 0.26 sec Doppler Measurements & Calculations MV E max jack: 30.2 cm/sec Lat Peak E' Jack: 5.0 cm/sec Med Peak E' Jack: 3.9 cm/sec MV A max jack: 91.4 cm/sec E/E' lat: 6.1 E/E' med: 7.8 MV E/A: 0.33 MV V2 max: 93.2 cm/sec Ao V2 max: 259.6 cm/sec LV V1 max: 99.2 cm/sec MV max P.5 mmHg Ao max P.0 mmHg LV V1 max P.9 mmHg MV V2 mean: 57.1 cm/sec Ao V2 mean: 197.2 cm/sec LV V1 mean P.3 mmHg MV mean P.5 mmHg Ao mean P.3 mmHg LV V1 mean: 71.7 cm/sec MV V2 VTI: 22.8 cm Ao V2 VTI: 59.9 cm LV V1 VTI: 23.3 cm MVA(VTI): 3.2 cm2 DARVIN(I,D): 1.2 cm2 DARVIN(V,D): 1.2 cm2 SV(LVOT): 72.7 ml PA V2 max: 102.9 cm/sec TR max jack: 261.9 cm/sec TR max P.4 mmHg MV P1/2t-pr_phl: 70.7 msec ECHO/Echo Complete W/ Contrast Interpretation Summary Normal LV size. Left ventricular systolic function is normal. The estimated ejection fraction is 65 %. Stage 1 diastolic dysfunction. Mean aortic valve gradient 17 mmHg. Mild aortic stenosis. Contrast injection was performed. Ordering Physician: Cipriano Sullivan Referring Physician: Maricruz Andino Performed By: Helen Osborne, ELBA, RVT
== END ==
PROVIDERS: PCP Internal Medicine; Referring Provider Nurse Practitioner Family; Visit Provider Nurse Practitioner Family
DX: I51.9 Heart disease, unspecified (principal)
CPT/HCPCS: 93306; Q9957; C8929; J3490

== ENCOUNTER → 2021-04-01 09:21 | Outpatient (CLI) | payer MEDICARE, OTHER, SELFPAY ==
[2021-03-24 13:52] VITALS: BMI 33.9
[2021-04-01 12:39] LABS: Anion Gap 6 (5-15); BUN 22 mg/dL (7-18); BUN/Creat Ratio 18.2 RATIO (10-20); Calcium,Total 9.5 mg/dL (8.5-10.1); Chloride 100 mmol/L (98-107); Creatinine, Serum 1.21 mg/dL (0.55-1.02); EST Glomerular Filtration Rate 47 mL/min (>60); Est Glom Filt Rate - Afr Amer 57 mL/min (>60); Glucose 373 mg/dL (74-106); Potassium 4.6 mmol/L (3.5-5.1); Sodium Level 135 mmol/L (136-145)
== END ==
PROVIDERS: PCP Internal Medicine; Referring Provider Nurse Practitioner Family; Visit Provider Nurse Practitioner Family
DX: I50.9 Heart failure, unspecified (principal)
CPT/HCPCS: 36415; 80048

== ENCOUNTER → 2021-04-29 05:42 | Outpatient (CLI) | payer MEDICARE, OTHER, SELFPAY ==
[2021-04-15 14:57] VITALS: BMI 32.5
--- NOTE | 2021-04-29 12:50 | STRESSREP ---
Stress Test Report Pharmacologic myocardial perfusion stress test. 65-year-old lady with a history of chest pain. Stress protocol: Resting EKG demonstrates normal sinus rhythm with a rate of 73 bpm normal intervals are noted resting blood pressure is 142/80 mmHg. 0.4 mg of regadenoson was infused per usual protocol followed by Intravenous saline flush injection continuous EKG monitoring was performed. The maximum heart rate attained was 81 bpm which was 52% of max impact on heart rate the maximum workload was 1 metabolic equivalent. At rest there were no ST or T wave changes noted to suggest abnormal flow reserve and at peak infusion nonspecific ST changes were noted. The peak blood pressure was 142/80 mmHg. Myocardial perfusion protocol. 13.0 mCi of technetium 99m sestamibi was injected at rest. 0.4 mg of regadenoson was infused per usual protocol. At peak infusion 40.2 mCi of technetium 99m sestamibi was injected stress images were obtained stress and rest images were reconstructed and compared in the short axis vertical long and horizontal long axis. Gated images were also obtained. Perfusion SPECT analysis: Review of the stress images demonstrate normal uptake of tracer noted in all areas of the myocardium. The resting images similarly demonstrate normal uptake of tracer noted in all areas of the myocardium. No previous infarct is noted no ischemia is noted. Gated SPECT analysis: The gated ejection fraction is 76%. Conclusion: Normal pharmacologic myocardial perfusion stress test. Preserved ejection fraction.
== END ==
PROVIDERS: PCP Internal Medicine; Referring Provider Internal Medicine Cardiovascular Disease; Visit Provider Internal Medicine Cardiovascular Disease
DX: I50.30 Unspecified diastolic (congestive) heart failure (principal); R06.02 Shortness of breath
CPT/HCPCS: 78452; 93017; A9500; A4216; J2785

== ENCOUNTER → 2021-06-17 10:09 | Outpatient (CLI) | payer MEDICARE, OTHER, SELFPAY ==
[2021-06-17 11:18] LABS: Anion Gap 7 (5-15); BUN 26 mg/dL (7-18); BUN/Creat Ratio 22.6 RATIO (10-20); Calcium,Total 9.4 mg/dL (8.5-10.1); Chloride 101 mmol/L (98-107); Creatinine, Serum 1.15 mg/dL (0.55-1.02); EST Glomerular Filtration Rate 50 mL/min (>60); Est Glom Filt Rate - Afr Amer 61 mL/min (>60); Glucose 352 mg/dL (74-106); Sodium Level 135 mmol/L (136-145)
== END ==
PROVIDERS: PCP Internal Medicine; Referring Provider Internal Medicine; Visit Provider Internal Medicine
DX: N17.9 Acute kidney failure, unspecified (principal)
CPT/HCPCS: 36415; 80048